=== PATIENT | female | born 1945 | race Two or more races ===

== ENCOUNTER 2017-01-28 06:21 | Day surgery (SDC) | payer MEDICARE, OTHER ==
--- NOTE | 2017-01-24 08:57 | Pre-Procedure Note/Attestation ---
Pre-Procedure Note/Attestation Complete Prior to Procedure Planned Procedure: right Procedure Narrative: 1- Cataract extraction with phaco and PC IOL implantation, right eye. 2- insertion of Malyugin ring, right eye. Indications for Procedure Pre-Operative Diagnosis: 1- Cataract right eye. Attestation I attest that I discussed the nature of the procedure; its benefits; risks and complications; and alternatives (and the risks and benefits of such alternatives ), prior to the procedure, with the patient (or the patient's legal accounts payable representative). I attest that, if there was a reasonable possibility of needing a blood transfusion, the patient (or the patient's legal accounts payable representative) was given the [place] Department [employer] Services standardized written summary, pursuant to the Rainer Negrita Blood Safety Act ([place] Health and Safety Code # 1645, as amended). I attest that I re-evaluated the patient just prior to the surgery and that there has been no change in the patient's H&P, except as documented below: RENETTA PRESSLEY Jan 24, 2017 08:57
[~2017-01-28] VITALS: Ht 167.6 cm; Wt 49.9 kg
[2017-01-28] VITALS (7 sets, daily range): BP systolic 110–143; BP diastolic 54–78
[~2017-01-28 06:21] MED LIST: Diclofenac Sod 0.1% Op Soln ONE; Gatifloxacin Opth Solution 0.5% RIGHT EYE SCH; Phenylephrine 10% Opth Soln 5ml ONE; Tetracaine 0.5% Opth Soln ONE; Tropicamide 1% Opth Soln ONE; Vigamox Opth Soln ONE
[2017-01-28] MEDS: Phenylephrine 10% Opth Soln 5ml RIGHT EYE SCH ×3 (06:51→07:15)
[2017-01-28] MEDS: Tropicamide 1% Opth Soln RIGHT EYE SCH ×3 (06:55→07:14)
[2017-01-28] MEDS: Tetracaine 0.5% Opth Soln RIGHT EYE SCH ×3 (06:55→07:13)
[2017-01-28] MEDS: Vigamox Opth Soln RIGHT EYE SCH ×3 (06:56→07:13)
[2017-01-28] MEDS: Diclofenac Sod 0.1% Op Soln RIGHT EYE SCH ×3 (06:56→07:14)
[2017-01-28] MEDS ORDERED: BSS 500ml btl ONE (07:02)
[2017-01-28] MEDS ORDERED: Dexamethasone 4mg/ml vial ONE (07:02)
[2017-01-28] MEDS ORDERED: Lidocaine 1% MPF 10mg/ml 5ml ONE (07:02)
[2017-01-28] MEDS ORDERED: EPINEPHrine 1mg/1ml Amp ONE (07:03)
[2017-01-28] MEDS ORDERED: Povidone-Iodine 5% opth solution ONE (07:03)
[2017-01-28] MEDS ORDERED: BSS 15ml BTL ONE (07:03)
[2017-01-28] MEDS ORDERED: Sodium Hyaluronate 10 mg/ml 0.85ml ONE (07:03)
[2017-01-28] MEDS ORDERED: Carbachol 0.01% Op Soln 1.5ml vial ONE (07:03)
[2017-01-28] MEDS ORDERED: LR 1000ml ONE (07:20)
[2017-01-28] MEDS ORDERED: Propofol 10mg/ml 20ml IV ONE (07:20)
[2017-01-28 07:40] LABS: ANION GAP 6 (5-15); CALCIUM 9.5 mg/dL (8.6-10.2); CARBON DIOXIDE 32 mEQ/L (20-30); CHLORIDE 105 mEQ/L (98-107); HEMOLYSIS 11; POTASSIUM 5.8 mEQ/L (3.4-4.9); SODIUM 143 mEQ/L (135-145)
[2017-01-28 07:41] LABS: MEAN CORPUSCULAR HEMOGLOBIN 35.1 PG (27.0-31.0); MEAN CORPUSCULAR VOLUME 106 FL (80-99); MEAN PLATELET VOLUME 11.9 FL (6.5-10.1); PLATELET COUNT 83 K/UL (150-450); RED BLOOD COUNT 4.04 M/UL (4.20-5.40); WHITE BLOOD COUNT 4.7 K/UL (4.8-10.8)
[2017-01-28] MEDS ORDERED: LR 1000ml 1,000 ML IVLG SCH (07:47)
--- NOTE | 2017-01-28 07:53 | Anethesia Preoperative Eval ---
Anesthesia Pre-op PMH/ROS General Date of Evaluation: Jan 28, 2017 Time of Evaluation: 07:20 Anesthesiologist: Anita ASA Score: ASA 2 Mallampati Score Class I : Soft palate, uvula, fauces, pillars visible Class II: Soft palate, uvula, fauces visible Class III: Soft palate, base of uvula visible Class IV: Only hard plate visible Mallampati Classification: Class II Surgeon: Jules Diagnosis: Cataract right eye Surgical Procedure: Extraction of cataract with IOL right eye Family History: no anesthesia problems Allergies: Uncoded Allergies: pain killers (Allergy, Severe, 01/28/17) Medications: see eMAR Past Medical History Cardiovascular: Denies: CAD, HTN, MS, arrhythmia, other, valve dz Pulmonary: Reports: asthma, Denies: COPD, WILLIAM, other Gastrointestinal/Genitourinary: Reports: other - Patient is unclear re: supposed liver disease. No evidence found to support the claim of liver disease., Denies: CRI, ESRD, GERD Neurologic/Psychiatric: Denies: CVA, TIA, dementia, depression/anxiety, other Endocrine: Denies: DM, hypothyroidism, other, steroids HEENT: Reports: cataract (R), Denies: FOND DU LAC (L), FOND DU LAC (R), cataract (L), glaucoma, other Hematology/Immune: Denies: DVT, anemia, bleeding disorder, other Musculoskeletal/Integumentary: Denies: DDD, DJD, OA, RA, edema, other PMH Narrative: Asthma PSxH Narrative: Cataract Anesthesia Pre-op Phys. Exam Physician Exam Last Vital Signs Date Time Temp Pulse Resp B/P Pulse Ox O2 Delivery O2 Flow Rate FiO2 01/28/17 07:04 97.5 60 18 113/66 100 Room Air Constitutional: NAD Neurologic: CN 2-12 intact Cardiovascular: RRR, no M/R/G Respiratory: CTA Gastrointestinal: S/NT/ND Airway Exam Mallampati Score: Class II MO: full ROM: full Teeth: intact Anesthesia Pre-op A/P Labs Hematology Test 01/28/17 06:55 White Blood Count 4.7 K/UL (4.8-10.8) L Red Blood Count 4.04 M/UL (4.20-5.40) L Hemoglobin 14.2 G/DL (12.0-16.0) Hematocrit 43.0 % (37.0-47.0) Mean Corpuscular Volume 106 FL (80-99) H Mean Corpuscular Hemoglobin 35.1 PG (27.0-31.0) H Mean Corpuscular Hemoglobin Concent 33.0 G/DL (32.0-36.0) Red Cell Distribution Width 12.0 % (11.6-14.8) Platelet Count 83 K/UL (150-450) L Mean Platelet Volume 11.9 FL (6.5-10.1) H Neutrophils (%) (Auto) % (45.0-75.0) Lymphocytes (%) (Auto) % (20.0-45.0) Monocytes (%) (Auto) % (1.0-10.0) Eosinophils (%) (Auto) % (0.0-3.0) Basophils (%) (Auto) % (0.0-2.0) Neutrophils % (Manual) Pending Lymphocytes % (Manual) Pending Platelet Estimate Pending Platelet Morphology Pending Chemistry Test 01/28/17 06:55 Sodium Level 143 mEQ/L (135-145) Potassium Level 5.8 mEQ/L (3.4-4.9) H Chloride Level 105 mEQ/L (98-107) Carbon Dioxide Level 32 mEQ/L (20-30) H Anion Gap 6 (5-15) Blood Urea Nitrogen 18 mg/dL (7-23) Creatinine 1.0 mg/dL (0.5-0.9) H Estimat Glomerular Filtration Rate mL/min (>60) Glucose Level 88 mg/dL (74-106) Calcium Level 9.5 mg/dL (8.6-10.2) Studies Pre-op Studies: EKG - Sinus taran with STTW abnormality in lateral leads...possible ischemia Risk Assessment & Plan Assessment: Cataract right eye Plan: TIVA Status Change Before Surgery: No Pre-Antibiotics Drug: None JASBIR SOMMER M.D. Jan 28, 2017 07:53
--- NOTE | 2017-01-28 07:54 | Immediate Post-Op Evaluation ---
Immediate Post-Op Evalulation Immediate Post-Op Evalulation Procedure: Extraction of cataract with IOL right eye Date of Evaluation: Jan 28, 2017 Time of Evaluation: 08:15 IV Fluids: 300 Blood Pressure Systolic: 133 Blood Pressure Diastolic: 60 Pulse Rate: 63 Respiratory Rate: 16 O2 Sat by Pulse Oximetry: 99 Temperature (Fahrenheit): 98.0 Pain Score (1-10): 0 Nausea: No Vomiting: No Complications No complication Patient Status: awake, patent, none Hydration Status: adequate Drug: None JASBIR SOMMER M.D. Jan 28, 2017 07:54
--- NOTE | 2017-01-28 08:13 | 48 Hour Post Anesthesia Eval ---
Post Anesthesia Evaluation Procedure: Extraction of cataract with IOL right eye Date of Evaluation: Jan 28, 2017 Time of Evaluation: 08:40 Pulse Rate: 60 Respiratory Rate: 17 O2 Sat by Pulse Oximetry: 99 Airway: patent Nausea: No Vomiting: No Pain Intensity: 0 Hydration Status: adequate Cardiopulmonary Status: Stable Mental Status/LOC: patient returned to baseline Follow-up Care/Observations: As per surgery Post-Anesthesia Complications: No anesthetic complication Follow-up care needed: N/A JASBIR SOMMER M.D. Jan 28, 2017 08:13
--- NOTE | 2017-01-28 08:13 | Discharge Summary ---
Discharge Summary Discharge Summary Discharge Summary DATE OF ADMISSION: 01/28/2017 DATE OF DISCHARGE: 01/28/2017 REASON FOR HOSPITALIZATION: Cataract, right eye SURGERY PERFORMED: Cataract extraction with phaco and PC IOL implantation, right eye CONDITION IN THE HOSPITAL:The patient tolerated the surgery without complications. DISCHARGE CONDITION: The patient was stable at discharge. DISCHARGE MEDICATIONS: 1. Vigamox eye drops one drop q.i.d, right eye 2. Prednisolone one drop q.i.d, right eye 3. Acular one drop, q4h, right eye POSTOPERATIVE ORDERS: The patient has to rest at home. No bending, No lifting, No watching Television tonight. POSTOPERATIVE FOLLOW UP: The patient will be followed in my office tomorrow morning at 7 o'clock. RENETTA PRESSLEY Jan 28, 2017 08:13
--- NOTE | 2017-01-28 08:16 | Brief Operative Note ---
Immediate Post Operative Note Operative Note Chief Complaint: Blurry vision, difficulty driving and reading, right eye Pre-op Diagnosis: 1- Cataract right eye. Procedure: cataract extraction with phaco and PC IOL implantation, right eye Post-op Diagnosis: same as pre-op Surgeon: Renetta Vicente MD. Special Education Classroom Aide: None Additional Surgeons: None Anesthesiologist: Dr. Bass Anesthesia: MAC Specimen: none Complications: none Condition: stable Estimated Blood Loss: none Drains: none Implant(s) used?: Yes - Monofocal PC iol implanted right eye without complication RENETTA VICENTE Jan 28, 2017 08:16
[2017-01-28 08:45] LABS: BASOPHILS % (MANUAL) 1 % (0-2); LYMPHOCYTES % (MANUAL) 14 % (20-45); NEUTROPHILS % (MANUAL) 81 % (45-75); TOTAL CELLS COUNTED 100
[2017-01-28 08:47] LABS: BAND NEUTROPHILS % (MANUAL) 0 % (0-8); EOSINOPHILS % (MANUAL) 0 % (0-3); PLATELET ESTIMATE DECREASED; PLATELET MORPHOLOGY NORMAL
[2017-01-28 08:49] LABS: MACROCYTES 1+
[2017-01-28] MEDS ORDERED: acetaZOLAMIDE 125mg tab ORAL ONE (09:30)
[2017-01-28] MEDS ORDERED: LR 1000ml 1,000 ML IV SCH (09:47)
--- NOTE | 2017-01-28 12:00 | Pre-op HX & Phy Repo 2 SIG ---
DATE OF ADMISSION: 01/28/2017 PRESURGICAL INTERNAL MEDICINE HISTORY AND PHYSICAL REASON FOR EVALUATION AND HISTORY OF PRESENT ILLNESS: I was asked by Dr. Isidoro Vicente, to see this 71-year-old female, who is going for elective surgery on the right eye. The patient has a cataract right eye. The patient was evaluated. Chart was reviewed. PAST MEDICAL HISTORY AND REVIEW OF SYSTEMS: Remarkable for bronchial asthma, COPD, history of heart problem and liver problem, cancer. The patient denies history of renal failure. No history of stomach problem or thyroid problem. No anemia. Denies history of diabetes or hypertension. No stroke. PAST SURGICAL HISTORY: Eye surgery and dilatation and curettage. FAMILY HISTORY: Mother from complication of pneumonia at age 96 and father from heart attack. ALLERGIES: To Advil and pain killer medication. MEDICATIONS: Current medications include prednisone, multiple inhalers, and oxygen at home. HABITS: The patient smoked for 60 years approximately a pack a day. Denies alcohol or street drug use. PHYSICAL EXAMINATION: GENERAL: Alert female. VITAL SIGNS: Blood pressure 113/66, pulse 87 regular, and O2 saturation 100% on room air. SKIN: Dry and warm. No rashes. No open ulcers. LYMPHATICS: Lymph nodes are not enlarged. HEENT: Head, normocephalic and atraumatic. Ears, clear. Eyes, full description per Dr. Isidoro Vicente. Mouth, clear and moist. No dentures. NECK: No jugular vein distention. Carotids artery +2. Trachea midline. CHEST: Mild kyphosis. Respiratory rate 18. Few rhonchi bilaterally. No wheezing. HEART: Regular rate, 2/6 systolic murmur on apex. ABDOMEN: Soft. No rebound. No mass. EXTREMITIES: No edema. No calf tenderness. Ecchymosis of the left meza. GENITOURINARY: No dysuria. No CVA tenderness. LABORATORY AND DIAGNOSTIC DATA: ECG, sinus bradycardia 56 per minute, left ventricular hypertrophy, possible left atrial enlargement, ST-T wave abnormality, consider lateral ischemia. Prolonged QT interval. Laboratory work pending. The patient did not eat or drink from 6 p.m. yesterday. IMPRESSION: 1. Cataract, right eye. 2. Chronic obstructive pulmonary disease. 3. Mitral valve insufficiency. 4. History of liver cancer, doubt. PLAN: Cataract extraction, right eye with intraocular lens implant per Dr. Isidoro Vicente. CONCLUSIONS: The patient is a smoker. She has COPD, on multiple inhalers. The patient has mitral valve insufficiency murmur and ischemia on ECG lateral. The patient did not eat or drink from last night. The patient's condition optimized for surgery. Thank you very much, Dr. Vicente, for privilege to participate in presurgical care of this interesting patient. Ileana Herman M.D. DR: ZAYDA JOB#: [id number] CC:
--- NOTE | 2017-01-28 17:15 | Operative Note - Dictated ---
DATE OF OPERATION: 01/28/2017 FACILITY: [facility]. SURGEON: Isidoro Vicente M.D. BRAND ACTIVATION MANAGER: None. ANESTHESIOLOGIST: Rainer Howard M.D. ANESTHESIA: Monitored anesthesia care (MAC). PREOPERATIVE DIAGNOSIS: Cataract, right eye. POSTOPERATIVE DIAGNOSIS: Cataract, right eye. SURGERY PERFORMED: Cataract extraction with phacoemulsification and posterior chamber intraocular lens implantation, right eye. INDICATIONS FOR SURGERY: The patient is a 71-year-old lady with history of high blood pressure, hypercholesterolemia, back strain, coronary artery disease, and . She is complaining of blurry vision. She said she is taking some medications including Diovan, temazepam , and Nexium. She is complaining of in the right eye. She is taking some other medications including prednisone tablets 5 mg a day, Montelukast, disopyramide, and mycophenolate mofetil. She is complaining of blurry vision in the right eye. On the examination of the right eye, the cornea is clear. Anterior chamber is clean and quiet. Pupillary reflexes normal. There is no RAPD. There is 3+ nuclear sclerosis and 2+ cortical cataract. The funduscopy shows normal optic disc, normal macula and periphery retina is flat. To improve her vision in the right eye, the cataract has to be removed and posterior chamber intraocular lens has to be implanted. INFORMED CONSENT: The nature of the surgery, risks, benefits, alternatives, and potential complications were explained all in detail to the patient. The potential complications including, but not limited to bleeding, infection, posterior capsular rupture, lens subluxation, flat anterior chamber, iris prolapse, uveitis, corneal edema, macular edema, endophthalmitis, retinal detachment, loss of vision, and even loss of the eye were all explained in detail to the patient in their language Farsi. The patient voiced understanding and accepted all the complications. The alternatives including accommodating lenses, multifocal lenses, toric lens, and conventional cataract surgery with limbal relaxing incision (LRI) for treatment of astigmatism were all explained in detail to the patient, who voiced understanding. The patient elected to have only conventional cataract surgery in the right eye. She she signed the consent form, which is in the chart. DESCRIPTION OF SURGERY AND FINDINGS: Following that, the patient was taken to the operative room in a stable condition. Lidocaine gel Akten 3.5% were applied to the conjunctivae of the right eye. IV sedation was given by the anesthesiologist, Dr. Howard. After adequate anesthesia and sedation had been achieved, then the right eye was prepped and draped in a sterile fashion for intraocular surgery. Following that, a speculum was placed in the right eye. Following that, with a SuperSharp knife, a clear corneal side port was created. A 1% lidocaine without preservative (MPF) was injected into the anterior chamber. Viscoelastic was injected into the anterior chamber. Following that, , corneal temporal site keratotomy was performed. Following that, Vision Blue was injected under the viscoelastic agent to stain the anterior capsule of . Following that, clear fresh viscoelastic agent Healon was injected into the anterior chamber again. Following that, under the viscoelastic agent, an anterior capsulotomy was performed in the fashion of capsulorrhexis beautifully. Following that, all viscoelastic agent was removed from the anterior chamber. Following that, hydrodissection and hydrodelineation was performed with balanced salt solution and the nucleus was freed in toto today. Following that, before the lens was removed, the lens with the . Balanced salt solution, hydrodissection and hydrodelineation was performed was performed and the nucleus was freed. . Cortical material was removed from the capsular bag. The capsular bag was polished. Following that, the capsular bag was filled with viscoelastic agent Healon. Following that, a +23 diopter ZCB00 foldable PCIOL with serial #[id number] was injected into the capsular bag. Using a Sinskey hook, the lens was manipulated within the proper position. Following that, all viscoelastic agent was removed from the anterior and posterior part of the lens. Anterior chamber was filled with balanced salt solution and the wound was hydrated with balanced salt solution. The wound was checked for leakage. There was no leakage. Vigamox eye drops were applied to the conjunctiva of the right eye. The patient tolerated the surgery without complications. At the end of the surgery, the eye was patched with a clear sterile fenestrated shield. Following that, the patient was transferred to the recovery room. In the recovery room, 125 mg Diamox was given by mouth stat. Postoperative orders and directions were given to the patient. The patient will be discharged home upon stabilization. The patient will be followed in my office tomorrow morning at 9 o' clock. Isidoro Vicente M.D. DR: MARCELLUS JOB#: [id number] CC:
== END 2017-01-28 09:05 | disposition home or self-care (01) ==
LOC: SUR 06:21
DX: H25.11 Age-related nuclear cataract, right eye (principal); H25.011 Cortical age-related cataract, right eye; J45.909 Unspecified asthma, uncomplicated; J44.9 Chronic obstructive pulmonary disease, unspecified; R00.1 Bradycardia, unspecified; I25.10 Atherosclerotic heart disease of native coronary artery without angina pectoris; E78.00 Pure hypercholesterolemia, unspecified; I34.0 Nonrheumatic mitral (valve) insufficiency; F17.210 Nicotine dependence, cigarettes, uncomplicated; Z85.05 Personal history of malignant neoplasm of liver; Z99.81 Dependence on supplemental oxygen; Z88.6 Allergy status to analgesic agent
CPT/HCPCS: 36415; 66984; 80048; 85007; 85025; J0171; J1100; J2704; J7120; V2632; 94003; 94150

== ENCOUNTER 2017-08-14 18:34 | Inpatient (IN) | payer OTHER, MEDICARE ==
[~2017-08-14] VITALS: Ht 165.1 cm; Wt 52.2 kg
[2017-08-14 18:55] VITALS: BP 107/47
[2017-08-14 18:57] LABS: BASOPHILS % (AUTO) 0.9 % (0.0-2.0); EOSINOPHILS % (AUTO) 0.3 % (0.0-3.0); HEMATOCRIT 40.2 % (37.0-47.0); HEMOGLOBIN 12.9 G/DL (12.0-16.0); MEAN CORPUSCULAR VOLUME 103 FL (80-99); MONOCYTES % (AUTO) 11.5 % (1.0-10.0); NEUTROPHILS % (AUTO) 79.3 % (45.0-75.0); PLATELET COUNT 130 K/UL (150-450); RED BLOOD COUNT 3.89 M/UL (4.20-5.40); WHITE BLOOD COUNT 7.3 K/UL (4.8-10.8)
[2017-08-14] MEDS: Ipratropium 0.02% Inh Soln 2.5ml UD HHN SCH ×3 (19:00→19:30)
[2017-08-14] MEDS ORDERED: ceFAZolin 1gm/50ml Premix 50 ML IV ONE (19:00)
[2017-08-14] MEDS: Albuterol ud Inhalation HHN SCH ×3 (19:00→19:30)
[2017-08-14 19:08] LABS: ANION GAP 0 mmol/L (5-15); BLOOD UREA NITROGEN 20 mg/dL (7-18); CARBON DIOXIDE 34 MMOL/L (21-32); CHLORIDE 101 MMOL/L (98-107); POTASSIUM 4.1 MMOL/L (3.5-5.1); SODIUM 135 MMOL/L (136-145)
[2017-08-14] MEDS ORDERED: ceFAZolin sod 1 GM in NS 55 ML IVP ONE (19:15)
--- NOTE | 2017-08-14 19:17 | Emergency Room Report ---
History of Present Illness General Chief Complaint: Dyspnea/Respdistress Source: Patient Present Illness HPI 72-year-old female, history of asthma, hypertension, presenting with bilateral feet swelling and pain, states that it has been that way for 3 days. Complaining of subjective fever and chills. States that she has never had swollen feet before. Also stated that had redness to feet. States that she has asthma, feeling slightly short of breath, not necessarily worse than her normal period since with one pillow. Has not taken any recent antibiotics. No history of DVT or PE pt also stating barely earing or drinking at home. lost a lot of weight Allergies: Coded Allergies: ASPIRIN (Verified Allergy, Unknown, 08/14/17) Uncoded Allergies: pain killers (Allergy, Severe, 01/28/17) Patient History Past Medical History: see triage record Past Surgical History: none Pertinent Family History: none Reviewed Nursing Documentation: PMH: Agreed, PSxH: Agreed Nursing Documentation-PMH Hx Cardiac Problems: No Hx Asthma: Yes Hx Cancer: No Hx Gastrointestinal Problems: No Hx Neurological Problems: No Review of Systems All Other Systems: negative except mentioned in HPI Physical Exam Vital Signs Date Time Temp Pulse Resp B/P (MAP) Pulse Ox O2 Delivery O2 Flow Rate FiO2 08/14/17 18:39 98.7 110 20 99/66 96 Room Air 98.8 Sp02 EP Interpretation: reviewed, normal General Appearance: alert, GCS 15, non-toxic, mild distress Head: normocephalic, atraumatic Eyes: bilateral eye normal inspection, bilateral eye PERRL, bilateral eye EOMI ENT: normal ENT inspection, normal pharynx, normal voice, moist mucus membranes Neck: normal inspection, full range of motion, supple Respiratory: no accessory muscle use, speaking full sentences, wheezing Cardiovascular #1: normal inspection, regular rate, rhythm, no edema, normal capillary refill Cardiovascular #2: 2+ radial (R), 2+ radial (L) Gastrointestinal: normal inspection, non tender, soft, non-distended, no guarding Musculoskeletal: other - Bilateral pedal edema, erythema, tender palpation, feels warm, distal pulses are intact Neurologic: normal inspection, alert, oriented x3, responsive, motor strength/ tone normal, sensory intact, normal gait, speech normal Psychiatric: normal inspection, judgement/insight normal, memory normal Skin: normal inspection, normal color, no rash, warm/dry, well hydrated, normal turgor Medical Decision Making Diagnostic Impression: Primary Impression: Bilateral lower leg cellulitis Additional Impressions: Asthma exacerbation Decrease in appetite CHF (congestive heart failure) ER Course 72-year-old female presenting with bilateral feet pain and swelling DDX: Appears to be bilateral lower extremity cellulitis No crepitus / pain out of proportion / rapid spreading for concern for nec fasc May also be be CHF, less likely to be DVT, bilateral lower extremity are equally swollen Also noted to be wheezing: Asthma exacerbation, viral URI, pneumonia Plan: Obtain labs, ua, EKG, CXR, nebs, steroids Antibiotics ER course: Patient initially wheezing, nebulizer offered but refused by patient states she does not need it right now she is speaking in complete sentences abx given also with CHF on XR, pt vitals normal Disposition: Patient is to be admitted to tele D/W hospitalist Dr Munoz Please note that this Emergency Department Report was dictated using [employer] ob[employer] technology software, occasionally this can lead to erroneous entry secondary to interpretation by the dictation equipment. EKG Diagnostic Results EP Interpretation: Yes Rate: normal Rhythm: NSR ST Segments: twi aVL only ASA given to patient: No Rhythm Strip EP Interpretation: Yes Rate: 96 Rhythm: NSR, no PVCs, no ectopy Chest X-ray CXR: Ordered: Yes 1 view Indication: Shortness of breath EP interpretation: Yes Interpretation: chf Impression: mild chf Electronically signed by Raina Hernandez MD Laboratory Tests Test 08/14/17 18:40 White Blood Count 7.3 K/UL (4.8-10.8) Red Blood Count 3.89 M/UL (4.20-5.40) L Hemoglobin 12.9 G/DL (12.0-16.0) Hematocrit 40.2 % (37.0-47.0) Mean Corpuscular Volume 103 FL (80-99) H Mean Corpuscular Hemoglobin 33.3 PG (27.0-31.0) H Mean Corpuscular Hemoglobin Concent 32.2 G/DL (32.0-36.0) Red Cell Distribution Width 12.0 % (11.6-14.8) Platelet Count 130 K/UL (150-450) L Mean Platelet Volume 10.1 FL (6.5-10.1) Neutrophils (%) (Auto) 79.3 % (45.0-75.0) H Lymphocytes (%) (Auto) 8.0 % (20.0-45.0) L Monocytes (%) (Auto) 11.5 % (1.0-10.0) H Eosinophils (%) (Auto) 0.3 % (0.0-3.0) Basophils (%) (Auto) 0.9 % (0.0-2.0) Sodium Level 135 MMOL/L (136-145) L Potassium Level 4.1 MMOL/L (3.5-5.1) Chloride Level 101 MMOL/L (98-107) Carbon Dioxide Level 34 MMOL/L (21-32) H Anion Gap 0 mmol/L (5-15) L Blood Urea Nitrogen 20 mg/dL (7-18) H Creatinine 1.0 MG/DL (0.55-1.30) Estimate Glomerular Filtration Rate mL/min (>60) Glucose Level 120 MG/DL (74-106) H Lactic Acid Level 1.20 mmol/L (0.66-2.22) Calcium Level 9.0 MG/DL (8.5-10.1) Total Bilirubin 0.7 MG/DL (0.2-1.0) Aspartate Amino Transferase (AST) 67 U/L (15-37) H Alanine Aminotransferase (ALT) 66 U/L (12-78) Alkaline Phosphatase 204 U/L (46-116) H Troponin I 0.025 ng/mL (0.000-0.056) Pro-B-Type Natriuretic Peptide 3309 pg/mL (0-125) H Total Protein 8.4 G/DL (6.4-8.2) H Albumin 2.7 G/DL (3.4-5.0) L Globulin 5.7 g/dL Albumin/Globulin Ratio 0.5 (1.0-2.7) L Last Vital Signs Date Time Temp Pulse Resp B/P (MAP) Pulse Ox O2 Delivery O2 Flow Rate FiO2 08/14/17 18:55 99 26 Room Air 08/14/17 18:55 98.7 107/47 100 98.7 Disposition: ADMITTED INPATIENT Condition: Serious Raina Hernandez M.D. Aug 14, 2017 19:17
[2017-08-14 19:20] LABS: ALANINE AMINOTRANSFERASE 66 U/L (12-78); ALBUMIN 2.7 G/DL (3.4-5.0); ALBUMIN/GLOBULIN RATIO 0.5 (1.0-2.7); ALKALINE PHOSPHATASE 204 U/L (46-116); ASPARTATE AMINO TRANSFERASE 67 U/L (15-37); BILIRUBIN,TOTAL 0.7 MG/DL (0.2-1.0)
[2017-08-14] MEDS ORDERED: Doxycycline 100mg Inj IV ONE (19:45)
[2017-08-14] MEDS ORDERED: Doxycycline Hyclate 100 MG in D5W 110 ML IVPB ONE (21:00)
[2017-08-14 22:41] LABS: APPEARANCE,URINE SLIGHTLY CLOUDY; BILIRUBIN, URINE 1+ (NEGATIVE); GLUCOSE, URINE (UA) NEGATIVE (NEGATIVE); KETONES,URINE 1+ (NEGATIVE); LEUKOCYTE ESTERASE ,URINE 1+ (NEGATIVE); NITRITE,URINE NEGATIVE (NEGATIVE); PH,URINE 5 (4.5-8.0); PROTEIN,URINE 1+ (NEGATIVE); UROBILINOGEN,URINE 8 MG/DL (0.0-1.0)
[2017-08-14 22:42] LABS: COLOR,URINE AMBER
[2017-08-14] MEDS ORDERED: Albuterol ud Inhalation HHN ONE (22:45)
[2017-08-14] MEDS ORDERED: Ipratropium 0.02% Inh Soln 2.5ml UD HHN ONE (22:45)
[2017-08-14 22:54] VITALS: BP 110/63
[2017-08-15] VITALS: BP 95/56
[2017-08-15] MEDS: Vancomycin 750mg/NS 250ml IVPB SCH (01:32)
[2017-08-15 04:00] VITALS: BP 130/91
[2017-08-15] MEDS ORDERED: guaiFENesin 100mg/5ml Liq ud ORAL PRN (06:45)
[2017-08-15 07:12] LABS: BASOPHILS % (AUTO) 1.1 % (0.0-2.0); EOSINOPHILS % (AUTO) 0.2 % (0.0-3.0); HEMATOCRIT 40.6 % (37.0-47.0); LYMPHOCYTES % (AUTO) 6.8 % (20.0-45.0); MEAN CORPUSCULAR VOLUME 105 FL (80-99); MONOCYTES % (AUTO) 8.4 % (1.0-10.0); NEUTROPHILS % (AUTO) 83.5 % (45.0-75.0); PLATELET COUNT 124 K/UL (150-450); RED BLOOD COUNT 3.85 M/UL (4.20-5.40); RED CELL DISTRIBUTION WIDTH 12.6 % (11.6-14.8); WHITE BLOOD COUNT 7.5 K/UL (4.8-10.8)
[2017-08-15 07:34] LABS: ANION GAP 1 mmol/L (5-15); BLOOD UREA NITROGEN 13 mg/dL (7-18); CALCIUM 8.4 MG/DL (8.5-10.1); CARBON DIOXIDE 32 MMOL/L (21-32); CHLORIDE 106 MMOL/L (98-107); CREATININE 0.9 MG/DL (0.55-1.30); PHOSPHORUS 3.6 MG/DL (2.5-4.9); POTASSIUM 4.3 MMOL/L (3.5-5.1); SODIUM 139 MMOL/L (136-145)
[2017-08-15 08:00] VITALS: BP 95/51
[2017-08-15] MEDS ORDERED: Heparin 5000 units/ml inj SUBQ SCH (09:00)
[2017-08-15] MEDS: Heparin 5000 units/ml inj SUBQ SCH ×2 (11:11→20:35)
[2017-08-15 12:00] VITALS: BP 109/55
--- NOTE | 2017-08-15 12:22 | Diagnostic Imaging Report ---
Indication: Shortness of breath Technique: One view of the chest Comparison: none Findings: The heart is enlarged. There is bilateral hilar fullness. There is bilateral bronchial wall thickening centrally. Lungs and pleural spaces are otherwise clear. There are mitral annular calcifications. Impression: Cardiomegaly Bilateral central bronchial wall thickening, suspect on the basis of chronic bronchitis/COPD changes No definite acute process otherwise Bilateral hilar fullness, suspected on the basis of prominent pulmonary arteries. Mass/adenopathy not excludable. Dr. Munoz notified of this at the time of interpretation
[2017-08-15] MEDS ORDERED: Albuterol/Ipratropium 3ml neb HHN PRN (13:00)
[2017-08-15] MEDS ORDERED: Promethazine/Codeine 5ml UD ORAL PRN (13:00)
--- NOTE | 2017-08-15 13:08 | Consultation ---
History of Present Illness General Date patient seen: Aug 08, 2017 Time patient seen: 13:00 Chief Complaint: Dyspnea/Respdistress Referring physician: dr Munoz Reason for Consultation: pulm consult for SOB, cough Present Illness HPI 72-year-old female, with PMH of COPD/asthma, CHF, smoker, presented with bilateral feet swelling , redness and pain for 3 days. she complained of subjective fever and chills. Never had swollen feet before Reported slight shortness of breath, recent loss of appetite and some weight loss Occasional cough, no hemoptysis, no chest pain, no palpitations admits to current smoking, for years, up to 1 pack a day No recent antibiotics. No history of DVT or PE In ED afebrile, VSS no leukocytosis, stable HH first troponin negative, second elevated-0.073 ECG with SR no acute ischemic changes pro BNP -3309 UA no UTI CXR with Bilateral hilar fullness, suspected on the basis of prominent pulmonary arteries. Mass/adenopathy not excludable. Patient was admitted for further management Allergies: Coded Allergies: ASPIRIN (Verified Allergy, Unknown, 08/14/17) Uncoded Allergies: pain killers (Allergy, Severe, 01/28/17) Patient History History Provided By: Patient Healthcare decision maker N Resuscitation status Advanced Directive on File No Past Medical/Surgical History Past Medical/Surgical History: (1) CHF (congestive heart failure) (2) COPD (chronic obstructive pulmonary disease) Review of Systems Constitutional: Reports: fever, weakness Eye: Reports: no symptoms ENT: Reports: no symptoms Respiratory: Reports: see HPI Cardiovascular: Reports: see HPI Gastrointestinal: Reports: no symptoms Genitourinary: Reports: no symptoms Musculoskeletal: Reports: no symptoms Skin: Reports: no symptoms Psychiatric: Reports: depressed feelings Neurological: Reports: no symptoms Endocrine: Reports: no symptoms Hematologic/Lymphatic: Reports: no symptoms Physical Exam General Appearance: no apparent distress, alert, other - thin elderly A/A/O x 3 female in NAD Lines, tubes and drains: peripheral HEENT: anicteric, mucous membranes moist Respiratory/Chest: lungs clear - with moderate air exchange , no respiratory distress, no accessory muscle use Cardiovascular/Chest: normal peripheral pulses, normal rate, regular rhythm - SR on tele Abdomen: normal bowel sounds, non tender, soft Extremities: other - + 1 edema BLE, no TTP, mild erythema Skin Exam: warm/dry Neurologic: no motor/sensory deficits, alert Last 24 Hour Vital Signs Date Time Temp Pulse Resp B/P (MAP) Pulse Ox O2 Delivery O2 Flow Rate FiO2 08/15/17 12:00 96.8 88 19 109/55 95 Nasal Cannula 2.0 08/15/17 08:00 98 08/15/17 08:00 96.8 94 19 95/51 96 Room Air 08/15/17 04:00 107 08/15/17 04:00 96.8 99 20 130/91 97 Nasal Cannula 2.0 08/15/17 00:00 104 08/15/17 00:00 97.7 104 20 95/56 93 Room Air 08/14/17 23:22 98 18 110/63 94 Room Air 08/14/17 22:58 96 18 98 Room Air 08/14/17 22:54 97.4 98 20 110/63 96 Room Air 97.4 08/14/17 22:46 95 24 Room Air 08/14/17 22:45 95 24 96 Room Air 08/14/17 18:55 99 26 Room Air 08/14/17 18:55 98.7 99 26 107/47 100 Room Air 98.7 08/14/17 18:39 98.7 110 20 99/66 96 Room Air 98.8 Intake and Output 08/14/17 08/15/17 19:00 07:00 Intake Total 350 ml Balance 350 ml Intake Oral 100 ml IV Total 250 ml # Voids 1 Laboratory Tests Test 08/14/17 18:40 08/14/17 20:00 08/15/17 06:10 White Blood Count 7.3 K/UL (4.8-10.8) 7.5 K/UL (4.8-10.8) Red Blood Count 3.89 M/UL (4.20-5.40) L 3.85 M/UL (4.20-5.40) L Hemoglobin 12.9 G/DL (12.0-16.0) 13.0 G/DL (12.0-16.0) Hematocrit 40.2 % (37.0-47.0) 40.6 % (37.0-47.0) Mean Corpuscular Volume 103 FL (80-99) H 105 FL (80-99) H Mean Corpuscular Hemoglobin 33.3 PG (27.0-31.0) H 33.8 PG (27.0-31.0) H Mean Corpuscular Hemoglobin Concent 32.2 G/DL (32.0-36.0) 32.1 G/DL (32.0-36.0) Red Cell Distribution Width 12.0 % (11.6-14.8) 12.6 % (11.6-14.8) Platelet Count 130 K/UL (150-450) L 124 K/UL (150-450) L Mean Platelet Volume 10.1 FL (6.5-10.1) 8.7 FL (6.5-10.1) Neutrophils (%) (Auto) 79.3 % (45.0-75.0) H 83.5 % (45.0-75.0) H Lymphocytes (%) (Auto) 8.0 % (20.0-45.0) L 6.8 % (20.0-45.0) L Monocytes (%) (Auto) 11.5 % (1.0-10.0) H 8.4 % (1.0-10.0) Eosinophils (%) (Auto) 0.3 % (0.0-3.0) 0.2 % (0.0-3.0) Basophils (%) (Auto) 0.9 % (0.0-2.0) 1.1 % (0.0-2.0) Sodium Level 135 MMOL/L (136-145) L 139 MMOL/L (136-145) Potassium Level 4.1 MMOL/L (3.5-5.1) 4.3 MMOL/L (3.5-5.1) Chloride Level 101 MMOL/L (98-107) 106 MMOL/L (98-107) Carbon Dioxide Level 34 MMOL/L (21-32) H 32 MMOL/L (21-32) Anion Gap 0 mmol/L (5-15) L 1 mmol/L (5-15) L Blood Urea Nitrogen 20 mg/dL (7-18) H 13 mg/dL (7-18) Creatinine 1.0 MG/DL (0.55-1.30) 0.9 MG/DL (0.55-1.30) Estimat Glomerular Filtration Rate mL/min (>60) mL/min (>60) Glucose Level 120 MG/DL (74-106) H 107 MG/DL (74-106) H Lactic Acid Level 1.20 mmol/L (0.66-2.22) Calcium Level 9.0 MG/DL (8.5-10.1) 8.4 MG/DL (8.5-10.1) L Total Bilirubin 0.7 MG/DL (0.2-1.0) Aspartate Amino Transf (AST/SGOT) 67 U/L (15-37) H Alanine Aminotransferase (ALT/SGPT) 66 U/L (12-78) Alkaline Phosphatase 204 U/L (46-116) H Troponin I 0.025 ng/mL (0.000-0.056) 0.073 ng/mL (0.000-0.056) Pro-B-Type Natriuretic Peptide 3309 pg/mL (0-125) H Total Protein 8.4 G/DL (6.4-8.2) H Albumin 2.7 G/DL (3.4-5.0) L Globulin 5.7 g/dL Albumin/Globulin Ratio 0.5 (1.0-2.7) L Urine Color Dyan Urine Appearance Slightly cloudy Urine pH 5 (4.5-8.0) Urine Specific [place] 1.025 (1.005-1.035) Urine Protein 1+ (NEGATIVE) H Urine Glucose (UA) Negative (NEGATIVE) Urine Ketones 1+ (NEGATIVE) H Urine Occult Blood 4+ (NEGATIVE) H Urine Nitrite Negative (NEGATIVE) Urine Bilirubin 1+ (NEGATIVE) H Urine Ictotest Positive Urine Urobilinogen 8 MG/DL (0.0-1.0) H Urine Leukocyte Esterase 1+ (NEGATIVE) H Urine RBC 5-10 /HPF (0 - 2) H Urine WBC 0-2 /HPF (0 - 2) Urine Squamous Epithelial Cells Many /LPF (NONE/OCC) H Urine Calcium Oxalate Crystals Moderate /LPF (NONE) Urine Bacteria Few /HPF (NONE) Phosphorus Level 3.6 MG/DL (2.5-4.9) Magnesium Level 1.7 MG/DL (1.8-2.4) L Height (Feet): 5 Height (Inches): 5.00 Weight (Pounds): 115 Medications Current Medications Medications (Trade) Dose Ordered Sig/Gautam Route PRN Reason Start Time Stop Time Status Last Admin Dose Admin Guaifenesin (Robitussin) 100 mg Q4H PRN ORAL For Cough 08/15/17 06:45 09/14/17 06:44 08/15/17 07:02 Heparin Sodium (Porcine) (Heparin 5000 units/ml) 5,000 units EVERY 12 HOURS SUBQ 08/15/17 09:00 09/14/17 08:59 08/15/17 11:11 Vancomycin HCl (Vanco rx to dose) 1 ea DAILY PRN MISC Per rx protocol 08/15/17 00:30 09/14/17 00:29 Vancomycin/Sodium Chloride 250 ml @ 166.667 mls/hr Q24H IVPB 08/15/17 02:00 08/20/17 01:59 08/15/17 01:32 Assessment/Plan Assessment/Plan ASSESSMENT acute asthma/ COPD exacerbation elevated troponin probable CHF SOB BLE edema possible cellulitis BLE nicotine dependency with withdrawal weight loss severe protein calorie malnutrition r/o lung mass ASSESSMENT tele supplemental O2, pulmonary toilet empiric antibiotics sputum cx IV steroids and taper trial of theophylline a/tussive prn Nicotine patch venous Duplex BLE CT chest will start empiric abx until seen by ID ID consult troponin in am ECHO cardio eval ECG no acute ischemic changes , pain management bowel regimen nutritional consult TSH no chest compression case discussed and evaluated by supervising physician Elmer Carrasco)Landy NP Aug 15, 2017 13:08
--- NOTE | 2017-08-15 14:22 | Cardiology Report ---
APPROVED REPORT EKG Measurement Heart [id number] NH [id number] Normal sinus rhythm with sinus arrhythmia Possible Left atrial enlargement Left ventricular hypertrophy with repolarization abnormality Abnormal ECG
--- NOTE | 2017-08-15 14:44 | Diagnostic Imaging Report ---
Clinical Indication: Shortness breath, cough, history of asthma, abnormal pulmonary katey on recent chest radiograph Technique: IV administration nonionic contrast. Spiral acquisition obtained through the chest. Multiplanar reconstructions generated. Total dose length product 564.31 mGycm. CTDIvol(s) 12.15 mGy. Dose reduction achieved using automated exposure control Comparison: 08/14/2017 chest radiograph Findings: Prominent tissue without carl adenopathy is seen in the right pulmonary hilum. There is mild prominence to the right main pulmonary artery. There is mild prominence to the right pulmonary veins and generalized enlargement of the left atrium. The combination of these findings account for the apparent hilar fullness demonstrated on recent chest radiograph. Similar but less striking findings are seen on the left. There is generalized cardiomegaly. There are mitral annular calcifications. There is evidence of mild anasarca, with diffuse mild edema of the subcutaneous fat, more striking edema of the mediastinal fat, and bilateral small pleural effusions. Evaluation of the lungs is somewhat limited due to respiratory motion artifact. There is generalized smoothness interstitial septal thickening. A few tiny bullae are seen in the right upper lobe. There is mild diffuse groundglass opacification of both lungs. Areas of atelectasis and/or scarring are seen at the lung bases. No definite consolidation. No masses or nodules are demonstrated. The esophagus is unremarkable. There is a 2 x 1 cm nodule in the right thyroid lobe. No axillary or chest wall mass or adenopathy. The bones demonstrate degenerative spondylosis and an L2 vertebral body hemangioma. The included abdominal anatomy is remarkable for hourglass shaped ectasia of the infrarenal abdominal aorta, not quite aneurysmal. The top of an endovenous stent is seen within the infrarenal inferior vena cava. There are small gallstones. Impression: No hilar mass or adenopathy demonstrated. Abnormal appearance to the pulmonary katey on recent chest radiograph mainly due to prominent pulmonary arteries, veins, and left atrium Anasarca, with diffuse mild edema subcutaneous fat, mediastinal fat, bilateral small pleural effusions Generalized interstitial septal thickening and parenchymal groundglass opacity, likely mild pulmonary edema related to the above Cardiomegaly Minimal bullous change in the right upper lobe Bilateral basilar parenchymal atelectatic changes 2 x 1 cm right thyroid lobe nodule. Consider further evaluation with thyroid sonography is indicated Cholelithiasis Ectatic but not quite aneurysmal infrarenal abdominal aorta Evidence of prior inferior vena cava stent placement Incidental findings of degenerative spondylosis, L2 vertebral body hemangioma The CT scanner at [facility] is accredited by the [employer] and the scans are performed using protocols designed to limit radiation exposure to as low as reasonably achievable to attain images of sufficient resolution adequate for diagnostic evaluation.
[2017-08-15] MEDS: Piperacillin/Tazobactam 3.375 GM in NS 110 ML IVPB SCH (15:32)
[2017-08-15 16:00] VITALS: BP 120/63
[2017-08-15] MEDS: Albuterol/Ipratropium 3ml neb INH SCH ×2 (16:32→19:29)
[2017-08-15] MEDS: Solu-MEDROL 125mg Inj IV SCH ×2 (18:47→23:30)
[2017-08-15 20:00] VITALS: BP 100/61
--- NOTE | 2017-08-15 22:45 | History and Physical Report ---
DATE OF ADMISSION: 08/14/2017 CHIEF COMPLAINT: The patient is a 72-year-old white female, presents with chief complaint of shortness of breath, fever, and bilateral feet swelling. HISTORY OF PRESENT ILLNESS: The patient has a history of chronic obstructive pulmonary disease. The patient presented to [place] emergency room complaining of a two-day history of fever and chills. The patient also had some shortness of breath. The patient also noted her feet have been more swollen than normal. The patient presented to [place] emergency room. The patient was admitted for shortness of breath and edema to rule out congestive heart failure. REVIEW OF SYSTEMS: CONSTITUTIONAL: The patient denies weight loss or weight gain. The patient denies fevers or chills. HEENT: The patient denies ear or throat pain. The patient denies headache. CARDIOVASCULAR: The patient denies palpitations or chest pain. CHEST: The patient complains of shortness of breath as above. The patient denies wheezes. ABDOMEN: The patient denies nausea, vomiting, diarrhea, or constipation. GENITOURINARY: The patient denies dysuria or increased frequency of urination. NEUROMUSCULAR: The patient denies seizures or generalized weakness. PAST MEDICAL HISTORY: Significant for: 1. Chronic obstructive pulmonary disease. 2. Hypertension. PAST SURGICAL HISTORY: Significant for: 1. Eye surgery in 01/2017. 2. D and C. CURRENT MEDICATIONS: 1. Prednisone of an unknown dose daily. 2. Albuterol metered-dose inhaler. ALLERGIES: To aspirin and pain killers. SOCIAL HISTORY: The patient is single. The patient previously smoked. The patient used to smoke one pack per day. The patient denies alcohol use. PHYSICAL EXAMINATION: VITAL SIGNS: Temperature 96.8, respirations 20, pulse 107, and blood pressure 130/91. GENERAL: The patient is a thin-appearing white female, in no apparent distress. HEENT: Eyes, pupils equal and responsive to light and accommodation. Extraocular movements are intact. NECK: Supple without lymphadenopathy. CHEST: Crackles in bilateral bases. Otherwise, clear to auscultation bilaterally without wheezes or rales. CARDIOVASCULAR: Regular rate. S1 and S2 normal without murmurs, rubs, or gallops. ABDOMEN: Soft, nontender, and nondistended. Positive bowel sounds. No evidence of hepatosplenomegaly. Currently, no rebound or guarding noted. EXTREMITIES: Negative for cyanosis. There is 1+ pitting edema bilaterally. LABORATORY STUDIES: WBC 7.3, hemoglobin 12.9, hematocrit 40.2, and platelets 130,000. Sodium 135, potassium 4.1, chloride 101, CO2 34, BUN 20, creatinine 1.0, and glucose 120. Troponin 0.025. BNP elevated at 3309. Chest x-ray revealed bilateral bronchial wall thickening consistent with chronic bronchitis or chronic obstructive pulmonary disease. ASSESSMENT: This is a 72-year-old white female: 1. Shortness of breath. 2. Fever. 3. Edema of the bilateral feet. 4. Chronic obstructive pulmonary disease. 5. Hypertension. TREATMENT: 1. Shortness of breath/chronic obstructive pulmonary disease. A Pulmonary consultation has been obtained with Dr. Jamal Medina. We will follow recommendations of Pulmonary. The patient is currently receiving albuterol nebulized q.4 h. p.r.n. 2. Edema of bilateral feet. The patient does have a history of congestive heart failure. A Cardiology consultation is pending with Dr. Philipp Ahmadi. 3. Hypertension. Romeo Tavares M.D. DR: ROSEANN JOB#: [id number] CC:
[2017-08-16] VITALS: BP 96/55
[2017-08-16] MEDS: Vancomycin 750mg/NS 250ml IVPB SCH (01:37)
[2017-08-16 04:00] VITALS: BP 93/60
[2017-08-16] MEDS: Piperacillin/Tazobactam 3.375 GM in NS 110 ML IVPB SCH (05:35)
[2017-08-16] MEDS: Solu-MEDROL 125mg Inj IV SCH ×3 (05:35→21:13)
[2017-08-16] MEDS: Albuterol/Ipratropium 3ml neb INH SCH ×4 (07:00→19:20)
[2017-08-16 08:00] VITALS: BP 89/57
[2017-08-16] MEDS: Heparin 5000 units/ml inj SUBQ SCH ×2 (08:25→21:00)
[2017-08-16 08:40] LABS: HEMATOCRIT 38.2 % (37.0-47.0); HEMOGLOBIN 12.2 G/DL (12.0-16.0); MEAN CORPUSCULAR VOLUME 107 FL (80-99); PLATELET COUNT 99 K/UL (150-450); RED BLOOD COUNT 3.58 M/UL (4.20-5.40); RED CELL DISTRIBUTION WIDTH 12.3 % (11.6-14.8); WHITE BLOOD COUNT 3.4 K/UL (4.8-10.8)
[2017-08-16] MEDS ORDERED: Theophylline ER 100mg ORAL SCH (09:00)
[2017-08-16 09:07] LABS: ANION GAP 4 mmol/L (5-15); BLOOD UREA NITROGEN 14 mg/dL (7-18); CALCIUM 9.1 MG/DL (8.5-10.1); CARBON DIOXIDE 31 MMOL/L (21-32); CHLORIDE 106 MMOL/L (98-107); CHOLESTEROL 120 MG/DL (< 200); HDL CHOLESTEROL 32 MG/DL (40-60); POTASSIUM 5.3 MMOL/L (3.5-5.1); SODIUM 141 MMOL/L (136-145); TRIGLYCERIDES 87 MG/DL (30-150)
[2017-08-16] MEDS ORDERED: Sodium Polystyrene Sulfonate 15gm Powder ORAL ONE ×2 (10:00→10:15)
--- NOTE | 2017-08-16 10:03 | Pulmonology Progress Note ---
Assessment/Plan Assessment/Plan ASSESSMENT acute asthma/ COPD exacerbation elevated troponin probable CHF with diastolic disfunction and mitral stenosis PVD BLE edema possible cellulitis BLE nicotine dependency with withdrawal moderate pulmonary HTN mild to moderate mitral regurgitation anorexia with weight loss ? autoimmune hepatitis HTN thrombocytopenia severe protein calorie malnutrition r/o lung mass-negative ASSESSMENT tele supplemental O2, pulmonary toilet empiric antibiotics sputum cx IV steroids and taper trial of theophylline a/tussive prn Nicotine patch venous Duplex BLE CT chest negative for malignancy poor appetite, which she attributed as a cause of weight loss add Marinol stool OB, stable HH dietary eval started on empiric abx for presumed cellulitis until seen by ID ID consult troponin negative, single episdoe of elevated troponin, insignificant , no cardiac complaints ECHO with pEF 70-75% and RVSP fo 60 c/w moderate pulm HTN , mild to moderate MR cardio follows ECG no acute ischemic changes , pain management bowel regimen nutritional consult TSH WNL Kayexalate for hyperkalemia can be transferred to [place] after cardio eval no chest compression case discussed and evaluated by supervising physician Subjective Allergies: Coded Allergies: ASPIRIN (Verified Allergy, Unknown, 08/14/17) Uncoded Allergies: pain killers (Allergy, Severe, 01/28/17) Subjective still SOB, wheezing, no leukocytosis, afebrile K-5.3 Objective Last 24 Hour Vital Signs Date Time Temp Pulse Resp B/P (MAP) Pulse Ox O2 Delivery O2 Flow Rate FiO2 08/16/17 08:00 96.6 68 20 89/57 99 Nasal Cannula 2.0 08/16/17 07:16 Nasal Cannula 1.0 24 08/16/17 07:15 Nasal Cannula 1.0 24 08/16/17 07:14 61 20 Nasal Cannula 1.0 24 08/16/17 04:00 72 08/16/17 04:00 97.7 67 23 93/60 98 Nasal Cannula 2.0 08/16/17 00:00 87 08/16/17 00:00 96.6 83 22 96/55 97 Nasal Cannula 2.0 08/15/17 20:00 99 08/15/17 20:00 97.7 99 22 100/61 94 Nasal Cannula 2.0 08/15/17 19:57 99 22 98 Nasal Cannula 3.0 32 08/15/17 19:50 97 20 96 Nasal Cannula 3.0 32 08/15/17 16:41 105 22 97 Nasal Cannula 3.0 32 08/15/17 16:32 108 22 96 Nasal Cannula 3.0 32 08/15/17 16:00 102 08/15/17 16:00 96.8 106 19 120/63 97 Nasal Cannula 2.0 08/15/17 12:00 89 08/15/17 12:00 96.8 88 19 109/55 95 Nasal Cannula 2.0 Intake and Output 08/15/17 08/16/17 19:00 07:00 Intake Total 352 ml 725 ml Balance 352 ml 725 ml Intake Oral 352 ml 436 ml IV Total 289 ml # Voids 1 1 Objective General Appearance: no apparent distress, alert, other - thin elderly A/A/O x 3 female in NAD Lines, tubes and drains: peripheral HEENT: anicteric, mucous membranes moist Respiratory/Chest: lungs clear - with moderate air exchange , no respiratory distress, no accessory muscle use Cardiovascular/Chest: normal peripheral pulses, normal rate, regular rhythm - SR on tele Abdomen: normal bowel sounds, non tender, soft Extremities: other - + 1 edema BLE, no TTP, mild erythema Skin Exam: warm/dry Neurologic: no motor/sensory deficits, alert Microbiology Date/Time Source Procedure Growth Status 08/15/17 14:14 Nasal Nares Influenza Types A,B Antigen (JOY) - Final Complete Laboratory Tests 08/16/17 06:50: White Blood Count 3.4#L, Red Blood Count 3.58L, Hemoglobin 12.2, Hematocrit 38.2 , Mean Corpuscular Volume 107H, Mean Corpuscular Hemoglobin 34.1H, Mean Corpuscular Hemoglobin Concent 32.0, Red Cell Distribution Width 12.3, Platelet Count 99L, Mean Platelet Volume 8.8, Neutrophils (%) (Auto) , Lymphocytes (%) ( Auto) , Monocytes (%) (Auto) , Eosinophils (%) (Auto) , Basophils (%) (Auto) , Differential Total Cells Counted 100, Neutrophils % (Manual) 91H, Lymphocytes % (Manual) 7L, Monocytes % (Manual) 2, Eosinophils % (Manual) 0, Basophils % ( Manual) 0, Band Neutrophils 0, Platelet Estimate DecreasedL, Platelet Morphology Normal, Macrocytosis 1+, Sodium Level 141, Potassium Level 5.3H, Chloride Level 106, Carbon Dioxide Level 31, Anion Gap 4L, Blood Urea Nitrogen 14, Creatinine 1.0, Estimat Glomerular Filtration Rate , Glucose Level 167H, Calcium Level 9.1, Troponin I 0.019, Pro-B-Type Natriuretic Peptide 4160H, Triglycerides Level 87, Cholesterol Level 120, LDL Cholesterol 84, HDL Cholesterol 32L, Cholesterol/HDL Ratio 3.8, Thyroid Stimulating Hormone (TSH) 0.751 Current Medications Medications (Trade) Dose Ordered Sig/Gautam Route PRN Reason Start Time Stop Time Status Last Admin Dose Admin Albuterol/ Ipratropium (Albuterol/ Ipratropium) 3 ml Q4H PRN HHN Shortness of Breath 08/15/17 13:00 08/20/17 12:59 Albuterol/ Ipratropium (Albuterol/ Ipratropium) 3 ml QIDRT INH 08/15/17 15:00 08/20/17 14:59 08/15/17 19:29 Guaifenesin (Robitussin) 100 mg Q4H PRN ORAL For Cough 08/15/17 06:45 09/14/17 06:44 08/15/17 07:02 Heparin Sodium (Porcine) (Heparin 5000 units/ml) 5,000 units EVERY 12 HOURS SUBQ 08/15/17 09:00 09/14/17 08:59 08/16/17 08:25 Methylprednisolone Sodium Succinate (Solu-MEDROL) 60 mg EVERY 6 HOURS IV 08/15/17 18:00 09/14/17 17:59 08/16/17 05:35 Nicotine (Nicoderm) 1 patch Q24H TDERMAL 08/15/17 14:00 09/14/17 13:59 08/15/17 15:31 Piperacillin Sod/ Tazobactam Sod 3.375 gm/Sodium Chloride 110 ml @ 27.5 mls/hr EVERY 8 HOURS IVPB 08/15/17 14:30 08/20/17 14:29 08/16/17 05:35 Promethazine HCl/ Codeine (Phenergan with Codeine) 5 ml Q4H PRN ORAL For Cough 08/15/17 13:00 09/14/17 12:59 Theophylline (Pritesh-Dur) 100 mg DAILY ORAL 08/16/17 09:00 09/15/17 08:59 08/16/17 08:20 Vancomycin HCl (Vanco rx to dose) 1 ea DAILY PRN MISC Per rx protocol 08/15/17 00:30 09/14/17 00:29 Vancomycin/Sodium Chloride 250 ml @ 166.667 mls/hr Q24H IVPB 08/15/17 02:00 08/20/17 01:59 08/16/17 01:37 Elmer (Praneeth)Landy NP Aug 16, 2017 10:03
[2017-08-16] MEDS ORDERED: Dronabinol 2.5mg Cap ORAL SCH (11:00)
--- NOTE | 2017-08-16 11:32 | Diagnostic Imaging Report ---
Indication: Dyspnea Comparison: 08/14/2017 A single view chest radiograph was obtained. Findings: Interstitial edema demonstrated, slightly worse. The heart is enlarged. Small left pleural effusion may be present. Bones are osteopenic. IMPRESSION: Left pleural effusion Mild interstitial edema slightly worsening.
[2017-08-16 12:00] VITALS: BP 96/54
--- NOTE | 2017-08-16 12:49 | Consultation ---
Consult Note Consult Note ID DIC # [id number] AILYN SHANNON M.D. Aug 16, 2017 12:49
--- NOTE | 2017-08-16 13:10 | Internal Med Progress Note ---
Subjective Date of Service: Aug 16, 2017 Physician Name Isaac Ortega Attending Physician Zeke Munoz MD Current Medications Medications (Trade) Dose Ordered Sig/Gautam Route PRN Reason Start Time Stop Time Status Last Admin Dose Admin Albuterol/ Ipratropium (Albuterol/ Ipratropium) 3 ml Q4H PRN HHN Shortness of Breath 08/15/17 13:00 08/20/17 12:59 Albuterol/ Ipratropium (Albuterol/ Ipratropium) 3 ml QIDRT INH 08/15/17 15:00 08/20/17 14:59 08/15/17 19:29 Dronabinol (Marinol) 2.5 mg DAILY ORAL 08/16/17 11:00 09/15/17 10:59 08/16/17 11:11 Guaifenesin (Robitussin) 100 mg Q4H PRN ORAL For Cough 08/15/17 06:45 09/14/17 06:44 08/15/17 07:02 Heparin Sodium (Porcine) (Heparin 5000 units/ml) 5,000 units EVERY 12 HOURS SUBQ 08/15/17 09:00 09/14/17 08:59 08/16/17 08:25 Levofloxacin 100 ml @ 100 mls/hr Q24H IVPB 08/16/17 13:00 08/23/17 12:59 UNV Methylprednisolone Sodium Succinate (Solu-MEDROL) 60 mg Q8HR IV 08/16/17 14:00 09/14/17 17:59 Nicotine (Nicoderm) 1 patch Q24H TDERMAL 08/15/17 14:00 09/14/17 13:59 08/15/17 15:31 Promethazine HCl/ Codeine (Phenergan with Codeine) 5 ml Q4H PRN ORAL For Cough 08/15/17 13:00 09/14/17 12:59 Theophylline (Pritesh-Dur) 100 mg DAILY ORAL 08/16/17 09:00 09/15/17 08:59 08/16/17 08:20 Allergies: Coded Allergies: ASPIRIN (Verified Allergy, Unknown, 08/14/17) Uncoded Allergies: pain killers (Allergy, Severe, 01/28/17) ROS Limited/Unobtainable: No Constitutional: Reports: no symptoms HEENT: Reports: no symptoms Cardiovascular: Reports: no symptoms Respiratory: Reports: no symptoms Gastrointestinal/Abdominal: Reports: no symptoms Genitourinary: Reports: no symptoms Neurologic/Psychiatric: Reports: no symptoms Subjective 72 YO F admitted with shortness of breath. C/O bilat feet swelling. Cover for Int Janice Munoz Objective Last Vital Signs Date Time Temp Pulse Resp B/P (MAP) Pulse Ox O2 Delivery O2 Flow Rate FiO2 08/16/17 11:34 Room Air 08/16/17 11:33 78 20 24 08/16/17 08:00 96.6 89/57 99 2.0 General Appearance: WD/WN, no apparent distress, alert EENT: PERRL/EOMI, normal ENT inspection, TMs normal Neck: non-tender, normal alignment, supple, normal inspection Cardiovascular: normal peripheral pulses, normal rate, regular rhythm, no gallop/murmur, no JVD Respiratory/Chest: chest wall non-tender, lungs clear, normal breath sounds, no respiratory distress, no accessory muscle use Abdomen: normal bowel sounds, non tender, soft, no organomegaly, no mass Extremities: normal range of motion, non-tender Edema: trace edema Neurologic: clinical program manager II-XII grossly normal, no motor/sensory deficits Skin: normal pigmentation, warm/dry Laboratory Tests Test 08/16/17 06:50 White Blood Count 3.4 K/UL (4.8-10.8) #L Red Blood Count 3.58 M/UL (4.20-5.40) L Hemoglobin 12.2 G/DL (12.0-16.0) Hematocrit 38.2 % (37.0-47.0) Mean Corpuscular Volume 107 FL (80-99) H Mean Corpuscular Hemoglobin 34.1 PG (27.0-31.0) H Mean Corpuscular Hemoglobin Concent 32.0 G/DL (32.0-36.0) Red Cell Distribution Width 12.3 % (11.6-14.8) Platelet Count 99 K/UL (150-450) L Mean Platelet Volume 8.8 FL (6.5-10.1) Neutrophils (%) (Auto) % (45.0-75.0) Lymphocytes (%) (Auto) % (20.0-45.0) Monocytes (%) (Auto) % (1.0-10.0) Eosinophils (%) (Auto) % (0.0-3.0) Basophils (%) (Auto) % (0.0-2.0) Differential Total Cells Counted 100 Neutrophils % (Manual) 91 % (45-75) H Lymphocytes % (Manual) 7 % (20-45) L Monocytes % (Manual) 2 % (1-10) Eosinophils % (Manual) 0 % (0-3) Basophils % (Manual) 0 % (0-2) Band Neutrophils 0 % (0-8) Platelet Estimate Decreased L Platelet Morphology Normal Macrocytosis 1+ Sodium Level 141 MMOL/L (136-145) Potassium Level 5.3 MMOL/L (3.5-5.1) H Chloride Level 106 MMOL/L (98-107) Carbon Dioxide Level 31 MMOL/L (21-32) Anion Gap 4 mmol/L (5-15) L Blood Urea Nitrogen 14 mg/dL (7-18) Creatinine 1.0 MG/DL (0.55-1.30) Estimat Glomerular Filtration Rate mL/min (>60) Glucose Level 167 MG/DL (74-106) H Calcium Level 9.1 MG/DL (8.5-10.1) Troponin I 0.019 ng/mL (0.000-0.056) Pro-B-Type Natriuretic Peptide 4160 pg/mL (0-125) H Triglycerides Level 87 MG/DL (30-150) Cholesterol Level 120 MG/DL (< 200) LDL Cholesterol 84 mg/dL (<100) HDL Cholesterol 32 MG/DL (40-60) L Cholesterol/HDL Ratio 3.8 (3.3-4.4) Thyroid Stimulating Hormone (TSH) 0.751 uiU/mL (0.358-3.740) Hepatitis A IgM Antibody Pending Hepatitis B Surface Antigen Pending Hepatitis B Core IgM Antibody Pending Hepatitis C Antibody Pending HIV (1&2) Antibody Rapid Pending Microbiology Date/Time Source Procedure Growth Status 08/14/17 18:40 Blood Blood Culture - Preliminary NO GROWTH AFTER 24 HOURS Resulted 08/14/17 18:30 Blood Blood Culture - Preliminary NO GROWTH AFTER 24 HOURS Resulted 08/15/17 14:14 Nasal Nares Influenza Types A,B Antigen (JOY) - Final Complete Intake and Output 08/15/17 08/16/17 19:00 07:00 Intake Total 352 ml 725 ml Balance 352 ml 725 ml Intake Oral 352 ml 436 ml IV Total 289 ml # Voids 1 1 Assessment/Plan Problem List: (1) Dyspnea (2) HTN (hypertension) (3) COPD (chronic obstructive pulmonary disease) Assessment & Plan: Cont prn nebs and IV solumedrol (4) CHF (congestive heart failure) Assessment & Plan: See cardiology note. (5) Bilateral lower leg cellulitis (6) Edema of both feet Assessment & Plan: Await venous duplex doppler Status: not improved ISAAC ORTEGA Aug 16, 2017 13:10
--- NOTE | 2017-08-16 15:39 | Cardiology Progress Note ---
Assessment/Plan Assessment/Plan chf ms pvd tobacco use do hep c auto immune hepttitis ? cirrhosis thrombocytopenia will review echo diuretic [id number] Objective Last 24 Hour Vital Signs Date Time Temp Pulse Resp B/P (MAP) Pulse Ox O2 Delivery O2 Flow Rate FiO2 08/16/17 12:00 96.3 71 22 96/54 96 Nasal Cannula 2.0 08/16/17 12:00 73 08/16/17 11:34 Room Air 08/16/17 11:34 Room Air 08/16/17 11:33 78 20 Room Air 24 08/16/17 08:00 96.6 68 20 89/57 99 Nasal Cannula 2.0 08/16/17 08:00 76 08/16/17 07:16 Nasal Cannula 1.0 24 08/16/17 07:15 Nasal Cannula 1.0 24 08/16/17 07:14 61 20 Nasal Cannula 1.0 24 08/16/17 06:30 Nasal Cannula 1.0 24 08/16/17 04:00 72 08/16/17 04:00 97.7 67 23 93/60 98 Nasal Cannula 2.0 08/16/17 00:00 87 08/16/17 00:00 96.6 83 22 96/55 97 Nasal Cannula 2.0 08/15/17 20:00 99 08/15/17 20:00 97.7 99 22 100/61 94 Nasal Cannula 2.0 08/15/17 19:57 99 22 98 Nasal Cannula 3.0 32 08/15/17 19:50 97 20 96 Nasal Cannula 3.0 32 08/15/17 16:41 105 22 97 Nasal Cannula 3.0 32 08/15/17 16:32 108 22 96 Nasal Cannula 3.0 32 08/15/17 16:00 102 08/15/17 16:00 96.8 106 19 120/63 97 Nasal Cannula 2.0 Intake and Output 08/15/17 08/16/17 19:00 07:00 Intake Total 352 ml 725 ml Balance 352 ml 725 ml Intake Oral 352 ml 436 ml IV Total 289 ml # Voids 1 2 # Bowel Movements 1 Laboratory Tests Test 08/16/17 06:50 White Blood Count 3.4 K/UL (4.8-10.8) #L Red Blood Count 3.58 M/UL (4.20-5.40) L Hemoglobin 12.2 G/DL (12.0-16.0) Hematocrit 38.2 % (37.0-47.0) Mean Corpuscular Volume 107 FL (80-99) H Mean Corpuscular Hemoglobin 34.1 PG (27.0-31.0) H Mean Corpuscular Hemoglobin Concent 32.0 G/DL (32.0-36.0) Red Cell Distribution Width 12.3 % (11.6-14.8) Platelet Count 99 K/UL (150-450) L Mean Platelet Volume 8.8 FL (6.5-10.1) Neutrophils (%) (Auto) % (45.0-75.0) Lymphocytes (%) (Auto) % (20.0-45.0) Monocytes (%) (Auto) % (1.0-10.0) Eosinophils (%) (Auto) % (0.0-3.0) Basophils (%) (Auto) % (0.0-2.0) Differential Total Cells Counted 100 Neutrophils % (Manual) 91 % (45-75) H Lymphocytes % (Manual) 7 % (20-45) L Monocytes % (Manual) 2 % (1-10) Eosinophils % (Manual) 0 % (0-3) Basophils % (Manual) 0 % (0-2) Band Neutrophils 0 % (0-8) Platelet Estimate Decreased L Platelet Morphology Normal Macrocytosis 1+ Sodium Level 141 MMOL/L (136-145) Potassium Level 5.3 MMOL/L (3.5-5.1) H Chloride Level 106 MMOL/L (98-107) Carbon Dioxide Level 31 MMOL/L (21-32) Anion Gap 4 mmol/L (5-15) L Blood Urea Nitrogen 14 mg/dL (7-18) Creatinine 1.0 MG/DL (0.55-1.30) Estimat Glomerular Filtration Rate mL/min (>60) Glucose Level 167 MG/DL (74-106) H Calcium Level 9.1 MG/DL (8.5-10.1) Troponin I 0.019 ng/mL (0.000-0.056) Pro-B-Type Natriuretic Peptide 4160 pg/mL (0-125) H Triglycerides Level 87 MG/DL (30-150) Cholesterol Level 120 MG/DL (< 200) LDL Cholesterol 84 mg/dL (<100) HDL Cholesterol 32 MG/DL (40-60) L Cholesterol/HDL Ratio 3.8 (3.3-4.4) Thyroid Stimulating Hormone (TSH) 0.751 uiU/mL (0.358-3.740) Hepatitis A IgM Antibody Pending Hepatitis B Surface Antigen Pending Hepatitis B Core IgM Antibody Pending Hepatitis C Antibody Pending HIV (1&2) Antibody Rapid Negative (NEGATIVE) Microbiology Date/Time Source Procedure Growth Status 08/14/17 18:40 Blood Blood Culture - Preliminary NO GROWTH AFTER 24 HOURS Resulted 08/14/17 18:30 Blood Blood Culture - Preliminary NO GROWTH AFTER 24 HOURS Resulted 08/15/17 14:14 Nasal Nares Influenza Types A,B Antigen (JOY) - Final Complete ALICE DICKSON Aug 16, 2017 15:39
[2017-08-16 16:00] VITALS: BP 101/60
--- NOTE | 2017-08-16 16:30 | Consultation ---
DATE OF CONSULTATION: 08/16/2017 INFECTIOUS DISEASES CONSULTATION CONSULTING PHYSICIAN: Cezar Hayes M.D REFERRING PHYSICIANS: 1. Salma Boucher M.D. 2. Romeo Tavares M.D. REASON FOR CONSULTATION: Evaluation of the patient for COPD exacerbation, fever, and possible cellulitis to lower extremities. HISTORY OF PRESENT ILLNESS: This is a 72-year-old female with multiple medical problems, who was admitted to this medical center with chief complaint of fever, chills, and weakness. The patient was found to have lower extremity edema that has apparently improved since admission. The patient has some cough. Infectious Diseases consultation has been requested for further evaluation of the patient and antibiotic management. PAST MEDICAL HISTORY: 1. COPD. 2. Hypertension. MEDICATIONS: Solu-Medrol, Zosyn, and vancomycin. ALLERGIES: Aspirin. FAMILY HISTORY: Noncontributory. REVIEW OF SYSTEMS: A 10-point review was done and except what is mentioned above has been negative. PHYSICAL EXAMINATION: VITAL SIGNS: Temperature 96 degrees, pulse 86, respiratory rate 18, and blood pressure 89/57. HEENT: No pale conjunctivae. No icterus. NECK: No lymphadenopathy. CHEST: Coarse breathing sounds. HEART: S1 and S2. ABDOMEN: Soft. EXTREMITIES: No cyanosis at this time. NEUROLOGIC: Awake. LABORATORY AND DIAGNOSTIC DATA: White blood cells 3.4, hemoglobin 12, and platelets 99,000. UA unremarkable. Influenza A/B negative. Blood culture, no growth. Chest x-ray, small left pleural effusion, mild interstitial edema. CT of the chest: 1. No hilar adenopathy. 2. Anasarca. 3. Thyroid nodule. 4. Cholelithiasis. ASSESSMENT: 1. Pancytopenia. 2. Rule out cirrhosis. 3. Rule out human immunodeficiency virus. 4. Rule out hepatitis B and C. 5. Chronic obstructive pulmonary disease exacerbation. PLAN: 1. We will change antibiotics to Levaquin day #07/04. 2. Flu screening. 3. HIV screen. 4. Hepatitis B/C screen. 5. Monitor chest x-ray. 6. Monitor BMP. 7. Monitor cultures (blood, sputum). 8. Based on the patient's clinical course and labs, we will do further recommendation. Thank you, for allowing me to participate in the care of this patient. I will follow the patient with you during this hospitalization. Cezar Hayes M.D. DR: Parker JOB#: [id number] CC:
[2017-08-16] MEDS ORDERED: Tubing IV Secondary IV ONE (17:17)
[2017-08-16 20:00] VITALS: BP 96/53
--- NOTE | 2017-08-16 22:15 | Consultation ---
DATE OF CONSULTATION: 08/16/2017 CARDIOLOGY CONSULTATION REFERRING PHYSICIAN: Zeke Munoz M.D. REASON FOR REFERRAL: Shortness of breath. HISTORY OF PRESENT ILLNESS: This is an elderly female who is also known by Bryan. She has previously been evaluated and treated by another deputy sheriff k9 handler, , who she had seen in sometime now. The patient presents with increasing shortness of breath over the past five to seven days with increasing leg edema for that duration. Does not have any PND, uses two pillows to sleep with, mainly sleeps on the couch because of watching TV at home. Nevertheless, she presented to the hospital because of the shortness of breath and significant amount of swelling that was involving her foot. No pain, pressure, tightness, or heaviness. She has occasional dizziness or lightheadedness on standing. PAST MEDICAL HISTORY: Positive according to the patient for history of hepatitis C, which she contracted from her and vascular disease that was treated apparently by . Her past medical history according to [facility] records is positive for history of mitral stenosis with a peak gradient of 28 and mean gradient of 14 as of January 2017 with hyperdynamic systolic function. She has history of COPD, on home O2 occasionally, paroxysmal episode of history of atrial fibrillation, autoimmune hepatitis, hepatitis C apparently resolved, and possibility [facility] 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 ALLERGIES: She is allergic to the [facility] indicate that Tylenol, aspirin, Motrin, penicillins, although she has her armband indicating she is allergic to "all pain medications." SOCIAL HISTORY: The patient has extensive history of smoking that she has cut down approximately two weeks ago, sometime two to three packs per day for multiple number of years and never drank alcoholic beverages. Does not use any drugs. She lives with her son and no drug use. REVIEW OF SYSTEMS: GASTROINTESTINAL: She denies. GENITOURINARY: She denies. PULMONARY: She only coughs occasionally in the middle of the night. CONSTITUTIONAL: Negative. NEUROLOGICAL: Negative. PHYSICAL EXAMINATION: GENERAL: Shows to be thin, elderly female, in no respiratory distress. HEENT: Unremarkable. NECK: Supple. No jugular venous distention noted. LUNGS: Clear to auscultation and percussion. CARDIAC: Holosystolic regurgitant murmur is noted with diastolic rumble. ABDOMEN: Soft and nontender. Positive bowel sounds. EXTREMITIES: There is really no significant clubbing, cyanosis, nor is there any edema. NEUROLOGICAL: She is awake, alert, responsive, and in no respiratory distress. LABORATORY AND DIAGNOSTIC DATA: White count of 3.4, hemoglobin 12.2, and platelet count of 99,000. She has had platelet counts as low as 83,000 and as high as 134,000. Sodium is 141, potassium 5.3, chloride 106, bicarbonate 31, BUN 14, creatinine 1.0, and glucose of 167. Troponin of 0.073, subsequent 0.19. ProBNP of 4100. Total cholesterol 120. TSH of 0.75. Urinalysis is 5 to 10 rbc's and 0 to 2 wbc's. Chest x-ray performed shows left pleural effusion, interstitial edema, and enlarged heart. CT scan of her chest was performed and basically showed no hilar masses or adenopathy. Prominent pulmonary arteries and veins in left atrium, anasarca, cardiomegaly, bullous changes, atelectasis, thyroid nodule, cholelithiasis, ectatic infrarenal abdominal aorta, "prior IVC stent" placement, ectopic sinus rhythm. Venous duplex study of the lower extremities negative. The EKG shows sinus with incomplete right bundle-branch conduction defect. ASSESSMENT AND PLAN: 1. Likely congestive heart failure. 2. History of mitral stenosis. 3. Peripheral vascular disease. 4. Tobacco use disorder. 5. Hepatitis C history. 6. Autoimmune hepatitis history. 7. Questionable cirrhosis per history. 8. Thrombocytopenia. This patient was seen in cardiac consultation. The patient's data from [facility] reviewed. It looks like she has a fair amount of mitral stenosis that may need to be addressed as a cause of her present symptoms of congestive heart failure. She is already improved with diuretics that she has already received. Her echocardiogram that was performed last in 2014 showed systolic anterior motion of the mitral valve with left ventricular gradient of 62 with a peak gradient of 28 and mean gradient of 14 at that time across the mitral valve with ejection fraction of 60% to 80%. She does sound murmur that she has hyperdynamic LV function, which is likely a cause of her systolic murmur. I will review the echocardiogram that she had here yesterday to confirm that the mitral stenosis has indeed worsened since the levels from 2015 in which case she will at some point require treatment of the mitral valve. Further recommendations will be provided once I have had a chance to review the echo. Philipp Ahmadi M.D. DR: Mariano JOB#: [id number] CC:
--- NOTE | 2017-08-20 08:17 | Discharge Summary ---
Discharge Summary Hospital Course Date of Admission Aug 14, 2017 at 19:47 Date of Discharge Aug 16, 2017 at 23:22 Admitting Diagnosis CELLULITIS HPI Mayra Ott is a 72 year old female who was admitted on Aug 14, 2017 at 19:47 for Cellulitis Hospital Course dc summary #[id number] Discharge Discharge Disposition Patient signed AMA Discharge Diagnoses: Elmer ([facility]),Landy KNIGHT Aug 20, 2017 08:17
--- NOTE | 2017-08-20 13:55 | Cardiology Report ---
APPROVED REPORT EXAM: Two-dimensional and M-mode echocardiogram with Doppler and color Doppler. INDICATION SOB M-Mode DIMENSIONS IVSd2.1 (0.7-1.1cm)Left Atrium (MM)4.2 (1.6-4.0cm) LVDd4.0 (3.5-5.6cm)Aortic Root3.0 (2.0-3.7cm) PWd1.5 (0.7-1.1cm)Aortic Cusp Exc.1.7 (1.5-2.0cm) IVSs3.2 cm LVDs2.4 (2.5-4.0cm) PWs1.2 cm Normal left ventricular chamber size, systolic function and wall motion. Left ventricular ejection fraction estimated to be 70-75 %. Moderate to severe left ventricular hypertrophy by 2-D. Trivial posterior pericardial effusion. Echogenic material noted on posterior mitral valve leaflet. Moderate Left atrial enlargement. Right cardiac chamber sizes are within normal limits. Focal aortic valve sclerosis with adequate cusp excursion. Heavy Thickened mitral valve leaflets with normal excursion. Heavy Mitral annulus and aortic root calcification. Normal pulmonic valve structure . Normal tricuspid valve structure. IVC at size 1.7 cm with physiologic collapse . A color flow and spectral Doppler study was performed and revealed: No aortic regurgitation. Mild to moderate mitral regurgitation. Mild tricuspid regurgitation. Tricuspid systolic velocities suggests peak right ventricular systolic pressure of 60mmHg, consistent with moderate pulmonary hypertension. Trace Pulmonic regurgitation present.
--- NOTE | 2017-08-20 16:30 | Discharge Summary 2 SIG ---
DATE OF ADMISSION: 08/14/2017 DATE OF DISCHARGE: 08/16/2017 REASON FOR ADMISSION: 72-year-old female with past medical history of chronic obstructive pulmonary disease, congestive heart failure, mitral stenosis, tobacco user, peripheral vascular disease, and hypertension, presented to the emergency department with bilateral feet swelling and pain for three days. She also reported subjective fever and chills along with shortness of breath. No chest pain. No history of DVT or PE. No recent antibiotic use. The patient also reported decrease in appetite and some weight loss recently due to poor oral intake. Vital signs in the emergency department revealed tachycardia -110, afebrile. EKG revealed normal sinus rhythm with T-wave inversion at aVL only. Chest x-ray revealed mild congestive heart failure. No leukocytosis. Stable hemoglobin and hematocrit. Platelets slightly down to 130,000. Stable electrolytes. Lactic acid within normal limits. Troponin negative. Pro BN [id number]. The patient was admitted with diagnoses of bilateral lower extremities cellulitis, asthma exacerbation, and congestive heart failure. HOSPITAL COURSE: The patient was admitted to telemetry floor. Cardiology, Pulmonology, and ID consults were requested. Supplemental oxygen provided as needed to keep pulse oximetry above 92%. The patient was started on the IV steroids and trial of theophylline. The patient was started on empiric antibiotics. Sputum culture was negative. Blood culture were negative. Influenza screen test was negative. ID seen and evaluated the patient and optimized antibiotic regimen. Hepatitis B and C screen were ordered along with HIV screen. The patient was pancytopenic. Hepatitis panel came back negative for hepatitis B and C infection , negative HIV test. Venous duplex of bilateral lower extremities was negative. The patient was started on nicotine patch and career technical counselor on smoking cessation. Initial chest x-ray showed bilateral hilar fullness suspected on the basis of prominent pulmonary artery. Mass or adenopathy was not excludable. The patient subsequently undergone CT of the chest to rule out mass. It revealed no hilar mass or adenopathy. Abnormal appearance of the pulmonary katey was mainly due to prominent pulmonary arteries, veins, and left atrium. Anasarca with diffuse mild edema subcutaneous noted along with cardiomegaly. Minimal bullous changes in the right upper lobe demonstrated. Cardiology consult was requested. The patient had a single episode of elevated troponin. After initial negative troponin, troponin was minimally elevated - 0.073 and back to normal again -0.019. Single episode of elevated troponin was insignificant. The patient had no cardiac complaints. [employer] seen and evaluated the patient and was awaiting for ECHO to compare with previous, done at [facility] for further recommendations, Echocardiogram revealed preserved ejection fraction of 70% to 75%, evidence of moderate pulmonary hypertension with right ventricular systolic pressure of 60, and [id number] mitral regurgitation. The patient also had evidence of mitral stenosis. EKG revealed no acute ischemic changes. Pain management provided. Bowel regimen instituted. Nutritional consult was requested. Hyperkalemia was treated with Kayexalate. The patient with no chest compression code status. Marinol was added to medication regimen. The patient decided to sign against medical advice. She stated that all previous care and hospitalization were done at [facility], and she preferred to go there for further management. The risks and consequences of signing against medical advice were discussed with the patient. The patient verbalized understanding, signed the consent and left. FINAL DIAGNOSES: 1. Acute asthma/chronic obstructive pulmonary disease exacerbation. 2. Single episode of elevated troponin. 3. Probable congestive heart failure with diastolic dysfunction and mitral stenosis. 4. Moderate pulmonary hypertension. 5. Nicotine dependency with withdrawal. 6. [id number] mitral regurgitation. 7. Peripheral vascular disease. 8. Bilateral lower extremities edema. 9. Possible cellulitis of bilateral lower extremities. 10. Anorexia with weight loss. 11. Thrombocytopenia. 12. Hypertension. 13. Severe protein-calorie malnutrition. Zeke Munoz M.D. Landy Carbajalgunnar N.PHunter DR: KVNG JOB#: [id number] CC: CHIKI
--- NOTE | 2017-08-20 21:54 | Diagnostic Imaging Report ---
APPROVED REPORT CPT Code: 53827 Present Symptoms Comments: R/O DVT BILATERAL: Imaging reveals a patent deep venous system bilaterally. There is no evidence of thrombus within the femoral, popliteal or tibial segments. The greater saphenous veins are also within normal limits. Doppler indicates normal spontaneous flow within these segments.
== END 2017-08-16 23:22 | disposition left against medical advice (07) | DRG 140 ==
LOC: EDBD 18:34 → EMR 19:00 → 2E 19:47 → EDBEDREQ 21:51
DX: J44.1 Chronic obstructive pulmonary disease with (acute) exacerbation (principal); E43 Unspecified severe protein-calorie malnutrition; D61.818 Other pancytopenia; I27.20 Pulmonary hypertension, unspecified; D69.6 Thrombocytopenia, unspecified; L03.115 Cellulitis of right lower limb; I11.0 Hypertensive heart disease with heart failure; I50.32 Chronic diastolic (congestive) heart failure; J45.901 Unspecified asthma with (acute) exacerbation; I45.10 Unspecified right bundle-branch block; L03.116 Cellulitis of left lower limb; Z68.1 Body mass index [BMI] 19.9 or less, adult; Z88.6 Allergy status to analgesic agent; R60.9 Edema, unspecified; Z86.19 Personal history of other infectious and parasitic diseases; I73.9 Peripheral vascular disease, unspecified; I34.0 Nonrheumatic mitral (valve) insufficiency; F17.200 Nicotine dependence, unspecified, uncomplicated
CPT/HCPCS: 36415; 71045; 71260; 80048; 80053; 80061; 81003; 83605; 83735; 83880; 84100; 84443; 84484; 85007; 85025; 86703; 86705; 86709; 86710; 86803; 87040; 87070; 87205; 87340; 93005; 93306; 93970; 94640; 94664; 94760; 99285; J3490; J7620

== ENCOUNTER 2019-05-03 08:11 | Inpatient (IN) | payer MEDICARE, OTHER ==
[~2019-05-03] VITALS: Ht 160 cm; Wt 54.0 kg
[2019-05-03] VITALS (43 sets, daily range): BP systolic 68–138; BP diastolic 29–103
[2019-05-03] MEDS ORDERED: Solu-MEDROL 125mg Inj IVP ONE (08:15)
--- NOTE | 2019-05-03 08:15 | NUR ---
ED Nurse Note: Patient brought in to ER from [facility] due to AMS and SOB since this morning. per EMS, SNF staff said pt's baseline for mental status is aao x4 but this morning pt appeared altered and having difficulty to breath. upon arrival, pt had 15L non breather mask and was saturating at 90% with labored breathing. RT and ERMD present at bedside and Bipap has been ordered. pt saturating at 58% in room air. pt is in gown and on shelter monitor. pt appeared aao x0-1, responds to shaking and having hard time to verbalize her name. pt lethargic but open eyes spontaneously with shaking.
--- NOTE | 2019-05-03 08:22 | NUR ---
ED Nurse Note: O2 sat Room air declined to 58%. ERMD made aware. RT put pt on Bipap at setting 12/5, FiO2 40%.
[2019-05-03] MEDS ORDERED: GABAPENTIN300 MG ORAL (08:26)
[2019-05-03] MEDS ORDERED: MONTELUKAST SOD10 MG ORAL (08:26)
[2019-05-03] MEDS ORDERED: PROAIR HFA8.5 GM INH (08:26)
[2019-05-03] MEDS ORDERED: MIDODRINE HCL2.5 MG ORAL (08:26)
[2019-05-03] MEDS ORDERED: CELLCEPT200 MG/1 M PO (08:26)
[2019-05-03] MEDS ORDERED: PROTONIX40 MG ORAL (08:26)
[2019-05-03] MEDS ORDERED: ATORVASTATIN CA40 MG ORAL (08:26)
[2019-05-03] MEDS ORDERED: CALCITONIN-SAL3.7 ML NS (08:26)
[2019-05-03] MEDS ORDERED: ADVAIR 250-501 EACH INH (08:26)
[2019-05-03] MEDS ORDERED: ATROVENT HFA12.9 GM IH (08:26)
[2019-05-03] MEDS ORDERED: DOCUSATE SODIU100 MG ORAL (08:26)
--- NOTE | 2019-05-03 08:35 | NUR ---
ED Nurse Note: x-ray done at bedside.
[2019-05-03 08:37] LABS: HEMATOCRIT 24.7 % (37.0-47.0); HEMOGLOBIN 7.3 G/DL (12.0-16.0); MEAN CORPUSCULAR VOLUME 105 FL (80-99); PLATELET COUNT 92 K/UL (150-450); RED BLOOD COUNT 2.36 M/UL (4.20-5.40); RED CELL DISTRIBUTION WIDTH 21.4 % (11.6-14.8)
[2019-05-03] MEDS ORDERED: Piperacillin/Tazobactam 3.375 GM in NS 110 ML IVPB ONE (08:45)
[2019-05-03] MEDS ORDERED: Vancomycin 1 GM in NS 275 ML IVPB ONE (08:45)
--- NOTE | 2019-05-03 08:51 | Emergency Room Report ---
History of Present Illness General Chief Complaint: Dyspnea/Respdistress Source: Patient, EMS Present Illness HPI Patient has a history of COPD and congestive heart failure. Patient currently resides at a alf. Patient's primary care physician is Dr. Zeke Munoz. Patient presents emergency department today with severe respiratory distress and altered mental status. Patient was unable to provide much history. History obtained from paperwork as well as from discussion with EMS. Apparently patient was found weak this morning. No further history is available at this time. Patient appears to be in respiratory distress. Review of patient's medical records show that patient wants selective intervention. She would be okay with intubation. But does not want any defibrillation or chest compressions. Symptoms were noted to be severe to critical. No other modifying factors. No other associated signs and symptoms. No other complaints were noted. Allergies: Coded Allergies: ACETAMINOPHEN (Verified Allergy, Unknown, 05/03/19) ASPIRIN (Verified Allergy, Unknown, 08/14/17) IBUPROFEN (Verified Allergy, Unknown, 05/03/19) Uncoded Allergies: pain killers (Allergy, Severe, 01/28/17) PENICILLIN (Allergy, Unknown, 05/03/19) Patient History Past Medical History: CHF, COPD Past Surgical History: unable to obtain Pertinent Family History: unable to obtain Social History Narrative Stays at alf Now: No Reviewed Nursing Documentation: PMH: Agreed; PSxH: Agreed Nursing Documentation-PMH Past Medical History: No History, Except For Hx Asthma: Yes Hx COPD: Yes - PNA, Hx Cancer: No Hx Gastrointestinal Problems: No Hx Neurological Problems: No Review of Systems All Other Systems: limited - Poor mental status Physical Exam Vital Signs Date Time Temp Pulse Resp B/P (MAP) Pulse Ox O2 Delivery O2 Flow Rate FiO2 05/03/19 08:01 98 30 101/35 (57) 94 Non-Rebreather 15.0 05/03/19 08:15 40 Sp02 EP Interpretation: reviewed, abnormal - Interpreted to be low General Appearance: severe distress, lethargic, thin, Chronically Ill Head: normocephalic, atraumatic Eyes: bilateral eye normal inspection ENT: dry mucus membranes Neck: normal inspection, full range of motion, supple, no bony tend Respiratory: respiratory distress, decreased breath sounds, accessory muscle use, rales Cardiovascular #1: no edema, tachycardia Gastrointestinal: normal inspection, non tender, soft, no hernia Genitourinary: no CVA tenderness Musculoskeletal: normal inspection Neurologic: responsive, other - Arousable. Limited exam due to poor mental status. Psychiatric: depressed affect Skin: no rash Procedures Critical Care Time Critical Care Time Patient had a critical medical condition which untreated could potentially result in life or limb threatening injury. Total critical care time excluding procedures was approximately 65 minutes. Central Line Central Line : Consent: Emergent Central Line Lumen: triple Maximal Sterile Barrier Tech: yes cap, yes mask, yes sterile gown, yes sterile gloves, yes large sterile sheet, yes hand hygiene, yes chlorhexidine prep Central Line Postion: subclavian (R) Complications: none Attempts: One Patient Tolerated: Well Complications: None Progress Patient required central line placement. Because patient was hypotensive this was an emergent procedure. Initial line was attempted and patient's right femoral area. However this was unsuccessful. Therefore the line was attempted in patient's right subclavian. There was no comp occasions associated with this one attempt and x-ray confirms that the ET-tube as well as the central line to be in good position. Patient tolerated procedure without difficulty. Intubation Intubation : Consent: Verbal Intubation Method: orotracheal Tube Size (cm): 7.5 Medications: Etomidate, Rocuronium Breath Sounds after Intubation: equal Intubation Complications: no complications Post Intubation Xray: Yes Attempts: One Patient Tolerated: Well Complications: None Medical Decision Making Diagnostic Impression: Primary Impression: COPD (chronic obstructive pulmonary disease) Additional Impressions: Respiratory distress Hypotension Acute kidney injury Anemia NSTEMI (non-ST elevated myocardial infarction) ER Course Patient presents emergency department today with acute respiratory distress. Initially patient was placed on BiPAP. Differential considerations include CHF , COPD, pneumonia, sepsis, septic shock just name a few. Given the severity of the patient's presentation I felt this is a highly complex patient. This patient required extensive workup. Patient failed BiPAP appear to be progressively become worse. RTO blood gas showed patient to be fairly hypoxic and hypercarbic with acidosis. Because of this patient required emergent intubation. Patient was intubated and central line was placed. Patient was hypotensive and patient was given dopamine drip to improve blood pressure. Chest x-ray after the intubation showed significant improvement. Patient was started on broad-spectrum IV antibiotics after blood cultures were obtained. Lactic acid level is less than 2 therefore patient did not require fluid bolus. Furthermore patient did appear to be fluid overloaded. Therefore patient was given Lasix. Because patient's blood pressure did decrease patient was started on dopamine as previously stated through a central line which improved patient's blood pressure. Case was discussed in detail with Dr. Zeke Munoz and Dr. Medina. Patient will be admitted to the intensive care unit for further management. Patient was also anemic. Patient was typed and crossed for blood. Labs Test 05/03/19 08:12 05/03/19 09:08 05/03/19 09:21 White Blood Count 10.0 K/UL (4.8-10.8) Red Blood Count 2.36 M/UL (4.20-5.40) Hemoglobin 7.3 G/DL (12.0-16.0) Hematocrit 24.7 % (37.0-47.0) Mean Corpuscular Volume 105 FL (80-99) Mean Corpuscular Hemoglobin 31.0 PG (27.0-31.0) Mean Corpuscular Hemoglobin Concent 29.6 G/DL (32.0-36.0) Red Cell Distribution Width 21.4 % (11.6-14.8) Platelet Count 92 K/UL (150-450) Mean Platelet Volume 6.2 FL (6.5-10.1) Neutrophils (%) (Auto) % (45.0-75.0) Lymphocytes (%) (Auto) % (20.0-45.0) Monocytes (%) (Auto) % (1.0-10.0) Eosinophils (%) (Auto) % (0.0-3.0) Basophils (%) (Auto) % (0.0-2.0) Differential Total Cells Counted 100 Neutrophils % (Manual) 86 % (45-75) Lymphocytes % (Manual) 9 % (20-45) Monocytes % (Manual) 5 % (1-10) Eosinophils % (Manual) 0 % (0-3) Basophils % (Manual) 0 % (0-2) Band Neutrophils 0 % (0-8) Platelet Estimate Decreased Platelet Morphology Normal Basophilic Stippling 1+ Anisocytosis 2+ Sodium Level 131 MMOL/L (136-145) Potassium Level 5.7 MMOL/L (3.5-5.1) Chloride Level 98 MMOL/L (98-107) Carbon Dioxide Level 34 MMOL/L (21-32) Anion Gap 1 mmol/L (5-15) Blood Urea Nitrogen 24 mg/dL (7-18) Creatinine 0.8 MG/DL (0.55-1.30) Estimat Glomerular Filtration Rate mL/min (>60) Glucose Level 106 MG/DL (74-106) Lactic Acid Level 1.20 mmol/L (0.4-2.0) Calcium Level 9.1 MG/DL (8.5-10.1) Total Bilirubin 1.1 MG/DL (0.2-1.0) Direct Bilirubin 0.3 MG/DL (0.0-0.3) Aspartate Amino Transf (AST/SGOT) 45 U/L (15-37) Alanine Aminotransferase (ALT/SGPT) 39 U/L (12-78) Alkaline Phosphatase 128 U/L (46-116) Troponin I 0.016 ng/mL (0.000-0.056) Pro-B-Type Natriuretic Peptide 6906 pg/mL (0-125) Total Protein 7.9 G/DL (6.4-8.2) Albumin 2.6 G/DL (3.4-5.0) Globulin 5.3 g/dL Albumin/Globulin Ratio 0.5 (1.0-2.7) Lipase 91 U/L (73-393) Urine Color Brown Urine Appearance Slightly cloudy Urine pH 5 (4.5-8.0) Urine Specific [place] 1.025 (1.005-1.035) Urine Protein 2+ (NEGATIVE) Urine Glucose (UA) Negative (NEGATIVE) Urine Ketones Negative (NEGATIVE) Urine Blood 5+ (NEGATIVE) Urine Nitrite Negative (NEGATIVE) Urine Bilirubin Negative (NEGATIVE) Urine Urobilinogen 4 MG/DL (0.0-1.0) Urine Leukocyte Esterase 1+ (NEGATIVE) Urine RBC 30-40 /HPF (0 - 2) Urine WBC 2-4 /HPF (0 - 2) Urine Squamous Epithelial Cells Moderate /LPF (NONE/OCC) Urine Amorphous Sediment Few /LPF (NONE) Urine Bacteria Few /HPF (NONE) Urine Coarse Granular Casts 2-4 /LPF (NONE) Arterial Blood pH 7.252 (7.350-7.450) Arterial Blood Partial Pressure CO2 98.7 mmHg (35.0-45.0) Arterial Blood Partial Pressure O2 168.2 mmHg (75.0-100.0) Arterial Blood HCO3 42.5 mmol/L (22.0-26.0) Arterial Blood Oxygen Saturation 99.1 % (95-100) Arterial Blood Base Excess 13.2 (-2-2) Raghavendra Test Positive EKG Diagnostic Results Rate: tachycardiac Rhythm: NSR ST Segments: no acute changes Rhythm Strip Diag. Results EP Interpretation: yes Rate: 104 Rhythm: NSR, no PVC's, no ectopy Chest X-Ray Diagnostic Results Chest X-Ray Diagnostic Results : Chest X-Ray Ordered: Yes # of Views/Limited/Complete: 1 View Indication: Shortness of Breath EP Interpretation: Yes Interpretation: other - Severe pulmonary congestion, cardiomegaly, bilateral pleural effusion, bilateral lower lobe pulmonary consolidation. Impression: Other - Pneumonia, CHF, pleural effusion Electronically Signed by: Electronically signed by Nelson Aleman MD Last Vital Signs Date Time Temp Pulse Resp B/P (MAP) Pulse Ox O2 Delivery O2 Flow Rate FiO2 05/03/19 08:35 45 05/03/19 08:15 134 30 Bi-pap 05/03/19 08:15 112/54 89 05/03/19 08:01 15.0 Status: improved Disposition: ADMITTED INPATIENT Condition: Critical Referrals: Zeke Munoz MD (PCP) Nelson Aleman MD May 03, 2019 08:51
[2019-05-03 08:52] LABS: ALANINE AMINOTRANSFERASE 39 U/L (12-78); ALBUMIN 2.6 G/DL (3.4-5.0); ALBUMIN/GLOBULIN RATIO 0.5 (1.0-2.7); ALKALINE PHOSPHATASE 128 U/L (46-116); ASPARTATE AMINO TRANSFERASE 45 U/L (15-37); BILIRUBIN,TOTAL 1.1 MG/DL (0.2-1.0); CARBON DIOXIDE 34 MMOL/L (21-32); CHLORIDE 98 MMOL/L (98-107); POTASSIUM 5.7 MMOL/L (3.5-5.1); SODIUM 131 MMOL/L (136-145)
[2019-05-03 09:00] LABS: BILIRUBIN,DIRECT 0.3 MG/DL (0.0-0.3); BLOOD UREA NITROGEN 24 mg/dL (7-18); CALCIUM 9.1 MG/DL (8.5-10.1); CREATININE 0.8 MG/DL (0.55-1.30)
[2019-05-03 09:01] LABS: ANION GAP 1 mmol/L (5-15)
--- NOTE | 2019-05-03 09:25 | NUR ---
ED Nurse Note: both feet rash noted without bleeding or blister present. resolved stage 2 pressure sore on coccyx noted.
[2019-05-03 09:32] LABS: APPEARANCE,URINE SLIGHTLY CLOUDY; BILIRUBIN, URINE NEGATIVE (NEGATIVE); COLOR,URINE BROWN; GLUCOSE, URINE (UA) NEGATIVE (NEGATIVE); KETONES,URINE NEGATIVE (NEGATIVE); LEUKOCYTE ESTERASE ,URINE 1+ (NEGATIVE); NITRITE,URINE NEGATIVE (NEGATIVE); PH,URINE 5 (4.5-8.0); PROTEIN,URINE 2+ (NEGATIVE); UROBILINOGEN,URINE 4 MG/DL (0.0-1.0)
[2019-05-03] MEDS: Ipratropium 0.02% Inh Soln 2.5ml UD HHN SCH ×3 (09:34→09:51)
[2019-05-03] MEDS: Albuterol ud Inhalation HHN SCH ×3 (09:34→09:51)
[2019-05-03] MEDS ORDERED: DOPAMINE 800mg/250ml 250 ML IV SCH (09:45)
[2019-05-03] MEDS ORDERED: Rocuronium Bromide 50mg/5ml Inj IV ONE (09:45)
[2019-05-03] MEDS ORDERED: Etomidate 40mg/20ml Inj IV ONE (09:45)
--- NOTE | 2019-05-03 09:59 | NUR ---
ED Nurse Note: intubation initiated by CHASE. ERMD, 2 RN, 1 CN, 2 RT present at bedside. 0954 20mg of Etomidate given by RN 0955 Rocuronium 40mg given by RN 0956 ETT 22cm, size 7 inserted on Rt side.
--- NOTE | 2019-05-03 09:59 | NUR ---
ED Nurse Note: spoke to son on the phone about pt's condition and plan for admitting. the son agreed with it.
[2019-05-03] MEDS: Versed 50mg/D5W 100ml 100 ML IV SCH ×2 (10:00→11:51)
--- NOTE | 2019-05-03 10:00 | NUR ---
ED Nurse Note: per ERMD DR Aleman, do not administer verdsed drip ordered at this time, as patient has negative RASS -2.
--- NOTE | 2019-05-03 10:13 | NUR ---
ED Nurse Note: device repair technician contacted for central line placement.
--- NOTE | 2019-05-03 10:15 | NUR ---
HAND-OFF: Report given to PRANEETH Neves.
--- NOTE | 2019-05-03 10:20 | NUR ---
ED Nurse Note: received patient in bed, patient on a quality control systems manager, vitals monitored, patient is rass -2 at this time.
[2019-05-03] MEDS ORDERED: Albuterol/Ipratropium 3ml neb HHN PRN (10:30)
[2019-05-03] MEDS ORDERED: Morphine Sulfate 4mg/ml Inj (IV USE ONLY) IVP PRN (10:30)
[2019-05-03] MEDS ORDERED: Miralax 17gm pkt ORAL PRN (10:30)
[2019-05-03] MEDS ORDERED: LORazepam Inj 2mg/ml 1ml IV PRN (10:30)
--- NOTE | 2019-05-03 12:00 | NUR ---
RESPIRATORY NOTE: AUTOMATION CONTROLS SPECIALIST, Carina aware of inability to obtain ABG. Will reattempt.
--- NOTE | 2019-05-03 12:04 | NUR ---
ED Nurse Note: report given to Radha DACOSTA. endorsed all plan of care to Radha dacosta.
[2019-05-03] MEDS ORDERED: Amikacin Rx to dose MISC PRN (12:15)
--- NOTE | 2019-05-03 12:45 | NUR ---
ED Nurse Note: patient transferred up to ICU on ACLS protocol with all of her belongings, endorsed all plan of care to Radha DACOSTA.
--- NOTE | 2019-05-03 12:47 | Diagnostic Imaging Report ---
Indication: Cough Comparison: 05/03/2019 A single view chest radiograph was obtained. Findings: Extensive airspace disease demonstrated once again bilaterally. Patient been intubated with endotracheal tube 3 cm above the loni. There is a right subclavian line present which appears to be in good position with tip projected over the SVC. Small bilateral pleural effusions suspected. Heart size is stable. IMPRESSION: Diffuse airspace disease may be due to pulmonary edema. Small bilateral pleural effusions. Tubes and lines satisfactory
--- NOTE | 2019-05-03 12:48 | Diagnostic Imaging Report ---
Indication: Dyspnea Comparison: 08/16/2017 A single view chest radiograph was obtained. Findings: Severe airspace disease demonstrated bilaterally probably on the basis of pulmonary edema. Correlate clinically. The heart is enlarged. There is evidence of small bilateral pleural effusions. Bones are osteopenic. IMPRESSION: Moderate to severe pulmonary edema. Bilateral pleural effusions
--- NOTE | 2019-05-03 13:00 | NUR ---
NURSE NOTES: PT and report received from PRANEETH Lim; transferred on a hospital bed from ER. PT received RASS -2, arousable to verbal and physical stimuli. PT received on Dopamine drip running @ 2mcg/kg/min and Versed 1mg/hr, with a goal of RASS -2, both infusing through Right subclavian TLC; noted to be patent, asymptomatic, however no biopatch noted; Dressing change will be done. ETT 7.0, AC 16, TV 500, FiO2 100%, peep of 5. PT is incontinent, purewick put in place. PT also received with Rt forearm #22g and Lt AC #22g. PT has BL LE pitting edema 2+. Inspiratory and expiratory breath sounds are diminished; rhonchi can be heard. Skin is intact. Rash/red mottled like skin noted on BL soles of feet. PT was also hooked up to school lunch monitor, pulse ox- VS stable, no S/S of respiratory distress. Will resume plan of care.
--- NOTE | 2019-05-03 13:13 | Consultation ---
Consult Note Consult Note HPI: 74yo woman with PMH COPD, CHF, Hep C cirrhosis, GERD presents from [facility] with resp distress and AMS for one day. Pt was intubated in the ED. HPI obtained from chart review and halfway staff. Pt reported not feeling well yesterday saying she was tired but did not have a fever. No diarrhea. then this morning pt desatted and despite nasal canula, oxygen saturation did not improve and pt was very lethargic so they sent her to the ED. Currently vent 100%/5. ROS: unable to obtain PMH: per HPI Meds: reviewed. on cellcept(per CT staff, for Hep C cirrhosis?) All: PCN, aspirin, acetaminophen, ibuprofen SHx: halfway resident FHx: noncontributory VS: Afebrile Gen: NAD. intubated. CV: II/ systolic murmur. regular rate Resp: coarse breath sounds Abd: soft. normoactive BS+. Ext: 1+ pitting edema Neuro: sedated Labs: WBC 10 Cr 0.8 Assessment/Recommendation: Afebrile WBC 10 Lactate 1.2 on dopamine PNA? Flu swab negative CXR: P UA negative r/o bacteremia Bcx: P Endocarditis? 05/03 TTE: heavy mitral annulus and aortic root calcification. PV not well visualized. Normal TV. echogenic material noted on posterior mitral valve leaflet. cannot rule out vegetation. consider CARLITOS. new subclavian central line placed in ED no sorensen COPD CHF Hep C cirrhosis GERD Plan: continue Meropenem, Amikacin, Vancomycin #1 SP Zosyn and Vanc f/u bcx f/u sputum cx monitor CXR monitor temp monitor CBC steroids per pulm pending cardiology consult given TTE findings Thank you for this consult. [facility] will continue to follow the patient with you. Yazan Minaya MD May 03, 2019 13:13
--- NOTE | 2019-05-03 13:31 | Consultation ---
History of Present Illness General Date patient seen: May 03, 2019 Chief Complaint: Dyspnea/Respdistress Present Illness HPI 74 year old female with a a history of COPD and congestive heart failure, detention resident presented to emergency department with severe respiratory distress and altered mental status. Patient was n respiratory distress in ER . She was intubated in ER and connected to a ventilator. She has a POLST form stating that she does not want any defibrillation or chest compressions. She is transferred to ICU for further management. Allergies: Coded Allergies: ACETAMINOPHEN (Verified Allergy, Unknown, 05/03/19) ASPIRIN (Verified Allergy, Unknown, 08/14/17) IBUPROFEN (Verified Allergy, Unknown, 05/03/19) Uncoded Allergies: pain killers (Allergy, Severe, 01/28/17) PENICILLIN (Allergy, Unknown, 05/03/19) Medication History Scheduled Albuterol Sulfate* (Proair Hfa*), 1 PUFF INH Q6H, (Reported) Atorvastatin Calcium* (Atorvastatin Calcium*), 40 MG ORAL BEDTIME, (Reported) Docusate Sodium* (Docusate Sodium*), 100 MG ORAL THREE TIMES A DAY, (Reported) Fluticasone/Salmeterol (Advair 250-50 Diskus), 1 PUFF INH EVERY 12 HOURS, ( Reported) Gabapentin* (Gabapentin*), 300 MG ORAL BEDTIME, (Reported) Midodrine* (Proamatine*), 2.5 MG ORAL BID, (Reported) Montelukast Sodium* (Montelukast Sodium*), 10 MG ORAL DAILY, (Reported) Mycophenolate Mofetil (Cellcept), 250 MG PO BID, (Reported) Pantoprazole* (Protonix*), 40 MG ORAL DAILY, (Reported) Miscellaneous Medications Calcitonin,[place],Synthetic (Calcitonin-[place]), 3.7 ML NS, (Reported) Ipratropium [place] (Atrovent Hfa), 12.9 GM IH, (Reported) Patient History Healthcare decision maker Resuscitation status Advanced Directive on File Past Medical/Surgical History Past Medical/Surgical History: (1) HTN (hypertension) (2) COPD (chronic obstructive pulmonary disease) (3) Severe protein-calorie malnutrition (4) Anemia Review of Systems All Other Systems: negative except mentioned in HPI Physical Exam General Appearance: cachetic, thin Lines, tubes and drains: peripheral, endotracheal tube HEENT: normocephalic, atraumatic Neck: non-tender, normal alignment Respiratory/Chest: chest wall non-tender, lungs clear, rhonchi - left, rhonchi - right Cardiovascular/Chest: normal peripheral pulses, normal rate Abdomen: normal bowel sounds Genitourinary/Rectal: normal genital exam Extremities: normal range of motion, moderate edema Skin Exam: normal pigmentation Last 24 Hour Vital Signs Date Time Temp Pulse Resp B/P (MAP) Pulse Ox O2 Delivery O2 Flow Rate FiO2 05/03/19 12:54 84 18 100 05/03/19 12:45 97.7 74 16 116/40 100 Mechanical Ventilator 15.0 100 05/03/19 12:45 97.7 74 16 116/40 100 Mechanical Ventilator 15.0 100 05/03/19 12:30 126/51 05/03/19 12:30 97.7 76 16 126/51 100 Mechanical Ventilator 15.0 100 05/03/19 12:21 Mechanical Ventilator 05/03/19 12:15 97.7 72 12 133/91 100 Mechanical Ventilator 15.0 100 05/03/19 12:15 133/91 05/03/19 12:06 Mechanical Ventilator 05/03/19 12:00 100/72 05/03/19 12:00 97.7 70 14 100/72 100 Mechanical Ventilator 15.0 100 05/03/19 11:51 12 Mechanical Ventilator 05/03/19 11:45 97.7 71 16 96/57 100 Mechanical Ventilator 15.0 100 05/03/19 11:45 96/57 05/03/19 11:30 97.7 73 11 96/71 100 Mechanical Ventilator 15.0 100 05/03/19 11:30 96/71 05/03/19 11:15 97.7 73 17 117/103 100 Mechanical Ventilator 05/03/19 11:15 117/103 05/03/19 11:00 97.7 77 18 123/45 100 Mechanical Ventilator 05/03/19 11:00 123/45 05/03/19 10:57 88 20 100 05/03/19 10:45 97.7 76 16 107/43 100 Mechanical Ventilator 05/03/19 10:45 107/43 05/03/19 10:30 97.7 74 16 82/29 100 Mechanical Ventilator 05/03/19 10:30 82/29 05/03/19 10:30 82/29 05/03/19 10:19 60 16 100 05/03/19 09:51 155 22 97 Bi-Pap 30 163 22 97 05/03/19 09:30 95 25 100 Facial 40 05/03/19 08:35 45 05/03/19 08:22 40 05/03/19 08:20 103 27 90 Bi-Pap 45 05/03/19 08:20 103 27 90 Facial 45 05/03/19 08:20 103 27 90 Facial 45 05/03/19 08:15 134 30 Bi-pap 40 05/03/19 08:15 134 30 112/54 89 Bi-pap 40 05/03/19 08:01 98 30 101/35 (57) 94 Non-Rebreather 15.0 Laboratory Tests Test 05/03/19 08:12 05/03/19 09:08 05/03/19 09:21 White Blood Count 10.0 K/UL (4.8-10.8) Red Blood Count 2.36 M/UL (4.20-5.40) L Hemoglobin 7.3 G/DL (12.0-16.0) L Hematocrit 24.7 % (37.0-47.0) L Mean Corpuscular Volume 105 FL (80-99) H Mean Corpuscular Hemoglobin 31.0 PG (27.0-31.0) Mean Corpuscular Hemoglobin Concent 29.6 G/DL (32.0-36.0) L Red Cell Distribution Width 21.4 % (11.6-14.8) H Platelet Count 92 K/UL (150-450) L Mean Platelet Volume 6.2 FL (6.5-10.1) L Neutrophils (%) (Auto) % (45.0-75.0) Lymphocytes (%) (Auto) % (20.0-45.0) Monocytes (%) (Auto) % (1.0-10.0) Eosinophils (%) (Auto) % (0.0-3.0) Basophils (%) (Auto) % (0.0-2.0) Differential Total Cells Counted 100 Neutrophils % (Manual) 86 % (45-75) H Lymphocytes % (Manual) 9 % (20-45) L Monocytes % (Manual) 5 % (1-10) Eosinophils % (Manual) 0 % (0-3) Basophils % (Manual) 0 % (0-2) Band Neutrophils 0 % (0-8) Platelet Estimate Decreased L Platelet Morphology Normal Basophilic Stippling 1+ Anisocytosis 2+ Sodium Level 131 MMOL/L (136-145) L Potassium Level 5.7 MMOL/L (3.5-5.1) H Chloride Level 98 MMOL/L (98-107) Carbon Dioxide Level 34 MMOL/L (21-32) H Anion Gap 1 mmol/L (5-15) L Blood Urea Nitrogen 24 mg/dL (7-18) H Creatinine 0.8 MG/DL (0.55-1.30) Estimat Glomerular Filtration Rate mL/min (>60) Glucose Level 106 MG/DL (74-106) Lactic Acid Level 1.20 mmol/L (0.4-2.0) Calcium Level 9.1 MG/DL (8.5-10.1) Total Bilirubin 1.1 MG/DL (0.2-1.0) H Direct Bilirubin 0.3 MG/DL (0.0-0.3) Aspartate Amino Transf (AST/SGOT) 45 U/L (15-37) H Alanine Aminotransferase (ALT/SGPT) 39 U/L (12-78) Alkaline Phosphatase 128 U/L (46-116) H Troponin I 0.016 ng/mL (0.000-0.056) Pro-B-Type Natriuretic Peptide 6906 pg/mL (0-125) H Total Protein 7.9 G/DL (6.4-8.2) Albumin 2.6 G/DL (3.4-5.0) L Globulin 5.3 g/dL Albumin/Globulin Ratio 0.5 (1.0-2.7) L Lipase 91 U/L (73-393) Urine Color Brown Urine Appearance Slightly cloudy Urine pH 5 (4.5-8.0) Urine Specific [place] 1.025 (1.005-1.035) Urine Protein 2+ (NEGATIVE) H Urine Glucose (UA) Negative (NEGATIVE) Urine Ketones Negative (NEGATIVE) Urine Blood 5+ (NEGATIVE) H Urine Nitrite Negative (NEGATIVE) Urine Bilirubin Negative (NEGATIVE) Urine Urobilinogen 4 MG/DL (0.0-1.0) H Urine Leukocyte Esterase 1+ (NEGATIVE) H Urine RBC 30-40 /HPF (0 - 2) H Urine WBC 2-4 /HPF (0 - 2) Urine Squamous Epithelial Cells Moderate /LPF (NONE/OCC) H Urine Amorphous Sediment Few /LPF (NONE) H Urine Bacteria Few /HPF (NONE) Urine Coarse Granular Casts 2-4 /LPF (NONE) H Arterial Blood pH 7.252 (7.350-7.450) Arterial Blood Partial Pressure CO2 98.7 mmHg (35.0-45.0) *H Arterial Blood Partial Pressure O2 168.2 mmHg (75.0-100.0) H Arterial Blood HCO3 42.5 mmol/L (22.0-26.0) *H Arterial Blood Oxygen Saturation 99.1 % (95-100) Arterial Blood Base Excess 13.2 (-2-2) *H Raghavendra Test Positive Microbiology Date/Time Source Procedure Growth Status 05/03/19 08:26 Nasal Not Otherwise Specified - Final Complete 05/03/19 08:26 Nasal Not Otherwise Specified - Final Complete 05/03/19 10:20 Rectum Received Height (Feet): 5 Height (Inches): 3.00 Weight (Pounds): 110 Medications Current Medications Medications (Trade) Dose Ordered Sig/Gautam Route PRN Reason Start Time Stop Time Status Last Admin Dose Admin Albuterol/ Ipratropium (Albuterol/ Ipratropium) 3 ml Q4H PRN HHN Shortness of Breath 05/03/19 10:30 05/08/19 10:29 Amikacin Protocol (Amikacin pharmacy to dose) 1 ea DAILY PRN MISC . 05/03/19 12:15 06/02/19 12:14 Amikacin Sulfate 750 mg/Sodium Chloride 113 ml @ 113 mls/hr Q48H IV 05/03/19 15:00 05/10/19 14:59 Chlorhexidine Gluconate (Cherry-Hex 2%) 1 applic DAILY@2000 TOPIC 05/03/19 20:00 06/02/19 19:59 UNV Dopamine HCl/ Dextrose 250 ml @ 0 mls/hr Q24H IV 05/03/19 09:45 05/08/19 09:44 05/03/19 10:30 Ertapenem 1 gm/ Sodium Chloride 55 ml @ 110 mls/hr Q24H IV 05/03/19 21:00 05/08/19 20:59 Heparin Sodium (Porcine) (Heparin 5000 units/ml) 5,000 units EVERY 12 HOURS SUBQ 05/03/19 21:00 06/02/19 20:59 Lorazepam (Ativan 2mg/ml 1ml) 2 mg Q2H PRN IV For Anxiety 05/03/19 10:30 05/10/19 10:29 Midazolam HCl 100 ml @ 0 mls/hr Q24H IV 05/03/19 09:45 05/10/19 09:44 05/03/19 11:51 Morphine Sulfate (Morphine Sulfate) 4 mg Q4H PRN IVP Severe Pain (Pain Scale 7-10) 05/03/19 10:30 05/10/19 10:29 Norepinephrine Bitartrate 4 mg/ Dextrose 254 ml @ 0 mls/hr Q24H IV 05/03/19 12:17 06/02/19 12:16 Ondansetron HCl (Zofran) 4 mg Q6H PRN IVP Nausea & Vomiting 05/03/19 10:30 06/02/19 10:29 Pantoprazole (Protonix) 40 mg DAILY IV 05/04/19 09:00 06/03/19 08:59 Polyethylene Glycol (Miralax) 17 gm DAILYPRN PRN ORAL Constipation 05/03/19 10:30 06/02/19 10:29 Sodium Chloride 1,000 ml @ 100 mls/hr Q10H IVLG 05/03/19 13:00 06/02/19 12:59 Vancomycin HCl (Vanco rx to dose) 1 ea DAILY PRN MISC . 05/03/19 12:15 06/02/19 12:14 Vancomycin HCl 500 mg/Dextrose 110 ml @ 110 mls/hr Q12HR IVPB 05/03/19 21:00 05/08/19 20:59 Assessment/Plan Problem List: (1) Acute respiratory failure ICD Codes: J96.00 - Acute respiratory failure, unspecified whether with hypoxia or hypercapnia SNOMED: 83707607 (2) Nosocomial pneumonia ICD Codes: J18.9 - Pneumonia, unspecified organism; Y95 - Nosocomial condition SNOMED: 485753933 (3) COPD (chronic obstructive pulmonary disease) ICD Codes: J44.9 - Chronic obstructive pulmonary disease, unspecified SNOMED: 43880951 (4) Edema of both feet ICD Codes: R60.0 - Localized edema SNOMED: 968830356 (5) Severe protein-calorie malnutrition ICD Codes: E43 - Unspecified severe protein-calorie malnutrition SNOMED: 913193497, 759915217, 527571782 (6) HTN (hypertension) ICD Codes: I10 - Essential (primary) hypertension SNOMED: 72017652 Respiratory: monitor respiratory rate, adjust FIO2, CXR Cardiac: stop pressors, continue to monitor HR/BP Renal: check electrolytes Infectious Disease: check cultures, add antibiotics Endocrine: monitor blood sugar Hematologic: monitor H/H, transfuse if hgb<8.5 Neurologic: PRN Ativan, PRN Morphine, keep patient comfortable Affect: PRN ativan Prophylaxis: Heparin Disposition: keep in ICU Discussed with: nurses Jamal Medina MD May 03, 2019 13:31
--- NOTE | 2019-05-03 14:00 | NUR ---
NURSE NOTES: Unable to give blood as there is no consent in the chart and no Next of Kin listed. Dr. Medina called and left message.
--- NOTE | 2019-05-03 14:31 | NUR ---
Endorsed to BACK UP SCAN COORDINATORRadha that ABG is unavailable. Will reattempt
--- NOTE | 2019-05-03 14:56 | Consultation ---
Consult Note Consult Note asked to evaluate at the request of Dr Munoz for electrolyte abnormalities and fluid management Patient has a history of COPD and congestive heart failure. [facility]. Patient's primary care physician is Dr. Zeke Munoz. Patient presents emergency department today with severe respiratory distress and altered mental status. Patient was unable to provide much history. History obtained from paperwork as well as from discussion with EMS. Apparently patient was found weak this morning. No further history is available at this time. Patient appears to be in respiratory distress. Review of patient's medical records show that patient wants selective intervention. She would be okay with intubation. But does not want any defibrillation or chest compressions. Symptoms were noted to be severe to critical. No other modifying factors. No other associated signs and symptoms. No other complaints were noted. Allergies: ACETAMINOPHEN (Verified Allergy, Unknown, 05/03/19) ASPIRIN (Verified Allergy, Unknown, 08/14/17) IBUPROFEN (Verified Allergy, Unknown, 05/03/19) Uncoded Allergies: pain killers (Allergy, Severe, 01/28/17) PENICILLIN (Allergy, Unknown, 05/03/19) Past Medical History: CHF, COPD Past Surgical History: unable to obtain Past Medical History: No History, Except For Hx Asthma: Yes Hx COPD: Yes - PNA, seen in ICu Intubated Assessment/Plan Acute respiratory failure, on Vent- Underlying COPD HypoNatremia , Etiology TBI , ? CHF HyperKalemia Sever Anemia NSTEMI Pressors as needed Pulm support Monitor renal parameters Urine studies Anemia pettit 2D echo per orders Efra Das MD May 03, 2019 14:56
[2019-05-03] MEDS ORDERED: Amikacin 750 MG in NS 110 ML IV SCH (15:00)
--- NOTE | 2019-05-03 16:00 | NUR ---
NURSE NOTES: Hemodynamically unstable, B/P: 88/45. Increased dose of Dopamine to 4mcg/kg/min.
--- NOTE | 2019-05-03 17:45 | NUR ---
RESPIRATORY NOTE:Consulted with margarine churn operator, and all other MANUFACTURING ENGINEER SUPERVISOR's on staff. No one able to successfully draw ABG from either site (brachial/radial). margarine churn operator paged ER to preform. ICU charge nurse; Maria Esther aware of all attempts and communication.
--- NOTE | 2019-05-03 17:50 | NUR ---
NURSE NOTES: Called and spoke to Dr Munoz, who was unable to clarify necessity for ordered blood transfusions, as he hasn't seen the patient yet. Told report writer to call Dr. Medina again.
--- NOTE | 2019-05-03 18:00 | NUR ---
NURSE NOTES: Dr. Medina made aware that there's 2 units of PRBC to be transfused as ordered by ER MD but no consent , no family to obtain consent with- stated he will put his documentation regarding necessity of blood transfusion in 30 min.
--- NOTE | 2019-05-03 18:00 | NUR ---
NURSE NOTES: Hemodynamically unstable, B/P: 84/43. Increased dose of Dopamine to 6mcg/kg/min. Central line dressing changed, using aseptic technique, as per protocol. Pt cleaned and repositioned
--- NOTE | 2019-05-03 18:30 | General Progress Note ---
Progress Note Progress Note pt needs blood transfusion. She is NOT capable of signing any consents. The nurses couldn't get hold of any family members. Jamal Medina MD May 03, 2019 18:30
--- NOTE | 2019-05-03 18:42 | NUR ---
NURSE NOTES: Due to pt's tachycardia, 111 on groundwater monitoring technician, Changed Dopamine to Levophed, currently @ 4mcg/kg/min. B/P: Addendum: 05/03/19 at 1911 by Radha Albrecht RN NURSE NOTES: Incorrect dose entered. Due to pt's tachycardia, 111 on groundwater monitoring technician, Changed Dopamine to Levophed, currently @ 2mcg/kg/min. B/P:
--- NOTE | 2019-05-03 18:46 | History & Physical ---
History and Physical History & Physicial Dictated for Int Med-Dr Munoz no. [id number]. Romeo Tavares MD May 03, 2019 18:46
--- NOTE | 2019-05-03 19:27 | NUR ---
NURSE NOTES: Endorsed to next shift to transfuse 2 units of PRBC, as ordered. See Dr. Medina's note for necessity to transfuse, d/t inability to obtain consent.
--- NOTE | 2019-05-03 19:28 | NUR ---
HAND-OFF: Report given to PRANEETH Elliott.
--- NOTE | 2019-05-03 19:30 | NUR ---
NURSE NOTES: Received pt and report from PRANEETH Garcia. Pt's currently sedated with Versed running at 1mg/hr via Right subclavian TLC. , with RASS -2, in no acute distress. SR on cardiac rehabilitation program director. VS stable. BP 94/51, Pt's on Levophed at 2mcg/min and NS at 100ml/hr. Pt's also intubated with ETT 7.0, AC 16, TV 500, FiO2 100%, peep of 5. O2 sat at 100%. Pt is incontinent, purewick put in place. Also noted Rt forearm #22g and Lt AC #22g. Call light within reach. Bed in low and locked position. Will continue to monitor.
--- NOTE | 2019-05-03 20:15 | NUR ---
NURSE NOTES: Started the 1st unit of PRBC, cross checked with charge nurse. Pt's resting in bed, in no acute distress. RASS -2. Afebrile T 99.0F, P 108, BP 93/57. Will continue to monitor.
--- NOTE | 2019-05-03 20:30 | NUR ---
NURSE NOTES: Pt's resting in bed, in no acute distress. Afebrile. VS stable. No adverse transfusion reaction observed. Will continue to monitor.
[2019-05-03] MEDS: Heparin 5000 units/ml inj SUBQ SCH (21:00)
[2019-05-03] MEDS: Ertapenem 1 GM in NS 55 ML IV SCH (21:23)
[2019-05-03] MEDS: Vancomycin 500mg/D5W 110ml IVPB SCH ×2 (21:23)
[2019-05-03] MEDS: Dyna-Hex 2% Top Sol 2oz TOPIC SCH (21:23)
[2019-05-03] MEDS: Pantoprazole Inj IV SCH (21:24)
--- NOTE | 2019-05-03 23:00 | NUR ---
NURSE NOTES: Blood bank called and informed that the 2nd unit of blood has been processing by [facility], pending arrival time. Will continue to f/up with blood bank. Pt's resting in bed, in no acute distress. VS stable. No adverse transfusion noted at this time.
--- NOTE | 2019-05-03 23:00 | History and Physical Report ---
DATE OF ADMISSION: 05/03/2019 CHIEF COMPLAINT: The patient is a 74-year-old, female who presents with a chief complaint of altered mental status and respiratory distress. HISTORY OF PRESENT ILLNESS: The patient is a resident of [facility]. Much of the history and physical is obtained from the patient's chart as the patient is currently intubated in the intensive care unit. According to staff at [facility], the patient has altered mental status over the past 24 hours. The patient became extremely short of breath. The patient was transferred to [facility]. The patient was emergently intubated in the emergency room secondary to respiratory distress. The patient was admitted with respiratory failure. REVIEW OF SYSTEMS: Unable to assess secondary to the patient's intubation and mental status. PAST MEDICAL HISTORY: 1. History of congestive heart failure. 2. Chronic obstructive pulmonary disease. 3. Hypertension. PAST SURGICAL HISTORY: Significant for, 1. Eye surgery in 2017. 2. Dilatation and curettage-. CURRENT MEDICATIONS: 1. Albuterol metered-dose inhaler two puffs p.o. q.i.d. p.r.n. 2. Atorvastatin 40 mg p.o. at bedtime. 3. Calcitonin spray. 4. Advair 250/50 one puff p.o. twice daily. 5. Gabapentin 300 mg p.o. at bedtime. 6. Atrovent metered-dose inhaler two puffs p.o. q.i.d. p.r.n. 7. Midodrin 2.5 mg p.o. twice daily. 8. Singulair 10 mg p.o. daily. 9. Mycophenolate 250 mg p.o. twice daily. 10. Protonix 40 mg p.o. daily. ALLERGIES: 1. Acetaminophen. 2. Aspirin. 3. Ibuprofen. 4. Penicillin. 5. "Pain killers." SOCIAL HISTORY: The patient is a . The patient denies tobacco or alcohol use. PHYSICAL EXAMINATION: VITAL SIGNS: Temperature 97.7, respirations 30, pulse 98, blood pressure 101/35, and pulse ox 94 percent on a non-rebreather. GENERAL: The patient is a thin-appearing female, who is currently intubated and sedated in the intensive care unit. HEENT: Eyes, pupils are equal and responsive to light and accommodation. Extraocular movements are intact. NECK: Supple without lymphadenopathy. CHEST: Coarse breath sounds bilaterally without wheezes or rales. CARDIOVASCULAR: Regular rhythm and rate. S1 and S2 are normal without murmurs, rubs, or gallops. ABDOMEN: Soft, nontender, and nondistended with positive bowel sounds. No evidence of hepatosplenomegaly, rebound, or guarding noted. EXTREMITIES: Negative for clubbing, cyanosis, or edema. RECTAL/GENITAL: Refused. NEUROLOGIC: Unable to assess secondary to intubation. LABORATORY STUDIES: WBC 10.0, hemoglobin 7.3, hematocrit 24.7, and platelets 92,000. Sodium 131, potassium 5.7, chloride 98, CO2 34, BUN 24, and creatinine 0.8. Lactic acid 1.2. AST elevated at 45 and alkaline phosphatase elevated at 128. BNP elevated 6906. Troponin level 0.016. A chest x-ray was reported as [id number] pulmonary edema with bilateral pleural effusions consistent with congestive heart failure. ASSESSMENT: This is a 74-year-old female. 1. Respiratory failure. 2. Acute exacerbation of congestive heart failure. 3. Chronic obstructive pulmonary disease. 4. Hypertension. 5. Hypercholesterolemia. TREATMENT: 1. Respiratory failure. Pulmonary consultation has been obtained with Dr. Jamal Medina. The patient is currently intubated in the intensive care unit. Respiratory failure may be secondary to congestive heart failure. The patient has been started empirically on ertapenem and vancomycin for hospital-acquired pneumonia. We will follow recommendations of Pulmonary. 2. Congestive heart failure. Cardiology consultation has been obtained with Dr. Philipp Ahmadi. The patient is currently receiving Lasix intravenously. We will follow recommendations of Cardiology. 3. Hypercholesterolemia. Continue atorvastatin as above. 4. Hypertension. The patient is currently hypotensive. Hold antihypertensive medication at this time. Romeo Tavares M.D. DR: LETICIA JOB#: [id number] CC:
--- NOTE | 2019-05-03 23:36 | NUR ---
NURSE NOTES: Pt's son Mr Roman Ott called the hospital, phone number [phone]. Updated on face sheet.
[2019-05-03] MEDS ORDERED: Vancomycin 1 GM in D5W 275 ML IV SCH (23:45)
[2019-05-04] VITALS (45 sets, daily range): BP systolic 86–144; BP diastolic 38–97
--- NOTE | 2019-05-04 | NUR ---
NURSE NOTES: The 1st Unit of PRBC finished, no adverse transfusion reaction observed. VS stable. Afebrile. Still waiting for [place] deliver the 2nd Unit of PRBC.
--- NOTE | 2019-05-04 02:00 | NUR ---
NURSE NOTES: Pt's resting in bed with eyes closed. VS stable. Will continue to monitor.
[2019-05-04 03:34] LABS: HEMATOCRIT 22.7 % (37.0-47.0); HEMOGLOBIN 7.3 G/DL (12.0-16.0); MEAN CORPUSCULAR VOLUME 95 FL (80-99); PLATELET COUNT 67 K/UL (150-450); RED BLOOD COUNT 2.39 M/UL (4.20-5.40); RED CELL DISTRIBUTION WIDTH 20.3 % (11.6-14.8); WHITE BLOOD COUNT 5.4 K/UL (4.8-10.8)
[2019-05-04 03:56] LABS: LACTATE DEHYDROGENASE 178 U/L (81-234)
[2019-05-04 04:02] LABS: CREATINE KINASE 10 U/L (26-308); GAMMA GLUTAMYL TRANSPEPTIDASE 55 U/L (5-85)
[2019-05-04 04:03] LABS: ALANINE AMINOTRANSFERASE 25 U/L (12-78); ALBUMIN 1.9 G/DL (3.4-5.0); ALBUMIN/GLOBULIN RATIO 0.5 (1.0-2.7); ALKALINE PHOSPHATASE 86 U/L (46-116); ANION GAP 6 mmol/L (5-15); ASPARTATE AMINO TRANSFERASE 22 U/L (15-37); BILIRUBIN,TOTAL 1.5 MG/DL (0.2-1.0); BLOOD UREA NITROGEN 23 mg/dL (7-18); CALCIUM 8.2 MG/DL (8.5-10.1); CARBON DIOXIDE 32 MMOL/L (21-32); CHLORIDE 103 MMOL/L (98-107); CREATININE 0.8 MG/DL (0.55-1.30); POTASSIUM 3.3 MMOL/L (3.5-5.1); SODIUM 141 MMOL/L (136-145)
[2019-05-04 04:04] LABS: % IRON SATURATION 15 % (15-50); IRON 28 ug/dL (50-175); TOTAL IRON BINDING CAPACITY 190 ug/dL (250-450)
[2019-05-04 04:09] LABS: INR 1.3 (0.9-1.1)
[2019-05-04 04:11] LABS: CHOLESTEROL 87 MG/DL (< 200); FERRITIN 308 NG/ML (8-388); HDL CHOLESTEROL 33 MG/DL (40-60); PHOSPHORUS 3.2 MG/DL (2.5-4.9); TRIGLYCERIDES 69 MG/DL (30-150)
[2019-05-04 04:37] LABS: BILIRUBIN,DIRECT 0.5 MG/DL (0.0-0.3)
--- NOTE | 2019-05-04 04:40 | NUR ---
NURSE NOTES: Starting the 2nd unit of PRBC, Pt's afebrile. VS stable. Will continue to monitor.
--- NOTE | 2019-05-04 06:00 | NUR ---
NURSE NOTES: The 2nd unit of PRBC is in progress. Pt's in no acute distress. Afebrile. VS stable. Will continue to monitor.
--- NOTE | 2019-05-04 07:00 | NUR ---
RESPIRATORY NOTES: Received Patient on Vent settings ACVC RR 16, VT 500, Fio2 100% PEEP +5. Patient is intubated with a 7.0 ETT at 22cm at the lip, secured with anchorfast. Suctioned minimal clear secretions through ETT. Patient awake and alert. Vent plugged into red outlet. Bilateral rales heard throughout both lung johnson. Alarms are on and audible. Will continue to monitor patient throughout the day.
--- NOTE | 2019-05-04 07:10 | NUR ---
HAND-OFF: Report given to PRANEETH Garcia.
--- NOTE | 2019-05-04 07:13 | NUR ---
NURSE NOTES: Report received from PRANEETH Elliott. PT is RASS -2, arousable to verbal and physical stimuli, following commands. PT received on Versed 1mg/hr, with a goal of RASS -2, infusing through Right subclavian TLC; noted to be patent and asymptomatic; dressing dry, clean, and intact. Pt is intubated- ETT 7.0, AC 16, TV 500, FiO2 100%, peep of 5. PT is incontinent, purewick in place, draining celsa colored urine. PT has a Rt forearm #22g and Lt AC #22g. Pulses palpable. HR 74 on radiation monitor, B/P: 141/50. PT has BL LE pitting edema 2+. Bed locked and in lowest position, call light within reach. Will resume plan of care.
--- NOTE | 2019-05-04 07:14 | NUR ---
NURSE NOTES: Received with 2nd unit of blood still transfusing.
--- NOTE | 2019-05-04 07:30 | NUR ---
NURSE NOTES: Pt starting to become more awake, restless, and agitated. Versed increased to 2mg/hr, to reach RASS -2.
--- NOTE | 2019-05-04 07:42 | Cardiology Report ---
APPROVED REPORT EXAM: Two-dimensional and M-mode echocardiogram with Doppler and color Doppler. INDICATION Left ventricular function M-Mode DIMENSIONS IVSd1.3 (0.7-1.1cm)Left Atrium (MM)5.0 (1.6-4.0cm) LVDd3.1 (3.5-5.6cm)Aortic Root2.7 (2.0-3.7cm) PWd1.8 (0.7-1.1cm)Aortic Cusp Exc.1.0 (1.5-2.0cm) LVDs1.5 (2.5-4.0cm) PWs2.3 cm Technically difficult study due to combative patient. Study quality precludes accurate assessment of regional wall motion. Normal left ventricular chamber size, systolic function and wall motion. Left ventricular ejection fraction estimated to be 60 %. Servere left ventricular hypertrophy with mid ventricular dynamic obstruction with LVOT mean pressure gradient calculated at 10.24 which is underestimated based on my visual assessment. No valsalva manuever done due to the patient lack of cooperation. No evidence of pericardial effusion. Severe left atrial enlargement. Right cardiac chamber sizes are within normal limits. Aortic valve calcification with decreased cusp excursion c/w aortic stenosis. Heavily thickened mitral valve leaflets with reduced excursion. Echogenic material noted on posterior mitral valve leaflet is likely calcified mitral annular structure. Heavy mitral annulus and aortic root calcification. Pulmonic valve not well visualized. Normal tricuspid valve structure. IVC dilated at 2.1 cm without physiological collapse, suggestive of increased RA pressure. A color flow and spectral Doppler study was performed and revealed: Severe aortic regurgitation. Peak aortic valve gradient of 52 mmHg and a mean of 27 mmHg. Aortic valve area 1.8 cm2 calculated by continuity equation. Severe mitral regurgitation. Mitral P1/2 time of 158 m/s . Peak mitral valve diastolic gradient of 30 mmHg and a mean gradient of 15 mmHg. Mitral diastolic velocities suggest mild left ventricular diastolic dysfunction (Grade I). Mild tricuspid regurgitation. Tricuspid systolic velocities suggests peak right ventricular systolic pressure of 53 mmHg, consistent with moderate pulmonary hypertension. Mild pulmonic regurgitation present.
--- NOTE | 2019-05-04 07:58 | NUR ---
RESPIRATORY NOTES: Patient alert and awake asking to come off of ventilator. Attempted to wean Patient. Placed on PS +8 PEEP +5 FIO2 45%. Patients effort was good however NIF was only -5. Placed back onto ACVC. PRANEETH hines.
--- NOTE | 2019-05-04 08:00 | NUR ---
NURSE NOTES: Pt continues to be restless, and agitated. Versed increased to 3mg/hr, to reach RASS -2.
--- NOTE | 2019-05-04 08:10 | NUR ---
NURSE NOTES: Blood transfusion complete. No adverse reaction noted. T:97.6, B/P:102/54, HR:60
[2019-05-04] MEDS: Pantoprazole Inj IV SCH ×2 (08:28→20:53)
[2019-05-04] MEDS: Heparin 5000 units/ml inj SUBQ SCH ×2 (08:28→20:55)
[2019-05-04] MEDS: Vancomycin 500mg/D5W 110ml IVPB SCH ×2 (08:28)
--- NOTE | 2019-05-04 08:45 | NUR ---
RADIOLOGY DEPT., CHEST X-RAY DONE.-P.DYE
--- NOTE | 2019-05-04 08:54 | Diagnostic Imaging Report ---
Indication: Dyspnea Technique: One view of the chest Comparison: On 10/17/2018 Findings: Right subclavian venous catheter, endotracheal tube remain in stable satisfactory positions. Bilateral interstitial and airspace edema persists, unchanged. There is interim improvement of previously demonstrated bilateral pleural effusions. The heart size is normal. Mitral annular calcifications are again demonstrated Impression: Improved bilateral pleural effusions, over one day Otherwise stable findings as described
[2019-05-04] MEDS ORDERED: Pantoprazole Inj IV SCH (09:00)
--- NOTE | 2019-05-04 10:14 | NUR ---
NURSE NOTES: Dr. Medina at bedside assessing pt. Updated him on pt's current condition. Let him know pt has brief periods of Sinus Bradycardia (lowest 48). No new orders at this time.
--- NOTE | 2019-05-04 10:20 | Pulmonolgy Critical Care Note ---
Critical Care - Asmt/Plan Problems: (1) Acute respiratory failure (2) Acute pulmonary edema (3) COPD (chronic obstructive pulmonary disease) (4) Severe protein-calorie malnutrition (5) Nosocomial pneumonia (6) Edema of both feet Respiratory: monitor respiratory rate, adjust FIO2, CXR Cardiac: continue to monitor HR/BP Renal: F/U I&O, keep IV fluid, check electrolytes Infectious Disease: check cultures Gastrointestinal: continue feedings/current rate Endocrine: monitor blood sugar Hematologic: monitor H/H, transfuse if hgb<8.5 Neurologic: PRN Ativan, PRN Morphine, keep patient comfortable Affect: PRN ativan Prophylaxis: Heparin Time Spent (Minutes): 40 Notes Reviewed: cardio Discussed with: nurses, consultants, case specialistchiropractic practice manager - Objective Last 24 Hour Vital Signs Date Time Temp Pulse Resp B/P (MAP) Pulse Ox O2 Delivery O2 Flow Rate FiO2 05/04/19 09:30 66 22 124/46 (72) 100 05/04/19 09:20 70 16 40 05/04/19 09:00 61 36 127/45 (72) 100 05/04/19 09:00 16 Mechanical Ventilator 45 05/04/19 08:30 51 16 123/43 (69) 100 05/04/19 08:00 Mechanical Ventilator 05/04/19 08:00 45 05/04/19 08:00 16 Mechanical Ventilator 45 05/04/19 08:00 97.6 68 18 102/54 (70) 100 05/04/19 08:00 69 05/04/19 07:54 57 16 100 05/04/19 07:30 15 Mechanical Ventilator 45 05/04/19 07:00 67 17 141/50 (80) 100 05/04/19 07:00 18 Mechanical Ventilator 05/04/19 06:30 61 16 123/46 (71) 100 05/04/19 06:00 97.8 62 17 123/43 (69) 100 05/04/19 06:00 16 Mechanical Ventilator 05/04/19 05:37 72 16 100 05/04/19 05:30 75 25 121/45 (70) 100 05/04/19 05:00 20 Mechanical Ventilator 05/04/19 05:00 71 15 93/47 (62) 100 05/04/19 04:30 78 26 95/43 (60) 100 05/04/19 04:00 82 05/04/19 04:00 100 05/04/19 04:00 Mechanical Ventilator 05/04/19 04:00 18 Mechanical Ventilator 05/04/19 04:00 76 17 92/41 (58) 100 05/04/19 03:30 85 21 86/42 (57) 100 05/04/19 03:05 81 16 100 05/04/19 03:00 76 18 115/42 (66) 100 05/04/19 03:00 18 Mechanical Ventilator 05/04/19 02:30 89 19 93/42 (59) 100 05/04/19 02:00 18 Mechanical Ventilator 05/04/19 02:00 95 24 93/38 (56) 100 05/04/19 01:30 93 19 89/40 (56) 100 05/04/19 01:21 85 16 100 05/04/19 01:00 102 17 99/47 (64) 100 05/04/19 01:00 18 Mechanical Ventilator 05/04/19 00:30 91 21 113/44 (67) 100 05/04/19 00:00 98.0 77 18 144/97 (113) 100 05/04/19 00:00 16 Mechanical Ventilator 05/04/19 00:00 53 05/04/19 00:00 Mechanical Ventilator 05/03/19 23:45 84 17 124/59 (80) 100 05/03/19 23:32 95 25 113/76 (88) 100 05/03/19 23:30 83 28 68/36 (47) 100 05/03/19 23:15 105 21 112/44 (66) 100 05/03/19 23:15 71 16 100 05/03/19 23:00 27 Mechanical Ventilator 05/03/19 23:00 108 27 102/44 (63) 100 05/03/19 22:45 109 30 94/43 (60) 100 05/03/19 22:30 110 31 99/42 (61) 100 05/03/19 22:15 102 25 101/43 (62) 100 05/03/19 22:00 73 17 90/38 (55) 100 05/03/19 22:00 26 Mechanical Ventilator 05/03/19 21:45 95 24 131/54 (79) 100 05/03/19 21:45 131/54 05/03/19 21:30 64 18 129/43 (71) 100 05/03/19 21:15 66 16 96/47 (63) 100 05/03/19 21:00 90/43 05/03/19 21:00 16 Mechanical Ventilator 05/03/19 21:00 67 16 90/43 (59) 100 05/03/19 20:56 75 16 100 05/03/19 20:45 81 17 94/51 (65) 100 05/03/19 20:30 98.8 96 16 87/47 (60) 100 05/03/19 20:15 99.0 108 16 93/57 (69) 100 05/03/19 20:00 111 16 104/58 (73) 100 05/03/19 20:00 Mechanical Ventilator 05/03/19 20:00 100 05/03/19 20:00 94/51 05/03/19 20:00 16 Mechanical Ventilator 100 05/03/19 19:45 114 16 109/56 (73) 100 05/03/19 19:37 115 16 100 05/03/19 19:00 138/67 05/03/19 19:00 16 Mechanical Ventilator 100 05/03/19 19:00 126 16 138/67 (90) 100 05/03/19 18:45 114 16 104/51 (68) 100 05/03/19 18:43 109/53 05/03/19 18:42 109/53 05/03/19 18:42 109/53 05/03/19 18:30 106 109/53 (71) 100 05/03/19 18:15 106 85/46 (59) 100 05/03/19 18:00 84/43 05/03/19 18:00 16 Mechanical Ventilator 100 05/03/19 18:00 101 84/43 (57) 100 05/03/19 17:30 84 106/55 (72) 100 05/03/19 17:28 101 16 100 05/03/19 17:00 113/55 05/03/19 17:00 16 Mechanical Ventilator 100 05/03/19 17:00 84 113/55 (74) 100 05/03/19 16:45 103 114/54 (74) 100 05/03/19 16:30 89 83/46 (58) 100 05/03/19 16:25 82 05/03/19 16:15 84 94/50 (65) 100 05/03/19 16:00 Mechanical Ventilator 05/03/19 16:00 88/45 05/03/19 16:00 16 Mechanical Ventilator 100 05/03/19 16:00 100 05/03/19 16:00 99.0 85 92/48 (63) 100 05/03/19 15:30 82 94/45 (61) 100 05/03/19 15:21 88 16 100 05/03/19 15:00 95/56 05/03/19 15:00 16 Mechanical Ventilator 100 05/03/19 15:00 82 95/56 (69) 100 05/03/19 14:00 98.4 82 120/44 (69) 100 05/03/19 14:00 120/44 05/03/19 14:00 16 Mechanical Ventilator 100 05/03/19 13:00 71 05/03/19 13:00 120/44 05/03/19 13:00 16 Mechanical Ventilator 100 05/03/19 12:54 84 18 100 05/03/19 12:45 97.7 74 16 116/40 100 Mechanical Ventilator 15.0 100 05/03/19 12:45 97.7 74 16 116/40 100 Mechanical Ventilator 15.0 100 05/03/19 12:30 126/51 05/03/19 12:30 97.7 76 16 126/51 100 Mechanical Ventilator 15.0 100 05/03/19 12:21 Mechanical Ventilator 05/03/19 12:15 97.7 72 12 133/91 100 Mechanical Ventilator 15.0 100 05/03/19 12:15 133/91 05/03/19 12:14 Mechanical Ventilator 05/03/19 12:06 Mechanical Ventilator 05/03/19 12:00 100/72 05/03/19 12:00 97.7 70 14 100/72 100 Mechanical Ventilator 15.0 100 05/03/19 11:51 12 Mechanical Ventilator 05/03/19 11:45 97.7 71 16 96/57 100 Mechanical Ventilator 15.0 100 05/03/19 11:45 96/57 05/03/19 11:30 97.7 73 11 96/71 100 Mechanical Ventilator 15.0 100 05/03/19 11:30 96/71 05/03/19 11:15 97.7 73 17 117/103 100 Mechanical Ventilator 05/03/19 11:15 117/103 05/03/19 11:00 97.7 77 18 123/45 100 Mechanical Ventilator 05/03/19 11:00 123/45 05/03/19 10:57 88 20 100 05/03/19 10:45 97.7 76 16 107/43 100 Mechanical Ventilator 05/03/19 10:45 107/43 05/03/19 10:30 97.7 74 16 82/29 100 Mechanical Ventilator 05/03/19 10:30 82/29 05/03/19 10:30 82/29 05/03/19 10:19 60 16 100 Status: sedated Condition: critical HEENT: atraumatic Neck: full ROM Lungs: chest wall tender Heart: HR/BP stable, HR/BP unstable Abdomen: soft, non-tender, active bowel sounds Extremities: no C/C/E, edema Micro: Microbiology Date/Time Source Procedure Growth Status 05/03/19 08:26 Nasal Not Otherwise Specified - Final Complete 05/03/19 08:26 Nasal Not Otherwise Specified - Final Complete 05/03/19 10:20 Rectum Received Critical Care - Subjective ROS Limited/Unobtainable: Yes Condition: critical EKG Rhythm: Sinus Rhythm FI02: 40 Vent Support Breath Rate: 16 Vent Support Mode: AC Vent Tidal Volume: 500 Sputum Amount: Scant PEEP: 5.0 PIP: 28 Fluids: NS 100 cc/hour Drips: off pressors, versed drip I&O: Intake and Output 05/03/19 05/04/19 19:00 07:00 Intake Total 392.869 ml 1659.955 ml Output Total 500 ml 700 ml Balance -107.131 ml 959.955 ml Intake Oral 0 ml 0 ml IV Total 392.869 ml 1409.955 ml Blood Product 250 ml Output Urine Total 500 ml 700 ml # Voids 4 2 ET-Tube: 7.0 ET Position: 22 Labs: Laboratory Tests Test 05/04/19 02:50 05/04/19 04:20 05/04/19 08:10 White Blood Count 5.4 K/UL (4.8-10.8) Red Blood Count 2.39 M/UL (4.20-5.40) L Hemoglobin 7.3 G/DL (12.0-16.0) L Hematocrit 22.7 % (37.0-47.0) L Mean Corpuscular Volume 95 FL (80-99) # Mean Corpuscular Hemoglobin 30.5 PG (27.0-31.0) Mean Corpuscular Hemoglobin Concent 32.1 G/DL (32.0-36.0) Red Cell Distribution Width 20.3 % (11.6-14.8) H Platelet Count 67 K/UL (150-450) L Mean Platelet Volume 7.6 FL (6.5-10.1) Neutrophils (%) (Auto) % (45.0-75.0) Lymphocytes (%) (Auto) % (20.0-45.0) Monocytes (%) (Auto) % (1.0-10.0) Eosinophils (%) (Auto) % (0.0-3.0) Basophils (%) (Auto) % (0.0-2.0) Differential Total Cells Counted 100 Neutrophils % (Manual) 89 % (45-75) H Lymphocytes % (Manual) 7 % (20-45) L Monocytes % (Manual) 4 % (1-10) Eosinophils % (Manual) 0 % (0-3) Basophils % (Manual) 0 % (0-2) Band Neutrophils 0 % (0-8) Platelet Estimate Decreased L Platelet Morphology Normal Anisocytosis 1+ Erythrocyte Sedimentation Rate 100 MM/HR (0-30) H Reticulocyte Count 2.6 % (0.5-2.0) H Prothrombin Time 13.4 SEC (9.30-11.50) H Prothromb Time International Ratio 1.3 (0.9-1.1) H Activated Partial Thromboplast Time 33 SEC (23-33) Sodium Level 141 MMOL/L (136-145) # Potassium Level 3.3 MMOL/L (3.5-5.1) L Chloride Level 103 MMOL/L (98-107) Carbon Dioxide Level 32 MMOL/L (21-32) Anion Gap 6 mmol/L (5-15) Blood Urea Nitrogen 23 mg/dL (7-18) H Creatinine 0.8 MG/DL (0.55-1.30) Estimat Glomerular Filtration Rate mL/min (>60) Glucose Level 75 MG/DL (74-106) Hemoglobin A1c 4.6 % (4.3-6.0) Osmolality 295 mOsm/kg (297-317) L Calcium Level 8.2 MG/DL (8.5-10.1) L Phosphorus Level 3.2 MG/DL (2.5-4.9) Magnesium Level 1.4 MG/DL (1.8-2.4) L Iron Level 28 ug/dL (50-175) L Total Iron Binding Capacity 190 ug/dL (250-450) L Percent Iron Saturation 15 % (15-50) Unsaturated Iron Binding 162 ug/dL (112-346) Ferritin 308 NG/ML (8-388) Total Bilirubin 1.5 MG/DL (0.2-1.0) H Direct Bilirubin 0.5 MG/DL (0.0-0.3) H Gamma Glutamyl Transpeptidase 55 U/L (5-85) Aspartate Amino Transf (AST/SGOT) 22 U/L (15-37) Alanine Aminotransferase (ALT/SGPT) 25 U/L (12-78) Alkaline Phosphatase 86 U/L (46-116) Lactate Dehydrogenase 178 U/L (81-234) Total Creatine Kinase 10 U/L (26-308) L Troponin I 0.069 ng/mL (0.000-0.056) C-Reactive Protein, Quantitative 3.0 mg/dL (0.00-0.90) H Pro-B-Type Natriuretic Peptide 6049 pg/mL (0-125) H Total Protein 6.0 G/DL (6.4-8.2) L Albumin 1.9 G/DL (3.4-5.0) L Globulin 4.1 g/dL Albumin/Globulin Ratio 0.5 (1.0-2.7) L Triglycerides Level 69 MG/DL (30-150) Cholesterol Level 87 MG/DL (< 200) LDL Cholesterol 46 mg/dL (<100) HDL Cholesterol 33 MG/DL (40-60) L Cholesterol/HDL Ratio 2.6 (3.3-4.4) L Carcinoembryonic Antigen Pending Vitamin B12 Level 488 PG/ML (193-986) Folate 3.9 NG/ML (8.6-58.9) L Thyroid Stimulating Hormone (TSH) 1.265 uiU/mL (0.358-3.740) Random Amikacin Level 13.8 ug/mL Urine Osmolality 468 mOsm/kg (429-449) H Urine Random Sodium 151 mmol/L (20-110) H Arterial Blood pH 7.642 (7.350-7.450) Arterial Blood Partial Pressure CO2 27.5 mmHg (35.0-45.0) L Arterial Blood Partial Pressure O2 169.7 mmHg (75.0-100.0) H Arterial Blood HCO3 29.1 mmol/L (22.0-26.0) H Arterial Blood Oxygen Saturation 98.9 % (95-100) Arterial Blood Base Excess 8.1 (-2-2) H Raghavendra Test Positive Jamal Medina MD May 04, 2019 10:20
[2019-05-04] MEDS ORDERED: Morphine Sulfate 4mg/ml Inj (IV USE ONLY) IVP PRN (10:21)
[2019-05-04] MEDS: Versed 50mg/D5W 100ml 100 ML IV SCH (10:45)
--- NOTE | 2019-05-04 10:45 | NUR ---
*-* NO INSURANCE INFORMATION IN THE BAR UNABLE TO SEND CLINICALS OR REVIEWS *-*
--- NOTE | 2019-05-04 10:48 | Nephrology Progress Note ---
Assessment/Plan Problem List: (1) Acute respiratory failure (2) Electrolyte imbalance (3) Anemia (4) NSTEMI (non-ST elevated myocardial infarction) (5) COPD (chronic obstructive pulmonary disease) Assessment Acute respiratory failure, on Vent- Underlying COPD HypoNatremia , Etiology TBI , ? CHF HyperKalemia Sever Anemia NSTEMI Plan Folate . Iron . B12 Mag and K and Phos supplement as needed Pressors as needed Pulm support Monitor renal parameters Urine studies 2D echo Left ventricular ejection fraction estimated to be 60 %. per orders Subjective ROS Limited/Unobtainable: Yes Objective Objective Last 24 Hour Vital Signs Date Time Temp Pulse Resp B/P (MAP) Pulse Ox O2 Delivery O2 Flow Rate FiO2 05/04/19 10:00 61 22 124/46 (72) 100 05/04/19 09:30 66 22 124/46 (72) 100 05/04/19 09:20 70 16 40 05/04/19 09:00 61 36 127/45 (72) 100 05/04/19 09:00 16 Mechanical Ventilator 45 05/04/19 08:30 51 16 123/43 (69) 100 05/04/19 08:00 Mechanical Ventilator 05/04/19 08:00 45 05/04/19 08:00 16 Mechanical Ventilator 45 05/04/19 08:00 97.6 68 18 102/54 (70) 100 05/04/19 08:00 69 05/04/19 07:54 57 16 100 05/04/19 07:30 15 Mechanical Ventilator 45 05/04/19 07:00 67 17 141/50 (80) 100 05/04/19 07:00 18 Mechanical Ventilator 05/04/19 06:30 61 16 123/46 (71) 100 05/04/19 06:00 97.8 62 17 123/43 (69) 100 05/04/19 06:00 16 Mechanical Ventilator 05/04/19 05:37 72 16 100 05/04/19 05:30 75 25 121/45 (70) 100 05/04/19 05:00 20 Mechanical Ventilator 05/04/19 05:00 71 15 93/47 (62) 100 05/04/19 04:30 78 26 95/43 (60) 100 05/04/19 04:00 82 05/04/19 04:00 100 05/04/19 04:00 Mechanical Ventilator 05/04/19 04:00 18 Mechanical Ventilator 05/04/19 04:00 76 17 92/41 (58) 100 05/04/19 03:30 85 21 86/42 (57) 100 05/04/19 03:05 81 16 100 05/04/19 03:00 76 18 115/42 (66) 100 05/04/19 03:00 18 Mechanical Ventilator 05/04/19 02:30 89 19 93/42 (59) 100 05/04/19 02:00 18 Mechanical Ventilator 05/04/19 02:00 95 24 93/38 (56) 100 05/04/19 01:30 93 19 89/40 (56) 100 05/04/19 01:21 85 16 100 05/04/19 01:00 102 17 99/47 (64) 100 05/04/19 01:00 18 Mechanical Ventilator 05/04/19 00:30 91 21 113/44 (67) 100 05/04/19 00:00 98.0 77 18 144/97 (113) 100 05/04/19 00:00 16 Mechanical Ventilator 05/04/19 00:00 53 05/04/19 00:00 Mechanical Ventilator 05/03/19 23:45 84 17 124/59 (80) 100 05/03/19 23:32 95 25 113/76 (88) 100 05/03/19 23:30 83 28 68/36 (47) 100 05/03/19 23:15 105 21 112/44 (66) 100 05/03/19 23:15 71 16 100 05/03/19 23:00 27 Mechanical Ventilator 05/03/19 23:00 108 27 102/44 (63) 100 05/03/19 22:45 109 30 94/43 (60) 100 05/03/19 22:30 110 31 99/42 (61) 100 05/03/19 22:15 102 25 101/43 (62) 100 05/03/19 22:00 73 17 90/38 (55) 100 05/03/19 22:00 26 Mechanical Ventilator 05/03/19 21:45 95 24 131/54 (79) 100 05/03/19 21:45 131/54 05/03/19 21:30 64 18 129/43 (71) 100 05/03/19 21:15 66 16 96/47 (63) 100 05/03/19 21:00 90/43 05/03/19 21:00 16 Mechanical Ventilator 05/03/19 21:00 67 16 90/43 (59) 100 05/03/19 20:56 75 16 100 05/03/19 20:45 81 17 94/51 (65) 100 05/03/19 20:30 98.8 96 16 87/47 (60) 100 05/03/19 20:15 99.0 108 16 93/57 (69) 100 05/03/19 20:00 111 16 104/58 (73) 100 05/03/19 20:00 Mechanical Ventilator 05/03/19 20:00 100 05/03/19 20:00 94/51 05/03/19 20:00 16 Mechanical Ventilator 100 05/03/19 19:45 114 16 109/56 (73) 100 05/03/19 19:37 115 16 100 05/03/19 19:00 138/67 05/03/19 19:00 16 Mechanical Ventilator 100 05/03/19 19:00 126 16 138/67 (90) 100 05/03/19 18:45 114 16 104/51 (68) 100 05/03/19 18:43 109/53 05/03/19 18:42 109/53 05/03/19 18:42 109/53 05/03/19 18:30 106 109/53 (71) 100 05/03/19 18:15 106 85/46 (59) 100 05/03/19 18:00 84/43 05/03/19 18:00 16 Mechanical Ventilator 100 05/03/19 18:00 101 84/43 (57) 100 05/03/19 17:30 84 106/55 (72) 100 05/03/19 17:28 101 16 100 05/03/19 17:00 113/55 05/03/19 17:00 16 Mechanical Ventilator 100 05/03/19 17:00 84 113/55 (74) 100 05/03/19 16:45 103 114/54 (74) 100 05/03/19 16:30 89 83/46 (58) 100 05/03/19 16:25 82 05/03/19 16:15 84 94/50 (65) 100 05/03/19 16:00 Mechanical Ventilator 05/03/19 16:00 88/45 05/03/19 16:00 16 Mechanical Ventilator 100 05/03/19 16:00 100 05/03/19 16:00 99.0 85 92/48 (63) 100 05/03/19 15:30 82 94/45 (61) 100 05/03/19 15:21 88 16 100 05/03/19 15:00 95/56 05/03/19 15:00 16 Mechanical Ventilator 100 05/03/19 15:00 82 95/56 (69) 100 05/03/19 14:00 98.4 82 120/44 (69) 100 05/03/19 14:00 120/44 05/03/19 14:00 16 Mechanical Ventilator 100 05/03/19 13:00 71 05/03/19 13:00 120/44 05/03/19 13:00 16 Mechanical Ventilator 100 05/03/19 12:54 84 18 100 05/03/19 12:45 97.7 74 16 116/40 100 Mechanical Ventilator 15.0 100 05/03/19 12:45 97.7 74 16 116/40 100 Mechanical Ventilator 15.0 100 05/03/19 12:30 126/51 05/03/19 12:30 97.7 76 16 126/51 100 Mechanical Ventilator 15.0 100 05/03/19 12:21 Mechanical Ventilator 05/03/19 12:15 97.7 72 12 133/91 100 Mechanical Ventilator 15.0 100 05/03/19 12:15 133/91 05/03/19 12:14 Mechanical Ventilator 05/03/19 12:06 Mechanical Ventilator 05/03/19 12:00 100/72 05/03/19 12:00 97.7 70 14 100/72 100 Mechanical Ventilator 15.0 100 05/03/19 11:51 12 Mechanical Ventilator 05/03/19 11:45 97.7 71 16 96/57 100 Mechanical Ventilator 15.0 100 05/03/19 11:45 96/57 05/03/19 11:30 97.7 73 11 96/71 100 Mechanical Ventilator 15.0 100 05/03/19 11:30 96/71 05/03/19 11:15 97.7 73 17 117/103 100 Mechanical Ventilator 05/03/19 11:15 117/103 05/03/19 11:00 97.7 77 18 123/45 100 Mechanical Ventilator 05/03/19 11:00 123/45 11/4/19 10:57 88 20 100 05/03/19 10:45 97.7 76 16 107/43 100 Mechanical Ventilator 05/03/19 10:45 107/43 Intake and Output 05/03/19 05/04/19 19:00 07:00 Intake Total 392.869 ml 1659.955 ml Output Total 500 ml 700 ml Balance -107.131 ml 959.955 ml Intake Oral 0 ml 0 ml IV Total 392.869 ml 1409.955 ml Blood Product 250 ml Output Urine Total 500 ml 700 ml # Voids 4 2 Laboratory Tests 05/04/19 02:50: White Blood Count 5.4, Red Blood Count 2.39L, Hemoglobin 7.3L, Hematocrit 22.7L , Mean Corpuscular Volume 95#, Mean Corpuscular Hemoglobin 30.5, Mean Corpuscular Hemoglobin Concent 32.1, Red Cell Distribution Width 20.3H, Platelet Count 67L, Mean Platelet Volume 7.6, Neutrophils (%) (Auto) , Lymphocytes (%) (Auto) , Monocytes (%) (Auto) , Eosinophils (%) (Auto) , Basophils (%) (Auto) , Differential Total Cells Counted 100, Neutrophils % ( Manual) 89H, Lymphocytes % (Manual) 7L, Monocytes % (Manual) 4, Eosinophils % ( Manual) 0, Basophils % (Manual) 0, Band Neutrophils 0, Platelet Estimate DecreasedL, Platelet Morphology Normal, Anisocytosis 1+, Erythrocyte Sedimentation Rate 100H, Reticulocyte Count 2.6H, Prothrombin Time 13.4H, Prothromb Time International Ratio 1.3H, Activated Partial Thromboplast Time 33 , Sodium Level 141#, Potassium Level 3.3L, Chloride Level 103, Carbon Dioxide Level 32, Anion Gap 6, Blood Urea Nitrogen 23H, Creatinine 0.8, Estimat Glomerular Filtration Rate , Glucose Level 75, Hemoglobin A1c 4.6, Osmolality 295L, Calcium Level 8.2L, Phosphorus Level 3.2, Magnesium Level 1.4L, Iron Level 28L, Total Iron Binding Capacity 190L, Percent Iron Saturation 15, Unsaturated Iron Binding 162, Ferritin 308, Total Bilirubin 1.5H, Direct Bilirubin 0.5H, Gamma Glutamyl Transpeptidase 55, Aspartate Amino Transf (AST/ SGOT) 22, Alanine Aminotransferase (ALT/SGPT) 25, Alkaline Phosphatase 86, Lactate Dehydrogenase 178, Total Creatine Kinase 10L, Troponin I 0.069H, C- Reactive Protein, Quantitative 3.0H, Pro-B-Type Natriuretic Peptide 6049H, Total Protein 6.0L, Albumin 1.9L, Globulin 4.1, Albumin/Globulin Ratio 0.5L, Triglycerides Level 69, Cholesterol Level 87, LDL Cholesterol 46, HDL Cholesterol 33L, Cholesterol/HDL Ratio 2.6L, Carcinoembryonic Antigen [Pending] , Vitamin B12 Level 488, Folate 3.9L, Thyroid Stimulating Hormone (TSH) 1.265, Random Amikacin Level 13.8 05/04/19 04:20: Urine Osmolality 468H, Urine Random Sodium 151H 05/04/19 08:10: Arterial Blood pH 7.642*H, Arterial Blood Partial Pressure CO2 27.5L, Arterial Blood Partial Pressure O2 169.7H, Arterial Blood HCO3 29.1H, Arterial Blood Oxygen Saturation 98.9, Arterial Blood Base Excess 8.1H, Raghavendra Test Positive Height (Feet): 5 Height (Inches): 3.00 Weight (Pounds): 107 General Appearance: no apparent distress EENT: other - vented Respiratory/Chest: decreased breath sounds Abdomen: distended Efra Das MD May 04, 2019 10:48
[2019-05-04] MEDS: D5NS 1,000 ML IV SCH (10:50)
[2019-05-04 11:59] LABS: HEMOGLOBIN 8.3 G/DL (12.0-16.0); MEAN CORPUSCULAR VOLUME 94 FL (80-99); PLATELET COUNT 64 K/UL (150-450); RED BLOOD COUNT 2.76 M/UL (4.20-5.40); RED CELL DISTRIBUTION WIDTH 21.2 % (11.6-14.8); WHITE BLOOD COUNT 6.2 K/UL (4.8-10.8)
[2019-05-04] MEDS ORDERED: Vitamin B12 1000mcg/ml Inj SUBQ ONE (12:00)
[2019-05-04] MEDS ORDERED: Iron Sucrose 200 MG in NS 110 ML IV ONE (12:00)
--- NOTE | 2019-05-04 12:21 | NUR ---
RD ASSESSMENT & RECOMMENDATIONS SEE CARE ACTIVITY FOR COMPLETE ASSESSMENT DAILY ESTIMATED NEEDS: Needs based on critical care, 48.6kg 22-28 kcals/kg 0359-9716 total kcals 1.2-2 g protein/kg 58-97 g total protein 22-28ml/kcal mL/kg 1021-7836 total fluid mLs NUTRITION DIAGNOSIS: Swallowing difficulty r/t respiratory failure as evidenced by pt is orally intubated, NPO. ENTERAL NUTRITION RECOMMENDATIONS: Vital 1.2 @45ml/hr x24 hrs to provide 1080ml, 1296 kcal, 81g pro, 876ml free H2O - If unable to wean, rec non oral feeds, obtain GI access. - Initiate Vital 1.2 @15ml/hr, advance as tolerated 10ml/hr q4-6 hrs to goal. - Flush per MD. HOB over 30 degrees ADDITIONAL RECOMMENDATIONS: 1) monitor for weaning, need for non oral feeds 2) Check lytes daily, replete as needed 3) Maintain calibrated bed scale wts 4) MEDIA REPORTER eval upon extubation.
--- NOTE | 2019-05-04 12:30 | NUR ---
NURSE NOTES: Dr. Ahmadi at bedside assessing pt. Made him aware of periodic bradycardic episodes. EKG ordered and done and results given to Dr Ahmadi. No new orders at this time. Will continue to monitor.
--- NOTE | 2019-05-04 12:40 | Cardiology Progress Note ---
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 vagal induced abn ekg pulm htn hs of recent gi bleed refused egd / colooscopy seem chf has improved try weanin bpt ot allow further diurtics empric abx watch plt and hgb Objective Last 24 Hour Vital Signs Date Time Temp Pulse Resp B/P (MAP) Pulse Ox O2 Delivery O2 Flow Rate FiO2 05/04/19 12:00 40 05/04/19 12:00 97.8 86 26 86/45 (59) 100 05/04/19 12:00 18 Mechanical Ventilator 40 05/04/19 12:00 Mechanical Ventilator 05/04/19 11:30 64 19 102/46 (64) 100 05/04/19 11:17 75 16 40 05/04/19 11:00 57 17 101/38 (59) 100 05/04/19 11:00 16 Mechanical Ventilator 40 05/04/19 10:45 16 Mechanical Ventilator 40 05/04/19 10:45 16 Mechanical Ventilator 40 05/04/19 10:30 62 27 93/40 (57) 100 05/04/19 10:00 61 22 124/46 (72) 100 05/04/19 10:00 16 Mechanical Ventilator 40 05/04/19 09:30 66 22 124/46 (72) 100 05/04/19 09:20 70 16 40 05/04/19 09:00 61 36 127/45 (72) 100 05/04/19 09:00 16 Mechanical Ventilator 45 05/04/19 08:30 51 16 123/43 (69) 100 05/04/19 08:00 Mechanical Ventilator 05/04/19 08:00 45 05/04/19 08:00 16 Mechanical Ventilator 45 05/04/19 08:00 97.6 68 18 102/54 (70) 100 05/04/19 08:00 69 05/04/19 07:54 57 16 100 05/04/19 07:30 15 Mechanical Ventilator 45 05/04/19 07:00 67 17 141/50 (80) 100 05/04/19 07:00 18 Mechanical Ventilator 05/04/19 06:30 61 16 123/46 (71) 100 05/04/19 06:00 97.8 62 17 123/43 (69) 100 05/04/19 06:00 16 Mechanical Ventilator 05/04/19 05:37 72 16 100 05/04/19 05:30 75 25 121/45 (70) 100 05/04/19 05:00 20 Mechanical Ventilator 05/04/19 05:00 71 15 93/47 (62) 100 05/04/19 04:30 78 26 95/43 (60) 100 05/04/19 04:00 82 05/04/19 04:00 100 05/04/19 04:00 Mechanical Ventilator 05/04/19 04:00 18 Mechanical Ventilator 05/04/19 04:00 76 17 92/41 (58) 100 05/04/19 03:30 85 21 86/42 (57) 100 05/04/19 03:05 81 16 100 05/04/19 03:00 76 18 115/42 (66) 100 05/04/19 03:00 18 Mechanical Ventilator 05/04/19 02:30 89 19 93/42 (59) 100 05/04/19 02:00 18 Mechanical Ventilator 05/04/19 02:00 95 24 93/38 (56) 100 05/04/19 01:30 93 19 89/40 (56) 100 05/04/19 01:21 85 16 100 05/04/19 01:00 102 17 99/47 (64) 100 05/04/19 01:00 18 Mechanical Ventilator 05/04/19 00:30 91 21 113/44 (67) 100 05/04/19 00:00 98.0 77 18 144/97 (113) 100 05/04/19 00:00 16 Mechanical Ventilator 05/04/19 00:00 53 05/04/19 00:00 Mechanical Ventilator 05/03/19 23:45 84 17 124/59 (80) 100 05/03/19 23:32 95 25 113/76 (88) 100 05/03/19 23:30 83 28 68/36 (47) 100 05/03/19 23:15 105 21 112/44 (66) 100 05/03/19 23:15 71 16 100 05/03/19 23:00 27 Mechanical Ventilator 05/03/19 23:00 108 27 102/44 (63) 100 05/03/19 22:45 109 30 94/43 (60) 100 05/03/19 22:30 110 31 99/42 (61) 100 05/03/19 22:15 102 25 101/43 (62) 100 05/03/19 22:00 73 17 90/38 (55) 100 05/03/19 22:00 26 Mechanical Ventilator 05/03/19 21:45 95 24 131/54 (79) 100 05/03/19 21:45 131/54 05/03/19 21:30 64 18 129/43 (71) 100 05/03/19 21:15 66 16 96/47 (63) 100 05/03/19 21:00 90/43 05/03/19 21:00 16 Mechanical Ventilator 05/03/19 21:00 67 16 90/43 (59) 100 05/03/19 20:56 75 16 100 05/03/19 20:45 81 17 94/51 (65) 100 05/03/19 20:30 98.8 96 16 87/47 (60) 100 05/03/19 20:15 99.0 108 16 93/57 (69) 100 05/03/19 20:00 111 16 104/58 (73) 100 05/03/19 20:00 Mechanical Ventilator 05/03/19 20:00 100 05/03/19 20:00 94/51 05/03/19 20:00 16 Mechanical Ventilator 100 05/03/19 19:45 114 16 109/56 (73) 100 05/03/19 19:37 115 16 100 05/03/19 19:00 138/67 05/03/19 19:00 16 Mechanical Ventilator 100 05/03/19 19:00 126 16 138/67 (90) 100 05/03/19 18:45 114 16 104/51 (68) 100 05/03/19 18:43 109/53 05/03/19 18:42 109/53 05/03/19 18:42 109/53 05/03/19 18:30 106 109/53 (71) 100 05/03/19 18:15 106 85/46 (59) 100 05/03/19 18:00 84/43 05/03/19 18:00 16 Mechanical Ventilator 100 05/03/19 18:00 101 84/43 (57) 100 05/03/19 17:30 84 106/55 (72) 100 05/03/19 17:28 101 16 100 05/03/19 17:00 113/55 05/03/19 17:00 16 Mechanical Ventilator 100 05/03/19 17:00 84 113/55 (74) 100 05/03/19 16:45 103 114/54 (74) 100 05/03/19 16:30 89 83/46 (58) 100 05/03/19 16:25 82 05/03/19 16:15 84 94/50 (65) 100 05/03/19 16:00 Mechanical Ventilator 05/03/19 16:00 88/45 05/03/19 16:00 16 Mechanical Ventilator 100 05/03/19 16:00 100 05/03/19 16:00 99.0 85 92/48 (63) 100 05/03/19 15:30 82 94/45 (61) 100 05/03/19 15:21 88 16 100 05/03/19 15:00 95/56 05/03/19 15:00 16 Mechanical Ventilator 100 05/03/19 15:00 82 95/56 (69) 100 05/03/19 14:00 98.4 82 120/44 (69) 100 05/03/19 14:00 120/44 05/03/19 14:00 16 Mechanical Ventilator 100 05/03/19 13:00 71 05/03/19 13:00 120/44 05/03/19 13:00 16 Mechanical Ventilator 100 05/03/19 12:54 84 18 100 05/03/19 12:45 97.7 74 16 116/40 100 Mechanical Ventilator 15.0 100 05/03/19 12:45 97.7 74 16 116/40 100 Mechanical Ventilator 15.0 100 Intake and Output 05/03/19 05/04/19 19:00 07:00 Intake Total 392.869 ml 1659.955 ml Output Total 500 ml 700 ml Balance -107.131 ml 959.955 ml Intake Oral 0 ml 0 ml IV Total 392.869 ml 1409.955 ml Blood Product 250 ml Output Urine Total 500 ml 700 ml # Voids 4 2 Laboratory Tests Test 05/04/19 02:50 05/04/19 04:20 05/04/19 08:10 05/04/19 10:30 White Blood Count 5.4 K/UL (4.8-10.8) 6.2 K/UL (4.8-10.8) Red Blood Count 2.39 M/UL (4.20-5.40) L 2.76 M/UL (4.20-5.40) L Hemoglobin 7.3 G/DL (12.0-16.0) L 8.3 G/DL (12.0-16.0) L Hematocrit 22.7 % (37.0-47.0) L 26.0 % (37.0-47.0) L Mean Corpuscular Volume 95 FL (80-99) # 94 FL (80-99) Mean Corpuscular Hemoglobin 30.5 PG (27.0-31.0) 30.0 PG (27.0-31.0) Mean Corpuscular Hemoglobin Concent 32.1 G/DL (32.0-36.0) 31.9 G/DL (32.0-36.0) L Red Cell Distribution Width 20.3 % (11.6-14.8) H 21.2 % (11.6-14.8) H Platelet Count 67 K/UL (150-450) L 64 K/UL (150-450) L Mean Platelet Volume 7.6 FL (6.5-10.1) 6.8 FL (6.5-10.1) Neutrophils (%) (Auto) % (45.0-75.0) % (45.0-75.0) Lymphocytes (%) (Auto) % (20.0-45.0) % (20.0-45.0) Monocytes (%) (Auto) % (1.0-10.0) % (1.0-10.0) Eosinophils (%) (Auto) % (0.0-3.0) % (0.0-3.0) Basophils (%) (Auto) % (0.0-2.0) % (0.0-2.0) Differential Total Cells Counted 100 Neutrophils % (Manual) 89 % (45-75) H Pending Lymphocytes % (Manual) 7 % (20-45) L Pending Monocytes % (Manual) 4 % (1-10) Eosinophils % (Manual) 0 % (0-3) Basophils % (Manual) 0 % (0-2) Band Neutrophils 0 % (0-8) Platelet Estimate Decreased L Pending Platelet Morphology Normal Pending Anisocytosis 1+ Erythrocyte Sedimentation Rate 100 MM/HR (0-30) H Reticulocyte Count 2.6 % (0.5-2.0) H Prothrombin Time 13.4 SEC (9.30-11.50) H Prothromb Time International Ratio 1.3 (0.9-1.1) H Activated Partial Thromboplast Time 33 SEC (23-33) Sodium Level 141 MMOL/L (136-145) # Potassium Level 3.3 MMOL/L (3.5-5.1) L Chloride Level 103 MMOL/L (98-107) Carbon Dioxide Level 32 MMOL/L (21-32) Anion Gap 6 mmol/L (5-15) Blood Urea Nitrogen 23 mg/dL (7-18) H Creatinine 0.8 MG/DL (0.55-1.30) Estimat Glomerular Filtration Rate mL/min (>60) Glucose Level 75 MG/DL (74-106) Hemoglobin A1c 4.6 % (4.3-6.0) Osmolality 295 mOsm/kg (297-317) L Calcium Level 8.2 MG/DL (8.5-10.1) L Phosphorus Level 3.2 MG/DL (2.5-4.9) Magnesium Level 1.4 MG/DL (1.8-2.4) L Iron Level 28 ug/dL (50-175) L Total Iron Binding Capacity 190 ug/dL (250-450) L Percent Iron Saturation 15 % (15-50) Unsaturated Iron Binding 162 ug/dL (112-346) Ferritin 308 NG/ML (8-388) Total Bilirubin 1.5 MG/DL (0.2-1.0) H Direct Bilirubin 0.5 MG/DL (0.0-0.3) H Gamma Glutamyl Transpeptidase 55 U/L (5-85) Aspartate Amino Transf (AST/SGOT) 22 U/L (15-37) Alanine Aminotransferase (ALT/SGPT) 25 U/L (12-78) Alkaline Phosphatase 86 U/L (46-116) Lactate Dehydrogenase 178 U/L (81-234) Total Creatine Kinase 10 U/L (26-308) L Troponin I 0.069 ng/mL (0.000-0.056) C-Reactive Protein, Quantitative 3.0 mg/dL (0.00-0.90) H Pro-B-Type Natriuretic Peptide 6049 pg/mL (0-125) H Total Protein 6.0 G/DL (6.4-8.2) L Albumin 1.9 G/DL (3.4-5.0) L Globulin 4.1 g/dL Albumin/Globulin Ratio 0.5 (1.0-2.7) L Triglycerides Level 69 MG/DL (30-150) Cholesterol Level 87 MG/DL (< 200) LDL Cholesterol 46 mg/dL (<100) HDL Cholesterol 33 MG/DL (40-60) L Cholesterol/HDL Ratio 2.6 (3.3-4.4) L Carcinoembryonic Antigen Pending Vitamin B12 Level 488 PG/ML (193-986) Folate 3.9 NG/ML (8.6-58.9) L Thyroid Stimulating Hormone (TSH) 1.265 uiU/mL (0.358-3.740) Random Amikacin Level 13.8 ug/mL Urine Osmolality 468 mOsm/kg (429-449) H Urine Random Sodium 151 mmol/L (20-110) H Arterial Blood pH 7.642 (7.350-7.450) Arterial Blood Partial Pressure CO2 27.5 mmHg (35.0-45.0) L Arterial Blood Partial Pressure O2 169.7 mmHg (75.0-100.0) H Arterial Blood HCO3 29.1 mmol/L (22.0-26.0) H Arterial Blood Oxygen Saturation 98.9 % (95-100) Arterial Blood Base Excess 8.1 (-2-2) H Raghavendra Test Positive Microbiology Date/Time Source Procedure Growth Status 05/03/19 08:26 Nasal Not Otherwise Specified - Final Complete 05/03/19 08:26 Nasal Not Otherwise Specified - Final Complete 05/03/19 10:20 Rectum Received Philipp Ahmadi MD May 04, 2019 12:40
--- NOTE | 2019-05-04 13:47 | NUR ---
CASE MANAGEMENT:REVIEW 74 YR OLD FEMALE BIBA FROM [facility] CC: SOB AND AMS SI: RESPIRATORY FAILURE. NSTEMI 134 30 82/29 94% ON 15L NON REBREATHER H/H-7.3/24.7 PLT-92 PH-7.25 PCO2+98.7 IS: PLACED ON BIPAP--> INTUBATED DUONEB HHN IV SOLUMEDROL IV ZOSYN IV VANCOMYCIN IV LASIX CXR BLOOD CX : TO ICU INTERQUAL CRITERIA MET
--- NOTE | 2019-05-04 14:20 | NUR ---
NURSE NOTES: Magnesium and potassium replacement completed. Pt remains comfortable on Versed 3mg/hr, RASS -2. Pt repositioned.
--- NOTE | 2019-05-04 15:39 | Infectious Diseases Prog Note ---
Assessment/Plan Assessment/Plan Afebrile No leukocytosis Lactate 1.2 dopamine, SP Hypoxic Respiratory failure PNA? Pulm edema Flu swab negative 05/03 sputum cx: P 05/03 CXR: Moderate to severe pulmonary edema. Bilateral pleural effusions 05/03 CXR: Diffuse airspace disease may be due to pulmonary edema. Small bilateral pleural effusions. Tubes and lines satisfactory 05/04 CXR: Improved bilateral pleural effusions, over one day UA negative r/o bacteremia 05/03 Bcx: P 05/03 TTE: EF 60%.No pericardial effusion. AV calcification with decreased cusp excursion c/w aortic stenosis. Heavily thickened mitral valve leaflets with reduced excursion. Echogenic material noted on posterior mitral valve leaflet is likely calcified mitral annular structure. Heavy mitral annulus and aortic root calcification. Pulmonic valve not well visualized. Normal tricuspid valve structure. new subclavian central line placed in ED no sorensen COPD CHF Hep C cirrhosis GERD Plan: continue Meropenem, Amikacin, Vancomycin #1 SP Zosyn and Vanc f/u bcx f/u sputum cx monitor CXR monitor temp monitor CBC steroids per pulm Thank you for this consult. [facility] will continue to follow the patient with you. Subjective Allergies: Coded Allergies: ACETAMINOPHEN (Verified Allergy, Unknown, 05/03/19) ASPIRIN (Verified Allergy, Unknown, 08/14/17) IBUPROFEN (Verified Allergy, Unknown, 05/03/19) Uncoded Allergies: pain killers (Allergy, Severe, 01/28/17) PENICILLIN (Allergy, Unknown, 05/03/19) Subjective Afebrile. off pressors. oral secretions. FiO2 40% No leukocytosis Objective Vital Signs Last 24 Hour Vital Signs Date Time Temp Pulse Resp B/P (MAP) Pulse Ox O2 Delivery O2 Flow Rate FiO2 05/04/19 14:00 16 Mechanical Ventilator 40 05/04/19 14:00 91 19 119/40 (66) 100 05/04/19 13:28 108 16 40 05/04/19 13:00 16 Mechanical Ventilator 40 05/04/19 13:00 54 18 92/42 (59) 100 05/04/19 12:30 60 16 120/39 (66) 100 05/04/19 12:17 119/40 05/04/19 12:00 64 05/04/19 12:00 40 05/04/19 12:00 97.8 86 26 86/45 (59) 100 05/04/19 12:00 18 Mechanical Ventilator 40 05/04/19 12:00 Mechanical Ventilator 05/04/19 11:30 64 19 102/46 (64) 100 05/04/19 11:17 75 16 40 05/04/19 11:00 57 17 101/38 (59) 100 05/04/19 11:00 16 Mechanical Ventilator 40 05/04/19 10:45 16 Mechanical Ventilator 40 05/04/19 10:45 16 Mechanical Ventilator 40 05/04/19 10:30 62 27 93/40 (57) 100 05/04/19 10:00 61 22 124/46 (72) 100 05/04/19 10:00 16 Mechanical Ventilator 40 05/04/19 09:30 66 22 124/46 (72) 100 05/04/19 09:20 70 16 40 05/04/19 09:00 61 36 127/45 (72) 100 05/04/19 09:00 16 Mechanical Ventilator 45 05/04/19 08:30 51 16 123/43 (69) 100 05/04/19 08:00 Mechanical Ventilator 05/04/19 08:00 45 05/04/19 08:00 16 Mechanical Ventilator 45 05/04/19 08:00 97.6 68 18 102/54 (70) 100 05/04/19 08:00 69 05/04/19 07:54 57 16 100 05/04/19 07:30 15 Mechanical Ventilator 45 05/04/19 07:00 67 17 141/50 (80) 100 05/04/19 07:00 18 Mechanical Ventilator 05/04/19 06:30 61 16 123/46 (71) 100 05/04/19 06:00 97.8 62 17 123/43 (69) 100 05/04/19 06:00 16 Mechanical Ventilator 05/04/19 05:37 72 16 100 05/04/19 05:30 75 25 121/45 (70) 100 05/04/19 05:00 20 Mechanical Ventilator 05/04/19 05:00 71 15 93/47 (62) 100 05/04/19 04:30 78 26 95/43 (60) 100 05/04/19 04:00 82 05/04/19 04:00 100 05/04/19 04:00 Mechanical Ventilator 05/04/19 04:00 18 Mechanical Ventilator 05/04/19 04:00 76 17 92/41 (58) 100 05/04/19 03:30 85 21 86/42 (57) 100 05/04/19 03:05 81 16 100 05/04/19 03:00 76 18 115/42 (66) 100 05/04/19 03:00 18 Mechanical Ventilator 05/04/19 02:30 89 19 93/42 (59) 100 05/04/19 02:00 18 Mechanical Ventilator 05/04/19 02:00 95 24 93/38 (56) 100 05/04/19 01:30 93 19 89/40 (56) 100 05/04/19 01:21 85 16 100 05/04/19 01:00 102 17 99/47 (64) 100 05/04/19 01:00 18 Mechanical Ventilator 05/04/19 00:30 91 21 113/44 (67) 100 05/04/19 00:00 98.0 77 18 144/97 (113) 100 05/04/19 00:00 16 Mechanical Ventilator 05/04/19 00:00 53 05/04/19 00:00 Mechanical Ventilator 05/03/19 23:45 84 17 124/59 (80) 100 05/03/19 23:32 95 25 113/76 (88) 100 05/03/19 23:30 83 28 68/36 (47) 100 05/03/19 23:15 105 21 112/44 (66) 100 05/03/19 23:15 71 16 100 05/03/19 23:00 27 Mechanical Ventilator 05/03/19 23:00 108 27 102/44 (63) 100 05/03/19 22:45 109 30 94/43 (60) 100 05/03/19 22:30 110 31 99/42 (61) 100 05/03/19 22:15 102 25 101/43 (62) 100 05/03/19 22:00 73 17 90/38 (55) 100 05/03/19 22:00 26 Mechanical Ventilator 05/03/19 21:45 95 24 131/54 (79) 100 05/03/19 21:45 131/54 05/03/19 21:30 64 18 129/43 (71) 100 05/03/19 21:15 66 16 96/47 (63) 100 05/03/19 21:00 90/43 05/03/19 21:00 16 Mechanical Ventilator 05/03/19 21:00 67 16 90/43 (59) 100 05/03/19 20:56 75 16 100 05/03/19 20:45 81 17 94/51 (65) 100 05/03/19 20:30 98.8 96 16 87/47 (60) 100 05/03/19 20:15 99.0 108 16 93/57 (69) 100 05/03/19 20:00 111 16 104/58 (73) 100 05/03/19 20:00 Mechanical Ventilator 05/03/19 20:00 100 05/03/19 20:00 94/51 05/03/19 20:00 16 Mechanical Ventilator 100 05/03/19 19:45 114 16 109/56 (73) 100 05/03/19 19:37 115 16 100 05/03/19 19:00 138/67 05/03/19 19:00 16 Mechanical Ventilator 100 05/03/19 19:00 126 16 138/67 (90) 100 05/03/19 18:45 114 16 104/51 (68) 100 05/03/19 18:43 109/53 05/03/19 18:42 109/53 05/03/19 18:42 109/53 05/03/19 18:30 106 109/53 (71) 100 05/03/19 18:15 106 85/46 (59) 100 05/03/19 18:00 84/43 05/03/19 18:00 16 Mechanical Ventilator 100 05/03/19 18:00 101 84/43 (57) 100 05/03/19 17:30 84 106/55 (72) 100 05/03/19 17:28 101 16 100 05/03/19 17:00 113/55 05/03/19 17:00 16 Mechanical Ventilator 100 05/03/19 17:00 84 113/55 (74) 100 05/03/19 16:45 103 114/54 (74) 100 05/03/19 16:30 89 83/46 (58) 100 05/03/19 16:25 82 05/03/19 16:15 84 94/50 (65) 100 05/03/19 16:00 Mechanical Ventilator 05/03/19 16:00 88/45 05/03/19 16:00 16 Mechanical Ventilator 100 05/03/19 16:00 100 05/03/19 16:00 99.0 85 92/48 (63) 100 Height (Feet): 5 Height (Inches): 3.00 Weight (Pounds): 107 Objective Gen: NAD HEENT: ETT CV: RRR Resp: coarse Abd: soft. normoactive Bs+ Neuro: sedated Microbiology Date/Time Source Procedure Growth Status 05/03/19 08:26 Nasal Not Otherwise Specified - Final Complete 05/03/19 08:26 Nasal Not Otherwise Specified - Final Complete 05/03/19 10:20 Rectum Received Laboratory Tests Test 05/04/19 02:50 05/04/19 04:20 05/04/19 08:10 05/04/19 10:30 White Blood Count 5.4 K/UL (4.8-10.8) 6.2 K/UL (4.8-10.8) Red Blood Count 2.39 M/UL (4.20-5.40) L 2.76 M/UL (4.20-5.40) L Hemoglobin 7.3 G/DL (12.0-16.0) L 8.3 G/DL (12.0-16.0) L Hematocrit 22.7 % (37.0-47.0) L 26.0 % (37.0-47.0) L Mean Corpuscular Volume 95 FL (80-99) # 94 FL (80-99) Mean Corpuscular Hemoglobin 30.5 PG (27.0-31.0) 30.0 PG (27.0-31.0) Mean Corpuscular Hemoglobin Concent 32.1 G/DL (32.0-36.0) 31.9 G/DL (32.0-36.0) L Red Cell Distribution Width 20.3 % (11.6-14.8) H 21.2 % (11.6-14.8) H Platelet Count 67 K/UL (150-450) L 64 K/UL (150-450) L Mean Platelet Volume 7.6 FL (6.5-10.1) 6.8 FL (6.5-10.1) Neutrophils (%) (Auto) % (45.0-75.0) % (45.0-75.0) Lymphocytes (%) (Auto) % (20.0-45.0) % (20.0-45.0) Monocytes (%) (Auto) % (1.0-10.0) % (1.0-10.0) Eosinophils (%) (Auto) % (0.0-3.0) % (0.0-3.0) Basophils (%) (Auto) % (0.0-2.0) % (0.0-2.0) Differential Total Cells Counted 100 100 Neutrophils % (Manual) 89 % (45-75) H 85 % (45-75) H Lymphocytes % (Manual) 7 % (20-45) L 8 % (20-45) L Monocytes % (Manual) 4 % (1-10) 7 % (1-10) Eosinophils % (Manual) 0 % (0-3) 0 % (0-3) Basophils % (Manual) 0 % (0-2) 0 % (0-2) Band Neutrophils 0 % (0-8) 0 % (0-8) Other Cell Type Pathologist comment Platelet Estimate Decreased L Decreased L Platelet Morphology Normal Normal Anisocytosis 1+ 1+ Erythrocyte Sedimentation Rate 100 MM/HR (0-30) H Reticulocyte Count 2.6 % (0.5-2.0) H Prothrombin Time 13.4 SEC (9.30-11.50) H Prothromb Time International Ratio 1.3 (0.9-1.1) H Activated Partial Thromboplast Time 33 SEC (23-33) Sodium Level 141 MMOL/L (136-145) # Potassium Level 3.3 MMOL/L (3.5-5.1) L Chloride Level 103 MMOL/L (98-107) Carbon Dioxide Level 32 MMOL/L (21-32) Anion Gap 6 mmol/L (5-15) Blood Urea Nitrogen 23 mg/dL (7-18) H Creatinine 0.8 MG/DL (0.55-1.30) Estimat Glomerular Filtration Rate mL/min (>60) Glucose Level 75 MG/DL (74-106) Hemoglobin A1c 4.6 % (4.3-6.0) Osmolality 295 mOsm/kg (297-317) L Calcium Level 8.2 MG/DL (8.5-10.1) L Phosphorus Level 3.2 MG/DL (2.5-4.9) Magnesium Level 1.4 MG/DL (1.8-2.4) L Iron Level 28 ug/dL (50-175) L Total Iron Binding Capacity 190 ug/dL (250-450) L Percent Iron Saturation 15 % (15-50) Unsaturated Iron Binding 162 ug/dL (112-346) Ferritin 308 NG/ML (8-388) Total Bilirubin 1.5 MG/DL (0.2-1.0) H Direct Bilirubin 0.5 MG/DL (0.0-0.3) H Gamma Glutamyl Transpeptidase 55 U/L (5-85) Aspartate Amino Transf (AST/SGOT) 22 U/L (15-37) Alanine Aminotransferase (ALT/SGPT) 25 U/L (12-78) Alkaline Phosphatase 86 U/L (46-116) Lactate Dehydrogenase 178 U/L (81-234) Total Creatine Kinase 10 U/L (26-308) L Troponin I 0.069 ng/mL (0.000-0.056) C-Reactive Protein, Quantitative 3.0 mg/dL (0.00-0.90) H Pro-B-Type Natriuretic Peptide 6049 pg/mL (0-125) H Total Protein 6.0 G/DL (6.4-8.2) L Albumin 1.9 G/DL (3.4-5.0) L Globulin 4.1 g/dL Albumin/Globulin Ratio 0.5 (1.0-2.7) L Triglycerides Level 69 MG/DL (30-150) Cholesterol Level 87 MG/DL (< 200) LDL Cholesterol 46 mg/dL (<100) HDL Cholesterol 33 MG/DL (40-60) L Cholesterol/HDL Ratio 2.6 (3.3-4.4) L Carcinoembryonic Antigen Pending Vitamin B12 Level 488 PG/ML (193-986) Folate 3.9 NG/ML (8.6-58.9) L Thyroid Stimulating Hormone (TSH) 1.265 uiU/mL (0.358-3.740) Random Amikacin Level 13.8 ug/mL Urine Osmolality 468 mOsm/kg (429-449) H Urine Random Sodium 151 mmol/L (20-110) H Arterial Blood pH 7.642 (7.350-7.450) Arterial Blood Partial Pressure CO2 27.5 mmHg (35.0-45.0) L Arterial Blood Partial Pressure O2 169.7 mmHg (75.0-100.0) H Arterial Blood HCO3 29.1 mmol/L (22.0-26.0) H Arterial Blood Oxygen Saturation 98.9 % (95-100) Arterial Blood Base Excess 8.1 (-2-2) H Raghavendra Test Positive Current Medications Medications (Trade) Dose Ordered Sig/Gautam Route PRN Reason Start Time Stop Time Status Last Admin Dose Admin Albuterol/ Ipratropium (Albuterol/ Ipratropium) 3 ml Q4H PRN HHN Shortness of Breath 05/03/19 10:30 05/08/19 10:29 Amikacin Protocol (Amikacin pharmacy to dose) 1 ea DAILY PRN MISC . 05/03/19 12:15 06/02/19 12:14 Amikacin Sulfate 750 mg/Sodium Chloride 113 ml @ 113 mls/hr Q36H IV 05/05/19 05:00 05/12/19 04:59 Chlorhexidine Gluconate (Cherry-Hex 2%) 1 applic DAILY@2000 TOPIC 05/03/19 20:00 06/02/19 19:59 05/03/19 21:23 Dextrose/Sodium Chloride 1,000 ml @ 75 mls/hr [id number] IV 05/04/19 10:45 06/03/19 10:44 05/04/19 10:50 Ertapenem 1 gm/ Sodium Chloride 55 ml @ 110 mls/hr Q24H IV 05/03/19 21:00 05/08/19 20:59 05/03/19 21:23 Folic Acid (Folate) 5 mg DAILY NG 05/04/19 11:00 06/03/19 10:59 Heparin Sodium (Porcine) (Heparin 5000 units/ml) 5,000 units EVERY 12 HOURS SUBQ 05/03/19 21:00 06/02/19 20:59 Iron Sucrose 100 mg/Sodium Chloride 55 ml @ 200 mls/hr BEDTIME IVPB 05/05/19 21:00 05/08/19 21:17 Lorazepam (Ativan 2mg/ml 1ml) 2 mg Q4H PRN IV For Anxiety 05/04/19 10:22 05/11/19 10:21 Midazolam HCl 100 ml @ 0 mls/hr Q24H IV 05/04/19 11:00 05/11/19 10:59 05/04/19 10:45 Morphine Sulfate (Morphine Sulfate) 4 mg Q4H PRN IVP For Pain 05/04/19 10:21 05/11/19 10:20 Norepinephrine Bitartrate 4 mg/ Dextrose 254 ml @ 0 mls/hr Q24H IV 05/03/19 12:17 06/02/19 12:16 05/03/19 18:42 Ondansetron HCl (Zofran) 4 mg Q6H PRN IVP Nausea & Vomiting 05/03/19 10:30 06/02/19 10:29 Pantoprazole (Protonix) 40 mg Q12HR IV 05/03/19 21:00 06/03/19 08:59 05/04/19 08:28 Polyethylene Glycol (Miralax) 17 gm DAILYPRN PRN ORAL Constipation 05/03/19 10:30 06/02/19 10:29 Vancomycin HCl (Vanco rx to dose) 1 ea DAILY PRN MISC . 05/03/19 12:15 06/02/19 12:14 Vancomycin HCl 500 mg/Dextrose 110 ml @ 110 mls/hr Q12HR IVPB 05/03/19 21:00 05/08/19 20:59 05/04/19 08:28 Yazan Minaya MD May 04, 2019 15:39
--- NOTE | 2019-05-04 16:00 | NUR ---
NURSE NOTES: Versed decreased to 2mg/hr to maintain RASS -2.
--- NOTE | 2019-05-04 17:15 | Internal Med Progress Note ---
Subjective Date of Service: May 04, 2019 Physician Name Tavares,Romeo Attending Physician Zeke Munoz MD Current Medications Medications (Trade) Dose Ordered Sig/Gautam Route PRN Reason Start Time Stop Time Status Last Admin Dose Admin Albuterol/ Ipratropium (Albuterol/ Ipratropium) 3 ml Q4H PRN HHN Shortness of Breath 05/03/19 10:30 05/08/19 10:29 Amikacin Protocol (Amikacin pharmacy to dose) 1 ea DAILY PRN MISC . 05/03/19 12:15 06/02/19 12:14 Amikacin Sulfate 750 mg/Sodium Chloride 113 ml @ 113 mls/hr Q36H IV 05/05/19 05:00 05/12/19 04:59 Chlorhexidine Gluconate (Cherry-Hex 2%) 1 applic DAILY@2000 TOPIC 05/03/19 20:00 06/02/19 19:59 05/03/19 21:23 Dextrose/Sodium Chloride 1,000 ml @ 75 mls/hr [id number] IV 05/04/19 10:45 06/03/19 10:44 05/04/19 10:50 Ertapenem 1 gm/ Sodium Chloride 55 ml @ 110 mls/hr Q24H IV 05/03/19 21:00 05/08/19 20:59 05/03/19 21:23 Folic Acid (Folate) 5 mg DAILY NG 05/04/19 11:00 06/03/19 10:59 Heparin Sodium (Porcine) (Heparin 5000 units/ml) 5,000 units EVERY 12 HOURS SUBQ 05/03/19 21:00 06/02/19 20:59 Iron Sucrose 100 mg/Sodium Chloride 55 ml @ 200 mls/hr BEDTIME IVPB 05/05/19 21:00 05/08/19 21:17 Lorazepam (Ativan 2mg/ml 1ml) 2 mg Q4H PRN IV For Anxiety 05/04/19 10:22 05/11/19 10:21 Midazolam HCl 100 ml @ 0 mls/hr Q24H IV 05/04/19 11:00 05/11/19 10:59 05/04/19 10:45 Morphine Sulfate (Morphine Sulfate) 4 mg Q4H PRN IVP For Pain 05/04/19 10:21 05/11/19 10:20 Norepinephrine Bitartrate 4 mg/ Dextrose 254 ml @ 0 mls/hr Q24H IV 05/03/19 12:17 06/02/19 12:16 05/03/19 18:42 Ondansetron HCl (Zofran) 4 mg Q6H PRN IVP Nausea & Vomiting 05/03/19 10:30 06/02/19 10:29 Pantoprazole (Protonix) 40 mg Q12HR IV 05/03/19 21:00 06/03/19 08:59 05/04/19 08:28 Polyethylene Glycol (Miralax) 17 gm DAILYPRN PRN ORAL Constipation 05/03/19 10:30 06/02/19 10:29 Vancomycin HCl (Vanco rx to dose) 1 ea DAILY PRN MISC . 05/03/19 12:15 06/02/19 12:14 Vancomycin HCl 500 mg/Dextrose 110 ml @ 110 mls/hr Q12HR IVPB 05/03/19 21:00 05/08/19 20:59 05/04/19 08:28 Allergies: Coded Allergies: ACETAMINOPHEN (Verified Allergy, Unknown, 05/03/19) ASPIRIN (Verified Allergy, Unknown, 08/14/17) IBUPROFEN (Verified Allergy, Unknown, 05/03/19) Uncoded Allergies: pain killers (Allergy, Severe, 01/28/17) PENICILLIN (Allergy, Unknown, 05/03/19) ROS Limited/Unobtainable: Yes Subjective 74 YO F admitted with respiratory failure. Now Link Heart Failure. Intubated and sedated. Cover for Int Se[facility]-Dr Munoz. ICU Objective Last Vital Signs Date Time Temp Pulse Resp B/P (MAP) Pulse Ox O2 Delivery O2 Flow Rate FiO2 05/04/19 16:30 68 22 111/51 (71) 100 05/04/19 16:00 40 05/04/19 16:00 97.1 05/04/19 16:00 Mechanical Ventilator 05/03/19 12:45 15.0 Laboratory Tests Test 05/04/19 02:50 05/04/19 04:20 05/04/19 08:10 05/04/19 10:30 White Blood Count 5.4 K/UL (4.8-10.8) 6.2 K/UL (4.8-10.8) Red Blood Count 2.39 M/UL (4.20-5.40) L 2.76 M/UL (4.20-5.40) L Hemoglobin 7.3 G/DL (12.0-16.0) L 8.3 G/DL (12.0-16.0) L Hematocrit 22.7 % (37.0-47.0) L 26.0 % (37.0-47.0) L Mean Corpuscular Volume 95 FL (80-99) # 94 FL (80-99) Mean Corpuscular Hemoglobin 30.5 PG (27.0-31.0) 30.0 PG (27.0-31.0) Mean Corpuscular Hemoglobin Concent 32.1 G/DL (32.0-36.0) 31.9 G/DL (32.0-36.0) L Red Cell Distribution Width 20.3 % (11.6-14.8) H 21.2 % (11.6-14.8) H Platelet Count 67 K/UL (150-450) L 64 K/UL (150-450) L Mean Platelet Volume 7.6 FL (6.5-10.1) 6.8 FL (6.5-10.1) Neutrophils (%) (Auto) % (45.0-75.0) % (45.0-75.0) Lymphocytes (%) (Auto) % (20.0-45.0) % (20.0-45.0) Monocytes (%) (Auto) % (1.0-10.0) % (1.0-10.0) Eosinophils (%) (Auto) % (0.0-3.0) % (0.0-3.0) Basophils (%) (Auto) % (0.0-2.0) % (0.0-2.0) Differential Total Cells Counted 100 100 Neutrophils % (Manual) 89 % (45-75) H 85 % (45-75) H Lymphocytes % (Manual) 7 % (20-45) L 8 % (20-45) L Monocytes % (Manual) 4 % (1-10) 7 % (1-10) Eosinophils % (Manual) 0 % (0-3) 0 % (0-3) Basophils % (Manual) 0 % (0-2) 0 % (0-2) Band Neutrophils 0 % (0-8) 0 % (0-8) Other Cell Type Pathologist comment Platelet Estimate Decreased L Decreased L Platelet Morphology Normal Normal Anisocytosis 1+ 1+ Erythrocyte Sedimentation Rate 100 MM/HR (0-30) H Reticulocyte Count 2.6 % (0.5-2.0) H Prothrombin Time 13.4 SEC (9.30-11.50) H Prothromb Time International Ratio 1.3 (0.9-1.1) H Activated Partial Thromboplast Time 33 SEC (23-33) Sodium Level 141 MMOL/L (136-145) # Potassium Level 3.3 MMOL/L (3.5-5.1) L Chloride Level 103 MMOL/L (98-107) Carbon Dioxide Level 32 MMOL/L (21-32) Anion Gap 6 mmol/L (5-15) Blood Urea Nitrogen 23 mg/dL (7-18) H Creatinine 0.8 MG/DL (0.55-1.30) Estimat Glomerular Filtration Rate mL/min (>60) Glucose Level 75 MG/DL (74-106) Hemoglobin A1c 4.6 % (4.3-6.0) Osmolality 295 mOsm/kg (297-317) L Calcium Level 8.2 MG/DL (8.5-10.1) L Phosphorus Level 3.2 MG/DL (2.5-4.9) Magnesium Level 1.4 MG/DL (1.8-2.4) L Iron Level 28 ug/dL (50-175) L Total Iron Binding Capacity 190 ug/dL (250-450) L Percent Iron Saturation 15 % (15-50) Unsaturated Iron Binding 162 ug/dL (112-346) Ferritin 308 NG/ML (8-388) Total Bilirubin 1.5 MG/DL (0.2-1.0) H Direct Bilirubin 0.5 MG/DL (0.0-0.3) H Gamma Glutamyl Transpeptidase 55 U/L (5-85) Aspartate Amino Transf (AST/SGOT) 22 U/L (15-37) Alanine Aminotransferase (ALT/SGPT) 25 U/L (12-78) Alkaline Phosphatase 86 U/L (46-116) Lactate Dehydrogenase 178 U/L (81-234) Total Creatine Kinase 10 U/L (26-308) L Troponin I 0.069 ng/mL (0.000-0.056) C-Reactive Protein, Quantitative 3.0 mg/dL (0.00-0.90) H Pro-B-Type Natriuretic Peptide 6049 pg/mL (0-125) H Total Protein 6.0 G/DL (6.4-8.2) L Albumin 1.9 G/DL (3.4-5.0) L Globulin 4.1 g/dL Albumin/Globulin Ratio 0.5 (1.0-2.7) L Triglycerides Level 69 MG/DL (30-150) Cholesterol Level 87 MG/DL (< 200) LDL Cholesterol 46 mg/dL (<100) HDL Cholesterol 33 MG/DL (40-60) L Cholesterol/HDL Ratio 2.6 (3.3-4.4) L Carcinoembryonic Antigen Pending Vitamin B12 Level 488 PG/ML (193-986) Folate 3.9 NG/ML (8.6-58.9) L Thyroid Stimulating Hormone (TSH) 1.265 uiU/mL (0.358-3.740) Random Amikacin Level 13.8 ug/mL Urine Osmolality 468 mOsm/kg (429-449) H Urine Random Sodium 151 mmol/L (20-110) H Arterial Blood pH 7.642 (7.350-7.450) Arterial Blood Partial Pressure CO2 27.5 mmHg (35.0-45.0) L Arterial Blood Partial Pressure O2 169.7 mmHg (75.0-100.0) H Arterial Blood HCO3 29.1 mmol/L (22.0-26.0) H Arterial Blood Oxygen Saturation 98.9 % (95-100) Arterial Blood Base Excess 8.1 (-2-2) H Raghavendra Test Positive Microbiology Date/Time Source Procedure Growth Status 05/03/19 08:26 Nasal Not Otherwise Specified - Final Complete 05/03/19 08:26 Nasal Not Otherwise Specified - Final Complete 05/03/19 10:20 Rectum Received Intake and Output 05/03/19 05/04/19 19:00 07:00 Intake Total 392.869 ml 1659.955 ml Output Total 500 ml 700 ml Balance -107.131 ml 959.955 ml Intake Oral 0 ml 0 ml IV Total 392.869 ml 1409.955 ml Blood Product 250 ml Output Urine Total 500 ml 700 ml # Voids 4 2 Objective PHYSICAL EXAMINATION: GENERAL: The patient is a thin-appearing female, who is currently intubated and sedated in the intensive care unit. HEENT: Eyes, pupils are equal and responsive to light and accommodation. Extraocular movements are intact. NECK: Supple without lymphadenopathy. CHEST: Coarse breath sounds bilaterally without wheezes or rales. CARDIOVASCULAR: Regular rhythm and rate. S1 and S2 are normal without murmurs, rubs, or gallops. ABDOMEN: Soft, nontender, and nondistended with positive bowel sounds. No evidence of hepatosplenomegaly, rebound, or guarding noted. EXTREMITIES: Negative for clubbing, cyanosis, or edema. RECTAL/GENITAL: Refused. NEUROLOGIC: Unable to assess secondary to intubation. Assessment/Plan Assessment/Plan ASSESSMENT: This is a 74-year-old female. 1. Respiratory failure. 2. Acute exacerbation of congestive heart failure. 3. Chronic obstructive pulmonary disease. 4. Hypertension. 5. Hypercholesterolemia. TREATMENT: 1. Respiratory failure. A Pulmonary consultation has been obtained with Dr. Jamal Medina. The patient is currently intubated in the intensive care unit. Respiratory failure may be secondary to congestive heart failure. The patient has been started empirically on ertapenem, amikacin and vancomycin for hospital-acquired pneumonia per Inf Dis=Dr. Minaya 2. Congestive heart failure. A Cardiology consultation has been obtained with Dr. Philipp Ahmadi. The patient is currently receiving Lasix intravenously. We will follow recommendations of Cardiology. 3. Hypercholesterolemia. Continue atorvastatin as above. 4. Hypertension. The patient is currently hypotensive. Hold antihypertensive medication at this time. Romeo Tavares MD May 04, 2019 17:15
--- NOTE | 2019-05-04 18:30 | Consultation ---
DATE OF CONSULTATION: 05/04/2019 CARDIOLOGY CONSULTATION CONSULTING PHYSICIAN: Philipp Ahmadi M.D. REFERRING PHYSICIANS: 1. Zeke Munoz M.D. 2. Jamal Medina M.D. 3. Romeo Tavares M.D. REASON FOR REFERRAL: Respiratory failure. HISTORY OF PRESENT ILLNESS: This is an elderly female, who is really not able to provide any meaningful history whatsoever that I have been able to find. There are some records here at the hospital indicated that the patient was recently hospitalized and discharged from [facility]. Her [facility] records are listed under the same last name, but first name, Shakira. The medical record number is [id number] and that is the medical record that is printed on the patient's POLST form from [facility]. Nevertheless, the patient apparently was transferred because of altered mentation and respiratory distress and was brought to the emergency room here at [facility] and was intubated and is on at the present time and is really not able to provide any further information whatsoever. The emergency room data physician sheet indicates the patient was noted to be in severe respiratory distress, found to be weak in the morning, and was noted that the patient from her POLST form would like to have intubation, but would not likely have any defibrillation or chest compressions. In the emergency room, the patient was found to be hypotensive. A central line was placed. The patient was intubated and is now on pressors. PAST MEDICAL HISTORY: Positive for recent hospitalization and discharge recently because of her gastrointestinal bleeding with significant anemia with hemoglobin down to 4.4, recurrent GI bleeding was noted. Fourth episode in 2 months. Family presumed recurrent diverticular bleeding and the site of bleeding felt to be in the colon, but no radiographic evidence of exact site of bleeding based on angiogram that was attempted, but failed to identify one of the mesenteric arteries for further evaluation. She was also noted to have pulmonary edema, COPD, oxygen dependent, autoimmune hepatitis, hypertension due to GI loss, severe mitral regurgitation, severe non-rheumatic mitral stenosis, chronic diastolic heart failure, preserved left ventricular systolic function, hypertrophic cardiomyopathy, paroxysmal episodes of atrial fibrillation, off anticoagulation secondary to frequent GI bleeds, cirrhosis, thrombocytopenia, status post iliac vein stent placement. The patient also has a history of pneumothorax postprocedure and shock. MEDICATIONS AT DISCHARGE: Artificial Tears and midodrine. She was on Colace, Dulcolax, CellCept, Protonix, Atrovent, Lipitor 40 mg, Neurontin at night, Fortical, albuterol, Singulair, Advair Diskus, and Norpace 100 mg daily. ALLERGIES: She has allergy to acetaminophen, aspirin, Motrin, and penicillin. SOCIAL HISTORY: She is a former smoker, but quit in 2008. No alcohol or drugs. She is a resident of a convalescent facility. REVIEW OF SYSTEMS: Unable to obtain. PHYSICAL EXAMINATION: GENERAL: Shows to be elderly female, on a mechanical ventilator. Minimally responsive. NECK: Supple. Jugular venous distention. LUNGS: Crackles noted at the bases. CARDIAC: Regular rate and rhythm. A holosystolic regurgitant murmur noted. ABDOMEN: Soft and nontender. Positive bowel sounds. EXTREMITIES: There is no clubbing, cyanosis, or edema. NEUROLOGIC: She is not communicative at all. LABORATORY VALUES: Preliminary echocardiogram shows ejection fraction of 60%, technically difficult study, severe left ventricular hypertrophy, severe left atrial enlargement, mitral annular calcification, and dilated IVC, severe aortic regurgitation with peak aortic valve of 5227, severe mitral regurgitation, peak mitral valve systolic gradient of 30 and mean gradient of 15, and mild diastolic relaxation abnormality, PA pressure of 53. Her electrocardiogram shows sinus bradycardia at the rate of 54 with T-wave inversions in V1 and V2 as well as V3 and in direct comparison with the prior EKGs from July of 2017, the T-wave inversions in V1 through V3 appeared to be new and her sinus bradycardia is new as well. Other laboratories, white count of 6.3, hemoglobin 8.3 was down to 7.3 yesterday with a platelet count of 64,000 down from 92,000. Sedimentation rate of 100 and reticulocyte count of 2.6. PH is 7.642, pCO2 is 27, pO2 of 100, and bicarbonate of 29. Troponin is 0.016 yesterday and 0.069 today and her proBNP is 6000. Total cholesterol of 87 and LDL of 46. Sodium 141, potassium 3.3, chloride 103, bicarb 32, BUN of 22, creatinine 0.8, and a glucose of 75. Albumin is 1.9. B12 of 488. Urinalysis shows 30 to 40 rbc's and 2 to 4 wbc's. A chest x-ray performed today is reported as showing improved bilateral effusions and on my personal review, does not appear to show any significant cardiomegaly although pleural effusions that were noted from the x-ray previously is seemed to have decreased as indicated. ASSESSMENT: 1. Paroxysmal episodes of atrial fibrillation. 2. Severe left ventricular hypertrophy with left ventricular outflow tract, mild obstruction. 3. Severe aortic regurgitation. 4. Severe mitral stenosis/regurgitation. 5. Pulmonary hypertension. 6. Anemia. 7. Respiratory failure secondary to congestive heart failure. 8. History of recent GI bleeding, site undetermined. 9. Sinus bradycardia with abnormal T-waves. 10. Autoimmune hepatitis history. 11. History of severe COPD, on home O2. 12. Cirrhosis and portal hypertension. 13. History of hepatitis C. 14. Thrombocytopenia. PLAN: This patient was seen in cardiac consultation. The patient's sinus bradycardia possibly vagally mediated because of the ET tube. It is now profound that the patient appears to be tolerating well. The heart rate does improve at times. We would avoid negative inotropic agents. The echocardiogram as mentioned above. Cardiac enzymes will be repeated. EKG will be repeated as well. Diuretics to help keep negative fluid balance as long as the patient's blood pressure does allow although most recent blood pressure in the 80s are prohibitive for any diuretics especially in light of her hypertrophic cardiomyopathy. Although her chest x-ray looks well, she has had a temp possibly weaning off at this time as the majority of her congestive heart failure symptoms may have resolved. I will follow the patient along with you. Philipp Ahmadi M.D. DR: KEATON JOB#: [id number] CC:
--- NOTE | 2019-05-04 19:20 | NUR ---
HAND-OFF: Report given to PRANEETH Copeland.
--- NOTE | 2019-05-04 19:30 | NUR ---
NURSE NOTES: Received pt with eyes close but easily arousable to tactile stimulation. Orally intubated on ac mode , sedated with Versed drip at 2 mg/hr (RASS SCORE 2). Also pt has maintainance IVF D5NS at 75ml/hr . All IVF been infusing to RT SVC central line. Site with drsg dry and intact.. SR on the monitor, Bp stable, Afebrile . Diuresing well via purewick celsa yellow urine.moderate in amt.. NPO at this time, Oral care done. sole of pts feet with bilateral blancheable redness and lower extremities with 2+ edema. . Lower extremities elevated with pillows. Will continue to monitor.
[2019-05-04] MEDS: Dyna-Hex 2% Top Sol 2oz TOPIC SCH (20:01)
[2019-05-04] MEDS: Ertapenem 1 GM in NS 55 ML IV SCH (20:53)
--- NOTE | 2019-05-04 20:55 | NUR ---
NURSE NOTES: Heparin subcut not given due to trending down platelert ct.
[2019-05-04] MEDS: Vancomycin 750mg/NS 275ml IVPB SCH ×2 (21:55)
[2019-05-04] MEDS ORDERED: NS 275ml ONE (22:28)
[2019-05-04] MEDS ORDERED: D5NS 1000ml IV ONE (22:28)
[2019-05-04] MEDS ORDERED: Tubing IV Blood Pump IV ONE (22:28)
[2019-05-04] MEDS ORDERED: Tubing IV Secondary IV ONE (22:28)
[2019-05-05] VITALS (40 sets, daily range): BP systolic 81–153; BP diastolic 42–77
[2019-05-05] MEDS: D5NS 1,000 ML IV SCH ×2 (01:17→11:00)
[2019-05-05] MEDS ORDERED: Amikacin 750 MG in NS 110 ML IV SCH (05:00)
[2019-05-05 05:36] LABS: PHOSPHORUS 2.5 MG/DL (2.5-4.9)
[2019-05-05 05:37] LABS: HEMATOCRIT 27.3 % (37.0-47.0); HEMOGLOBIN 8.7 G/DL (12.0-16.0); MEAN CORPUSCULAR VOLUME 94 FL (80-99); PLATELET COUNT 67 K/UL (150-450); RED CELL DISTRIBUTION WIDTH 20.6 % (11.6-14.8); WHITE BLOOD COUNT 5.4 K/UL (4.8-10.8)
[2019-05-05 05:51] LABS: ALANINE AMINOTRANSFERASE 26 U/L (12-78); ALBUMIN 1.8 G/DL (3.4-5.0); ALBUMIN/GLOBULIN RATIO 0.4 (1.0-2.7); ALKALINE PHOSPHATASE 78 U/L (46-116); ANION GAP 2 mmol/L (5-15); ASPARTATE AMINO TRANSFERASE 24 U/L (15-37); BILIRUBIN,TOTAL 1.3 MG/DL (0.2-1.0); BLOOD UREA NITROGEN 17 mg/dL (7-18); CALCIUM 7.8 MG/DL (8.5-10.1); CARBON DIOXIDE 30 MMOL/L (21-32); CHLORIDE 107 MMOL/L (98-107); CREATININE 0.6 MG/DL (0.55-1.30); POTASSIUM 3.2 MMOL/L (3.5-5.1); SODIUM 139 MMOL/L (136-145)
--- NOTE | 2019-05-05 06:36 | NUR ---
NURSE NOTES: Pt become increasingly agitated and attempted to pull out ETT. Increase Versed drip to 3mg/hr- Soft wrist restrained applied for safety.
[2019-05-05 06:40] LABS: BILIRUBIN,DIRECT 0.4 MG/DL (0.0-0.3)
--- NOTE | 2019-05-05 07:10 | NUR ---
HAND-OFF: Report given to Marta DACOSTA.
--- NOTE | 2019-05-05 07:30 | NUR ---
NURSE NOTES: Received the patient from PRANEETH Copeland. Patient is sedated with Versed gtt, at RASS -1. Patient is orally intubated, ETT 7.0, 22cm at lip line, AC 16, TV 500, FIO2 40%, PEEP 5. SR in 60s noted on take out waiter. No distress noted at this time. Patient kept NPO. Right forearm 22G intact, saline locked. Right subclavian TLC intact, running D5NS at 75ml/hr and versed at 3mg/hr. Turned off versed for weaning trial this morning, RT informed. Patient on bilateral soft wrist restraints. No skin breakdown noted, pulses present. Patient noted with bilateral lower extremities edema noted. wound dressings for skin protection intact, clean and dry. Bed in lowest position, locked, side rails upx3. Bed alarm on. Call light within reach. Will continue to monitor.
--- NOTE | 2019-05-05 07:35 | NUR ---
RESPIRATORY NOTE: Received pt on ordered vent settings. Pt airway is patent and secured. Suctioned pt prn. No resp distress noted. Vent alarms are on and audible. Vent is plugged into red outlet. Will monitor pt progress.
--- NOTE | 2019-05-05 08:00 | NUR ---
NURSE NOTES: Patient fully awake with eyes open, unable to tolerated weaning per RT. Resumed Versed at 2mg/hr. VSS.
[2019-05-05] MEDS: Heparin 5000 units/ml inj SUBQ SCH ×2 (08:06→21:00)
[2019-05-05] MEDS: Pantoprazole Inj IV SCH ×2 (08:26→21:15)
[2019-05-05] MEDS: Versed 50mg/D5W 100ml 100 ML IV SCH ×3 (08:31→16:45)
--- NOTE | 2019-05-05 08:42 | NUR ---
NURSE NOTES: Left a message to Dr. Medina that patient has meds via NGT but no order for NGT insertion.
--- NOTE | 2019-05-05 09:06 | NUR ---
RADIOLOGY: PCXR COMPLETED 0745 HRS. NF
--- NOTE | 2019-05-05 09:33 | NUR ---
NURSE NOTES: Dr. Medina at bedside to assess the patient. Per aguilar MARROQUIN to insert NGT and start tube feeding per RD recommendation.
--- NOTE | 2019-05-05 09:40 | NUR ---
NURSE NOTES: Sputum collected by RT Rainer, and sent down to lab.
--- NOTE | 2019-05-05 09:42 | NUR ---
NURSE NOTES: Inserted NGT in right nare, at 56cm. Patient tolerated well. Stat KUB ordered to confirm placement.
[2019-05-05] MEDS: Vancomycin 750mg/NS 275ml IVPB SCH ×4 (09:48→21:54)
--- NOTE | 2019-05-05 10:00 | NUR ---
NURSE NOTES: Patient is awake, agitated, trying to pull out NGT and ETT. Patient on bilateral soft wrist restraints. no skin breakdown. increased versed to 4mg/hr.
--- NOTE | 2019-05-05 10:17 | Nephrology Progress Note ---
Assessment/Plan Problem List: (1) Acute respiratory failure (2) Electrolyte imbalance (3) Anemia (4) NSTEMI (non-ST elevated myocardial infarction) (5) COPD (chronic obstructive pulmonary disease) Assessment Acute respiratory failure, on Vent- Underlying COPD HypoNatremia , Etiology TBI , ? CHF HyperKalemia Sever Anemia NSTEMI Plan remain intubated- failed weaning Folate . Iron . B12 Mag and K and Phos supplement as needed Pressors as needed Pulm support Monitor renal parameters Urine studies 2D echo Left ventricular ejection fraction estimated to be 60 %. per orders Subjective ROS Limited/Unobtainable: Yes Objective Objective Last 24 Hour Vital Signs Date Time Temp Pulse Resp B/P (MAP) Pulse Ox O2 Delivery O2 Flow Rate FiO2 05/05/19 10:00 19 Mechanical Ventilator 40 05/05/19 10:00 65 18 127/52 (77) 100 05/05/19 09:30 64 23 139/50 (79) 100 05/05/19 09:20 99 05/05/19 09:20 75 18 40 05/05/19 09:00 16 Mechanical Ventilator 40 05/05/19 09:00 60 17 148/61 (90) 100 05/05/19 08:33 16 Mechanical Ventilator 40 05/05/19 08:30 61 20 125/52 (76) 100 05/05/19 08:30 16 Mechanical Ventilator 40 05/05/19 08:15 22 Mechanical Ventilator 40 05/05/19 08:00 97.6 67 18 131/46 (74) 100 05/05/19 08:00 20 Mechanical Ventilator 40 05/05/19 08:00 Mechanical Ventilator 05/05/19 08:00 66 05/05/19 08:00 40 05/05/19 07:35 76 24 40 05/05/19 07:30 18 Mechanical Ventilator 40 05/05/19 07:30 70 23 121/55 (77) 100 05/05/19 07:00 20 Mechanical Ventilator 40 05/05/19 07:00 65 19 119/45 (69) 100 05/05/19 06:00 20 Mechanical Ventilator 40 05/05/19 06:00 60 19 97/77 (84) 100 05/05/19 05:00 74 18 40 05/05/19 05:00 72 19 120/43 (68) 100 05/05/19 05:00 20 Mechanical Ventilator 40 05/05/19 04:30 74 22 113/54 (73) 100 05/05/19 04:00 73 05/05/19 04:00 20 Mechanical Ventilator 40 05/05/19 04:00 40 05/05/19 04:00 98.0 66 16 108/51 (70) 100 05/05/19 04:00 Mechanical Ventilator 05/05/19 03:30 63 16 135/48 (77) 100 05/05/19 03:25 69 16 40 05/05/19 03:00 66 16 120/47 (71) 100 05/05/19 03:00 20 Mechanical Ventilator 40 05/05/19 02:30 62 17 104/57 (73) 100 05/05/19 02:02 72 16 104/49 (67) 100 05/05/19 02:00 60 17 81/42 (55) 100 05/05/19 02:00 19 Mechanical Ventilator 40 05/05/19 01:30 63 18 117/48 (71) 100 05/05/19 01:28 74 18 40 05/05/19 01:00 64 18 123/46 (71) 100 05/05/19 01:00 18 Mechanical Ventilator 40 05/05/19 00:30 60 16 119/50 (73) 100 05/05/19 00:00 Mechanical Ventilator 05/05/19 00:00 17 Mechanical Ventilator 40 05/05/19 00:00 40 05/05/19 00:00 98.2 62 16 124/52 (76) 100 05/05/19 00:00 76 05/04/19 23:30 70 18 116/55 (75) 100 05/04/19 23:00 21 Mechanical Ventilator 40 05/04/19 23:00 68 17 134/50 (78) 100 05/04/19 23:00 71 19 120/49 (72) 100 05/04/19 22:49 71 20 40 05/04/19 22:30 66 20 137/52 (80) 100 05/04/19 22:00 17 Mechanical Ventilator 40 05/04/19 22:00 68 17 134/50 (78) 100 05/04/19 21:30 64 18 113/53 (73) 100 05/04/19 21:28 69 17 40 05/04/19 21:00 61 16 124/45 (71) 100 05/04/19 21:00 17 Mechanical Ventilator 40 05/04/19 20:30 60 17 115/47 (69) 100 05/04/19 20:00 98.4 59 24 117/52 (73) 100 05/04/19 20:00 59 05/04/19 20:00 40 05/04/19 20:00 24 Mechanical Ventilator 40 05/04/19 20:00 Mechanical Ventilator 05/04/19 19:00 55 16 123/43 (69) 100 05/04/19 19:00 16 Mechanical Ventilator 40 05/04/19 19:00 55 16 40 05/04/19 18:30 54 28 130/49 (76) 100 05/04/19 18:00 16 Mechanical Ventilator 40 05/04/19 18:00 64 17 115/50 (71) 100 05/04/19 17:30 63 21 105/73 (84) 100 05/04/19 17:29 63 18 40 05/04/19 17:00 62 20 109/51 (70) 100 05/04/19 17:00 16 Mechanical Ventilator 40 05/04/19 16:30 68 22 111/51 (71) 100 05/04/19 16:00 40 05/04/19 16:00 97.1 64 19 111/46 (67) 100 05/04/19 16:00 Mechanical Ventilator 05/04/19 16:00 16 Mechanical Ventilator 40 05/04/19 15:32 62 05/04/19 15:30 61 18 142/57 (85) 100 05/04/19 15:24 57 16 40 05/04/19 15:00 49 17 128/42 (70) 100 05/04/19 15:00 16 Mechanical Ventilator 40 05/04/19 14:30 50 17 119/43 (68) 100 05/04/19 14:00 16 Mechanical Ventilator 40 05/04/19 14:00 91 19 119/40 (66) 100 05/04/19 13:28 108 16 40 05/04/19 13:00 16 Mechanical Ventilator 40 05/04/19 13:00 54 18 92/42 (59) 100 05/04/19 12:30 60 16 120/39 (66) 100 05/04/19 12:17 119/40 05/04/19 12:00 64 05/04/19 12:00 40 05/04/19 12:00 97.8 86 26 86/45 (59) 100 05/04/19 12:00 18 Mechanical Ventilator 40 05/04/19 12:00 Mechanical Ventilator 05/04/19 11:30 64 19 102/46 (64) 100 05/04/19 11:17 75 16 40 05/04/19 11:00 57 17 101/38 (59) 100 05/04/19 11:00 16 Mechanical Ventilator 40 05/04/19 10:45 16 Mechanical Ventilator 40 05/04/19 10:45 16 Mechanical Ventilator 40 05/04/19 10:30 62 27 93/40 (57) 100 Intake and Output 05/04/19 05/05/19 19:00 07:00 Intake Total 1934 ml 1120 ml Output Total 350 ml 450 ml Balance 1584 ml 670 ml Intake Oral 0 ml 0 ml IV Total 1684 ml 1120 ml Blood Product 250 ml Output Urine Total 350 ml 450 ml # Voids 1 Laboratory Tests 05/04/19 10:30: White Blood Count 6.2, Red Blood Count 2.76L, Hemoglobin 8.3L, Hematocrit 26.0L , Mean Corpuscular Volume 94, Mean Corpuscular Hemoglobin 30.0, Mean Corpuscular Hemoglobin Concent 31.9L, Red Cell Distribution Width 21.2H, Platelet Count 64L, Mean Platelet Volume 6.8, Neutrophils (%) (Auto) , Lymphocytes (%) (Auto) , Monocytes (%) (Auto) , Eosinophils (%) (Auto) , Basophils (%) (Auto) , Differential Total Cells Counted 100, Neutrophils % ( Manual) 85H, Lymphocytes % (Manual) 8L, Monocytes % (Manual) 7, Eosinophils % ( Manual) 0, Basophils % (Manual) 0, Band Neutrophils 0, Platelet Estimate DecreasedL, Platelet Morphology Normal, Anisocytosis 1+ 05/04/19 19:45: Vancomycin Level Trough 12.1H 05/05/19 04:15: White Blood Count 5.4, Red Blood Count 2.90L, Hemoglobin 8.7L, Hematocrit 27.3L , Mean Corpuscular Volume 94, Mean Corpuscular Hemoglobin 30.0, Mean Corpuscular Hemoglobin Concent 32.0, Red Cell Distribution Width 20.6H, Platelet Count 67L, Mean Platelet Volume 7.3, Neutrophils (%) (Auto) , Lymphocytes (%) (Auto) , Monocytes (%) (Auto) , Eosinophils (%) (Auto) , Basophils (%) (Auto) , Differential Total Cells Counted 100, Neutrophils % ( Manual) 89H, Lymphocytes % (Manual) 5L, Monocytes % (Manual) 6, Eosinophils % ( Manual) 0, Basophils % (Manual) 0, Band Neutrophils 0, Platelet Estimate DecreasedL, Platelet Morphology Normal, Anisocytosis 2+, Sodium Level 139, Potassium Level 3.2L, Chloride Level 107, Carbon Dioxide Level 30, Anion Gap 2L , Blood Urea Nitrogen 17, Creatinine 0.6, Estimat Glomerular Filtration Rate , Glucose Level 83, Uric Acid 2.5L, Calcium Level 7.8L, Phosphorus Level 2.5, Magnesium Level 1.8, Total Bilirubin 1.3H, Direct Bilirubin 0.4H, Aspartate Amino Transf (AST/SGOT) 24, Alanine Aminotransferase (ALT/SGPT) 26, Alkaline Phosphatase 78, C-Reactive Protein, Quantitative 3.5H, Pro-B-Type Natriuretic Peptide 2091H, Total Protein 5.8L, Albumin 1.8L, Globulin 4.0, Albumin/Globulin Ratio 0.4L Height (Feet): 5 Height (Inches): 3.00 Weight (Pounds): 111 General Appearance: no apparent distress EENT: other - vented Cardiovascular: normal rate Respiratory/Chest: decreased breath sounds Abdomen: distended Efra Das MD May 05, 2019 10:17
--- NOTE | 2019-05-05 10:45 | NUR ---
*-* INSURANCE *-* ALL AVAILABLE CLINICALS AND REVIEWS HAVE BEEN FAXED TO: [facility] [phone] JIAN Toscano/NATACHA TRACKING#[id number] CM: BRETT #[phone] FAX#[phone] REVIEWS/CLINICALS
--- NOTE | 2019-05-05 10:54 | NUR ---
RADIOLOGY DEPT., ABDOMEN X-RAY DONE FOR NGT PLMT.-P.DYE
--- NOTE | 2019-05-05 10:56 | Internal Med Progress Note ---
Subjective Date of Service: May 05, 2019 Physician Name Romeo Tavares Attending Physician Zeke Munoz MD Current Medications Medications (Trade) Dose Ordered Sig/Gautam Route PRN Reason Start Time Stop Time Status Last Admin Dose Admin Albuterol/ Ipratropium (Albuterol/ Ipratropium) 3 ml Q4H PRN HHN Shortness of Breath 05/03/19 10:30 05/08/19 10:29 Amikacin Protocol (Amikacin pharmacy to dose) 1 ea DAILY PRN MISC . 05/03/19 12:15 06/02/19 12:14 Amikacin Sulfate 750 mg/Sodium Chloride 113 ml @ 113 mls/hr Q36H IV 05/05/19 05:00 05/12/19 04:59 05/05/19 05:10 Chlorhexidine Gluconate (Cherry-Hex 2%) 1 applic DAILY@2000 TOPIC 05/03/19 20:00 06/02/19 19:59 05/04/19 20:01 Dextrose/Sodium Chloride 1,000 ml @ 50 mls/hr Q20H IV 05/05/19 10:45 06/03/19 10:44 Ertapenem 1 gm/ Sodium Chloride 55 ml @ 110 mls/hr Q24H IV 05/03/19 21:00 05/08/19 20:59 05/04/19 20:53 Folic Acid (Folate) 5 mg DAILY NG 05/04/19 11:00 06/03/19 10:59 Heparin Sodium (Porcine) (Heparin 5000 units/ml) 5,000 units EVERY 12 HOURS SUBQ 05/03/19 21:00 06/02/19 20:59 Iron Sucrose 100 mg/Sodium Chloride 55 ml @ 200 mls/hr BEDTIME IVPB 05/05/19 21:00 05/08/19 21:17 Lorazepam (Ativan 2mg/ml 1ml) 2 mg Q4H PRN IV For Anxiety 05/04/19 10:22 05/11/19 10:21 Midazolam HCl 100 ml @ 0 mls/hr Q24H IV 05/04/19 11:00 05/11/19 10:59 05/05/19 08:33 Morphine Sulfate (Morphine Sulfate) 4 mg Q4H PRN IVP For Pain 05/04/19 10:21 05/11/19 10:20 Norepinephrine Bitartrate 4 mg/ Dextrose 254 ml @ 0 mls/hr Q24H IV 05/03/19 12:17 06/02/19 12:16 05/03/19 18:42 Ondansetron HCl (Zofran) 4 mg Q6H PRN IVP Nausea & Vomiting 05/03/19 10:30 06/02/19 10:29 Pantoprazole (Protonix) 40 mg Q12HR IV 05/03/19 21:00 06/03/19 08:59 05/05/19 08:26 Polyethylene Glycol (Miralax) 17 gm DAILYPRN PRN ORAL Constipation 05/03/19 10:30 06/02/19 10:29 Potassium Chloride 100 ml @ 50 mls/hr Q2H IVPB 05/05/19 08:30 05/05/19 12:29 05/05/19 08:27 Vancomycin HCl (Vanco rx to dose) 1 ea DAILY PRN MISC . 05/03/19 12:15 06/02/19 12:14 Vancomycin HCl 750 mg/Sodium Chloride 275 ml @ 183.333 mls/hr Q12HR@1000,2200 IVPB 05/04/19 22:00 05/09/19 21:59 05/05/19 09:48 Allergies: Coded Allergies: ACETAMINOPHEN (Verified Allergy, Unknown, 05/03/19) ASPIRIN (Verified Allergy, Unknown, 08/14/17) IBUPROFEN (Verified Allergy, Unknown, 05/03/19) PENICILLINS (Unverified Allergy, Unknown, 05/05/19) Uncoded Allergies: pain killers (Allergy, Severe, 01/28/17) ROS Limited/Unobtainable: Yes Subjective 74 YO F admitted with respiratory failure. Now Link Heart Failure. Intubated and sedated. Cover for Int [facility]-Dr Munoz. ICU Objective Last Vital Signs Date Time Temp Pulse Resp B/P (MAP) Pulse Ox O2 Delivery O2 Flow Rate FiO2 05/05/19 10:00 19 Mechanical Ventilator 40 05/05/19 10:00 65 127/52 (77) 100 05/05/19 08:00 97.6 05/03/19 12:45 15.0 Laboratory Tests Test 05/04/19 19:45 05/05/19 04:15 Vancomycin Level Trough 12.1 ug/mL (5.0-12.0) H White Blood Count 5.4 K/UL (4.8-10.8) Red Blood Count 2.90 M/UL (4.20-5.40) L Hemoglobin 8.7 G/DL (12.0-16.0) L Hematocrit 27.3 % (37.0-47.0) L Mean Corpuscular Volume 94 FL (80-99) Mean Corpuscular Hemoglobin 30.0 PG (27.0-31.0) Mean Corpuscular Hemoglobin Concent 32.0 G/DL (32.0-36.0) Red Cell Distribution Width 20.6 % (11.6-14.8) H Platelet Count 67 K/UL (150-450) L Mean Platelet Volume 7.3 FL (6.5-10.1) Neutrophils (%) (Auto) % (45.0-75.0) Lymphocytes (%) (Auto) % (20.0-45.0) Monocytes (%) (Auto) % (1.0-10.0) Eosinophils (%) (Auto) % (0.0-3.0) Basophils (%) (Auto) % (0.0-2.0) Differential Total Cells Counted 100 Neutrophils % (Manual) 89 % (45-75) H Lymphocytes % (Manual) 5 % (20-45) L Monocytes % (Manual) 6 % (1-10) Eosinophils % (Manual) 0 % (0-3) Basophils % (Manual) 0 % (0-2) Band Neutrophils 0 % (0-8) Platelet Estimate Decreased L Platelet Morphology Normal Anisocytosis 2+ Sodium Level 139 MMOL/L (136-145) Potassium Level 3.2 MMOL/L (3.5-5.1) L Chloride Level 107 MMOL/L (98-107) Carbon Dioxide Level 30 MMOL/L (21-32) Anion Gap 2 mmol/L (5-15) L Blood Urea Nitrogen 17 mg/dL (7-18) Creatinine 0.6 MG/DL (0.55-1.30) Estimat Glomerular Filtration Rate mL/min (>60) Glucose Level 83 MG/DL (74-106) Uric Acid 2.5 MG/DL (2.6-7.2) L Calcium Level 7.8 MG/DL (8.5-10.1) L Phosphorus Level 2.5 MG/DL (2.5-4.9) Magnesium Level 1.8 MG/DL (1.8-2.4) Total Bilirubin 1.3 MG/DL (0.2-1.0) H Direct Bilirubin 0.4 MG/DL (0.0-0.3) H Aspartate Amino Transf (AST/SGOT) 24 U/L (15-37) Alanine Aminotransferase (ALT/SGPT) 26 U/L (12-78) Alkaline Phosphatase 78 U/L (46-116) C-Reactive Protein, Quantitative 3.5 mg/dL (0.00-0.90) H Pro-B-Type Natriuretic Peptide 2091 pg/mL (0-125) H Total Protein 5.8 G/DL (6.4-8.2) L Albumin 1.8 G/DL (3.4-5.0) L Globulin 4.0 g/dL Albumin/Globulin Ratio 0.4 (1.0-2.7) L Microbiology Date/Time Source Procedure Growth Status 05/03/19 09:15 Blood Blood Culture - Preliminary NO GROWTH AFTER 24 HOURS Resulted 05/03/19 08:12 Blood Blood Culture - Preliminary NO GROWTH AFTER 24 HOURS Resulted 05/03/19 08:26 Nasal Not Otherwise Specified - Final Complete 05/03/19 08:26 Nasal Not Otherwise Specified - Final Complete 05/03/19 10:20 Rectum VRE Culture - Final Enterococcus Faecalis - Vre Complete 05/03/19 10:20 Rectum - Final NO CARBAPENEM-RESISTANT ENTEROBACTERI... Complete Intake and Output 05/04/19 05/05/19 19:00 07:00 Intake Total 1934 ml 1120 ml Output Total 350 ml 450 ml Balance 1584 ml 670 ml Intake Oral 0 ml 0 ml IV Total 1684 ml 1120 ml Blood Product 250 ml Output Urine Total 350 ml 450 ml # Voids 1 Objective PHYSICAL EXAMINATION: GENERAL: The patient is a thin-appearing female, who is currently intubated and sedated in the intensive care unit. HEENT: Eyes, pupils are equal and responsive to light and accommodation. Extraocular movements are intact. NECK: Supple without lymphadenopathy. CHEST: Coarse breath sounds bilaterally without wheezes or rales. CARDIOVASCULAR: Regular rhythm and rate. S1 and S2 are normal without murmurs, rubs, or gallops. ABDOMEN: Soft, nontender, and nondistended with positive bowel sounds. No evidence of hepatosplenomegaly, rebound, or guarding noted. EXTREMITIES: Negative for clubbing, cyanosis, or edema. RECTAL/GENITAL: Refused. NEUROLOGIC: Unable to assess secondary to intubation. Assessment/Plan Assessment/Plan ASSESSMENT: This is a 74-year-old female. 1. Respiratory failure. 2. Acute exacerbation of congestive heart failure. 3. Chronic obstructive pulmonary disease. 4. Hypertension. 5. Hypercholesterolemia. TREATMENT: 1. Respiratory failure. A Pulmonary consultation has been obtained with Dr. Jamal Medina. The patient is currently intubated in the intensive care unit. Respiratory failure may be secondary to congestive heart failure. The patient has been started empirically on ertapenem, amikacin and vancomycin for hospital-acquired pneumonia per Inf Dis=Dr. Minaya 2. Congestive heart failure. A Cardiology consultation has been obtained with Dr. Philipp Ahmadi. The patient is currently receiving Lasix intravenously. We will follow recommendations of Cardiology. 3. Hypercholesterolemia. Continue atorvastatin as above. 4. Hypertension. The patient is currently hypotensive. Hold antihypertensive medication at this time. Romeo Tavares MD May 05, 2019 10:56
--- NOTE | 2019-05-05 11:00 | NUR ---
NURSE NOTES: Patient seen by Dr. Tavares. Patient is awake, slightly restless, trying to pull out ETT and NGT, titrating up with Versed, increased to 5mg/hr. Patient on bilateral soft wrist restraints. No skin breakdown noted. Notified Dr. Tavares, at bedside. 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 Per MD, okay to titrate up Versed to achieve RASS -2, notify Dr. Calix if HR drops lower.
--- NOTE | 2019-05-05 11:25 | NUR ---
NURSE NOTES: Patient noted with HR 53 briefly and went up to 57-low 60s. Called Dr. Ahmadi and informed MD that patient's HR is in 50s. Per MD, to give IV lasix x1 and okay to increase versed and give prn Ativan.
--- NOTE | 2019-05-05 12:00 | NUR ---
NURSE NOTES: Patient resting in bed comfortably with eyes closed. Bilateral soft wrist restraints removed. No skin breakdown noted. pulses present.
--- NOTE | 2019-05-05 12:00 | NUR ---
NURSE NOTES: Dr. Minaya made aware of + VRE rectum, no new orders.
--- NOTE | 2019-05-05 12:06 | Diagnostic Imaging Report ---
Indication: Dyspnea Technique: One view of the chest Comparison: 05/04/2019 Findings: Endotracheal tube projects approximately 1 cm above the loni. Right jugular central venous catheter is again demonstrated. Bilateral interstitial and hazy airspace disease persists, unchanged. Probable small left pleural effusion is again demonstrated. The heart size is upper limits normal. No significant interim change Impression: Unchanged, over one day, findings as above.
--- NOTE | 2019-05-05 13:00 | NUR ---
NURSE NOTES: Patient at RASS -2, versed running at 8mg/hr. Patient was turned and repositioned. Patient kept clean and dry. BP 153/53, HR 53-63.
--- NOTE | 2019-05-05 13:27 | Diagnostic Imaging Report ---
Indication: Post nasogastric tube placement Technique: Supine view of the upper abdomen Comparison: none Findings: There is a nasogastric tube in place, tip of which projects at the level gastric fundus, proximal port just beyond the expected level gastric esophageal junction. The bowel gas pattern is unremarkable. There is a left iliac venous stent noted Impression: Satisfactory nasogastric intubation
--- NOTE | 2019-05-05 14:00 | NUR ---
NURSE NOTES: Patient seen by Dr. Minaya. made aware of +VRE. MD updated on pt's condition. Patient on versed gtt, running at 8mg/hr to maintain RASS -2. Patient at RASS -2. BP stable, HR 57.
--- NOTE | 2019-05-05 14:53 | Pulmonolgy Critical Care Note ---
Critical Care - Asmt/Plan Problems: (1) Acute respiratory failure (2) Acute pulmonary edema (3) COPD (chronic obstructive pulmonary disease) (4) Severe protein-calorie malnutrition (5) Nosocomial pneumonia (6) Edema of both feet Respiratory: monitor respiratory rate, adjust FIO2, CXR Cardiac: continue pressors, continue to monitor HR/BP Renal: F/U I&O Infectious Disease: continue antibiotics Gastrointestinal: continue feedings/current rate Hematologic: transfuse if hgb<8.5 Neurologic: PRN Ativan, PRN Morphine, keep patient comfortable Notes Reviewed: cardio, renal Discussed with: nurses, consultants Critical Care - Objective Last 24 Hour Vital Signs Date Time Temp Pulse Resp B/P (MAP) Pulse Ox O2 Delivery O2 Flow Rate FiO2 05/05/19 14:00 63 20 148/66 (93) 100 05/05/19 14:00 20 Mechanical Ventilator 40 05/05/19 13:30 51 16 152/52 (85) 100 05/05/19 13:00 56 20 153/53 (86) 99 05/05/19 13:00 18 Mechanical Ventilator 40 05/05/19 12:45 76 18 40 05/05/19 12:30 56 21 152/62 (92) 100 05/05/19 12:30 16 Mechanical Ventilator 40 05/05/19 12:00 98.0 60 18 127/52 (77) 100 05/05/19 12:00 40 05/05/19 12:00 22 Mechanical Ventilator 40 05/05/19 12:00 60 20 143/56 (85) 100 05/05/19 12:00 Mechanical Ventilator 05/05/19 12:00 61 05/05/19 11:45 18 Mechanical Ventilator 40 05/05/19 11:30 57 24 151/63 (92) 100 05/05/19 11:30 18 Mechanical Ventilator 40 05/05/19 11:15 16 Mechanical Ventilator 40 05/05/19 11:10 151/49 05/05/19 11:00 22 Mechanical Ventilator 40 05/05/19 11:00 61 21 151/49 (83) 98 05/05/19 10:42 74 18 40 05/05/19 10:30 16 Mechanical Ventilator 40 05/05/19 10:30 57 18 144/71 (95) 100 05/05/19 10:00 19 Mechanical Ventilator 40 05/05/19 10:00 65 18 127/52 (77) 100 05/05/19 09:30 64 23 139/50 (79) 100 05/05/19 09:20 99 05/05/19 09:20 75 18 40 05/05/19 09:00 16 Mechanical Ventilator 40 05/05/19 09:00 60 17 148/61 (90) 100 05/05/19 08:33 16 Mechanical Ventilator 40 05/05/19 08:30 61 20 125/52 (76) 100 05/05/19 08:30 16 Mechanical Ventilator 40 05/05/19 08:15 22 Mechanical Ventilator 40 05/05/19 08:00 97.6 67 18 131/46 (74) 100 05/05/19 08:00 20 Mechanical Ventilator 40 05/05/19 08:00 Mechanical Ventilator 05/05/19 08:00 66 05/05/19 08:00 40 05/05/19 07:35 76 24 40 05/05/19 07:30 18 Mechanical Ventilator 40 05/05/19 07:30 70 23 121/55 (77) 100 05/05/19 07:00 20 Mechanical Ventilator 40 05/05/19 07:00 65 19 119/45 (69) 100 05/05/19 06:00 20 Mechanical Ventilator 40 05/05/19 06:00 60 19 97/77 (84) 100 05/05/19 05:00 74 18 40 05/05/19 05:00 72 19 120/43 (68) 100 05/05/19 05:00 20 Mechanical Ventilator 40 05/05/19 04:30 74 22 113/54 (73) 100 05/05/19 04:00 73 05/05/19 04:00 20 Mechanical Ventilator 40 05/05/19 04:00 40 05/05/19 04:00 98.0 66 16 108/51 (70) 100 05/05/19 04:00 Mechanical Ventilator 05/05/19 03:30 63 16 135/48 (77) 100 05/05/19 03:25 69 16 40 05/05/19 03:00 66 16 120/47 (71) 100 05/05/19 03:00 20 Mechanical Ventilator 40 05/05/19 02:30 62 17 104/57 (73) 100 05/05/19 02:02 72 16 104/49 (67) 100 05/05/19 02:00 60 17 81/42 (55) 100 05/05/19 02:00 19 Mechanical Ventilator 40 05/05/19 01:30 63 18 117/48 (71) 100 05/05/19 01:28 74 18 40 05/05/19 01:00 64 18 123/46 (71) 100 05/05/19 01:00 18 Mechanical Ventilator 40 05/05/19 00:30 60 16 119/50 (73) 100 05/05/19 00:00 Mechanical Ventilator 05/05/19 00:00 17 Mechanical Ventilator 40 05/05/19 00:00 40 05/05/19 00:00 98.2 62 16 124/52 (76) 100 05/05/19 00:00 76 05/04/19 23:30 70 18 116/55 (75) 100 05/04/19 23:00 21 Mechanical Ventilator 40 05/04/19 23:00 68 17 134/50 (78) 100 05/04/19 23:00 71 19 120/49 (72) 100 05/04/19 22:49 71 20 40 05/04/19 22:30 66 20 137/52 (80) 100 05/04/19 22:00 17 Mechanical Ventilator 40 05/04/19 22:00 68 17 134/50 (78) 100 05/04/19 21:30 64 18 113/53 (73) 100 05/04/19 21:28 69 17 40 05/04/19 21:00 61 16 124/45 (71) 100 05/04/19 21:00 17 Mechanical Ventilator 40 05/04/19 20:30 60 17 115/47 (69) 100 05/04/19 20:00 98.4 59 24 117/52 (73) 100 05/04/19 20:00 59 05/04/19 20:00 40 05/04/19 20:00 24 Mechanical Ventilator 40 05/04/19 20:00 Mechanical Ventilator 05/04/19 19:00 55 16 123/43 (69) 100 05/04/19 19:00 16 Mechanical Ventilator 40 05/04/19 19:00 55 16 40 05/04/19 18:30 54 28 130/49 (76) 100 05/04/19 18:00 16 Mechanical Ventilator 40 05/04/19 18:00 64 17 115/50 (71) 100 05/04/19 17:30 63 21 105/73 (84) 100 05/04/19 17:29 63 18 40 05/04/19 17:00 62 20 109/51 (70) 100 05/04/19 17:00 16 Mechanical Ventilator 40 05/04/19 16:30 68 22 111/51 (71) 100 05/04/19 16:00 40 05/04/19 16:00 97.1 64 19 111/46 (67) 100 05/04/19 16:00 Mechanical Ventilator 05/04/19 16:00 16 Mechanical Ventilator 40 05/04/19 15:32 62 05/04/19 15:30 61 18 142/57 (85) 100 05/04/19 15:24 57 16 40 05/04/19 15:00 49 17 128/42 (70) 100 05/04/19 15:00 16 Mechanical Ventilator 40 Status: awake Condition: critical HEENT: atraumatic Lungs: clear Heart: HR/BP stable, regular Abdomen: non-tender, active bowel sounds Extremities: no C/C/E Micro: Microbiology Date/Time Source Procedure Growth Status 05/03/19 09:15 Blood Blood Culture - Preliminary NO GROWTH AFTER 24 HOURS Resulted 05/03/19 08:12 Blood Blood Culture - Preliminary NO GROWTH AFTER 24 HOURS Resulted 05/03/19 08:26 Nasal Not Otherwise Specified - Final Complete 05/03/19 08:26 Nasal Not Otherwise Specified - Final Complete 05/03/19 10:20 Rectum VRE Culture - Final Enterococcus Faecalis - Vre Complete 05/03/19 10:20 Rectum - Final NO CARBAPENEM-RESISTANT ENTEROBACTERI... Complete Critical Care - Subjective ROS Limited/Unobtainable: Yes Condition: critical EKG Rhythm: Sinus Rhythm FI02: 40 Vent Support Breath Rate: 16 Vent Support Mode: AC Vent Tidal Volume: 500 Sputum Amount: Scant PEEP: 5.0 PIP: 29 Tube Feeding Amount: 15 I&O: Intake and Output 05/04/19 05/05/19 19:00 07:00 Intake Total 1934 ml 1120 ml Output Total 350 ml 450 ml Balance 1584 ml 670 ml Intake Oral 0 ml 0 ml IV Total 1684 ml 1120 ml Blood Product 250 ml Output Urine Total 350 ml 450 ml # Voids 1 ET-Tube: 7.0 ET Position: 22 Labs: Laboratory Tests Test 05/04/19 19:45 11/6/19 04:15 Vancomycin Level Trough 12.1 ug/mL (5.0-12.0) H White Blood Count 5.4 K/UL (4.8-10.8) Red Blood Count 2.90 M/UL (4.20-5.40) L Hemoglobin 8.7 G/DL (12.0-16.0) L Hematocrit 27.3 % (37.0-47.0) L Mean Corpuscular Volume 94 FL (80-99) Mean Corpuscular Hemoglobin 30.0 PG (27.0-31.0) Mean Corpuscular Hemoglobin Concent 32.0 G/DL (32.0-36.0) Red Cell Distribution Width 20.6 % (11.6-14.8) H Platelet Count 67 K/UL (150-450) L Mean Platelet Volume 7.3 FL (6.5-10.1) Neutrophils (%) (Auto) % (45.0-75.0) Lymphocytes (%) (Auto) % (20.0-45.0) Monocytes (%) (Auto) % (1.0-10.0) Eosinophils (%) (Auto) % (0.0-3.0) Basophils (%) (Auto) % (0.0-2.0) Differential Total Cells Counted 100 Neutrophils % (Manual) 89 % (45-75) H Lymphocytes % (Manual) 5 % (20-45) L Monocytes % (Manual) 6 % (1-10) Eosinophils % (Manual) 0 % (0-3) Basophils % (Manual) 0 % (0-2) Band Neutrophils 0 % (0-8) Platelet Estimate Decreased L Platelet Morphology Normal Anisocytosis 2+ Sodium Level 139 MMOL/L (136-145) Potassium Level 3.2 MMOL/L (3.5-5.1) L Chloride Level 107 MMOL/L (98-107) Carbon Dioxide Level 30 MMOL/L (21-32) Anion Gap 2 mmol/L (5-15) L Blood Urea Nitrogen 17 mg/dL (7-18) Creatinine 0.6 MG/DL (0.55-1.30) Estimat Glomerular Filtration Rate mL/min (>60) Glucose Level 83 MG/DL (74-106) Uric Acid 2.5 MG/DL (2.6-7.2) L Calcium Level 7.8 MG/DL (8.5-10.1) L Phosphorus Level 2.5 MG/DL (2.5-4.9) Magnesium Level 1.8 MG/DL (1.8-2.4) Total Bilirubin 1.3 MG/DL (0.2-1.0) H Direct Bilirubin 0.4 MG/DL (0.0-0.3) H Aspartate Amino Transf (AST/SGOT) 24 U/L (15-37) Alanine Aminotransferase (ALT/SGPT) 26 U/L (12-78) Alkaline Phosphatase 78 U/L (46-116) C-Reactive Protein, Quantitative 3.5 mg/dL (0.00-0.90) H Pro-B-Type Natriuretic Peptide 2091 pg/mL (0-125) H Total Protein 5.8 G/DL (6.4-8.2) L Albumin 1.8 G/DL (3.4-5.0) L Globulin 4.0 g/dL Albumin/Globulin Ratio 0.4 (1.0-2.7) L Jamal Medina MD May 05, 2019 14:53
--- NOTE | 2019-05-05 15:30 | NUR ---
CASE MANAGEMENT:REVIEW 05/05/19 SI: ACUTE RESPIRATORY FAILURE COPD. PNA 97.6 67 20 131/46 100% ON VENT SUPPORT @ 40% FIO2 H/H-8.7/27.3 PLT-67 K-3.2 IS: IV AMIKACIN Q35HRS IV VANCOMYCIN Q12 IV ERTAPENEM Q24 IV PROTONIX Q12 IVF@75/HR VERSED GTT IV LASIX X1 : ICU STATUS [facility]
--- NOTE | 2019-05-05 15:44 | NUR ---
NURSE NOTES: Patient resting in bed comfortably, at RASS -2, Versed running at 8mg/hr via right subclavian TLC. Thick yellow, bosch secretions noted from ETT suction. SR noted on electrostatic paint operator.
--- NOTE | 2019-05-05 16:07 | Cardiology Report ---
APPROVED REPORT EKG Measurement Heart [id number] Sinus bradycardia with premature atrial complexes Anterior infarct, age undetermined Prolonged QT Abnormal ECG
--- NOTE | 2019-05-05 16:13 | Infectious Diseases Prog Note ---
Assessment/Plan Assessment/Plan Afebrile No leukocytosis Lactate 1.2 dopamine, SP Hypoxic Respiratory failure PNA? Pulm edema Flu swab negative 05/03 sputum cx: P 05/03 CXR: Moderate to severe pulmonary edema. Bilateral pleural effusions 05/03 CXR: Diffuse airspace disease may be due to pulmonary edema. Small bilateral pleural effusions. Tubes and lines satisfactory 05/04 CXR: Improved bilateral pleural effusions, over one day 05/05 CXR: Bilateral interstitial and hazy airspace disease persists, unchanged. Probable small left pleural effusion is again demonstrated. The heart size is upper limits normal. No significant interim change UA negative r/o bacteremia 05/03 Bcx: ngtd 05/03 TTE: EF 60%.No pericardial effusion. AV calcification with decreased cusp excursion c/w aortic stenosis. Heavily thickened mitral valve leaflets with reduced excursion. Echogenic material noted on posterior mitral valve leaflet is likely calcified mitral annular structure. Heavy mitral annulus and aortic root calcification. Pulmonic valve not well visualized. Normal tricuspid valve structure. VRE colonization new subclavian central line placed in ED no sorensen COPD CHF Hep C cirrhosis GERD Plan: continue Meropenem, Amikacin, Vancomycin #3 pending culture SP Zosyn and Vanc f/u bcx f/u sputum cx f/u MRSA screen monitor CXR monitor temp monitor CBC steroids per pulm Thank you for this consult. [facility] will continue to follow the patient with you. Subjective Allergies: Coded Allergies: ACETAMINOPHEN (Verified Allergy, Unknown, 05/03/19) ASPIRIN (Verified Allergy, Unknown, 08/14/17) IBUPROFEN (Verified Allergy, Unknown, 05/03/19) PENICILLINS (Unverified Allergy, Unknown, 05/05/19) Uncoded Allergies: pain killers (Allergy, Severe, 01/28/17) Subjective Afebrile. off pressors. FiO2 40% failed weaning today No leukocytosis Objective Vital Signs Last 24 Hour Vital Signs Date Time Temp Pulse Resp B/P (MAP) Pulse Ox O2 Delivery O2 Flow Rate FiO2 05/05/19 15:00 54 18 152/50 (84) 100 05/05/19 15:00 18 Mechanical Ventilator 40 05/05/19 14:43 75 18 40 05/05/19 14:30 56 21 136/49 (78) 100 11/6/19 14:00 63 20 148/66 (93) 100 05/05/19 14:00 20 Mechanical Ventilator 40 05/05/19 13:30 51 16 152/52 (85) 100 05/05/19 13:00 56 20 153/53 (86) 99 05/05/19 13:00 18 Mechanical Ventilator 40 05/05/19 12:45 76 18 40 05/05/19 12:30 56 21 152/62 (92) 100 05/05/19 12:30 16 Mechanical Ventilator 40 05/05/19 12:00 98.0 60 18 127/52 (77) 100 05/05/19 12:00 40 05/05/19 12:00 22 Mechanical Ventilator 40 05/05/19 12:00 60 20 143/56 (85) 100 05/05/19 12:00 Mechanical Ventilator 05/05/19 12:00 61 05/05/19 11:45 18 Mechanical Ventilator 40 05/05/19 11:30 57 24 151/63 (92) 100 05/05/19 11:30 18 Mechanical Ventilator 40 05/05/19 11:15 16 Mechanical Ventilator 40 05/05/19 11:10 151/49 05/05/19 11:00 22 Mechanical Ventilator 40 05/05/19 11:00 61 21 151/49 (83) 98 05/05/19 10:42 74 18 40 05/05/19 10:30 16 Mechanical Ventilator 40 05/05/19 10:30 57 18 144/71 (95) 100 05/05/19 10:00 19 Mechanical Ventilator 40 05/05/19 10:00 65 18 127/52 (77) 100 05/05/19 09:30 64 23 139/50 (79) 100 05/05/19 09:20 99 05/05/19 09:20 75 18 40 05/05/19 09:00 16 Mechanical Ventilator 40 05/05/19 09:00 60 17 148/61 (90) 100 05/05/19 08:33 16 Mechanical Ventilator 40 05/05/19 08:30 61 20 125/52 (76) 100 05/05/19 08:30 16 Mechanical Ventilator 40 05/05/19 08:15 22 Mechanical Ventilator 40 05/05/19 08:00 97.6 67 18 131/46 (74) 100 05/05/19 08:00 20 Mechanical Ventilator 40 05/05/19 08:00 Mechanical Ventilator 05/05/19 08:00 66 05/05/19 08:00 40 05/05/19 07:35 76 24 40 05/05/19 07:30 18 Mechanical Ventilator 40 05/05/19 07:30 70 23 121/55 (77) 100 05/05/19 07:00 20 Mechanical Ventilator 40 05/05/19 07:00 65 19 119/45 (69) 100 05/05/19 06:00 20 Mechanical Ventilator 40 05/05/19 06:00 60 19 97/77 (84) 100 05/05/19 05:00 74 18 40 05/05/19 05:00 72 19 120/43 (68) 100 05/05/19 05:00 20 Mechanical Ventilator 40 05/05/19 04:30 74 22 113/54 (73) 100 05/05/19 04:00 73 05/05/19 04:00 20 Mechanical Ventilator 40 05/05/19 04:00 40 05/05/19 04:00 98.0 66 16 108/51 (70) 100 05/05/19 04:00 Mechanical Ventilator 05/05/19 03:30 63 16 135/48 (77) 100 05/05/19 03:25 69 16 40 05/05/19 03:00 66 16 120/47 (71) 100 05/05/19 03:00 20 Mechanical Ventilator 40 05/05/19 02:30 62 17 104/57 (73) 100 05/05/19 02:02 72 16 104/49 (67) 100 05/05/19 02:00 60 17 81/42 (55) 100 05/05/19 02:00 19 Mechanical Ventilator 40 05/05/19 01:30 63 18 117/48 (71) 100 05/05/19 01:28 74 18 40 05/05/19 01:00 64 18 123/46 (71) 100 05/05/19 01:00 18 Mechanical Ventilator 40 05/05/19 00:30 60 16 119/50 (73) 100 05/05/19 00:00 Mechanical Ventilator 05/05/19 00:00 17 Mechanical Ventilator 40 05/05/19 00:00 40 05/05/19 00:00 98.2 62 16 124/52 (76) 100 05/05/19 00:00 76 05/04/19 23:30 70 18 116/55 (75) 100 05/04/19 23:00 21 Mechanical Ventilator 40 05/04/19 23:00 68 17 134/50 (78) 100 05/04/19 23:00 71 19 120/49 (72) 100 05/04/19 22:49 71 20 40 05/04/19 22:30 66 20 137/52 (80) 100 05/04/19 22:00 17 Mechanical Ventilator 40 05/04/19 22:00 68 17 134/50 (78) 100 05/04/19 21:30 64 18 113/53 (73) 100 05/04/19 21:28 69 17 40 05/04/19 21:00 61 16 124/45 (71) 100 05/04/19 21:00 17 Mechanical Ventilator 40 05/04/19 20:30 60 17 115/47 (69) 100 05/04/19 20:00 98.4 59 24 117/52 (73) 100 05/04/19 20:00 59 05/04/19 20:00 40 05/04/19 20:00 24 Mechanical Ventilator 40 05/04/19 20:00 Mechanical Ventilator 05/04/19 19:00 55 16 123/43 (69) 100 05/04/19 19:00 16 Mechanical Ventilator 40 05/04/19 19:00 55 16 40 05/04/19 18:30 54 28 130/49 (76) 100 05/04/19 18:00 16 Mechanical Ventilator 40 05/04/19 18:00 64 17 115/50 (71) 100 05/04/19 17:30 63 21 105/73 (84) 100 05/04/19 17:29 63 18 40 05/04/19 17:00 62 20 109/51 (70) 100 05/04/19 17:00 16 Mechanical Ventilator 40 05/04/19 16:30 68 22 111/51 (71) 100 Height (Feet): 5 Height (Inches): 3.00 Weight (Pounds): 111 Objective Gen: NAD HEENT: ETT CV: RRR Resp: coarse Abd: soft. normoactive Bs+ Neuro: sedated Microbiology Date/Time Source Procedure Growth Status 05/03/19 09:15 Blood Blood Culture - Preliminary NO GROWTH AFTER 24 HOURS Resulted 05/03/19 08:12 Blood Blood Culture - Preliminary NO GROWTH AFTER 24 HOURS Resulted 05/03/19 08:26 Nasal Not Otherwise Specified - Final Complete 05/03/19 08:26 Nasal Not Otherwise Specified - Final Complete 05/03/19 10:20 Rectum VRE Culture - Final Enterococcus Faecalis - Vre Complete 05/03/19 10:20 Rectum - Final NO CARBAPENEM-RESISTANT ENTEROBACTERI... Complete Laboratory Tests Test 05/04/19 19:45 05/05/19 04:15 Vancomycin Level Trough 12.1 ug/mL (5.0-12.0) H White Blood Count 5.4 K/UL (4.8-10.8) Red Blood Count 2.90 M/UL (4.20-5.40) L Hemoglobin 8.7 G/DL (12.0-16.0) L Hematocrit 27.3 % (37.0-47.0) L Mean Corpuscular Volume 94 FL (80-99) Mean Corpuscular Hemoglobin 30.0 PG (27.0-31.0) Mean Corpuscular Hemoglobin Concent 32.0 G/DL (32.0-36.0) Red Cell Distribution Width 20.6 % (11.6-14.8) H Platelet Count 67 K/UL (150-450) L Mean Platelet Volume 7.3 FL (6.5-10.1) Neutrophils (%) (Auto) % (45.0-75.0) Lymphocytes (%) (Auto) % (20.0-45.0) Monocytes (%) (Auto) % (1.0-10.0) Eosinophils (%) (Auto) % (0.0-3.0) Basophils (%) (Auto) % (0.0-2.0) Differential Total Cells Counted 100 Neutrophils % (Manual) 89 % (45-75) H Lymphocytes % (Manual) 5 % (20-45) L Monocytes % (Manual) 6 % (1-10) Eosinophils % (Manual) 0 % (0-3) Basophils % (Manual) 0 % (0-2) Band Neutrophils 0 % (0-8) Platelet Estimate Decreased L Platelet Morphology Normal Anisocytosis 2+ Sodium Level 139 MMOL/L (136-145) Potassium Level 3.2 MMOL/L (3.5-5.1) L Chloride Level 107 MMOL/L (98-107) Carbon Dioxide Level 30 MMOL/L (21-32) Anion Gap 2 mmol/L (5-15) L Blood Urea Nitrogen 17 mg/dL (7-18) Creatinine 0.6 MG/DL (0.55-1.30) Estimat Glomerular Filtration Rate mL/min (>60) Glucose Level 83 MG/DL (74-106) Uric Acid 2.5 MG/DL (2.6-7.2) L Calcium Level 7.8 MG/DL (8.5-10.1) L Phosphorus Level 2.5 MG/DL (2.5-4.9) Magnesium Level 1.8 MG/DL (1.8-2.4) Total Bilirubin 1.3 MG/DL (0.2-1.0) H Direct Bilirubin 0.4 MG/DL (0.0-0.3) H Aspartate Amino Transf (AST/SGOT) 24 U/L (15-37) Alanine Aminotransferase (ALT/SGPT) 26 U/L (12-78) Alkaline Phosphatase 78 U/L (46-116) C-Reactive Protein, Quantitative 3.5 mg/dL (0.00-0.90) H Pro-B-Type Natriuretic Peptide 2091 pg/mL (0-125) H Total Protein 5.8 G/DL (6.4-8.2) L Albumin 1.8 G/DL (3.4-5.0) L Globulin 4.0 g/dL Albumin/Globulin Ratio 0.4 (1.0-2.7) L Current Medications Medications (Trade) Dose Ordered Sig/Gautam Route PRN Reason Start Time Stop Time Status Last Admin Dose Admin Albuterol/ Ipratropium (Albuterol/ Ipratropium) 3 ml Q4H PRN HHN Shortness of Breath 05/03/19 10:30 05/08/19 10:29 Amikacin Protocol (Amikacin pharmacy to dose) 1 ea DAILY PRN MISC . 05/03/19 12:15 06/02/19 12:14 Amikacin Sulfate 750 mg/Sodium Chloride 113 ml @ 113 mls/hr Q36H IV 05/05/19 05:00 05/12/19 04:59 05/05/19 05:10 Chlorhexidine Gluconate (Cherry-Hex 2%) 1 applic DAILY@1999 TOPIC 05/03/19 20:00 06/02/19 19:59 05/04/19 20:01 Dextrose/Sodium Chloride 1,000 ml @ 50 mls/hr Q20H IV 05/05/19 10:45 06/03/19 10:44 05/05/19 11:00 Ertapenem 1 gm/ Sodium Chloride 55 ml @ 110 mls/hr Q24H IV 05/03/19 21:00 05/08/19 20:59 05/04/19 20:53 Folic Acid (Folate) 5 mg DAILY NG 05/04/19 11:00 06/03/19 10:59 05/05/19 13:55 Heparin Sodium (Porcine) (Heparin 5000 units/ml) 5,000 units EVERY 12 HOURS SUBQ 05/03/19 21:00 06/02/19 20:59 Iron Sucrose 100 mg/Sodium Chloride 55 ml @ 200 mls/hr BEDTIME IVPB 05/05/19 21:00 05/08/19 21:17 Lorazepam (Ativan 2mg/ml 1ml) 2 mg Q4H PRN IV For Anxiety 05/04/19 10:22 05/11/19 10:21 Midazolam HCl 100 ml @ 0 mls/hr Q24H IV 05/04/19 11:00 05/11/19 10:59 05/05/19 08:33 Morphine Sulfate (Morphine Sulfate) 4 mg Q4H PRN IVP For Pain 05/04/19 10:21 05/11/19 10:20 Norepinephrine Bitartrate 4 mg/ Dextrose 254 ml @ 0 mls/hr Q24H IV 05/03/19 12:17 06/02/19 12:16 05/03/19 18:42 Ondansetron HCl (Zofran) 4 mg Q6H PRN IVP Nausea & Vomiting 05/03/19 10:30 06/02/19 10:29 Pantoprazole (Protonix) 40 mg Q12HR IV 05/03/19 21:00 06/03/19 08:59 05/05/19 08:26 Polyethylene Glycol (Miralax) 17 gm DAILYPRN PRN ORAL Constipation 05/03/19 10:30 06/02/19 10:29 Vancomycin HCl (Vanco rx to dose) 1 ea DAILY PRN MISC . 05/03/19 12:15 06/02/19 12:14 Vancomycin HCl 750 mg/Sodium Chloride 275 ml @ 183.333 mls/hr Q12HR@1000,2200 IVPB 05/04/19 22:00 05/09/19 21:59 05/05/19 09:48 Yazan Minaya MD May 05, 2019 16:13
--- NOTE | 2019-05-05 17:55 | NUR ---
NURSE NOTES: Patient tolerating tube feeding. Increased to 30ml/hr. HOB kept elevated. Patient resting in bed comfortably. Turned and repositioned. Oral care provided.
--- NOTE | 2019-05-05 19:08 | NUR ---
HAND-OFF: Report given to PRANEETH Copeland.
--- NOTE | 2019-05-05 19:27 | NUR ---
RESPIRATORY NOTE: Received pt on AC 16, 500VT, 40%, PEEP +5. Pt intubated w/ ETT 7.0 @ 22cm lipline, secured by anchorfast. Pt currently sedated. B/S binh. clear, nonproductive cough, occasionally sxn minimal amounts of thin, clear/white secretions. No hand restraints as pt on continuous sedation per RN. Vent plugged into red outlet, ambubag at bedside. Pt in no apparent distress at this time. Will continue to monitor pt.
[2019-05-05] MEDS: Dyna-Hex 2% Top Sol 2oz TOPIC SCH (19:57)
--- NOTE | 2019-05-05 20:42 | Cardiology Progress Note ---
Assessment/Plan Assessment/Plan 1. Paroxysmal episodes of atrial fibrillation. 2. Severe left ventricular hypertrophy with left ventricular outflow tract, mild obstruction. 3. Severe aortic regurgitation. 4. Severe mitral stenosis/regurgitation. 5. Pulmonary hypertension. 6. Anemia. 7. Respiratory failure secondary to congestive heart failure. 8. History of recent GI bleeding, site undetermined. 9. Sinus bradycardia with abnormal T-waves. 10. Autoimmune hepatitis history. 11. History of severe COPD, on home O2. 12. Cirrhosis and portal hypertension. 13. History of hepatitis C. 14. Thrombocytopenia. nto weanable eeds sedataiaon duet o agittion more diuretic given this am aw will continue tohelp wean na improved Subjective ROS Limited/Unobtainable: Yes Objective Last 24 Hour Vital Signs Date Time Temp Pulse Resp B/P (MAP) Pulse Ox O2 Delivery O2 Flow Rate FiO2 05/05/19 19:25 63 16 40 05/05/19 19:00 16 Mechanical Ventilator 40 05/05/19 19:00 60 16 118/51 (73) 99 05/05/19 18:45 16 Mechanical Ventilator 40 05/05/19 18:30 16 Mechanical Ventilator 40 05/05/19 18:00 16 Mechanical Ventilator 40 05/05/19 18:00 56 19 137/49 (78) 100 05/05/19 17:00 52 16 141/51 (81) 100 05/05/19 17:00 16 Mechanical Ventilator 40 05/05/19 16:45 16 Mechanical Ventilator 40 05/05/19 16:44 16 Mechanical Ventilator 40 05/05/19 16:42 74 18 40 05/05/19 16:00 98.0 53 17 136/52 (80) 100 05/05/19 16:00 40 05/05/19 16:00 20 Mechanical Ventilator 40 05/05/19 16:00 62 05/05/19 16:00 Mechanical Ventilator 05/05/19 15:00 54 18 152/50 (84) 100 05/05/19 15:00 18 Mechanical Ventilator 40 05/05/19 14:43 75 18 40 05/05/19 14:30 56 21 136/49 (78) 100 05/05/19 14:00 63 20 148/66 (93) 100 05/05/19 14:00 20 Mechanical Ventilator 40 05/05/19 13:30 51 16 152/52 (85) 100 05/05/19 13:00 56 20 153/53 (86) 99 05/05/19 13:00 18 Mechanical Ventilator 40 05/05/19 12:45 76 18 40 05/05/19 12:30 56 21 152/62 (92) 100 05/05/19 12:30 16 Mechanical Ventilator 40 05/05/19 12:00 98.0 60 18 127/52 (77) 100 05/05/19 12:00 40 05/05/19 12:00 22 Mechanical Ventilator 40 05/05/19 12:00 60 20 143/56 (85) 100 05/05/19 12:00 Mechanical Ventilator 05/05/19 12:00 61 05/05/19 11:45 18 Mechanical Ventilator 40 05/05/19 11:30 57 24 151/63 (92) 100 05/05/19 11:30 18 Mechanical Ventilator 40 05/05/19 11:15 16 Mechanical Ventilator 40 05/05/19 11:10 151/49 05/05/19 11:00 22 Mechanical Ventilator 40 05/05/19 11:00 61 21 151/49 (83) 98 05/05/19 10:42 74 18 40 05/05/19 10:30 16 Mechanical Ventilator 40 05/05/19 10:30 57 18 144/71 (95) 100 05/05/19 10:00 19 Mechanical Ventilator 40 05/05/19 10:00 65 18 127/52 (77) 100 05/05/19 09:30 64 23 139/50 (79) 100 05/05/19 09:20 99 05/05/19 09:20 75 18 40 05/05/19 09:00 16 Mechanical Ventilator 40 05/05/19 09:00 60 17 148/61 (90) 100 05/05/19 08:33 16 Mechanical Ventilator 40 05/05/19 08:30 61 20 125/52 (76) 100 05/05/19 08:30 16 Mechanical Ventilator 40 05/05/19 08:15 22 Mechanical Ventilator 40 05/05/19 08:00 97.6 67 18 131/46 (74) 100 05/05/19 08:00 20 Mechanical Ventilator 40 05/05/19 08:00 Mechanical Ventilator 05/05/19 08:00 66 05/05/19 08:00 40 05/05/19 07:35 76 24 40 05/05/19 07:30 18 Mechanical Ventilator 40 05/05/19 07:30 70 23 121/55 (77) 100 05/05/19 07:00 20 Mechanical Ventilator 40 05/05/19 07:00 65 19 119/45 (69) 100 05/05/19 06:00 20 Mechanical Ventilator 40 05/05/19 06:00 60 19 97/77 (84) 100 05/05/19 05:00 74 18 40 05/05/19 05:00 72 19 120/43 (68) 100 05/05/19 05:00 20 Mechanical Ventilator 40 05/05/19 04:30 74 22 113/54 (73) 100 05/05/19 04:00 73 05/05/19 04:00 20 Mechanical Ventilator 40 05/05/19 04:00 40 05/05/19 04:00 98.0 66 16 108/51 (70) 100 05/05/19 04:00 Mechanical Ventilator 05/05/19 03:30 63 16 135/48 (77) 100 05/05/19 03:25 69 16 40 05/05/19 03:00 66 16 120/47 (71) 100 05/05/19 03:00 20 Mechanical Ventilator 40 05/05/19 02:30 62 17 104/57 (73) 100 05/05/19 02:02 72 16 104/49 (67) 100 05/05/19 02:00 60 17 81/42 (55) 100 05/05/19 02:00 19 Mechanical Ventilator 40 05/05/19 01:30 63 18 117/48 (71) 100 05/05/19 01:28 74 18 40 05/05/19 01:00 64 18 123/46 (71) 100 05/05/19 01:00 18 Mechanical Ventilator 40 05/05/19 00:30 60 16 119/50 (73) 100 05/05/19 00:00 Mechanical Ventilator 05/05/19 00:00 17 Mechanical Ventilator 40 05/05/19 00:00 40 05/05/19 00:00 98.2 62 16 124/52 (76) 100 05/05/19 00:00 76 05/04/19 23:30 70 18 116/55 (75) 100 05/04/19 23:00 21 Mechanical Ventilator 40 05/04/19 23:00 68 17 134/50 (78) 100 05/04/19 23:00 71 19 120/49 (72) 100 05/04/19 22:49 71 20 40 05/04/19 22:30 66 20 137/52 (80) 100 05/04/19 22:00 17 Mechanical Ventilator 40 05/04/19 22:00 68 17 134/50 (78) 100 05/04/19 21:30 64 18 113/53 (73) 100 05/04/19 21:28 69 17 40 05/04/19 21:00 61 16 124/45 (71) 100 05/04/19 21:00 17 Mechanical Ventilator 40 General Appearance: no apparent distress, on vent, patient on isolation Neck: supple Cardiovascular: normal rate, diastolic murmur, systolic murmur Respiratory/Chest: crackles/rales Abdomen: normal bowel sounds, non tender, soft Extremities: moderate edema Intake and Output 05/04/19 05/05/19 19:00 07:00 Intake Total 1934 ml 1120 ml Output Total 350 ml 450 ml Balance 1584 ml 670 ml Intake Oral 0 ml 0 ml IV Total 1684 ml 1120 ml Blood Product 250 ml Output Urine Total 350 ml 450 ml # Voids 1 Laboratory Tests Test 05/05/19 04:15 White Blood Count 5.4 K/UL (4.8-10.8) Red Blood Count 2.90 M/UL (4.20-5.40) L Hemoglobin 8.7 G/DL (12.0-16.0) L Hematocrit 27.3 % (37.0-47.0) L Mean Corpuscular Volume 94 FL (80-99) Mean Corpuscular Hemoglobin 30.0 PG (27.0-31.0) Mean Corpuscular Hemoglobin Concent 32.0 G/DL (32.0-36.0) Red Cell Distribution Width 20.6 % (11.6-14.8) H Platelet Count 67 K/UL (150-450) L Mean Platelet Volume 7.3 FL (6.5-10.1) Neutrophils (%) (Auto) % (45.0-75.0) Lymphocytes (%) (Auto) % (20.0-45.0) Monocytes (%) (Auto) % (1.0-10.0) Eosinophils (%) (Auto) % (0.0-3.0) Basophils (%) (Auto) % (0.0-2.0) Differential Total Cells Counted 100 Neutrophils % (Manual) 89 % (45-75) H Lymphocytes % (Manual) 5 % (20-45) L Monocytes % (Manual) 6 % (1-10) Eosinophils % (Manual) 0 % (0-3) Basophils % (Manual) 0 % (0-2) Band Neutrophils 0 % (0-8) Platelet Estimate Decreased L Platelet Morphology Normal Anisocytosis 2+ Sodium Level 139 MMOL/L (136-145) Potassium Level 3.2 MMOL/L (3.5-5.1) L Chloride Level 107 MMOL/L (98-107) Carbon Dioxide Level 30 MMOL/L (21-32) Anion Gap 2 mmol/L (5-15) L Blood Urea Nitrogen 17 mg/dL (7-18) Creatinine 0.6 MG/DL (0.55-1.30) Estimat Glomerular Filtration Rate mL/min (>60) Glucose Level 83 MG/DL (74-106) Uric Acid 2.5 MG/DL (2.6-7.2) L Calcium Level 7.8 MG/DL (8.5-10.1) L Phosphorus Level 2.5 MG/DL (2.5-4.9) Magnesium Level 1.8 MG/DL (1.8-2.4) Total Bilirubin 1.3 MG/DL (0.2-1.0) H Direct Bilirubin 0.4 MG/DL (0.0-0.3) H Aspartate Amino Transf (AST/SGOT) 24 U/L (15-37) Alanine Aminotransferase (ALT/SGPT) 26 U/L (12-78) Alkaline Phosphatase 78 U/L (46-116) C-Reactive Protein, Quantitative 3.5 mg/dL (0.00-0.90) H Pro-B-Type Natriuretic Peptide 2091 pg/mL (0-125) H Total Protein 5.8 G/DL (6.4-8.2) L Albumin 1.8 G/DL (3.4-5.0) L Globulin 4.0 g/dL Albumin/Globulin Ratio 0.4 (1.0-2.7) L Microbiology Date/Time Source Procedure Growth Status 05/03/19 09:15 Blood Blood Culture - Preliminary NO GROWTH AFTER 24 HOURS Resulted 05/03/19 08:12 Blood Blood Culture - Preliminary NO GROWTH AFTER 24 HOURS Resulted 05/03/19 08:26 Nasal Not Otherwise Specified - Final Complete 05/03/19 08:26 Nasal Not Otherwise Specified - Final Complete 05/03/19 10:20 Rectum VRE Culture - Final Enterococcus Faecalis - Vre Complete 05/03/19 10:20 Rectum - Final NO CARBAPENEM-RESISTANT ENTEROBACTERI... Complete Philipp Ahmadi MD May 05, 2019 20:42
[2019-05-05] MEDS: Ertapenem 1 GM in NS 55 ML IV SCH (21:15)
--- NOTE | 2019-05-05 21:16 | NUR ---
NURSE NOTES: Heparin 5000u subcut. not given due to low platelet ct.
[2019-05-06] VITALS (38 sets, daily range): BP systolic 94–146; BP diastolic 41–80
[2019-05-06] MEDS: Versed 50mg/D5W 100ml 100 ML IV SCH ×2 (01:10→11:24)
[2019-05-06 05:28] LABS: HEMATOCRIT 28.5 % (37.0-47.0); HEMOGLOBIN 9.1 G/DL (12.0-16.0); MEAN CORPUSCULAR VOLUME 95 FL (80-99); PLATELET COUNT 66 K/UL (150-450); WHITE BLOOD COUNT 5.4 K/UL (4.8-10.8)
[2019-05-06 06:08] LABS: ALANINE AMINOTRANSFERASE 17 U/L (12-78); ALBUMIN 1.7 G/DL (3.4-5.0); ALBUMIN/GLOBULIN RATIO 0.4 (1.0-2.7); ALKALINE PHOSPHATASE 82 U/L (46-116); ANION GAP 5 mmol/L (5-15); ASPARTATE AMINO TRANSFERASE 25 U/L (15-37); BILIRUBIN,TOTAL 1.1 MG/DL (0.2-1.0); BLOOD UREA NITROGEN 16 mg/dL (7-18); CALCIUM 7.7 MG/DL (8.5-10.1); CARBON DIOXIDE 28 MMOL/L (21-32); CHLORIDE 107 MMOL/L (98-107); CREATININE 0.6 MG/DL (0.55-1.30); PHOSPHORUS 2.7 MG/DL (2.5-4.9); POTASSIUM 3.3 MMOL/L (3.5-5.1); SODIUM 140 MMOL/L (136-145)
[2019-05-06 06:10] LABS: BILIRUBIN,DIRECT 0.4 MG/DL (0.0-0.3)
[2019-05-06] MEDS: D5NS 1,000 ML IV SCH (06:38)
--- NOTE | 2019-05-06 07:10 | NUR ---
NURSE NOTES: Received pt from PRANEETH Copeland. Pt is sedated, RASS -2. Orally intubated ETT 7.0/22cm at lip line, AC 16/TV500/Fio2 40%/+5, Spo2 98%, bilateral breath sounds are diminished. Pt too sedated for weaning this morning. R. nare NGT running Vital AF@45cc/hr, 5ml residual, abdomen non-distended, HOB 35 degrees. Placement verified with KUB yesterday. R. Subclavian TLC running Versed gtt@6mg/min and D5NS@50ml/hr. SB w/PAC's on monitoring tech; HR is 58. Bed locked, alarmed and in lowest position.
--- NOTE | 2019-05-06 07:19 | NUR ---
RESPIRATORY NOTE: Received pt on ETT 7.0@22cm lips line with current vent settings: AC 16-500ml-40%FiO2- peep 5, saturates at 98%. Caught pt trying to grab the tube with her left hand twice. Instructed pt not to grab it and put pt's left hand under the blanket. Pt is sedated, eyes open but unable to follow commands. RN Mirna Tenorio made aware and will watch her. Arnol clear breath sounds heard upon auscultation, suctioned small amounts of thin clear secretions without incidents. ETT moved to the left, vent circuits and suction tubing are secure and out of the way. Vent is plugged into the red outlet, alarms are set and audible, ambu bag is at bedside. No SOB or resp distress noted at this time. Will continue to monitor pt.
--- NOTE | 2019-05-06 07:23 | NUR ---
HAND-OFF: Report given to Mirna Cronin RN.
[2019-05-06] MEDS: Pantoprazole Inj IV SCH ×2 (08:07→21:26)
[2019-05-06] MEDS: Heparin 5000 units/ml inj SUBQ SCH ×2 (08:08→21:00)
--- NOTE | 2019-05-06 09:22 | Nephrology Progress Note ---
Assessment/Plan Problem List: (1) Acute respiratory failure (2) Electrolyte imbalance (3) Anemia (4) NSTEMI (non-ST elevated myocardial infarction) (5) COPD (chronic obstructive pulmonary disease) Assessment Acute respiratory failure, on Vent- Underlying COPD HypoNatremia , Etiology TBI , ? CHF HyperKalemia Sever Anemia NSTEMI Plan start midodrine remain intubated- failed weaning Folate . Iron . B12 supplement Mag and K and Phos supplement as needed Pulm support Monitor renal parameters Urine studies 2D echo Left ventricular ejection fraction estimated to be 60 %. per orders Subjective ROS Limited/Unobtainable: Yes Objective Objective Last 24 Hour Vital Signs Date Time Temp Pulse Resp B/P (MAP) Pulse Ox O2 Delivery O2 Flow Rate FiO2 05/06/19 09:00 56 16 106/44 (64) 99 05/06/19 08:30 58 16 114/45 (68) 98 05/06/19 08:00 30 05/06/19 08:00 57 16 94/46 (62) 98 05/06/19 08:00 53 05/06/19 08:00 Mechanical Ventilator 05/06/19 07:30 58 16 114/45 (68) 98 05/06/19 07:19 53 16 40 05/06/19 07:00 16 Mechanical Ventilator 40 05/06/19 07:00 98.6 53 17 115/43 (67) 97 05/06/19 06:00 59 16 107/41 (63) 100 05/06/19 06:00 17 Non-Rebreather 40 05/06/19 05:35 52 16 115/47 (69) 100 05/06/19 05:15 70 19 40 05/06/19 05:00 58 16 114/47 (69) 100 05/06/19 05:00 18 Mechanical Ventilator 40 05/06/19 04:00 56 05/06/19 04:00 16 Mechanical Ventilator 40 05/06/19 04:00 40 05/06/19 04:00 Mechanical Ventilator 05/06/19 04:00 98.2 62 16 112/44 (66) 100 05/06/19 03:00 19 Mechanical Ventilator 40 05/06/19 03:00 60 16 121/46 (71) 100 05/06/19 02:45 61 16 40 05/06/19 02:30 61 17 133/53 (79) 100 05/06/19 02:00 16 Mechanical Ventilator 40 05/06/19 02:00 56 16 116/46 (69) 100 05/06/19 01:30 53 16 128/49 (75) 100 05/06/19 01:10 16 Mechanical Ventilator 40 05/06/19 01:00 54 16 129/43 (71) 100 05/06/19 00:51 54 16 40 05/06/19 00:30 52 16 129/50 (76) 100 05/06/19 00:00 98.2 58 16 121/46 (71) 100 05/06/19 00:00 40 05/06/19 00:00 53 05/06/19 00:00 16 Mechanical Ventilator 40 05/06/19 00:00 Mechanical Ventilator 05/05/19 23:30 57 16 137/47 (77) 100 05/05/19 23:00 16 Mechanical Ventilator 40 05/05/19 23:00 56 25 145/58 (87) 100 05/05/19 22:54 69 17 40 05/05/19 22:00 56 25 120/67 (84) 100 05/05/19 22:00 19 Mechanical Ventilator 40 05/05/19 21:30 60 25 133/67 (89) 100 05/05/19 21:00 27 Mechanical Ventilator 40 05/05/19 21:00 61 27 132/54 (80) 100 05/05/19 20:52 66 17 40 05/05/19 20:00 98.2 63 18 124/51 (75) 98 05/05/19 20:00 Mechanical Ventilator 05/05/19 20:00 21 Mechanical Ventilator 40 05/05/19 20:00 40 05/05/19 20:00 60 05/05/19 19:25 63 16 40 05/05/19 19:00 16 Mechanical Ventilator 40 05/05/19 19:00 60 16 118/51 (73) 99 05/05/19 18:45 16 Mechanical Ventilator 40 05/05/19 18:30 16 Mechanical Ventilator 40 05/05/19 18:00 16 Mechanical Ventilator 40 05/05/19 18:00 56 19 137/49 (78) 100 05/05/19 17:00 52 16 141/51 (81) 100 05/05/19 17:00 16 Mechanical Ventilator 40 05/05/19 16:45 16 Mechanical Ventilator 40 05/05/19 16:44 16 Mechanical Ventilator 40 05/05/19 16:42 74 18 40 05/05/19 16:00 98.0 53 17 136/52 (80) 100 05/05/19 16:00 40 05/05/19 16:00 20 Mechanical Ventilator 40 05/05/19 16:00 62 05/05/19 16:00 Mechanical Ventilator 05/05/19 15:00 54 18 152/50 (84) 100 05/05/19 15:00 18 Mechanical Ventilator 40 05/05/19 14:43 75 18 40 05/05/19 14:30 56 21 136/49 (78) 100 05/05/19 14:00 63 20 148/66 (93) 100 05/05/19 14:00 20 Mechanical Ventilator 40 05/05/19 13:30 51 16 152/52 (85) 100 05/05/19 13:00 56 20 153/53 (86) 99 05/05/19 13:00 18 Mechanical Ventilator 40 05/05/19 12:45 76 18 40 05/05/19 12:30 56 21 152/62 (92) 100 05/05/19 12:30 16 Mechanical Ventilator 40 05/05/19 12:00 98.0 60 18 127/52 (77) 100 05/05/19 12:00 40 05/05/19 12:00 22 Mechanical Ventilator 40 05/05/19 12:00 60 20 143/56 (85) 100 05/05/19 12:00 Mechanical Ventilator 05/05/19 12:00 61 05/05/19 11:45 18 Mechanical Ventilator 40 05/05/19 11:30 57 24 151/63 (92) 100 05/05/19 11:30 18 Mechanical Ventilator 40 05/05/19 11:15 16 Mechanical Ventilator 40 05/05/19 11:10 151/49 05/05/19 11:00 22 Mechanical Ventilator 40 05/05/19 11:00 61 21 151/49 (83) 98 05/05/19 10:42 74 18 40 05/05/19 10:30 16 Mechanical Ventilator 40 05/05/19 10:30 57 18 144/71 (95) 100 05/05/19 10:00 19 Mechanical Ventilator 40 05/05/19 10:00 65 18 127/52 (77) 100 05/05/19 09:30 64 23 139/50 (79) 100 Intake and Output 05/05/19 05/06/19 18:59 06:59 Intake Total 1452.850 ml 1674 ml Output Total 300 ml Balance 1452.850 ml 1374 ml Intake Oral 0 ml Free Water 30 ml 60 ml IV Total 1332.850 ml 1199 ml Tube Feeding 90 ml 415 ml Output Urine Total 300 ml # Voids 6 7 Laboratory Tests 05/06/19 04:15: White Blood Count 5.4, Red Blood Count 3.00L, Hemoglobin 9.1L, Hematocrit 28.5L , Mean Corpuscular Volume 95, Mean Corpuscular Hemoglobin 30.4, Mean Corpuscular Hemoglobin Concent 32.1, Red Cell Distribution Width 20.0H, Platelet Count 66L, Mean Platelet Volume 7.6, Neutrophils (%) (Auto) , Lymphocytes (%) (Auto) , Monocytes (%) (Auto) , Eosinophils (%) (Auto) , Basophils (%) (Auto) , Neutrophils % (Manual) [Pending], Lymphocytes % (Manual) [Pending], Platelet Estimate [Pending], Platelet Morphology [Pending], Sodium Level 140, Potassium Level 3.3L, Chloride Level 107, Carbon Dioxide Level 28, Anion Gap 5, Blood Urea Nitrogen 16, Creatinine 0.6, Estimat Glomerular Filtration Rate , Glucose Level 100, Calcium Level 7.7L, Phosphorus Level 2.7, Magnesium Level 1.5L, Total Bilirubin 1.1H, Direct Bilirubin 0.4H, Aspartate Amino Transf (AST/SGOT) 25, Alanine Aminotransferase (ALT/SGPT) 17, Alkaline Phosphatase 82, Total Protein 5.9L, Albumin 1.7L, Globulin 4.2, Albumin/ Globulin Ratio 0.4L 05/06/19 08:47: Arterial Blood pH 7.451H, Arterial Blood Partial Pressure CO2 36.2, Arterial Blood Partial Pressure O2 143.7H, Arterial Blood HCO3 24.7, Arterial Blood Oxygen Saturation 98.7, Arterial Blood Base Excess 0.8, Raghavendra Test Positive Height (Feet): 5 Height (Inches): 3.00 Weight (Pounds): 110 General Appearance: no apparent distress EENT: other - vented Cardiovascular: bradycardia Respiratory/Chest: decreased breath sounds Abdomen: distended Efra Das MD May 06, 2019 09:22
--- NOTE | 2019-05-06 09:35 | NUR ---
NURSE NOTES: Turned and repositioned. Increased Ana AF to 45ml/hr, meeting goal. 5ml residual, abdomen is non-distended.
[2019-05-06] MEDS: Vancomycin 750mg/NS 275ml IVPB SCH ×4 (09:54→21:53)
--- NOTE | 2019-05-06 10:20 | Pulmonolgy Critical Care Note ---
Critical Care - Asmt/Plan Problems: (1) Acute respiratory failure (2) Acute pulmonary edema (3) COPD (chronic obstructive pulmonary disease) (4) Severe protein-calorie malnutrition (5) Nosocomial pneumonia (6) Edema of both feet Respiratory: monitor respiratory rate, adjust FIO2, CXR Cardiac: continue pressors, continue to monitor HR/BP Renal: F/U I&O, keep IV fluid Infectious Disease: check cultures, continue antibiotics Gastrointestinal: continue feedings/current rate Endocrine: monitor blood sugar Hematologic: monitor H/H, transfuse if hgb<8.5 Neurologic: PRN Morphine, keep patient comfortable Affect: PRN ativan Disposition: keep in ICU Notes Reviewed: learning support services director, cardio, renal Discussed with: nurses, consultants, case assemblersystems development manager - Objective Last 24 Hour Vital Signs Date Time Temp Pulse Resp B/P (MAP) Pulse Ox O2 Delivery O2 Flow Rate FiO2 05/06/19 09:00 56 16 106/44 (64) 99 05/06/19 08:30 58 16 114/45 (68) 98 05/06/19 08:00 30 05/06/19 08:00 57 16 94/46 (62) 98 05/06/19 08:00 53 05/06/19 08:00 Mechanical Ventilator 05/06/19 07:30 58 16 114/45 (68) 98 05/06/19 07:19 53 16 40 05/06/19 07:00 16 Mechanical Ventilator 40 05/06/19 07:00 98.6 53 17 115/43 (67) 97 05/06/19 06:00 59 16 107/41 (63) 100 05/06/19 06:00 17 Non-Rebreather 40 05/06/19 05:35 52 16 115/47 (69) 100 05/06/19 05:15 70 19 40 05/06/19 05:00 58 16 114/47 (69) 100 05/06/19 05:00 18 Mechanical Ventilator 40 05/06/19 04:00 56 05/06/19 04:00 16 Mechanical Ventilator 40 05/06/19 04:00 40 05/06/19 04:00 Mechanical Ventilator 05/06/19 04:00 98.2 62 16 112/44 (66) 100 05/06/19 03:00 19 Mechanical Ventilator 40 05/06/19 03:00 60 16 121/46 (71) 100 05/06/19 02:45 61 16 40 05/06/19 02:30 61 17 133/53 (79) 100 05/06/19 02:00 16 Mechanical Ventilator 40 05/06/19 02:00 56 16 116/46 (69) 100 05/06/19 01:30 53 16 128/49 (75) 100 05/06/19 01:10 16 Mechanical Ventilator 40 05/06/19 01:00 54 16 129/43 (71) 100 05/06/19 00:51 54 16 40 05/06/19 00:30 52 16 129/50 (76) 100 05/06/19 00:00 98.2 58 16 121/46 (71) 100 05/06/19 00:00 40 05/06/19 00:00 53 05/06/19 00:00 16 Mechanical Ventilator 40 05/06/19 00:00 Mechanical Ventilator 05/05/19 23:30 57 16 137/47 (77) 100 05/05/19 23:00 16 Mechanical Ventilator 40 05/05/19 23:00 56 25 145/58 (87) 100 05/05/19 22:54 69 17 40 05/05/19 22:00 56 25 120/67 (84) 100 05/05/19 22:00 19 Mechanical Ventilator 40 05/05/19 21:30 60 25 133/67 (89) 100 05/05/19 21:00 27 Mechanical Ventilator 40 05/05/19 21:00 61 27 132/54 (80) 100 05/05/19 20:52 66 17 40 05/05/19 20:00 98.2 63 18 124/51 (75) 98 05/05/19 20:00 Mechanical Ventilator 05/05/19 20:00 21 Mechanical Ventilator 40 05/05/19 20:00 40 05/05/19 20:00 60 05/05/19 19:25 63 16 40 05/05/19 19:00 16 Mechanical Ventilator 40 05/05/19 19:00 60 16 118/51 (73) 99 05/05/19 18:45 16 Mechanical Ventilator 40 05/05/19 18:30 16 Mechanical Ventilator 40 05/05/19 18:00 16 Mechanical Ventilator 40 05/05/19 18:00 56 19 137/49 (78) 100 05/05/19 17:00 52 16 141/51 (81) 100 05/05/19 17:00 16 Mechanical Ventilator 40 05/05/19 16:45 16 Mechanical Ventilator 40 05/05/19 16:44 16 Mechanical Ventilator 40 05/05/19 16:42 74 18 40 05/05/19 16:00 98.0 53 17 136/52 (80) 100 05/05/19 16:00 40 05/05/19 16:00 20 Mechanical Ventilator 40 05/05/19 16:00 62 05/05/19 16:00 Mechanical Ventilator 05/05/19 15:00 54 18 152/50 (84) 100 05/05/19 15:00 18 Mechanical Ventilator 40 05/05/19 14:43 75 18 40 05/05/19 14:30 56 21 136/49 (78) 100 05/05/19 14:00 63 20 148/66 (93) 100 05/05/19 14:00 20 Mechanical Ventilator 40 05/05/19 13:30 51 16 152/52 (85) 100 05/05/19 13:00 56 20 153/53 (86) 99 05/05/19 13:00 18 Mechanical Ventilator 40 05/05/19 12:45 76 18 40 05/05/19 12:30 56 21 152/62 (92) 100 05/05/19 12:30 16 Mechanical Ventilator 40 05/05/19 12:00 98.0 60 18 127/52 (77) 100 05/05/19 12:00 40 05/05/19 12:00 22 Mechanical Ventilator 40 05/05/19 12:00 60 20 143/56 (85) 100 05/05/19 12:00 Mechanical Ventilator 05/05/19 12:00 61 05/05/19 11:45 18 Mechanical Ventilator 40 05/05/19 11:30 57 24 151/63 (92) 100 05/05/19 11:30 18 Mechanical Ventilator 40 05/05/19 11:15 16 Mechanical Ventilator 40 05/05/19 11:10 151/49 05/05/19 11:00 22 Mechanical Ventilator 40 05/05/19 11:00 61 21 151/49 (83) 98 05/05/19 10:42 74 18 40 05/05/19 10:30 16 Mechanical Ventilator 40 05/05/19 10:30 57 18 144/71 (95) 100 Status: sedated Condition: critical HEENT: atraumatic, normocephalic Neck: full ROM Lungs: rales, rhonchi Heart: HR/BP stable Abdomen: soft, non-tender Extremities: no C/C/E, edema Decubiti: location Micro: Microbiology Date/Time Source Procedure Growth Status 05/03/19 10:20 Nasal Nares MRSA Culture - Final Staphylococcus Aureus - Mrsa Complete 05/03/19 10:20 Rectum VRE Culture - Final Enterococcus Faecalis - Vre Complete 05/03/19 10:20 Rectum - Final NO CARBAPENEM-RESISTANT ENTEROBACTERI... Complete Critical Care - Subjective ROS Limited/Unobtainable: Yes Condition: critical EKG Rhythm: Sinus Rhythm FI02: 30 Vent Support Breath Rate: 16 Vent Support Mode: AC Vent Tidal Volume: 500 Sputum Amount: Small PEEP: 5.0 PIP: 36 Tube Feeding Amount: 45 I&O: Intake and Output 05/05/19 05/06/19 18:59 06:59 Intake Total 1452.850 ml 1674 ml Output Total 300 ml Balance 1452.850 ml 1374 ml Intake Oral 0 ml Free Water 30 ml 60 ml IV Total 1332.850 ml 1199 ml Tube Feeding 90 ml 415 ml Output Urine Total 300 ml # Voids 6 7 CXR: NO change, ET in good position ET-Tube: 7.0 ET Position: 22 Labs: Laboratory Tests Test 05/06/19 04:15 05/06/19 08:47 05/06/19 09:00 White Blood Count 5.4 K/UL (4.8-10.8) Red Blood Count 3.00 M/UL (4.20-5.40) L Hemoglobin 9.1 G/DL (12.0-16.0) L Hematocrit 28.5 % (37.0-47.0) L Mean Corpuscular Volume 95 FL (80-99) Mean Corpuscular Hemoglobin 30.4 PG (27.0-31.0) Mean Corpuscular Hemoglobin Concent 32.1 G/DL (32.0-36.0) Red Cell Distribution Width 20.0 % (11.6-14.8) H Platelet Count 66 K/UL (150-450) L Mean Platelet Volume 7.6 FL (6.5-10.1) Neutrophils (%) (Auto) % (45.0-75.0) Lymphocytes (%) (Auto) % (20.0-45.0) Monocytes (%) (Auto) % (1.0-10.0) Eosinophils (%) (Auto) % (0.0-3.0) Basophils (%) (Auto) % (0.0-2.0) Neutrophils % (Manual) Pending Lymphocytes % (Manual) Pending Platelet Estimate Pending Platelet Morphology Pending Sodium Level 140 MMOL/L (136-145) Potassium Level 3.3 MMOL/L (3.5-5.1) L Chloride Level 107 MMOL/L (98-107) Carbon Dioxide Level 28 MMOL/L (21-32) Anion Gap 5 mmol/L (5-15) Blood Urea Nitrogen 16 mg/dL (7-18) Creatinine 0.6 MG/DL (0.55-1.30) Estimat Glomerular Filtration Rate mL/min (>60) Glucose Level 100 MG/DL (74-106) Calcium Level 7.7 MG/DL (8.5-10.1) L Phosphorus Level 2.7 MG/DL (2.5-4.9) Magnesium Level 1.5 MG/DL (1.8-2.4) L Total Bilirubin 1.1 MG/DL (0.2-1.0) H Direct Bilirubin 0.4 MG/DL (0.0-0.3) H Aspartate Amino Transf (AST/SGOT) 25 U/L (15-37) Alanine Aminotransferase (ALT/SGPT) 17 U/L (12-78) Alkaline Phosphatase 82 U/L (46-116) Total Protein 5.9 G/DL (6.4-8.2) L Albumin 1.7 G/DL (3.4-5.0) L Globulin 4.2 g/dL Albumin/Globulin Ratio 0.4 (1.0-2.7) L Arterial Blood pH 7.451 (7.350-7.450) Arterial Blood Partial Pressure CO2 36.2 mmHg (35.0-45.0) Arterial Blood Partial Pressure O2 143.7 mmHg (75.0-100.0) H Arterial Blood HCO3 24.7 mmol/L (22.0-26.0) Arterial Blood Oxygen Saturation 98.7 % (95-100) Arterial Blood Base Excess 0.8 (-2-2) Raghavendra Test Positive Vancomycin Level Trough 15.9 ug/mL (5.0-12.0) H Jamal Medina MD May 06, 2019 10:20
--- NOTE | 2019-05-06 11:09 | NUR ---
NURSE NOTES: Oral care done. IVPB KCL and Mg sulfate infusing well. Turned and repositioned. No signs of distress.
[2019-05-06] MEDS ORDERED: D5NS 1000ml IV ONE ×3 (12:06→15:22)
[2019-05-06] MEDS ORDERED: Tubing IV Secondary IV ONE (12:06)
[2019-05-06] MEDS ORDERED: NS 275ml ONE ×3 (12:06→15:22)
--- NOTE | 2019-05-06 12:14 | Diagnostic Imaging Report ---
Indication: Dyspnea Technique: One view of the chest Comparison: 05/05/2019 Findings: Stable satisfactory position of endotracheal tube. Interim placement of a nasogastric tube, tip of which projects in satisfactory position at the level gastric fundus. Right subclavian central venous catheter is again demonstrated. Previously demonstrated interstitial and airspace opacities are again demonstrated, stable to perhaps minimally improved. There is probably small amount of pleural fluid bilaterally, unchanged. The heart remains borderline enlarged. Impression: Stable to minimally improved bilateral interstitial and airspace disease, over one day Otherwise stable findings as described
--- NOTE | 2019-05-06 13:07 | NUR ---
NURSE NOTES: Turned and repositioned, kept dry and clean. Applied lotion to her back. Changed purwick. Tolerating GTF well. RASS -2. No signs of distress.
--- NOTE | 2019-05-06 13:25 | NUR ---
RADIOLOGY DEPT., CHEST X-RAY DONE.-P.DYE
--- NOTE | 2019-05-06 15:10 | Internal Med Progress Note ---
Subjective Date of Service: May 06, 2019 Physician Name Romeo Tavares Attending Physician Zeke Munoz MD Current Medications Medications (Trade) Dose Ordered Sig/Gautam Route PRN Reason Start Time Stop Time Status Last Admin Dose Admin Albuterol/ Ipratropium (Albuterol/ Ipratropium) 3 ml Q4H PRN HHN Shortness of Breath 05/03/19 10:30 05/08/19 10:29 Chlorhexidine Gluconate (Cherry-Hex 2%) 1 applic DAILY@2000 TOPIC 05/03/19 20:00 06/02/19 19:59 05/05/19 19:57 Dextrose/Sodium Chloride 1,000 ml @ 50 mls/hr Q20H IV 05/05/19 10:45 06/03/19 10:44 05/06/19 06:38 Ertapenem 1 gm/ Sodium Chloride 55 ml @ 110 mls/hr Q24H IV 05/03/19 21:00 05/08/19 20:59 05/05/19 21:15 Folic Acid (Folate) 5 mg DAILY NG 05/04/19 11:00 06/03/19 10:59 05/06/19 08:08 Heparin Sodium (Porcine) (Heparin 5000 units/ml) 5,000 units EVERY 12 HOURS SUBQ 05/03/19 21:00 06/02/19 20:59 Iron Sucrose 100 mg/Sodium Chloride 55 ml @ 200 mls/hr BEDTIME IVPB 05/05/19 21:00 05/08/19 21:17 05/05/19 21:16 Lorazepam (Ativan 2mg/ml 1ml) 2 mg Q4H PRN IV For Anxiety 05/04/19 10:22 05/11/19 10:21 Midazolam HCl 100 ml @ 0 mls/hr Q24H IV 05/04/19 11:00 05/11/19 10:59 05/06/19 11:24 Midodrine (Pro-Amatine) 2.5 mg THREE TIMES A DAY NG 05/06/19 09:30 06/05/19 09:29 05/06/19 13:26 Morphine Sulfate (Morphine Sulfate) 4 mg Q4H PRN IVP For Pain 05/04/19 10:21 05/11/19 10:20 Norepinephrine Bitartrate 4 mg/ Dextrose 254 ml @ 0 mls/hr Q24H IV 05/03/19 12:17 06/02/19 12:16 05/03/19 18:42 Ondansetron HCl (Zofran) 4 mg Q6H PRN IVP Nausea & Vomiting 05/03/19 10:30 06/02/19 10:29 Pantoprazole (Protonix) 40 mg Q12HR IV 05/03/19 21:00 06/03/19 08:59 05/06/19 08:07 Polyethylene Glycol (Miralax) 17 gm DAILYPRN PRN ORAL Constipation 05/03/19 10:30 06/02/19 10:29 Vancomycin HCl (Vanco rx to dose) 1 ea DAILY PRN MISC . 05/03/19 12:15 06/02/19 12:14 Vancomycin HCl 750 mg/Sodium Chloride 275 ml @ 183.333 mls/hr Q12HR@1000,2200 IVPB 05/04/19 22:00 05/09/19 21:59 05/06/19 09:54 Allergies: Coded Allergies: ACETAMINOPHEN (Verified Allergy, Unknown, 05/03/19) ASPIRIN (Verified Allergy, Unknown, 08/14/17) IBUPROFEN (Verified Allergy, Unknown, 05/03/19) PENICILLINS (Unverified Allergy, Unknown, 05/05/19) Uncoded Allergies: pain killers (Allergy, Severe, 01/28/17) ROS Limited/Unobtainable: Yes Subjective 74 YO F admitted with respiratory failure. Now Link Heart Failure. Intubated and sedated. Cover for Int [facility]-Dr Munoz. ICU Objective Last Vital Signs Date Time Temp Pulse Resp B/P (MAP) Pulse Ox O2 Delivery O2 Flow Rate FiO2 05/06/19 14:00 98.9 58 23 113/51 (71) 95 05/06/19 13:24 30 05/06/19 12:00 Mechanical Ventilator 05/06/19 11:24 15.0 Laboratory Tests Test 05/06/19 04:15 05/06/19 08:47 05/06/19 09:00 White Blood Count 5.4 K/UL (4.8-10.8) Red Blood Count 3.00 M/UL (4.20-5.40) L Hemoglobin 9.1 G/DL (12.0-16.0) L Hematocrit 28.5 % (37.0-47.0) L Mean Corpuscular Volume 95 FL (80-99) Mean Corpuscular Hemoglobin 30.4 PG (27.0-31.0) Mean Corpuscular Hemoglobin Concent 32.1 G/DL (32.0-36.0) Red Cell Distribution Width 20.0 % (11.6-14.8) H Platelet Count 66 K/UL (150-450) L Mean Platelet Volume 7.6 FL (6.5-10.1) Neutrophils (%) (Auto) % (45.0-75.0) Lymphocytes (%) (Auto) % (20.0-45.0) Monocytes (%) (Auto) % (1.0-10.0) Eosinophils (%) (Auto) % (0.0-3.0) Basophils (%) (Auto) % (0.0-2.0) Differential Total Cells Counted 100 Neutrophils % (Manual) 84 % (45-75) H Lymphocytes % (Manual) 6 % (20-45) L Monocytes % (Manual) 9 % (1-10) Eosinophils % (Manual) 1 % (0-3) Basophils % (Manual) 0 % (0-2) Band Neutrophils 0 % (0-8) Platelet Estimate Decreased L Platelet Morphology Normal Hypochromasia 2+ Anisocytosis 2+ Sodium Level 140 MMOL/L (136-145) Potassium Level 3.3 MMOL/L (3.5-5.1) L Chloride Level 107 MMOL/L (98-107) Carbon Dioxide Level 28 MMOL/L (21-32) Anion Gap 5 mmol/L (5-15) Blood Urea Nitrogen 16 mg/dL (7-18) Creatinine 0.6 MG/DL (0.55-1.30) Estimat Glomerular Filtration Rate mL/min (>60) Glucose Level 100 MG/DL (74-106) Calcium Level 7.7 MG/DL (8.5-10.1) L Phosphorus Level 2.7 MG/DL (2.5-4.9) Magnesium Level 1.5 MG/DL (1.8-2.4) L Total Bilirubin 1.1 MG/DL (0.2-1.0) H Direct Bilirubin 0.4 MG/DL (0.0-0.3) H Aspartate Amino Transf (AST/SGOT) 25 U/L (15-37) Alanine Aminotransferase (ALT/SGPT) 17 U/L (12-78) Alkaline Phosphatase 82 U/L (46-116) Total Protein 5.9 G/DL (6.4-8.2) L Albumin 1.7 G/DL (3.4-5.0) L Globulin 4.2 g/dL Albumin/Globulin Ratio 0.4 (1.0-2.7) L Arterial Blood pH 7.451 (7.350-7.450) Arterial Blood Partial Pressure CO2 36.2 mmHg (35.0-45.0) Arterial Blood Partial Pressure O2 143.7 mmHg (75.0-100.0) H Arterial Blood HCO3 24.7 mmol/L (22.0-26.0) Arterial Blood Oxygen Saturation 98.7 % (95-100) Arterial Blood Base Excess 0.8 (-2-2) Raghavendra Test Positive Vancomycin Level Trough 15.9 ug/mL (5.0-12.0) H Intake and Output 05/05/19 05/06/19 19:00 07:00 Intake Total 1454.850 ml 1693 ml Output Total 300 ml Balance 1454.850 ml 1393 ml Intake Oral 0 ml Free Water 30 ml 60 ml IV Total 1304.850 ml 1208 ml Tube Feeding 120 ml 425 ml Output Urine Total 300 ml # Voids 7 7 Objective PHYSICAL EXAMINATION: GENERAL: The patient is a thin-appearing female, who is currently intubated and sedated in the intensive care unit. HEENT: Eyes, pupils are equal and responsive to light and accommodation. Extraocular movements are intact. NECK: Supple without lymphadenopathy. CHEST: Coarse breath sounds bilaterally without wheezes or rales. CARDIOVASCULAR: Regular rhythm and rate. S1 and S2 are normal without murmurs, rubs, or gallops. ABDOMEN: Soft, nontender, and nondistended with positive bowel sounds. No evidence of hepatosplenomegaly, rebound, or guarding noted. EXTREMITIES: Negative for clubbing, cyanosis, or edema. RECTAL/GENITAL: Refused. NEUROLOGIC: Unable to assess secondary to intubation. Assessment/Plan Assessment/Plan ASSESSMENT: This is a 74-year-old female. 1. Respiratory failure. 2. Acute exacerbation of congestive heart failure. 3. Chronic obstructive pulmonary disease. 4. Hypertension. 5. Hypercholesterolemia. TREATMENT: 1. Respiratory failure. A Pulmonary consultation has been obtained with Dr. Jamal Medina. The patient is currently intubated in the intensive care unit. Respiratory failure may be secondary to congestive heart failure. The patient has been started empirically on ertapenem, amikacin and vancomycin for hospital-acquired pneumonia per Inf Dis=Dr. Minaya 2. Congestive heart failure. A Cardiology consultation has been obtained with Dr. Philipp Ahmadi. The patient is currently receiving Lasix intravenously. We will follow recommendations of Cardiology. 3. Hypercholesterolemia. Continue atorvastatin as above. 4. Hypertension. The patient is currently hypotensive. Hold antihypertensive medication at this time. Romeo Tavares MD May 06, 2019 15:10
--- NOTE | 2019-05-06 15:43 | NUR ---
NURSE NOTES: Titrated Versed to 5mg/min, HR decreased to 47 to meet RASS -2.
--- NOTE | 2019-05-06 15:50 | Infectious Diseases Prog Note ---
Assessment/Plan Assessment/Plan Afebrile No leukocytosis Lactate 1.2 dopamine, SP Hypoxic Respiratory failure PNA? Pulm edema 05/03 Flu swab negative 05/03 sputum cx: ngtd 05/03 CXR: Moderate to severe pulmonary edema. Bilateral pleural effusions 05/03 CXR: Diffuse airspace disease may be due to pulmonary edema. Small bilateral pleural effusions. Tubes and lines satisfactory 05/04 CXR: Improved bilateral pleural effusions, over one day 05/05 CXR: Bilateral interstitial and hazy airspace disease persists, unchanged. Probable small left pleural effusion is again demonstrated. The heart size is upper limits normal. No significant interim change 05/06 CXR: Stable to minimally improved bilateral interstitial and airspace disease, over one day. Otherwise stable findings as described. UA negative r/o bacteremia 05/03 Bcx: ngtd 05/03 TTE: EF 60%.No pericardial effusion. AV calcification with decreased cusp excursion c/w aortic stenosis. Heavily thickened mitral valve leaflets with reduced excursion. Echogenic material noted on posterior mitral valve leaflet is likely calcified mitral annular structure. Heavy mitral annulus and aortic root calcification. Pulmonic valve not well visualized. Normal tricuspid valve structure. VRE colonization MRSA colonization new subclavian central line placed in ED no sorensen COPD CHF Hep C cirrhosis GERD Plan: continue Meropenem, Vancomycin #4 pending culture, will deescalate stepwise 05/05 DC Amikacin #3 SP Zosyn and Vanc f/u bcx f/u sputum cx monitor CXR monitor temp monitor CBC steroids per pulm Thank you for this consult. [facility] will continue to follow the patient with you. Subjective Allergies: Coded Allergies: ACETAMINOPHEN (Verified Allergy, Unknown, 05/03/19) ASPIRIN (Verified Allergy, Unknown, 08/14/17) IBUPROFEN (Verified Allergy, Unknown, 05/03/19) PENICILLINS (Unverified Allergy, Unknown, 05/05/19) Uncoded Allergies: pain killers (Allergy, Severe, 01/28/17) Subjective Afebrile. off pressors. FiO2 30%, better Objective Vital Signs Last 24 Hour Vital Signs Date Time Temp Pulse Resp B/P (MAP) Pulse Ox O2 Delivery O2 Flow Rate FiO2 05/06/19 15:00 50 16 134/50 (78) 97 05/06/19 14:00 98.9 58 23 113/51 (71) 95 05/06/19 13:24 55 16 30 05/06/19 13:04 63 23 104/53 (70) 95 05/06/19 12:30 57 16 114/48 (70) 97 05/06/19 12:00 16 Mechanical Ventilator 30 05/06/19 12:00 55 05/06/19 12:00 Mechanical Ventilator 05/06/19 12:00 98.7 58 18 113/46 (68) 98 05/06/19 12:00 30 05/06/19 11:54 98.6 05/06/19 11:24 20 Mechanical Ventilator 15.0 30 05/06/19 11:00 57 17 102/47 (65) 99 05/06/19 11:00 16 Mechanical Ventilator 30 05/06/19 11:00 56 16 30 05/06/19 10:30 59 20 109/48 (68) 96 05/06/19 10:00 16 Mechanical Ventilator 30 05/06/19 10:00 60 19 103/48 (66) 98 05/06/19 09:00 30 05/06/19 09:00 56 16 106/44 (64) 99 05/06/19 09:00 16 Mechanical Ventilator 30 05/06/19 08:47 58 16 40 05/06/19 08:30 58 16 114/45 (68) 98 05/06/19 08:00 30 05/06/19 08:00 57 16 94/46 (62) 98 05/06/19 08:00 53 05/06/19 08:00 16 Mechanical Ventilator 30 05/06/19 08:00 Mechanical Ventilator 05/06/19 07:30 58 16 114/45 (68) 98 05/06/19 07:19 53 16 40 05/06/19 07:00 16 Mechanical Ventilator 40 05/06/19 07:00 98.6 53 17 115/43 (67) 97 05/06/19 06:00 59 16 107/41 (63) 100 05/06/19 06:00 17 Non-Rebreather 40 05/06/19 05:35 52 16 115/47 (69) 100 05/06/19 05:15 70 19 40 05/06/19 05:00 58 16 114/47 (69) 100 05/06/19 05:00 18 Mechanical Ventilator 40 05/06/19 04:00 56 05/06/19 04:00 16 Mechanical Ventilator 40 05/06/19 04:00 40 05/06/19 04:00 Mechanical Ventilator 05/06/19 04:00 98.2 62 16 112/44 (66) 100 05/06/19 03:00 19 Mechanical Ventilator 40 05/06/19 03:00 60 16 121/46 (71) 100 05/06/19 02:45 61 16 40 05/06/19 02:30 61 17 133/53 (79) 100 05/06/19 02:00 16 Mechanical Ventilator 40 05/06/19 02:00 56 16 116/46 (69) 100 05/06/19 01:30 53 16 128/49 (75) 100 05/06/19 01:10 16 Mechanical Ventilator 40 05/06/19 01:00 54 16 129/43 (71) 100 05/06/19 00:51 54 16 40 05/06/19 00:30 52 16 129/50 (76) 100 05/06/19 00:00 98.2 58 16 121/46 (71) 100 05/06/19 00:00 40 05/06/19 00:00 53 05/06/19 00:00 16 Mechanical Ventilator 40 05/06/19 00:00 Mechanical Ventilator 05/05/19 23:30 57 16 137/47 (77) 100 05/05/19 23:00 16 Mechanical Ventilator 40 05/05/19 23:00 56 25 145/58 (87) 100 05/05/19 22:54 69 17 40 05/05/19 22:00 56 25 120/67 (84) 100 05/05/19 22:00 19 Mechanical Ventilator 40 05/05/19 21:30 60 25 133/67 (89) 100 05/05/19 21:00 27 Mechanical Ventilator 40 05/05/19 21:00 61 27 132/54 (80) 100 05/05/19 20:52 66 17 40 05/05/19 20:00 98.2 63 18 124/51 (75) 98 05/05/19 20:00 Mechanical Ventilator 05/05/19 20:00 21 Mechanical Ventilator 40 05/05/19 20:00 40 05/05/19 20:00 60 05/05/19 19:25 63 16 40 05/05/19 19:00 16 Mechanical Ventilator 40 05/05/19 19:00 60 16 118/51 (73) 99 05/05/19 18:45 16 Mechanical Ventilator 40 05/05/19 18:30 16 Mechanical Ventilator 40 05/05/19 18:00 16 Mechanical Ventilator 40 05/05/19 18:00 56 19 137/49 (78) 100 05/05/19 17:00 52 16 141/51 (81) 100 05/05/19 17:00 16 Mechanical Ventilator 40 05/05/19 16:45 16 Mechanical Ventilator 40 05/05/19 16:44 16 Mechanical Ventilator 40 05/05/19 16:42 74 18 40 05/05/19 16:00 98.0 53 17 136/52 (80) 100 05/05/19 16:00 40 05/05/19 16:00 20 Mechanical Ventilator 40 05/05/19 16:00 62 05/05/19 16:00 Mechanical Ventilator Height (Feet): 5 Height (Inches): 3.00 Weight (Pounds): 110 Objective Gen: NAD HEENT: ETT CV: RRR Resp: coarse Abd: soft. normoactive Bs+ Neuro: sedated Laboratory Tests Test 05/06/19 04:15 05/06/19 08:47 05/06/19 09:00 White Blood Count 5.4 K/UL (4.8-10.8) Red Blood Count 3.00 M/UL (4.20-5.40) L Hemoglobin 9.1 G/DL (12.0-16.0) L Hematocrit 28.5 % (37.0-47.0) L Mean Corpuscular Volume 95 FL (80-99) Mean Corpuscular Hemoglobin 30.4 PG (27.0-31.0) Mean Corpuscular Hemoglobin Concent 32.1 G/DL (32.0-36.0) Red Cell Distribution Width 20.0 % (11.6-14.8) H Platelet Count 66 K/UL (150-450) L Mean Platelet Volume 7.6 FL (6.5-10.1) Neutrophils (%) (Auto) % (45.0-75.0) Lymphocytes (%) (Auto) % (20.0-45.0) Monocytes (%) (Auto) % (1.0-10.0) Eosinophils (%) (Auto) % (0.0-3.0) Basophils (%) (Auto) % (0.0-2.0) Differential Total Cells Counted 100 Neutrophils % (Manual) 84 % (45-75) H Lymphocytes % (Manual) 6 % (20-45) L Monocytes % (Manual) 9 % (1-10) Eosinophils % (Manual) 1 % (0-3) Basophils % (Manual) 0 % (0-2) Band Neutrophils 0 % (0-8) Platelet Estimate Decreased L Platelet Morphology Normal Hypochromasia 2+ Anisocytosis 2+ Sodium Level 140 MMOL/L (136-145) Potassium Level 3.3 MMOL/L (3.5-5.1) L Chloride Level 107 MMOL/L (98-107) Carbon Dioxide Level 28 MMOL/L (21-32) Anion Gap 5 mmol/L (5-15) Blood Urea Nitrogen 16 mg/dL (7-18) Creatinine 0.6 MG/DL (0.55-1.30) Estimat Glomerular Filtration Rate mL/min (>60) Glucose Level 100 MG/DL (74-106) Calcium Level 7.7 MG/DL (8.5-10.1) L Phosphorus Level 2.7 MG/DL (2.5-4.9) Magnesium Level 1.5 MG/DL (1.8-2.4) L Total Bilirubin 1.1 MG/DL (0.2-1.0) H Direct Bilirubin 0.4 MG/DL (0.0-0.3) H Aspartate Amino Transf (AST/SGOT) 25 U/L (15-37) Alanine Aminotransferase (ALT/SGPT) 17 U/L (12-78) Alkaline Phosphatase 82 U/L (46-116) Total Protein 5.9 G/DL (6.4-8.2) L Albumin 1.7 G/DL (3.4-5.0) L Globulin 4.2 g/dL Albumin/Globulin Ratio 0.4 (1.0-2.7) L Arterial Blood pH 7.451 (7.350-7.450) Arterial Blood Partial Pressure CO2 36.2 mmHg (35.0-45.0) Arterial Blood Partial Pressure O2 143.7 mmHg (75.0-100.0) H Arterial Blood HCO3 24.7 mmol/L (22.0-26.0) Arterial Blood Oxygen Saturation 98.7 % (95-100) Arterial Blood Base Excess 0.8 (-2-2) Raghavendra Test Positive Vancomycin Level Trough 15.9 ug/mL (5.0-12.0) H Current Medications Medications (Trade) Dose Ordered Sig/Gautam Route PRN Reason Start Time Stop Time Status Last Admin Dose Admin Albuterol/ Ipratropium (Albuterol/ Ipratropium) 3 ml Q4H PRN HHN Shortness of Breath 05/03/19 10:30 05/08/19 10:29 Chlorhexidine Gluconate (Cherry-Hex 2%) 1 applic DAILY@2000 TOPIC 05/03/19 20:00 06/02/19 19:59 05/05/19 19:57 Dextrose/Sodium Chloride 1,000 ml @ 50 mls/hr Q20H IV 05/05/19 10:45 06/03/19 10:44 05/06/19 06:38 Ertapenem 1 gm/ Sodium Chloride 55 ml @ 110 mls/hr Q24H IV 05/03/19 21:00 05/08/19 20:59 05/05/19 21:15 Folic Acid (Folate) 5 mg DAILY NG 05/04/19 11:00 06/03/19 10:59 05/06/19 08:08 Heparin Sodium (Porcine) (Heparin 5000 units/ml) 5,000 units EVERY 12 HOURS SUBQ 05/03/19 21:00 06/02/19 20:59 Iron Sucrose 100 mg/Sodium Chloride 55 ml @ 200 mls/hr BEDTIME IVPB 05/05/19 21:00 05/08/19 21:17 05/05/19 21:16 Lorazepam (Ativan 2mg/ml 1ml) 2 mg Q4H PRN IV For Anxiety 05/04/19 10:22 05/11/19 10:21 Midazolam HCl 100 ml @ 0 mls/hr Q24H IV 05/04/19 11:00 05/11/19 10:59 05/06/19 11:24 Midodrine (Pro-Amatine) 2.5 mg THREE TIMES A DAY NG 05/06/19 09:30 06/05/19 09:29 05/06/19 13:26 Morphine Sulfate (Morphine Sulfate) 4 mg Q4H PRN IVP For Pain 05/04/19 10:21 05/11/19 10:20 Norepinephrine Bitartrate 4 mg/ Dextrose 254 ml @ 0 mls/hr Q24H IV 05/03/19 12:17 06/02/19 12:16 05/03/19 18:42 Ondansetron HCl (Zofran) 4 mg Q6H PRN IVP Nausea & Vomiting 05/03/19 10:30 06/02/19 10:29 Pantoprazole (Protonix) 40 mg Q12HR IV 05/03/19 21:00 06/03/19 08:59 05/06/19 08:07 Polyethylene Glycol (Miralax) 17 gm DAILYPRN PRN ORAL Constipation 05/03/19 10:30 06/02/19 10:29 Vancomycin HCl (Vanco rx to dose) 1 ea DAILY PRN MISC . 05/03/19 12:15 06/02/19 12:14 Vancomycin HCl 750 mg/Sodium Chloride 275 ml @ 183.333 mls/hr Q12HR@1000,2200 IVPB 05/04/19 22:00 05/09/19 21:59 05/06/19 09:54 Yazan Minaya MD May 06, 2019 15:49
--- NOTE | 2019-05-06 17:44 | NUR ---
NURSE NOTES: Turned and repositioned. Oral care rendered. FLACC 0/10, patient appears comfortable and is lightly sedated.
--- NOTE | 2019-05-06 18:49 | Cardiology Progress Note ---
Assessment/Plan Assessment/Plan 1. Paroxysmal episodes of atrial fibrillation. 2. Severe left ventricular hypertrophy with left ventricular outflow tract, mild obstruction. 3. Severe aortic regurgitation. 4. Severe mitral stenosis/regurgitation. 5. Pulmonary hypertension. 6. Anemia. 7. Respiratory failure secondary to congestive heart failure. 8. History of recent GI bleeding, site undetermined. 9. Sinus bradycardia with abnormal T-waves. 10. Autoimmune hepatitis history. 11. History of severe COPD, on home O2. 12. Cirrhosis and portal hypertension. 13. History of hepatitis C. 14. Thrombocytopenia. attempt to dc sedation for weaning her cxr look much improved diurtic intermittently na improved not getting norpace but she will need resume used to be cellcept for her autoimmune hepatitis Subjective ROS Limited/Unobtainable: Yes Objective Last 24 Hour Vital Signs Date Time Temp Pulse Resp B/P (MAP) Pulse Ox O2 Delivery O2 Flow Rate FiO2 05/06/19 18:00 55 16 101/49 (66) 99 05/06/19 17:30 56 16 100/53 (69) 99 05/06/19 17:00 54 16 118/44 (68) 100 05/06/19 16:52 54 16 30 05/06/19 16:30 60 21 123/59 (80) 99 05/06/19 16:00 58 05/06/19 16:00 30 05/06/19 16:00 16 Mechanical Ventilator 30 05/06/19 16:00 Mechanical Ventilator 05/06/19 16:00 98.6 53 16 118/46 (70) 96 05/06/19 15:09 51 16 30 05/06/19 15:00 16 Mechanical Ventilator 30 05/06/19 15:00 50 16 134/50 (78) 97 05/06/19 14:00 98.9 58 23 113/51 (71) 95 05/06/19 14:00 16 Mechanical Ventilator 30 05/06/19 13:24 55 16 30 05/06/19 13:04 63 23 104/53 (70) 95 05/06/19 13:00 16 Mechanical Ventilator 30 05/06/19 12:30 57 16 114/48 (70) 97 05/06/19 12:00 16 Mechanical Ventilator 30 05/06/19 12:00 55 05/06/19 12:00 Mechanical Ventilator 05/06/19 12:00 98.7 58 18 113/46 (68) 98 05/06/19 12:00 30 05/06/19 11:54 98.6 05/06/19 11:24 20 Mechanical Ventilator 15.0 30 05/06/19 11:00 57 17 102/47 (65) 99 05/06/19 11:00 16 Mechanical Ventilator 30 05/06/19 11:00 56 16 30 05/06/19 10:30 59 20 109/48 (68) 96 05/06/19 10:00 16 Mechanical Ventilator 30 05/06/19 10:00 60 19 103/48 (66) 98 05/06/19 09:00 30 05/06/19 09:00 56 16 106/44 (64) 99 05/06/19 09:00 16 Mechanical Ventilator 30 05/06/19 08:47 58 16 40 05/06/19 08:30 58 16 114/45 (68) 98 05/06/19 08:00 30 05/06/19 08:00 57 16 94/46 (62) 98 05/06/19 08:00 53 05/06/19 08:00 16 Mechanical Ventilator 30 05/06/19 08:00 Mechanical Ventilator 05/06/19 07:30 58 16 114/45 (68) 98 05/06/19 07:19 53 16 40 05/06/19 07:00 16 Mechanical Ventilator 40 05/06/19 07:00 98.6 53 17 115/43 (67) 97 05/06/19 06:00 59 16 107/41 (63) 100 05/06/19 06:00 17 Non-Rebreather 40 05/06/19 05:35 52 16 115/47 (69) 100 05/06/19 05:15 70 19 40 05/06/19 05:00 58 16 114/47 (69) 100 05/06/19 05:00 18 Mechanical Ventilator 40 05/06/19 04:00 56 05/06/19 04:00 16 Mechanical Ventilator 40 05/06/19 04:00 40 05/06/19 04:00 Mechanical Ventilator 05/06/19 04:00 98.2 62 16 112/44 (66) 100 05/06/19 03:00 19 Mechanical Ventilator 40 05/06/19 03:00 60 16 121/46 (71) 100 05/06/19 02:45 61 16 40 05/06/19 02:30 61 17 133/53 (79) 100 05/06/19 02:00 16 Mechanical Ventilator 40 05/06/19 02:00 56 16 116/46 (69) 100 05/06/19 01:30 53 16 128/49 (75) 100 05/06/19 01:10 16 Mechanical Ventilator 40 05/06/19 01:00 54 16 129/43 (71) 100 05/06/19 00:51 54 16 40 05/06/19 00:30 52 16 129/50 (76) 100 05/06/19 00:00 98.2 58 16 121/46 (71) 100 05/06/19 00:00 40 05/06/19 00:00 53 05/06/19 00:00 16 Mechanical Ventilator 40 05/06/19 00:00 Mechanical Ventilator 05/05/19 23:30 57 16 137/47 (77) 100 05/05/19 23:00 16 Mechanical Ventilator 40 05/05/19 23:00 56 25 145/58 (87) 100 05/05/19 22:54 69 17 40 05/05/19 22:00 56 25 120/67 (84) 100 05/05/19 22:00 19 Mechanical Ventilator 40 05/05/19 21:30 60 25 133/67 (89) 100 05/05/19 21:00 27 Mechanical Ventilator 40 05/05/19 21:00 61 27 132/54 (80) 100 05/05/19 20:52 66 17 40 05/05/19 20:00 98.2 63 18 124/51 (75) 98 05/05/19 20:00 Mechanical Ventilator 05/05/19 20:00 21 Mechanical Ventilator 40 05/05/19 20:00 40 05/05/19 20:00 60 05/05/19 19:25 63 16 40 05/05/19 19:00 16 Mechanical Ventilator 40 05/05/19 19:00 60 16 118/51 (73) 99 General Appearance: on vent, patient on isolation Cardiovascular: normal rate, bradycardia, systolic murmur Respiratory/Chest: lungs clear Abdomen: normal bowel sounds, non tender, soft Extremities: no swelling Intake and Output 05/05/19 05/06/19 19:00 07:00 Intake Total 1454.850 ml 1693 ml Output Total 300 ml Balance 1454.850 ml 1393 ml Intake Oral 0 ml Free Water 30 ml 60 ml IV Total 1304.850 ml 1208 ml Tube Feeding 120 ml 425 ml Output Urine Total 300 ml # Voids 7 7 Laboratory Tests Test 05/06/19 04:15 05/06/19 08:47 05/06/19 09:00 White Blood Count 5.4 K/UL (4.8-10.8) Red Blood Count 3.00 M/UL (4.20-5.40) L Hemoglobin 9.1 G/DL (12.0-16.0) L Hematocrit 28.5 % (37.0-47.0) L Mean Corpuscular Volume 95 FL (80-99) Mean Corpuscular Hemoglobin 30.4 PG (27.0-31.0) Mean Corpuscular Hemoglobin Concent 32.1 G/DL (32.0-36.0) Red Cell Distribution Width 20.0 % (11.6-14.8) H Platelet Count 66 K/UL (150-450) L Mean Platelet Volume 7.6 FL (6.5-10.1) Neutrophils (%) (Auto) % (45.0-75.0) Lymphocytes (%) (Auto) % (20.0-45.0) Monocytes (%) (Auto) % (1.0-10.0) Eosinophils (%) (Auto) % (0.0-3.0) Basophils (%) (Auto) % (0.0-2.0) Differential Total Cells Counted 100 Neutrophils % (Manual) 84 % (45-75) H Lymphocytes % (Manual) 6 % (20-45) L Monocytes % (Manual) 9 % (1-10) Eosinophils % (Manual) 1 % (0-3) Basophils % (Manual) 0 % (0-2) Band Neutrophils 0 % (0-8) Platelet Estimate Decreased L Platelet Morphology Normal Hypochromasia 2+ Anisocytosis 2+ Sodium Level 140 MMOL/L (136-145) Potassium Level 3.3 MMOL/L (3.5-5.1) L Chloride Level 107 MMOL/L (98-107) Carbon Dioxide Level 28 MMOL/L (21-32) Anion Gap 5 mmol/L (5-15) Blood Urea Nitrogen 16 mg/dL (7-18) Creatinine 0.6 MG/DL (0.55-1.30) Estimat Glomerular Filtration Rate mL/min (>60) Glucose Level 100 MG/DL (74-106) Calcium Level 7.7 MG/DL (8.5-10.1) L Phosphorus Level 2.7 MG/DL (2.5-4.9) Magnesium Level 1.5 MG/DL (1.8-2.4) L Total Bilirubin 1.1 MG/DL (0.2-1.0) H Direct Bilirubin 0.4 MG/DL (0.0-0.3) H Aspartate Amino Transf (AST/SGOT) 25 U/L (15-37) Alanine Aminotransferase (ALT/SGPT) 17 U/L (12-78) Alkaline Phosphatase 82 U/L (46-116) Total Protein 5.9 G/DL (6.4-8.2) L Albumin 1.7 G/DL (3.4-5.0) L Globulin 4.2 g/dL Albumin/Globulin Ratio 0.4 (1.0-2.7) L Arterial Blood pH 7.451 (7.350-7.450) Arterial Blood Partial Pressure CO2 36.2 mmHg (35.0-45.0) Arterial Blood Partial Pressure O2 143.7 mmHg (75.0-100.0) H Arterial Blood HCO3 24.7 mmol/L (22.0-26.0) Arterial Blood Oxygen Saturation 98.7 % (95-100) Arterial Blood Base Excess 0.8 (-2-2) Raghavendra Test Positive Vancomycin Level Trough 15.9 ug/mL (5.0-12.0) H Philipp Ahmadi MD May 06, 2019 18:49
--- NOTE | 2019-05-06 19:12 | NUR ---
HAND-OFF: Report given to PRANEETH Copeland.
--- NOTE | 2019-05-06 19:30 | NUR ---
NURSE NOTES: Received pt calmed and sedated with Versed drip at 5mg/hr.. Orally intubated on ac mode, SB on the monitor MDs are aware. Bp stable afebrile. Pt also has maintainance IVF D5NS at 50ml/hr. All IVF been infusing to RT SVC central line. Site with drsg dry and intact. Purewick to suction draining moderate amt. of celsa yellow urine. Tolerating NGT fdg at this time. HOB keptb elevated. On aspiration precaution.
--- NOTE | 2019-05-06 20:00 | NUR ---
NURSE NOTES: Suctioned light yellowish TN secretions moderate in amt. Oral care done.
[2019-05-06] MEDS: Dyna-Hex 2% Top Sol 2oz TOPIC SCH (20:28)
[2019-05-06] MEDS: Ertapenem 1 GM in NS 55 ML IV SCH (21:27)
[2019-05-06] MEDS ORDERED: Midazolam 5mg/5ml 50 MG in D5W 50 ML IV SCH ×4 (21:30)
--- NOTE | 2019-05-06 22:00 | NUR ---
NURSE NOTES: Turned q 2hrs prn with good skin care done.
[2019-05-07] VITALS (29 sets, daily range): BP systolic 88–164; BP diastolic 41–123
--- NOTE | 2019-05-07 | NUR ---
NURSE NOTES: Pt appeared calmed at this time. RASS Score of 2.
--- NOTE | 2019-05-07 | NUR ---
NURSE NOTES: Pt become restless and attempted to pull out ETT.- Soft wrist restrained applied for safety.
[2019-05-07] MEDS: D5NS 1,000 ML IV SCH (00:40)
--- NOTE | 2019-05-07 01:36 | NUR ---
NURSE NOTES: Pt had soft Brownish stool, moderate in amt. cleaned up pt.
--- NOTE | 2019-05-07 04:00 | NUR ---
NURSE NOTES: Turned off Versed drip and fdg due to weaning this am per Dr Medina.
[2019-05-07 05:39] LABS: HEMATOCRIT 27.7 % (37.0-47.0); HEMOGLOBIN 8.8 G/DL (12.0-16.0); MEAN CORPUSCULAR VOLUME 96 FL (80-99); PLATELET COUNT 53 K/UL (150-450); RED BLOOD COUNT 2.89 M/UL (4.20-5.40); RED CELL DISTRIBUTION WIDTH 19.2 % (11.6-14.8); WHITE BLOOD COUNT 4.7 K/UL (4.8-10.8)
--- NOTE | 2019-05-07 06:00 | NUR ---
NURSE NOTES: Complete bed bath with bed changed was done. Oral care done.
[2019-05-07 06:13] LABS: ALANINE AMINOTRANSFERASE 19 U/L (12-78); ALBUMIN 1.6 G/DL (3.4-5.0); ALBUMIN/GLOBULIN RATIO 0.4 (1.0-2.7); ALKALINE PHOSPHATASE 74 U/L (46-116); ANION GAP 2 mmol/L (5-15); ASPARTATE AMINO TRANSFERASE 24 U/L (15-37); BILIRUBIN,TOTAL 0.9 MG/DL (0.2-1.0); BLOOD UREA NITROGEN 14 mg/dL (7-18); CALCIUM 7.2 MG/DL (8.5-10.1); CARBON DIOXIDE 28 MMOL/L (21-32); CHLORIDE 108 MMOL/L (98-107); CREATININE 0.6 MG/DL (0.55-1.30); PHOSPHORUS 2.6 MG/DL (2.5-4.9); SODIUM 138 MMOL/L (136-145)
--- NOTE | 2019-05-07 07:25 | NUR ---
HAND-OFF: Report given to Erika DACOSTA.
--- NOTE | 2019-05-07 08:05 | NUR ---
NURSE NOTES: Report received from PRANEETH Copeland.Pt awake and restless when received.Off Versed and GT feeding for weaning.GT placement checked and intact.No residual noted at this time.HOB elevated at 35 degree to prevent aspiration.Orally intubated with current setting: AC 16, VT 500, FiO2 40% , Peep 5.Afebrile at this time and running D5NS at 50ml/hr with no apparent infiltration right subclavian TLC. Abdomen soft and non distended.Lungs sounds diminished. On Puewick external catheter, draining yellow straw urine through suction.Good pericare done, turned and repositioned for skin management. Mouth care done and suctioned as tolerated.Will continue close monitoring
[2019-05-07] MEDS: Pantoprazole Inj IV SCH (08:16)
[2019-05-07] MEDS: Heparin 5000 units/ml inj SUBQ SCH ×2 (08:16→19:58)
--- NOTE | 2019-05-07 09:57 | Nephrology Progress Note ---
Assessment/Plan Problem List: (1) Acute respiratory failure (2) Electrolyte imbalance (3) Anemia (4) NSTEMI (non-ST elevated myocardial infarction) (5) COPD (chronic obstructive pulmonary disease) Assessment Acute respiratory failure, on Vent- Underlying COPD HypoNatremia , Etiology TBI , ? CHF HyperKalemia Sever Anemia NSTEMI Plan failed weaning start midodrine remain intubated- failed weaning Folate . Iron . B12 supplement Mag and K and Phos supplement as needed Pulm support Monitor renal parameters Urine studies 2D echo Left ventricular ejection fraction estimated to be 60 %. per orders Subjective ROS Limited/Unobtainable: Yes Objective Objective Last 24 Hour Vital Signs Date Time Temp Pulse Resp B/P (MAP) Pulse Ox O2 Delivery O2 Flow Rate FiO2 05/07/19 08:45 66 25 30 05/07/19 06:45 55 21 30 05/07/19 06:00 55 20 128/65 (86) 99 05/07/19 05:29 66 22 30 05/07/19 05:00 54 21 95/50 (65) 99 05/07/19 04:00 30 05/07/19 04:00 Mechanical Ventilator 05/07/19 04:00 59 05/07/19 04:00 98.6 49 21 127/41 (69) 99 05/07/19 03:29 54 18 30 05/07/19 03:00 16 Mechanical Ventilator 30 05/07/19 03:00 53 21 117/59 (78) 99 05/07/19 02:30 53 21 118/54 (75) 100 05/07/19 02:00 55 26 121/50 (73) 100 05/07/19 02:00 16 Mechanical Ventilator 30 05/07/19 01:30 57 24 111/52 (71) 100 05/07/19 01:23 55 18 30 05/07/19 01:00 16 Mechanical Ventilator 30 05/07/19 01:00 50 16 111/52 (71) 100 05/07/19 00:30 54 16 108/50 (69) 100 05/07/19 00:00 30 05/07/19 00:00 Mechanical Ventilator 05/07/19 00:00 16 Mechanical Ventilator 30 05/07/19 00:00 50 05/07/19 00:00 98.0 53 16 104/51 (68) 100 05/06/19 23:30 50 16 146/51 (82) 100 05/06/19 23:08 54 16 30 05/06/19 23:00 16 Mechanical Ventilator 30 05/06/19 23:00 56 22 113/80 (91) 98 05/06/19 22:30 48 16 139/57 (84) 100 05/06/19 22:00 49 16 125/54 (77) 100 05/06/19 22:00 16 Mechanical Ventilator 30 05/06/19 21:30 49 16 145/61 (89) 100 05/06/19 21:00 21 Mechanical Ventilator 30 05/06/19 21:00 16 Mechanical Ventilator 30 05/06/19 21:00 53 18 132/57 (82) 100 05/06/19 20:52 58 20 30 05/06/19 20:30 54 20 107/51 (69) 100 05/06/19 20:00 98.4 54 19 122/55 (77) 100 05/06/19 20:00 16 Mechanical Ventilator 30 05/06/19 20:00 Mechanical Ventilator 05/06/19 19:30 55 24 119/72 (88) 100 05/06/19 19:25 56 22 30 05/06/19 18:00 55 16 101/49 (66) 99 05/06/19 18:00 16 Mechanical Ventilator 30 05/06/19 17:30 56 16 100/53 (69) 99 05/06/19 17:00 54 16 118/44 (68) 100 05/06/19 17:00 16 Mechanical Ventilator 30 05/06/19 16:52 54 16 30 05/06/19 16:30 60 21 123/59 (80) 99 05/06/19 16:00 58 05/06/19 16:00 30 05/06/19 16:00 16 Mechanical Ventilator 30 05/06/19 16:00 Mechanical Ventilator 05/06/19 16:00 98.6 53 16 118/46 (70) 96 05/06/19 15:09 51 16 30 05/06/19 15:00 16 Mechanical Ventilator 30 05/06/19 15:00 50 16 134/50 (78) 97 05/06/19 14:00 98.9 58 23 113/51 (71) 95 05/06/19 14:00 16 Mechanical Ventilator 30 05/06/19 13:24 55 16 30 05/06/19 13:04 63 23 104/53 (70) 95 05/06/19 13:00 16 Mechanical Ventilator 30 05/06/19 12:30 57 16 114/48 (70) 97 05/06/19 12:00 16 Mechanical Ventilator 30 05/06/19 12:00 55 05/06/19 12:00 Mechanical Ventilator 05/06/19 12:00 98.7 58 18 113/46 (68) 98 05/06/19 12:00 30 05/06/19 11:54 98.6 05/06/19 11:24 20 Mechanical Ventilator 15.0 30 05/06/19 11:00 57 17 102/47 (65) 99 05/06/19 11:00 16 Mechanical Ventilator 30 05/06/19 11:00 56 16 30 05/06/19 10:30 59 20 109/48 (68) 96 05/06/19 10:00 16 Mechanical Ventilator 30 05/06/19 10:00 60 19 103/48 (66) 98 Intake and Output 05/06/19 05/07/19 18:59 06:59 Intake Total 1387 ml 1431 ml Output Total 500 ml 520 ml Balance 887 ml 911 ml Free Water 120 ml 60 ml IV Total 732 ml 1011 ml Tube Feeding 535 ml 360 ml Output Urine Total 500 ml 520 ml # Voids 3 7 # Bowel Movements 1 Laboratory Tests 05/07/19 04:36: White Blood Count 4.7L, Red Blood Count 2.89L, Hemoglobin 8.8L, Hematocrit 27.7L , Mean Corpuscular Volume 96, Mean Corpuscular Hemoglobin 30.5, Mean Corpuscular Hemoglobin Concent 31.8L, Red Cell Distribution Width 19.2H, Platelet Count 53L, Mean Platelet Volume 8.2, Neutrophils (%) (Auto) , Lymphocytes (%) (Auto) , Monocytes (%) (Auto) , Eosinophils (%) (Auto) , Basophils (%) (Auto) , Differential Total Cells Counted 100, Neutrophils % ( Manual) 79H, Lymphocytes % (Manual) 11L, Monocytes % (Manual) 9, Eosinophils % ( Manual) 1, Basophils % (Manual) 0, Band Neutrophils 0, Platelet Estimate DecreasedL, Platelet Morphology Normal, Hypochromasia 2+, Anisocytosis 2+, Sodium Level 138, Potassium Level 4.0, Chloride Level 108H, Carbon Dioxide Level 28, Anion Gap 2L, Blood Urea Nitrogen 14, Creatinine 0.6, Estimat Glomerular Filtration Rate , Glucose Level 97, Uric Acid 1.0L, Calcium Level 7.2L, Phosphorus Level 2.6, Magnesium Level 1.8, Total Bilirubin 0.9, Aspartate Amino Transf (AST/SGOT) 24, Alanine Aminotransferase (ALT/SGPT) 19, Alkaline Phosphatase 74, C-Reactive Protein, Quantitative 2.9H, Pro-B-Type Natriuretic Peptide 1945H, Total Protein 5.5L, Albumin 1.6L, Globulin 3.9, Albumin/Globulin Ratio 0.4L 05/07/19 08:51: Arterial Blood pH 7.480H, Arterial Blood Partial Pressure CO2 33.6L, Arterial Blood Partial Pressure O2 85.4, Arterial Blood HCO3 24.5, Arterial Blood Oxygen Saturation 96.4, Arterial Blood Base Excess 1.3, Raghavendra Test Positive Height (Feet): 5 Height (Inches): 3.00 Weight (Pounds): 112 General Appearance: no apparent distress Cardiovascular: normal rate Respiratory/Chest: decreased breath sounds Efra Das MD May 07, 2019 09:57
--- NOTE | 2019-05-07 10:10 | Pulmonolgy Critical Care Note ---
Critical Care - Asmt/Plan Problems: (1) Acute respiratory failure (2) Acute pulmonary edema (3) COPD (chronic obstructive pulmonary disease) (4) Severe protein-calorie malnutrition (5) Nosocomial pneumonia (6) Edema of both feet Respiratory: monitor respiratory rate, adjust FIO2, CXR, other - doing well on weaning Cardiac: continue pressors, continue to monitor HR/BP Renal: F/U I&O, keep IV fluid Infectious Disease: check cultures, continue antibiotics Gastrointestinal: continue feedings/current rate Endocrine: monitor blood sugar, continue sliding scale insulin Hematologic: monitor H/H, transfuse if hgb<8.5 Neurologic: PRN Ativan, PRN Morphine, keep patient comfortable Affect: PRN ativan Prophylaxis: Heparin Notes Reviewed: cardio, renal Discussed with: nurses, consultants, case management coordinatorassistant manager/embalmer - Objective Last 24 Hour Vital Signs Date Time Temp Pulse Resp B/P (MAP) Pulse Ox O2 Delivery O2 Flow Rate FiO2 05/07/19 08:45 66 25 30 05/07/19 06:45 55 21 30 05/07/19 06:00 55 20 128/65 (86) 99 05/07/19 05:29 66 22 30 05/07/19 05:00 54 21 95/50 (65) 99 05/07/19 04:00 30 05/07/19 04:00 Mechanical Ventilator 05/07/19 04:00 59 05/07/19 04:00 98.6 49 21 127/41 (69) 99 05/07/19 03:29 54 18 30 05/07/19 03:00 16 Mechanical Ventilator 30 05/07/19 03:00 53 21 117/59 (78) 99 05/07/19 02:30 53 21 118/54 (75) 100 05/07/19 02:00 55 26 121/50 (73) 100 05/07/19 02:00 16 Mechanical Ventilator 30 05/07/19 01:30 57 24 111/52 (71) 100 05/07/19 01:23 55 18 30 05/07/19 01:00 16 Mechanical Ventilator 30 05/07/19 01:00 50 16 111/52 (71) 100 05/07/19 00:30 54 16 108/50 (69) 100 05/07/19 00:00 30 05/07/19 00:00 Mechanical Ventilator 05/07/19 00:00 16 Mechanical Ventilator 30 05/07/19 00:00 50 05/07/19 00:00 98.0 53 16 104/51 (68) 100 05/06/19 23:30 50 16 146/51 (82) 100 05/06/19 23:08 54 16 30 05/06/19 23:00 16 Mechanical Ventilator 30 05/06/19 23:00 56 22 113/80 (91) 98 05/06/19 22:30 48 16 139/57 (84) 100 05/06/19 22:00 49 16 125/54 (77) 100 05/06/19 22:00 16 Mechanical Ventilator 30 05/06/19 21:30 49 16 145/61 (89) 100 05/06/19 21:00 21 Mechanical Ventilator 30 05/06/19 21:00 16 Mechanical Ventilator 30 05/06/19 21:00 53 18 132/57 (82) 100 05/06/19 20:52 58 20 30 05/06/19 20:30 54 20 107/51 (69) 100 05/06/19 20:00 98.4 54 19 122/55 (77) 100 05/06/19 20:00 16 Mechanical Ventilator 30 05/06/19 20:00 Mechanical Ventilator 05/06/19 19:30 55 24 119/72 (88) 100 05/06/19 19:25 56 22 30 05/06/19 18:00 55 16 101/49 (66) 99 05/06/19 18:00 16 Mechanical Ventilator 30 05/06/19 17:30 56 16 100/53 (69) 99 05/06/19 17:00 54 16 118/44 (68) 100 05/06/19 17:00 16 Mechanical Ventilator 30 05/06/19 16:52 54 16 30 05/06/19 16:30 60 21 123/59 (80) 99 05/06/19 16:00 58 05/06/19 16:00 30 05/06/19 16:00 16 Mechanical Ventilator 30 05/06/19 16:00 Mechanical Ventilator 05/06/19 16:00 98.6 53 16 118/46 (70) 96 05/06/19 15:09 51 16 30 05/06/19 15:00 16 Mechanical Ventilator 30 05/06/19 15:00 50 16 134/50 (78) 97 05/06/19 14:00 98.9 58 23 113/51 (71) 95 05/06/19 14:00 16 Mechanical Ventilator 30 05/06/19 13:24 55 16 30 05/06/19 13:04 63 23 104/53 (70) 95 05/06/19 13:00 16 Mechanical Ventilator 30 05/06/19 12:30 57 16 114/48 (70) 97 05/06/19 12:00 16 Mechanical Ventilator 30 05/06/19 12:00 55 05/06/19 12:00 Mechanical Ventilator 05/06/19 12:00 98.7 58 18 113/46 (68) 98 05/06/19 12:00 30 05/06/19 11:54 98.6 05/06/19 11:24 20 Mechanical Ventilator 15.0 30 05/06/19 11:00 57 17 102/47 (65) 99 05/06/19 11:00 16 Mechanical Ventilator 30 05/06/19 11:00 56 16 30 05/06/19 10:30 59 20 109/48 (68) 96 Status: awake Condition: critical HEENT: atraumatic Neck: full ROM Lungs: chest wall tender Heart: HR/BP stable Abdomen: soft Extremities: no C/C/E Critical Care - Subjective ROS Limited/Unobtainable: Yes Condition: critical EKG Rhythm: Sinus Rhythm FI02: 30 Vent Support Breath Rate: 16 Vent Support Mode: AC Vent Tidal Volume: 500 Sputum Amount: Moderate PEEP: 5.0 PIP: 33 Tube Feeding Amount: 0 I&O: Intake and Output 05/06/19 05/07/19 18:59 06:59 Intake Total 1387 ml 1431 ml Output Total 500 ml 520 ml Balance 887 ml 911 ml Free Water 120 ml 60 ml IV Total 732 ml 1011 ml Tube Feeding 535 ml 360 ml Output Urine Total 500 ml 520 ml # Voids 3 7 # Bowel Movements 1 CXR: clear ET-Tube: 7.0 ET Position: 22 Labs: Laboratory Tests Test 05/07/19 04:36 05/07/19 08:51 White Blood Count 4.7 K/UL (4.8-10.8) L Red Blood Count 2.89 M/UL (4.20-5.40) L Hemoglobin 8.8 G/DL (12.0-16.0) L Hematocrit 27.7 % (37.0-47.0) L Mean Corpuscular Volume 96 FL (80-99) Mean Corpuscular Hemoglobin 30.5 PG (27.0-31.0) Mean Corpuscular Hemoglobin Concent 31.8 G/DL (32.0-36.0) L Red Cell Distribution Width 19.2 % (11.6-14.8) H Platelet Count 53 K/UL (150-450) L Mean Platelet Volume 8.2 FL (6.5-10.1) Neutrophils (%) (Auto) % (45.0-75.0) Lymphocytes (%) (Auto) % (20.0-45.0) Monocytes (%) (Auto) % (1.0-10.0) Eosinophils (%) (Auto) % (0.0-3.0) Basophils (%) (Auto) % (0.0-2.0) Differential Total Cells Counted 100 Neutrophils % (Manual) 79 % (45-75) H Lymphocytes % (Manual) 11 % (20-45) L Monocytes % (Manual) 9 % (1-10) Eosinophils % (Manual) 1 % (0-3) Basophils % (Manual) 0 % (0-2) Band Neutrophils 0 % (0-8) Platelet Estimate Decreased L Platelet Morphology Normal Hypochromasia 2+ Anisocytosis 2+ Sodium Level 138 MMOL/L (136-145) Potassium Level 4.0 MMOL/L (3.5-5.1) Chloride Level 108 MMOL/L (98-107) H Carbon Dioxide Level 28 MMOL/L (21-32) Anion Gap 2 mmol/L (5-15) L Blood Urea Nitrogen 14 mg/dL (7-18) Creatinine 0.6 MG/DL (0.55-1.30) Estimat Glomerular Filtration Rate mL/min (>60) Glucose Level 97 MG/DL (74-106) Uric Acid 1.0 MG/DL (2.6-7.2) L Calcium Level 7.2 MG/DL (8.5-10.1) L Phosphorus Level 2.6 MG/DL (2.5-4.9) Magnesium Level 1.8 MG/DL (1.8-2.4) Total Bilirubin 0.9 MG/DL (0.2-1.0) Aspartate Amino Transf (AST/SGOT) 24 U/L (15-37) Alanine Aminotransferase (ALT/SGPT) 19 U/L (12-78) Alkaline Phosphatase 74 U/L (46-116) C-Reactive Protein, Quantitative 2.9 mg/dL (0.00-0.90) H Pro-B-Type Natriuretic Peptide 1945 pg/mL (0-125) H Total Protein 5.5 G/DL (6.4-8.2) L Albumin 1.6 G/DL (3.4-5.0) L Globulin 3.9 g/dL Albumin/Globulin Ratio 0.4 (1.0-2.7) L Arterial Blood pH 7.480 (7.350-7.450) Arterial Blood Partial Pressure CO2 33.6 mmHg (35.0-45.0) L Arterial Blood Partial Pressure O2 85.4 mmHg (75.0-100.0) Arterial Blood HCO3 24.5 mmol/L (22.0-26.0) Arterial Blood Oxygen Saturation 96.4 % (95-100) Arterial Blood Base Excess 1.3 (-2-2) Raghavendra Test Positive Jamal Medina MD May 07, 2019 10:10
--- NOTE | 2019-05-07 10:10 | Diagnostic Imaging Report ---
Indication: Dyspnea Comparison: 05/06/2019 A single view chest radiograph was obtained. Findings: Tubes and lines are satisfactory. Heart is borderline enlarged. Interstitial densities demonstrated bilaterally. IMPRESSION: Interstitial pneumonitis versus CHF. No change
--- NOTE | 2019-05-07 10:30 | NUR ---
NURSE NOTES: Pt turned and repositioned for skin management.Seen by Dr Medina with order to extubated.Deep breathing exercises teaching provided and pt extubated at 1024. Currently on Bipap 12/6 at 40%.Kept on close monitoring
--- NOTE | 2019-05-07 10:40 | NUR ---
RESPIRATORY NOTE: [address] Medina's orders. Placed on BiPAP at 40% RN aware.
--- NOTE | 2019-05-07 11:08 | NUR ---
RD ASSESSMENT & RECOMMENDATIONS SEE CARE ACTIVITY FOR COMPLETE ASSESSMENT DAILY ESTIMATED NEEDS: Needs based on critical care, 48.6kg 22-28 kcals/kg 1450-2734 total kcals 1.2-2 g protein/kg 58-97 g total protein 22-28ml/kcal mL/kg 8013-8873 total fluid mLs NUTRITION DIAGNOSIS: Swallowing difficulty r/t respiratory failure as evidenced by pt is orally intubated, on NGT feeds. CURRENT TF:Vital 1.2 @45 ENTERAL NUTRITION RECOMMENDATIONS: Vital 1.2 @45ml/hr x24 hrs to provide 1080ml, 1296 kcal, 81g pro, 876ml free H2O - Maintain Vital 1.2 @45ml/hr, as tolerated to meet 100% est needs. - Flush per MD. HOB over 30 degrees ADDITIONAL RECOMMENDATIONS: 1) monitor for weaning, need for non oral feeds 2) Check lytes daily, replete as needed- K, phos, mg all wnl (05/07) 3) Maintain calibrated bed scale wts 4) TELECOMM[employer]ICATION EQUIPMENT REPAIRER eval upon extubation.
[2019-05-07] MEDS: Vancomycin 750mg/NS 275ml IVPB SCH ×2 (11:24)
--- NOTE | 2019-05-07 11:32 | NUR ---
NURSE NOTES: Tolerated well post extubation, deep breathing exercises provided.Saturation 96% at this time on Bipap /6 at 40%.
--- NOTE | 2019-05-07 11:42 | Cardiology Report ---
APPROVED REPORT EKG Measurement Heart [id number] Sinus tachycardia Possible Left atrial enlargement Abnormal ECG
--- NOTE | 2019-05-07 14:12 | NUR ---
CASE MANAGEMENT:REVIEW 05/06/19 SI: ACUTE RESPIRATORY FAILURE COPD. PNA 98.4 54 19 122/55 100% ON VENT SUPPORT @ 30% FIO2 H/H-9.1/28.5 PLT-53 IS: IV VANCOMYCIN Q12 IV ERTAPENEM Q24 IV VENOFER QHS IVF@50/HR VERSED GTT : ICU STATUS DCP: FROM [facility] 05/07/19 SI: ACUTE RESPIRATORY FAILURE COPD. PNA 98.2 68 23 122/55 98% ON BIPAP H/H-8.8/27.7 PLT-53 CA-7.2 IS: IV VANCOMYCIN Q12 IV ERTAPENEM Q24 IV VENOFER QHS IVF@50/HR VERSED GTT : ICU STATUS DCP: FROM [facility]
--- NOTE | 2019-05-07 14:20 | NUR ---
NURSE NOTES: No significant change in condition.Remains hemodynamically stable.Will continue to monitor
--- NOTE | 2019-05-07 14:45 | Infectious Diseases Prog Note ---
Assessment/Plan Assessment/Plan Afebrile No leukocytosis Lactate 1.2 dopamine, SP Hypoxic Respiratory failure PNA? Pulm edema 05/03 Flu swab negative 05/03 sputum cx: ngtd 05/03 CXR: Moderate to severe pulmonary edema. Bilateral pleural effusions 05/03 CXR: Diffuse airspace disease may be due to pulmonary edema. Small bilateral pleural effusions. Tubes and lines satisfactory 05/04 CXR: Improved bilateral pleural effusions, over one day 05/05 CXR: Bilateral interstitial and hazy airspace disease persists, unchanged. Probable small left pleural effusion is again demonstrated. The heart size is upper limits normal. No significant interim change 05/06 CXR: Stable to minimally improved bilateral interstitial and airspace disease, over one day. Otherwise stable findings as described. UA negative r/o bacteremia 05/03 Bcx: ngtd 05/03 TTE: EF 60%.No pericardial effusion. AV calcification with decreased cusp excursion c/w aortic stenosis. Heavily thickened mitral valve leaflets with reduced excursion. Echogenic material noted on posterior mitral valve leaflet is likely calcified mitral annular structure. Heavy mitral annulus and aortic root calcification. Pulmonic valve not well visualized. Normal tricuspid valve structure. VRE colonization MRSA colonization new subclavian central line placed in ED no sorensen COPD CHF Hep C cirrhosis GERD Plan: continue Meropenem #5, will deescalate stepwise 05/06 DC Vancomycin #4 05/05 DC Amikacin #3 SP Zosyn and Vanc f/u bcx f/u sputum cx monitor CXR monitor temp monitor CBC steroids per pulm Thank you for this consult. [facility] will continue to follow the patient with you. Subjective Allergies: Coded Allergies: ACETAMINOPHEN (Verified Allergy, Unknown, 05/03/19) ASPIRIN (Verified Allergy, Unknown, 08/14/17) IBUPROFEN (Verified Allergy, Unknown, 05/03/19) PENICILLINS (Unverified Allergy, Unknown, 05/05/19) Uncoded Allergies: pain killers (Allergy, Severe, 01/28/17) Subjective Afebrile. extubated this morning. screaming to have bipap taken off. Objective Vital Signs Last 24 Hour Vital Signs Date Time Temp Pulse Resp B/P (MAP) Pulse Ox O2 Delivery O2 Flow Rate FiO2 05/07/19 13:00 63 29 146/49 (81) 100 05/07/19 12:39 64 31 98 Facial 30 05/07/19 12:17 113/53 05/07/19 12:00 98.2 68 23 88/58 (68) 100 05/07/19 12:00 Bi-pap Bi-pap 05/07/19 12:00 62 05/07/19 11:00 86 25 120/59 (79) 91 05/07/19 10:48 90 27 96 Facial 40 05/07/19 10:35 Bi-pap 40 05/07/19 10:24 40 05/07/19 10:00 60 22 125/83 (97) 100 05/07/19 09:00 58 21 128/94 (105) 100 05/07/19 08:45 66 25 30 05/07/19 08:00 Mechanical Ventilator 05/07/19 08:00 60 05/07/19 08:00 30 05/07/19 08:00 60 30 113/66 (82) 100 05/07/19 07:00 98.4 58 23 117/48 (71) 100 05/07/19 06:45 55 21 30 05/07/19 06:00 55 20 128/65 (86) 99 05/07/19 05:29 66 22 30 05/07/19 05:00 54 21 95/50 (65) 99 05/07/19 04:00 30 05/07/19 04:00 Mechanical Ventilator 05/07/19 04:00 59 05/07/19 04:00 98.6 49 21 127/41 (69) 99 05/07/19 03:29 54 18 30 05/07/19 03:00 16 Mechanical Ventilator 30 05/07/19 03:00 53 21 117/59 (78) 99 05/07/19 02:30 53 21 118/54 (75) 100 05/07/19 02:00 55 26 121/50 (73) 100 05/07/19 02:00 16 Mechanical Ventilator 30 05/07/19 01:30 57 24 111/52 (71) 100 05/07/19 01:23 55 18 30 05/07/19 01:00 16 Mechanical Ventilator 30 05/07/19 01:00 50 16 111/52 (71) 100 05/07/19 00:30 54 16 108/50 (69) 100 05/07/19 00:00 30 05/07/19 00:00 Mechanical Ventilator 05/07/19 00:00 16 Mechanical Ventilator 30 05/07/19 00:00 50 05/07/19 00:00 98.0 53 16 104/51 (68) 100 05/06/19 23:30 50 16 146/51 (82) 100 05/06/19 23:08 54 16 30 05/06/19 23:00 16 Mechanical Ventilator 30 05/06/19 23:00 56 22 113/80 (91) 98 05/06/19 22:30 48 16 139/57 (84) 100 05/06/19 22:00 49 16 125/54 (77) 100 05/06/19 22:00 16 Mechanical Ventilator 30 05/06/19 21:30 49 16 145/61 (89) 100 05/06/19 21:00 21 Mechanical Ventilator 30 05/06/19 21:00 16 Mechanical Ventilator 30 05/06/19 21:00 53 18 132/57 (82) 100 05/06/19 20:52 58 20 30 05/06/19 20:30 54 20 107/51 (69) 100 05/06/19 20:00 98.4 54 19 122/55 (77) 100 05/06/19 20:00 16 Mechanical Ventilator 30 05/06/19 20:00 Mechanical Ventilator 05/06/19 19:30 55 24 119/72 (88) 100 05/06/19 19:25 56 22 30 05/06/19 18:00 55 16 101/49 (66) 99 05/06/19 18:00 16 Mechanical Ventilator 30 05/06/19 17:30 56 16 100/53 (69) 99 05/06/19 17:00 54 16 118/44 (68) 100 05/06/19 17:00 16 Mechanical Ventilator 30 05/06/19 16:52 54 16 30 05/06/19 16:30 60 21 123/59 (80) 99 05/06/19 16:00 58 05/06/19 16:00 30 05/06/19 16:00 16 Mechanical Ventilator 30 05/06/19 16:00 Mechanical Ventilator 05/06/19 16:00 98.6 53 16 118/46 (70) 96 05/06/19 15:09 51 16 30 05/06/19 15:00 16 Mechanical Ventilator 30 05/06/19 15:00 50 16 134/50 (78) 97 Height (Feet): 5 Height (Inches): 3.00 Weight (Pounds): 112 Objective Gen: NAD HEENT: anicteric sclera CV: RRR Resp: RRR. no wheezes. Abd: soft. normoactive Bs+ Neuro: awake Laboratory Tests Test 05/07/19 04:36 05/07/19 08:51 White Blood Count 4.7 K/UL (4.8-10.8) L Red Blood Count 2.89 M/UL (4.20-5.40) L Hemoglobin 8.8 G/DL (12.0-16.0) L Hematocrit 27.7 % (37.0-47.0) L Mean Corpuscular Volume 96 FL (80-99) Mean Corpuscular Hemoglobin 30.5 PG (27.0-31.0) Mean Corpuscular Hemoglobin Concent 31.8 G/DL (32.0-36.0) L Red Cell Distribution Width 19.2 % (11.6-14.8) H Platelet Count 53 K/UL (150-450) L Mean Platelet Volume 8.2 FL (6.5-10.1) Neutrophils (%) (Auto) % (45.0-75.0) Lymphocytes (%) (Auto) % (20.0-45.0) Monocytes (%) (Auto) % (1.0-10.0) Eosinophils (%) (Auto) % (0.0-3.0) Basophils (%) (Auto) % (0.0-2.0) Differential Total Cells Counted 100 Neutrophils % (Manual) 79 % (45-75) H Lymphocytes % (Manual) 11 % (20-45) L Monocytes % (Manual) 9 % (1-10) Eosinophils % (Manual) 1 % (0-3) Basophils % (Manual) 0 % (0-2) Band Neutrophils 0 % (0-8) Platelet Estimate Decreased L Platelet Morphology Normal Hypochromasia 2+ Anisocytosis 2+ Sodium Level 138 MMOL/L (136-145) Potassium Level 4.0 MMOL/L (3.5-5.1) Chloride Level 108 MMOL/L (98-107) H Carbon Dioxide Level 28 MMOL/L (21-32) Anion Gap 2 mmol/L (5-15) L Blood Urea Nitrogen 14 mg/dL (7-18) Creatinine 0.6 MG/DL (0.55-1.30) Estimat Glomerular Filtration Rate mL/min (>60) Glucose Level 97 MG/DL (74-106) Uric Acid 1.0 MG/DL (2.6-7.2) L Calcium Level 7.2 MG/DL (8.5-10.1) L Phosphorus Level 2.6 MG/DL (2.5-4.9) Magnesium Level 1.8 MG/DL (1.8-2.4) Total Bilirubin 0.9 MG/DL (0.2-1.0) Aspartate Amino Transf (AST/SGOT) 24 U/L (15-37) Alanine Aminotransferase (ALT/SGPT) 19 U/L (12-78) Alkaline Phosphatase 74 U/L (46-116) C-Reactive Protein, Quantitative 2.9 mg/dL (0.00-0.90) H Pro-B-Type Natriuretic Peptide 1945 pg/mL (0-125) H Total Protein 5.5 G/DL (6.4-8.2) L Albumin 1.6 G/DL (3.4-5.0) L Globulin 3.9 g/dL Albumin/Globulin Ratio 0.4 (1.0-2.7) L Arterial Blood pH 7.480 (7.350-7.450) Arterial Blood Partial Pressure CO2 33.6 mmHg (35.0-45.0) L Arterial Blood Partial Pressure O2 85.4 mmHg (75.0-100.0) Arterial Blood HCO3 24.5 mmol/L (22.0-26.0) Arterial Blood Oxygen Saturation 96.4 % (95-100) Arterial Blood Base Excess 1.3 (-2-2) Raghavendra Test Positive Current Medications Medications (Trade) Dose Ordered Sig/Gautam Route PRN Reason Start Time Stop Time Status Last Admin Dose Admin Albuterol/ Ipratropium (Albuterol/ Ipratropium) 3 ml Q4H PRN HHN Shortness of Breath 05/03/19 10:30 05/08/19 10:29 Chlorhexidine Gluconate (Cherry-Hex 2%) 1 applic DAILY@1999 TOPIC 05/03/19 20:00 06/02/19 19:59 05/06/19 20:28 Dextrose/Sodium Chloride 1,000 ml @ 50 mls/hr Q20H IV 05/05/19 10:45 06/03/19 10:44 05/07/19 00:40 Ertapenem 1 gm/ Sodium Chloride 55 ml @ 110 mls/hr Q24H IV 05/03/19 21:00 05/09/19 20:59 05/06/19 21:27 Folic Acid (Folate) 5 mg DAILY NG 05/04/19 11:00 06/03/19 10:59 05/07/19 08:15 Heparin Sodium (Porcine) (Heparin 5000 units/ml) 5,000 units EVERY 12 HOURS SUBQ 05/03/19 21:00 06/02/19 20:59 Iron Sucrose 100 mg/Sodium Chloride 55 ml @ 200 mls/hr BEDTIME IVPB 05/05/19 21:00 05/08/19 21:17 05/06/19 21:28 Lorazepam (Ativan 2mg/ml 1ml) 2 mg Q4H PRN IV For Anxiety 05/04/19 10:22 05/11/19 10:21 Midazolam HCl 50 mg/Dextrose 100 ml @ 0 mls/hr Q24H IV 05/06/19 21:30 05/11/19 10:59 05/06/19 21:48 Midodrine (Pro-Amatine) 2.5 mg THREE TIMES A DAY NG 05/06/19 09:30 06/05/19 09:29 05/07/19 13:38 Morphine Sulfate (Morphine Sulfate) 4 mg Q4H PRN IVP For Pain 05/04/19 10:21 05/11/19 10:20 Norepinephrine Bitartrate 4 mg/ Dextrose 254 ml @ 0 mls/hr Q24H IV 05/03/19 12:17 06/02/19 12:16 05/03/19 18:42 Ondansetron HCl (Zofran) 4 mg Q6H PRN IVP Nausea & Vomiting 05/03/19 10:30 06/02/19 10:29 Pantoprazole (Protonix) 40 mg Q12HR IV 05/03/19 21:00 06/03/19 08:59 05/07/19 08:16 Polyethylene Glycol (Miralax) 17 gm DAILYPRN PRN ORAL Constipation 05/03/19 10:30 06/02/19 10:29 Vancomycin HCl (Vanco rx to dose) 1 ea DAILY PRN MISC . 05/03/19 12:15 06/02/19 12:14 Vancomycin HCl 750 mg/Sodium Chloride 275 ml @ 183.333 mls/hr Q12HR@1000,2200 IVPB 05/04/19 22:00 05/09/19 21:59 05/07/19 11:24 Yazan Minaya MD May 07, 2019 14:45
--- NOTE | 2019-05-07 16:10 | NUR ---
NURSE NOTES: Pt turned and repositioned.Large episode of brown soft stool.Good pericare done.HOB elevated to prevent aspiration.Will continue to monitor.No significant change of condition.
--- NOTE | 2019-05-07 16:45 | NUR ---
HAND-OFF: Report given to PRANEETH Ivy.
--- NOTE | 2019-05-07 16:57 | NUR ---
NURSE NOTES: PAtient received from Erika, She is confused and talkative with a Addendum: 05/07/19 at 1703 by CHRISTOPHER CHEW RN no slur noted, denies any pain over the body, has a right subclavian TLC with D5NS running at 50ml/hr. dressing is intact and dry with no oozing noted at the insertions site, NG-tube remains on the right nare, tube feeding placed on hold, patient remains on 45% venturi mask saturating at 100% and RR of 26, upper arms strength is 4/5, with ability to remove venturi mask.
--- NOTE | 2019-05-07 17:26 | NUR ---
NURSE NOTES: Dr. Munoz is at the bedside and pulled out NG-tube and preformed a gag reflex test to assess the nerve reflex, patient has a gag reflex per Dr. Munoz assessment and want patient to be started on a clear liquid diet, will place order for diet. patient remains on venturi mask at 45% tolerating with saturations of 99-100% with RR of 10-14, she is currently engaging in conversations with family member in her bent[place] language, she understands Dr. Munoz directions while removing the GN-tube, lilted head while commanded by the physician,
--- NOTE | 2019-05-07 17:42 | Internal Med Progress Note ---
Subjective Physician Name Zeke Munoz Attending Physician Zeke Munoz MD Current Medications Medications (Trade) Dose Ordered Sig/Gautam Route PRN Reason Start Time Stop Time Status Last Admin Dose Admin Albuterol/ Ipratropium (Albuterol/ Ipratropium) 3 ml Q4H PRN HHN Shortness of Breath 05/03/19 10:30 05/08/19 10:29 Chlorhexidine Gluconate (Cherry-Hex 2%) 1 applic DAILY@2000 TOPIC 05/03/19 20:00 06/02/19 19:59 05/06/19 20:28 Dextrose/Sodium Chloride 1,000 ml @ 50 mls/hr Q20H IV 05/05/19 10:45 06/03/19 10:44 05/07/19 00:40 Ertapenem 1 gm/ Sodium Chloride 55 ml @ 110 mls/hr Q24H IV 05/03/19 21:00 05/09/19 20:59 05/06/19 21:27 Folic Acid (Folate) 5 mg DAILY NG 05/04/19 11:00 06/03/19 10:59 05/07/19 08:15 Heparin Sodium (Porcine) (Heparin 5000 units/ml) 5,000 units EVERY 12 HOURS SUBQ 05/03/19 21:00 06/02/19 20:59 Iron Sucrose 100 mg/Sodium Chloride 55 ml @ 200 mls/hr BEDTIME IVPB 05/05/19 21:00 05/08/19 21:17 05/06/19 21:28 Lorazepam (Ativan 2mg/ml 1ml) 2 mg Q4H PRN IV For Anxiety 05/04/19 10:22 05/11/19 10:21 Midodrine (Pro-Amatine) 2.5 mg THREE TIMES A DAY NG 05/06/19 09:30 06/05/19 09:29 05/07/19 13:38 Morphine Sulfate (Morphine Sulfate) 4 mg Q4H PRN IVP For Pain 05/04/19 10:21 05/11/19 10:20 Norepinephrine Bitartrate 4 mg/ Dextrose 254 ml @ 0 mls/hr Q24H IV 05/03/19 12:17 06/02/19 12:16 05/03/19 18:42 Ondansetron HCl (Zofran) 4 mg Q6H PRN IVP Nausea & Vomiting 05/03/19 10:30 06/02/19 10:29 Pantoprazole (Protonix) 40 mg Q12HR IV 05/03/19 21:00 06/03/19 08:59 05/07/19 08:16 Polyethylene Glycol (Miralax) 17 gm DAILYPRN PRN ORAL Constipation 05/03/19 10:30 06/02/19 10:29 Allergies: Coded Allergies: ACETAMINOPHEN (Verified Allergy, Unknown, 05/03/19) ASPIRIN (Verified Allergy, Unknown, 08/14/17) IBUPROFEN (Verified Allergy, Unknown, 05/03/19) PENICILLINS (Unverified Allergy, Unknown, 05/05/19) Uncoded Allergies: pain killers (Allergy, Severe, 01/28/17) Subjective in ICU, awake, alert, responsive, extubated in morning around 10 AM, talking, on Venti Mask Objective Last Vital Signs Date Time Temp Pulse Resp B/P (MAP) Pulse Ox O2 Delivery O2 Flow Rate FiO2 05/07/19 16:00 10.0 05/07/19 16:00 76 05/07/19 16:00 98.0 28 135/44 (74) 99 05/07/19 16:00 Venturi Mask Venturi Mask 05/07/19 12:39 30 Laboratory Tests Test 05/07/19 04:36 05/07/19 08:51 White Blood Count 4.7 K/UL (4.8-10.8) L Red Blood Count 2.89 M/UL (4.20-5.40) L Hemoglobin 8.8 G/DL (12.0-16.0) L Hematocrit 27.7 % (37.0-47.0) L Mean Corpuscular Volume 96 FL (80-99) Mean Corpuscular Hemoglobin 30.5 PG (27.0-31.0) Mean Corpuscular Hemoglobin Concent 31.8 G/DL (32.0-36.0) L Red Cell Distribution Width 19.2 % (11.6-14.8) H Platelet Count 53 K/UL (150-450) L Mean Platelet Volume 8.2 FL (6.5-10.1) Neutrophils (%) (Auto) % (45.0-75.0) Lymphocytes (%) (Auto) % (20.0-45.0) Monocytes (%) (Auto) % (1.0-10.0) Eosinophils (%) (Auto) % (0.0-3.0) Basophils (%) (Auto) % (0.0-2.0) Differential Total Cells Counted 100 Neutrophils % (Manual) 79 % (45-75) H Lymphocytes % (Manual) 11 % (20-45) L Monocytes % (Manual) 9 % (1-10) Eosinophils % (Manual) 1 % (0-3) Basophils % (Manual) 0 % (0-2) Band Neutrophils 0 % (0-8) Platelet Estimate Decreased L Platelet Morphology Normal Hypochromasia 2+ Anisocytosis 2+ Sodium Level 138 MMOL/L (136-145) Potassium Level 4.0 MMOL/L (3.5-5.1) Chloride Level 108 MMOL/L (98-107) H Carbon Dioxide Level 28 MMOL/L (21-32) Anion Gap 2 mmol/L (5-15) L Blood Urea Nitrogen 14 mg/dL (7-18) Creatinine 0.6 MG/DL (0.55-1.30) Estimat Glomerular Filtration Rate mL/min (>60) Glucose Level 97 MG/DL (74-106) Uric Acid 1.0 MG/DL (2.6-7.2) L Calcium Level 7.2 MG/DL (8.5-10.1) L Phosphorus Level 2.6 MG/DL (2.5-4.9) Magnesium Level 1.8 MG/DL (1.8-2.4) Total Bilirubin 0.9 MG/DL (0.2-1.0) Aspartate Amino Transf (AST/SGOT) 24 U/L (15-37) Alanine Aminotransferase (ALT/SGPT) 19 U/L (12-78) Alkaline Phosphatase 74 U/L (46-116) C-Reactive Protein, Quantitative 2.9 mg/dL (0.00-0.90) H Pro-B-Type Natriuretic Peptide 1945 pg/mL (0-125) H Total Protein 5.5 G/DL (6.4-8.2) L Albumin 1.6 G/DL (3.4-5.0) L Globulin 3.9 g/dL Albumin/Globulin Ratio 0.4 (1.0-2.7) L Arterial Blood pH 7.480 (7.350-7.450) Arterial Blood Partial Pressure CO2 33.6 mmHg (35.0-45.0) L Arterial Blood Partial Pressure O2 85.4 mmHg (75.0-100.0) Arterial Blood HCO3 24.5 mmol/L (22.0-26.0) Arterial Blood Oxygen Saturation 96.4 % (95-100) Arterial Blood Base Excess 1.3 (-2-2) Raghavendra Test Positive Intake and Output 05/06/19 05/07/19 19:00 07:00 Intake Total 1285 ml 1481 ml Output Total 500 ml 520 ml Balance 785 ml 961 ml Free Water 120 ml 60 ml IV Total 670 ml 1061 ml Tube Feeding 495 ml 360 ml Output Urine Total 500 ml 520 ml # Voids 2 8 # Bowel Movements 1 Objective General: No acute distress, awake and alert HEENT: NCAT, sclera anicteric, PERRL, EOMI, NG tube. Neck: Supple, no significant jugular venous distention, Lungs: fair inspiratory effort, decrease bilateral air entry at bases, no Wheeze or Rales. Chest wall: Right side TLC. Heart: Regular rate and rhythm, normal S1/S2, + PABLO. Abdomen: soft, nontender, nondistended. Normoactive bowel sounds. / Rectal: Refused and deferred. Extremities: No Cyanosis , clubbing or edema. Neuro: A&O x 3, Able to move all extremities Skin: warm, no rashes or lesions Psych: Normal mood and affect Assessment/Plan Assessment/Plan 1. Paroxysmal episodes of atrial fibrillation. 2. Severe left ventricular hypertrophy with left ventricular outflow tract, mild obstruction. 3. Severe aortic regurgitation. 4. Severe mitral stenosis/regurgitation. 5. Pulmonary hypertension. 6. Anemia. 7. Acute on chronic Hypoxemic and hypercapnic Respiratory failure. 8. History of recent GI bleeding, site undetermined. 9. Sinus bradycardia with abnormal T-waves. 10. Autoimmune hepatitis history. 11. History of severe COPD, on home O2. 12. Cirrhosis and portal hypertension. 13. History of hepatitis C. 14. Thrombocytopenia. 15. History of HCOM 16. VRE and MRSA colonized Plan: removed NG tube, start clear liquid diet advance as tolerated Abx: Ertapenem DVT prophylaxes: [facility]CD may transfer to [facility] in AM. Discuss with family members at bedside. Zeke Munoz MD May 07, 2019 17:42
--- NOTE | 2019-05-07 19:34 | NUR ---
HAND-OFF: Report given to PRANEETH parker.
--- NOTE | 2019-05-07 19:38 | Cardiology Progress Note ---
Assessment/Plan Assessment/Plan 1. Paroxysmal episodes of atrial fibrillation. 2. Severe left ventricular hypertrophy with left ventricular outflow tract, mild obstruction. 3. Severe aortic regurgitation. 4. Severe mitral stenosis/regurgitation. 5. Pulmonary hypertension. 6. Anemia. 7. Respiratory failure secondary to congestive heart failure. 8. History of recent GI bleeding, site undetermined. 9. Sinus bradycardia with abnormal T-waves. 10. Autoimmune hepatitis history. 11. History of severe COPD, on home O2. 12. Cirrhosis and portal hypertension. 13. History of hepatitis C. 14. Thrombocytopenia. extubated want to go home diurtic intermittently na improved not getting norpace but she will need resume but not available at this hospital used to be [facility] for her autoimmune hepatitis Subjective Cardiovascular: Denies: chest pain Respiratory: Reports: shortness of breath - deu ton anger Gastrointestinal/Abdominal: Denies: abdominal pain Genitourinary: Denies: burning Subjective angry at staff Objective Last 24 Hour Vital Signs Date Time Temp Pulse Resp B/P (MAP) Pulse Ox O2 Delivery O2 Flow Rate FiO2 05/07/19 18:00 68 13 101/85 (90) 100 05/07/19 17:00 66 34 110/58 (75) 100 05/07/19 16:00 10.0 05/07/19 16:00 76 05/07/19 16:00 98.0 72 28 135/44 (74) 99 05/07/19 16:00 Venturi Mask 10.0 Venturi Mask 10.0 05/07/19 15:00 61 30 124/42 (69) 100 05/07/19 14:30 63 32 130/51 (77) 89 05/07/19 14:00 66 28 131/59 (83) 99 05/07/19 13:00 63 29 146/49 (81) 100 05/07/19 12:39 64 31 98 Facial 30 05/07/19 12:17 113/53 05/07/19 12:00 40 05/07/19 12:00 98.2 68 23 88/58 (68) 100 05/07/19 12:00 Bi-pap Bi-pap 05/07/19 12:00 62 05/07/19 11:00 86 25 120/59 (79) 91 05/07/19 10:48 90 27 96 Facial 40 05/07/19 10:35 Bi-pap 40 05/07/19 10:24 40 05/07/19 10:00 60 22 125/83 (97) 100 05/07/19 09:00 58 21 128/94 (105) 100 05/07/19 08:45 66 25 30 05/07/19 08:00 Mechanical Ventilator 05/07/19 08:00 60 05/07/19 08:00 30 05/07/19 08:00 60 30 113/66 (82) 100 05/07/19 07:00 98.4 58 23 117/48 (71) 100 05/07/19 06:45 55 21 30 05/07/19 06:00 55 20 128/65 (86) 99 05/07/19 05:29 66 22 30 05/07/19 05:00 54 21 95/50 (65) 99 05/07/19 04:00 30 05/07/19 04:00 Mechanical Ventilator 05/07/19 04:00 59 05/07/19 04:00 98.6 49 21 127/41 (69) 99 05/07/19 03:29 54 18 30 05/07/19 03:00 16 Mechanical Ventilator 30 05/07/19 03:00 53 21 117/59 (78) 99 05/07/19 02:30 53 21 118/54 (75) 100 05/07/19 02:00 55 26 121/50 (73) 100 05/07/19 02:00 16 Mechanical Ventilator 30 05/07/19 01:30 57 24 111/52 (71) 100 05/07/19 01:23 55 18 30 05/07/19 01:00 16 Mechanical Ventilator 30 05/07/19 01:00 50 16 111/52 (71) 100 05/07/19 00:30 54 16 108/50 (69) 100 05/07/19 00:00 30 05/07/19 00:00 Mechanical Ventilator 05/07/19 00:00 16 Mechanical Ventilator 30 05/07/19 00:00 50 05/07/19 00:00 98.0 53 16 104/51 (68) 100 05/06/19 23:30 50 16 146/51 (82) 100 05/06/19 23:08 54 16 30 05/06/19 23:00 16 Mechanical Ventilator 30 05/06/19 23:00 56 22 113/80 (91) 98 05/06/19 22:30 48 16 139/57 (84) 100 05/06/19 22:00 49 16 125/54 (77) 100 05/06/19 22:00 16 Mechanical Ventilator 30 05/06/19 21:30 49 16 145/61 (89) 100 05/06/19 21:00 21 Mechanical Ventilator 30 05/06/19 21:00 16 Mechanical Ventilator 30 05/06/19 21:00 53 18 132/57 (82) 100 05/06/19 20:52 58 20 30 05/06/19 20:30 54 20 107/51 (69) 100 05/06/19 20:00 98.4 54 19 122/55 (77) 100 05/06/19 20:00 16 Mechanical Ventilator 30 05/06/19 20:00 Mechanical Ventilator General Appearance: no apparent distress, alert, agitated Cardiovascular: normal rate, systolic murmur Respiratory/Chest: rhonchi - bilaterally Abdomen: normal bowel sounds, non tender, soft Extremities: no calf tenderness Intake and Output 05/06/19 05/07/19 19:00 07:00 Intake Total 1285 ml 1481 ml Output Total 500 ml 520 ml Balance 785 ml 961 ml Free Water 120 ml 60 ml IV Total 670 ml 1061 ml Tube Feeding 495 ml 360 ml Output Urine Total 500 ml 520 ml # Voids 2 8 # Bowel Movements 1 Laboratory Tests Test 05/07/19 04:36 05/07/19 08:51 White Blood Count 4.7 K/UL (4.8-10.8) L Red Blood Count 2.89 M/UL (4.20-5.40) L Hemoglobin 8.8 G/DL (12.0-16.0) L Hematocrit 27.7 % (37.0-47.0) L Mean Corpuscular Volume 96 FL (80-99) Mean Corpuscular Hemoglobin 30.5 PG (27.0-31.0) Mean Corpuscular Hemoglobin Concent 31.8 G/DL (32.0-36.0) L Red Cell Distribution Width 19.2 % (11.6-14.8) H Platelet Count 53 K/UL (150-450) L Mean Platelet Volume 8.2 FL (6.5-10.1) Neutrophils (%) (Auto) % (45.0-75.0) Lymphocytes (%) (Auto) % (20.0-45.0) Monocytes (%) (Auto) % (1.0-10.0) Eosinophils (%) (Auto) % (0.0-3.0) Basophils (%) (Auto) % (0.0-2.0) Differential Total Cells Counted 100 Neutrophils % (Manual) 79 % (45-75) H Lymphocytes % (Manual) 11 % (20-45) L Monocytes % (Manual) 9 % (1-10) Eosinophils % (Manual) 1 % (0-3) Basophils % (Manual) 0 % (0-2) Band Neutrophils 0 % (0-8) Platelet Estimate Decreased L Platelet Morphology Normal Hypochromasia 2+ Anisocytosis 2+ Sodium Level 138 MMOL/L (136-145) Potassium Level 4.0 MMOL/L (3.5-5.1) Chloride Level 108 MMOL/L (98-107) H Carbon Dioxide Level 28 MMOL/L (21-32) Anion Gap 2 mmol/L (5-15) L Blood Urea Nitrogen 14 mg/dL (7-18) Creatinine 0.6 MG/DL (0.55-1.30) Estimat Glomerular Filtration Rate mL/min (>60) Glucose Level 97 MG/DL (74-106) Uric Acid 1.0 MG/DL (2.6-7.2) L Calcium Level 7.2 MG/DL (8.5-10.1) L Phosphorus Level 2.6 MG/DL (2.5-4.9) Magnesium Level 1.8 MG/DL (1.8-2.4) Total Bilirubin 0.9 MG/DL (0.2-1.0) Aspartate Amino Transf (AST/SGOT) 24 U/L (15-37) Alanine Aminotransferase (ALT/SGPT) 19 U/L (12-78) Alkaline Phosphatase 74 U/L (46-116) C-Reactive Protein, Quantitative 2.9 mg/dL (0.00-0.90) H Pro-B-Type Natriuretic Peptide 1945 pg/mL (0-125) H Total Protein 5.5 G/DL (6.4-8.2) L Albumin 1.6 G/DL (3.4-5.0) L Globulin 3.9 g/dL Albumin/Globulin Ratio 0.4 (1.0-2.7) L Arterial Blood pH 7.480 (7.350-7.450) Arterial Blood Partial Pressure CO2 33.6 mmHg (35.0-45.0) L Arterial Blood Partial Pressure O2 85.4 mmHg (75.0-100.0) Arterial Blood HCO3 24.5 mmol/L (22.0-26.0) Arterial Blood Oxygen Saturation 96.4 % (95-100) Arterial Blood Base Excess 1.3 (-2-2) Raghavendra Test Positive Philipp Ahmadi MD May 07, 2019 19:38
--- NOTE | 2019-05-07 19:44 | NUR ---
RESPIRATORY NOTE: Pt is to remain off bipap, on Venturi mask during the night, and 2L NC during the day. Per verbal orders given per Dr. Medina via PRANEETH Reilly
[2019-05-07] MEDS: LORazepam Inj 2mg/ml 1ml IV PRN (19:55)
[2019-05-07] MEDS: Ertapenem 1 GM in NS 55 ML IV SCH (19:55)
[2019-05-07] MEDS: Dyna-Hex 2% Top Sol 2oz TOPIC SCH (19:56)
--- NOTE | 2019-05-07 19:56 | NUR ---
NURSE NOTES: Patient is slightly confused and trying to get out off bed. Patient is trying to pull IV outs and stating she wants to go home, reality reorientation was provided. Patient is talkative but is anxious and keeps stating that she wants to go home. Sat next to patient to explain updates and care plan for tonight.
--- NOTE | 2019-05-07 20:00 | NUR ---
NURSE NOTES: Patient had small normal BM. Patient was cleaned and repositioned. Patient is talkative and yelling at staff, Reality reorientation provided. Patient is however making good urine output via external female urinary catheter. Urine is clear yellow in color.
--- NOTE | 2019-05-07 22:00 | NUR ---
NURSE NOTES: Patient continues to be awake and agitated stating that she wants to go home. Patient does seem slightly confused at times. Patient repositioned. Remains on venturi mask at 40% Fio2. Will continue to monitor. No respiratory distress at this time. other vitals also stable.
[2019-05-07] MEDS ORDERED: NS 275ml ONE (22:36)
[2019-05-07] MEDS ORDERED: D5 1/2NS 1000ml IV ONE (22:36)
[2019-05-07] MEDS ORDERED: Tubing IV Secondary IV ONE (22:36)
[2019-05-07] MEDS ORDERED: Sterile Water Irrig 1000ml IRRIG ONE (22:36)
[2019-05-08] VITALS (26 sets, daily range): BP systolic 90–153; BP diastolic 40–61
--- NOTE | 2019-05-08 | NUR ---
NURSE NOTES: Patient remains awake, agitated and restless-no respiratory distress. Patient is awake, confused at times but can follow a conversations. Patient trying to get out of bed and sometimes trying to pull IV lines. Reality reorientation provided to patient. TV provided for distractions. Patient remains in eye view sight. Will cotninue to monitor.
[2019-05-08] MEDS: LORazepam Inj 2mg/ml 1ml IV PRN ×2 (00:33→11:11)
--- NOTE | 2019-05-08 02:00 | NUR ---
NURSE NOTES: Repositioned patient. Vitals are stable. Patient is calm and collected at this time. Venturi mask at 40% Fio2. No respiratory distress. Will continue to monitor.
--- NOTE | 2019-05-08 04:00 | NUR ---
NURSE NOTES: Patient cleaned and repositioned, morning labs drawn. Patients less anxious and agitated. No respiratory distress, vitals are stable.
[2019-05-08 05:08] LABS: HEMATOCRIT 28.3 % (37.0-47.0); HEMOGLOBIN 8.8 G/DL (12.0-16.0); MEAN CORPUSCULAR VOLUME 97 FL (80-99); PLATELET COUNT 60 K/UL (150-450); RED BLOOD COUNT 2.92 M/UL (4.20-5.40); RED CELL DISTRIBUTION WIDTH 19.5 % (11.6-14.8); WHITE BLOOD COUNT 4.2 K/UL (4.8-10.8)
[2019-05-08 05:14] LABS: ANION GAP 3 mmol/L (5-15); BLOOD UREA NITROGEN 10 mg/dL (7-18); CALCIUM 7.5 MG/DL (8.5-10.1); CARBON DIOXIDE 33 MMOL/L (21-32); CHLORIDE 110 MMOL/L (98-107); CREATININE 0.6 MG/DL (0.55-1.30); POTASSIUM 3.6 MMOL/L (3.5-5.1); SODIUM 145 MMOL/L (136-145)
--- NOTE | 2019-05-08 06:00 | NUR ---
NURSE NOTES: Patient sleeping at this time. NAD from patient. Patient now on 2L NC. Patient repositioned.
--- NOTE | 2019-05-08 07:35 | NUR ---
NURSE NOTES: LATE ENTRY: RECEIVED REPORT FROM Quintin ESTES PT IN BED,RESTING WITH EYES CLOSED. RESPONSIVE TO NAME. A/OX3.PUPILS 2MM, SLUGGISH, GAG PRESENT. VS:97 AX TEMP. HR 67, RR30, BP 110/47, 02SAT 100%. NO JVD, COOL TO TOUCH. BILATERAL RADIAL AND PEDAL PULSES WEAK. 2LNC WITH CO2 MONITORING. NSR. S1,S2 AND MURMUR PRESENT. LUNG SOUNDS DIMINISHED BILATERAL. SECRETIONS THICK. ABDOMEN ROUND, SOFT. BOWEL SOUNDS HYPOACTIVE. NO BM AT THIS TIME. APPETITE POOR. CLEAR LIQUID DIET. SKIN- SEE ASSESSMENT, SKIN IS DRY. CONTACT PRECAUTIONS IN PLACE. BED ALARM ON, LOCKED AND IN LOWEST POSITION. ZONE 2, SIDE RAILS UP X2. EDUCATION PROVIDED IN MEDICATION SIDE EFFECTS. WILL CONTINUE TO IMPLEMENT PLAN OF CARE.
[2019-05-08 07:59] LABS: PHOSPHORUS 3.3 MG/DL (2.5-4.9)
[2019-05-08] MEDS: Heparin 5000 units/ml inj SUBQ SCH ×2 (09:00→20:41)
--- NOTE | 2019-05-08 09:05 | Nephrology Progress Note ---
Assessment/Plan Problem List: (1) Acute respiratory failure Assessment: now extubated (2) Electrolyte imbalance (3) Anemia (4) NSTEMI (non-ST elevated myocardial infarction) (5) COPD (chronic obstructive pulmonary disease) Assessment Acute respiratory failure, on Vent- Underlying COPD HypoNatremia , Etiology TBI , ? CHF HyperKalemia Sever Anemia NSTEMI Plan extubated on midodrine Folate . Iron . B12 supplement Mag and K and Phos supplement as needed Pulm support Monitor renal parameters Urine studies 2D echo Left ventricular ejection fraction estimated to be 60 %. per orders Subjective ROS Limited/Unobtainable: No Interval Events/Complaints extubated now Constitutional: Reports: malaise Objective Objective Last 24 Hour Vital Signs Date Time Temp Pulse Resp B/P (MAP) Pulse Ox O2 Delivery O2 Flow Rate FiO2 05/08/19 07:00 67 30 110/47 (68) 100 05/08/19 06:00 71 29 113/49 (70) 100 05/08/19 05:30 70 31 103/46 (65) 100 05/08/19 05:00 72 32 112/47 (68) 100 05/08/19 04:00 2.0 05/08/19 04:00 73 05/08/19 04:00 Nasal Cannula 2.0 Venturi Mask 8.0 05/08/19 04:00 98.4 64 34 104/50 (68) 100 05/08/19 03:30 58 34 116/46 (69) 100 05/08/19 03:00 61 39 107/47 (67) 100 05/08/19 02:00 63 34 124/42 (69) 100 05/08/19 01:00 65 33 153/61 (91) 97 05/08/19 00:00 Venturi Mask 8.0 Venturi Mask 8.0 05/08/19 00:00 63 05/08/19 00:00 98.1 71 30 150/58 (88) 92 05/08/19 00:00 8.0 40 05/07/19 23:00 63 30 129/55 (79) 100 05/07/19 22:00 73 34 164/123 (137) 94 05/07/19 21:00 60 36 110/50 (70) 99 05/07/19 20:00 Venturi Mask 8.0 Venturi Mask 8.0 05/07/19 20:00 68 11/8/19 20:00 98.6 64 31 129/51 (77) 81 05/07/19 20:00 8.0 40 05/07/19 19:30 78 31 103/45 (64) 99 05/07/19 19:00 69 31 116/50 (72) 99 05/07/19 18:00 68 13 101/85 (90) 100 05/07/19 17:00 66 34 110/58 (75) 100 05/07/19 16:00 10.0 05/07/19 16:00 76 05/07/19 16:00 98.0 72 28 135/44 (74) 99 05/07/19 16:00 Venturi Mask 10.0 Venturi Mask 10.0 05/07/19 15:00 61 30 124/42 (69) 100 05/07/19 14:30 63 32 130/51 (77) 89 05/07/19 14:00 66 28 131/59 (83) 99 05/07/19 13:00 63 29 146/49 (81) 100 05/07/19 12:39 64 31 98 Facial 30 05/07/19 12:17 113/53 05/07/19 12:00 40 05/07/19 12:00 98.2 68 23 88/58 (68) 100 05/07/19 12:00 Bi-pap Bi-pap 05/07/19 12:00 62 05/07/19 11:00 86 25 120/59 (79) 91 05/07/19 10:48 90 27 96 Facial 40 05/07/19 10:35 Bi-pap 40 05/07/19 10:24 40 05/07/19 10:00 60 22 125/83 (97) 100 Intake and Output 05/07/19 05/08/19 19:00 07:00 Intake Total 796.333 ml 130 ml Output Total 1650 ml 1400 ml Balance -853.667 ml -1270 ml IV Total 776.333 ml 110 ml Other 20 ml 20 ml Output Urine Total 1650 ml 1400 ml # Bowel Movements 1 2 Laboratory Tests 05/08/19 04:00: White Blood Count 4.2L, Red Blood Count 2.92L, Hemoglobin 8.8L, Hematocrit 28.3L , Mean Corpuscular Volume 97, Mean Corpuscular Hemoglobin 30.0, Mean Corpuscular Hemoglobin Concent 30.9L, Red Cell Distribution Width 19.5H, Platelet Count 60L, Mean Platelet Volume 8.3, Neutrophils (%) (Auto) , Lymphocytes (%) (Auto) , Monocytes (%) (Auto) , Eosinophils (%) (Auto) , Basophils (%) (Auto) , Neutrophils % (Manual) [Pending], Lymphocytes % (Manual) [Pending], Platelet Estimate [Pending], Platelet Morphology [Pending], Sodium Level 145, Potassium Level 3.6, Chloride Level 110H, Carbon Dioxide Level 33H, Anion Gap 3L, Blood Urea Nitrogen 10, Creatinine 0.6, Estimat Glomerular Filtration Rate , Glucose Level 72L, Calcium Level 7.5L 05/08/19 04:52: Phosphorus Level 3.3, Magnesium Level 1.7L Height (Feet): 5 Height (Inches): 3.00 Weight (Pounds): 105 General Appearance: no apparent distress EENT: other - extubated now Cardiovascular: normal rate Respiratory/Chest: decreased breath sounds Abdomen: soft Efra Das MD May 08, 2019 09:05
[2019-05-08] MEDS: Magnesium Sulfate 1gm/100ml IVPB SCH ×3 (09:23→12:35)
[2019-05-08] MEDS ORDERED: NS IV ONE (09:30)
[2019-05-08] MEDS ORDERED: MAGNESIUM SULFATE IV ONE (09:30)
--- NOTE | 2019-05-08 10:50 | NUR ---
NURSE NOTES: LATE ENTRY: PT STARTING TO FEEL SOB, APPEARS FATIGUED WITH INCREASED WORK OF BREATHING, RR 40's, SATING 100%. HOB 40. ON 2LNC. INFORMED R.T PLACED ON VENTURI MASK 4L AT 30%. WILL CONTINUE TO MONITOR PT.
--- NOTE | 2019-05-08 11:50 | NUR ---
NURSE NOTES: MD PEREZ HERE TO SEE PT. RECEIVED ORDER TO DOWNGRADE TO [facility]. PT IS STABLE. Addendum: 05/08/19 at 1554 by Shelby Hodges RN LATE ENTRY
--- NOTE | 2019-05-08 12:00 | NUR ---
NURSE NOTES: LATE ENTRY: PT IN BED PT STATES WANT TO GO HOME, CALL SON. EXPLAINED TO PT CONTINUE TO NEED MONITORING FOR A DAY OR SO. WILL PLACE CALL TO SON. VS: HR 67, RR41, BP 95/46, 02SAT 99%. BILATERAL RADIAL AND PEDAL PULSES WEAK. 2LNC WITH CO2 MONITORING. NSR. S1,S2 AND MURMUR PRESENT. LUNG SOUNDS DIMINISHED BILATERAL. SECRETIONS THICK. ABDOMEN ROUND, SOFT. BOWEL SOUNDS HYPOACTIVE. NO BM AT THIS TIME. APPETITE POOR. CLEAR LIQUID DIET. PT STATES DOS NOT LIKE FOOD HERE. SKIN IS DRY. CONTACT PRECAUTIONS IN PLACE. BED ALARM ON, LOCKED AND IN LOWEST POSITION. ZONE 2, SIDE RAILS UP X2. WILL CONTINUE TO IMPLEMENT PLAN OF CARE.
--- NOTE | 2019-05-08 14:00 | NUR ---
NURSE NOTES: LATE ENTRY: MD BARROSO HERE TO SEE PT. NO NEW ORDERS AT THIS TIME.
--- NOTE | 2019-05-08 15:00 | Pulmonolgy Critical Care Note ---
Critical Care - Asmt/Plan Problems: (1) Acute respiratory failure (2) Acute pulmonary edema (3) COPD (chronic obstructive pulmonary disease) (4) Severe protein-calorie malnutrition (5) Nosocomial pneumonia (6) Edema of both feet Respiratory: monitor respiratory rate, adjust FIO2 Cardiac: continue to monitor HR/BP Renal: F/U I&O, check electrolytes, other - lasxi one time today Infectious Disease: check cultures, continue antibiotics Gastrointestinal: continue feedings/current rate Endocrine: monitor blood sugar Hematologic: monitor H/H, transfuse if hgb<8.5 Neurologic: PRN Ativan, PRN Morphine, keep patient comfortable Disposition: keep in ICU 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, 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8 67 31 112/47 (68) 100 05/08/19 07:00 67 30 110/47 (68) 100 05/08/19 06:00 71 29 113/49 (70) 100 05/08/19 05:30 70 31 103/46 (65) 100 05/08/19 05:00 72 32 112/47 (68) 100 05/08/19 04:00 2.0 05/08/19 04:00 73 05/08/19 04:00 Nasal Cannula 2.0 Venturi Mask 8.0 05/08/19 04:00 98.4 64 34 104/50 (68) 100 05/08/19 03:30 58 34 116/46 (69) 100 05/08/19 03:00 61 39 107/47 (67) 100 05/08/19 02:00 63 34 124/42 (69) 100 05/08/19 01:00 65 33 153/61 (91) 97 05/08/19 00:00 Venturi Mask 8.0 Venturi Mask 8.0 05/08/19 00:00 63 05/08/19 00:00 98.1 71 30 150/58 (88) 92 05/08/19 00:00 8.0 40 05/07/19 23:00 63 30 129/55 (79) 100 05/07/19 22:00 73 34 164/123 (137) 94 05/07/19 21:00 60 36 110/50 (70) 99 05/07/19 20:00 Venturi Mask 8.0 Venturi Mask 8.0 05/07/19 20:00 68 05/07/19 20:00 98.6 64 31 129/51 (77) 81 05/07/19 20:00 8.0 40 05/07/19 19:30 78 31 103/45 (64) 99 05/07/19 19:00 69 31 116/50 (72) 99 05/07/19 18:00 68 13 101/85 (90) 100 05/07/19 17:00 66 34 110/58 (75) 100 05/07/19 16:00 10.0 05/07/19 16:00 76 05/07/19 16:00 98.0 72 28 135/44 (74) 99 05/07/19 16:00 Venturi Mask 10.0 Venturi Mask 10.0 05/07/19 15:00 61 30 124/42 (69) 100 Status: awake Condition: improving HEENT: atraumatic Lungs: chest wall tender Heart: HR/BP stable Abdomen: soft, non-tender Extremities: edema Critical Care - Subjective ROS Limited/Unobtainable: Yes Condition: critical FI02: 32 Vent Support Breath Rate: 16 Vent Support Mode: AC Vent Tidal Volume: 500 Sputum Amount: None PEEP: 5.0 PIP: 33 Tube Feeding Amount: 0 I&O: Intake and Output 05/07/19 05/08/19 18:59 06:59 Intake Total 846.333 ml 130 ml Output Total 1160 ml 1890 ml Balance -313.667 ml -1760 ml IV Total 826.333 ml 110 ml Tube Feeding 0 ml Other 20 ml 20 ml Output Urine Total 1160 ml 1890 ml # Voids 1 # Bowel Movements 1 2 CXR: no change ET-Tube: 7.0 ET Position: 22 Labs: Laboratory Tests Test 05/08/19 04:00 05/08/19 04:52 White Blood Count 4.2 K/UL (4.8-10.8) L Red Blood Count 2.92 M/UL (4.20-5.40) L Hemoglobin 8.8 G/DL (12.0-16.0) L Hematocrit 28.3 % (37.0-47.0) L Mean Corpuscular Volume 97 FL (80-99) Mean Corpuscular Hemoglobin 30.0 PG (27.0-31.0) Mean Corpuscular Hemoglobin Concent 30.9 G/DL (32.0-36.0) L Red Cell Distribution Width 19.5 % (11.6-14.8) H Platelet Count 60 K/UL (150-450) L Mean Platelet Volume 8.3 FL (6.5-10.1) Neutrophils (%) (Auto) % (45.0-75.0) Lymphocytes (%) (Auto) % (20.0-45.0) Monocytes (%) (Auto) % (1.0-10.0) Eosinophils (%) (Auto) % (0.0-3.0) Basophils (%) (Auto) % (0.0-2.0) Differential Total Cells Counted 100 Neutrophils % (Manual) 82 % (45-75) H Lymphocytes % (Manual) 8 % (20-45) L Monocytes % (Manual) 9 % (1-10) Eosinophils % (Manual) 1 % (0-3) Basophils % (Manual) 0 % (0-2) Band Neutrophils 0 % (0-8) Platelet Estimate Decreased L Platelet Morphology Normal Hypochromasia 2+ Anisocytosis 2+ Sodium Level 145 MMOL/L (136-145) Potassium Level 3.6 MMOL/L (3.5-5.1) Chloride Level 110 MMOL/L (98-107) H Carbon Dioxide Level 33 MMOL/L (21-32) H Anion Gap 3 mmol/L (5-15) L Blood Urea Nitrogen 10 mg/dL (7-18) Creatinine 0.6 MG/DL (0.55-1.30) Estimat Glomerular Filtration Rate mL/min (>60) Glucose Level 72 MG/DL (74-106) L Calcium Level 7.5 MG/DL (8.5-10.1) L Phosphorus Level 3.3 MG/DL (2.5-4.9) Magnesium Level 1.7 MG/DL (1.8-2.4) L Jamal Medina MD May 08, 2019 15:00
--- NOTE | 2019-05-08 15:32 | Cardiology Report ---
APPROVED REPORT EKG Measurement Heart [id number] Normal sinus rhythm Nonspecific ST abnormality Abnormal ECG
--- NOTE | 2019-05-08 15:40 | Infectious Diseases Prog Note ---
Assessment/Plan Assessment/Plan Afebrile No leukocytosis Lactate 1.2 dopamine, SP Hypoxic Respiratory failure PNA? Pulm edema 05/03 Flu swab negative 05/03 sputum cx: ngtd 05/03 CXR: Moderate to severe pulmonary edema. Bilateral pleural effusions 05/03 CXR: Diffuse airspace disease may be due to pulmonary edema. Small bilateral pleural effusions. Tubes and lines satisfactory 05/04 CXR: Improved bilateral pleural effusions, over one day 05/05 CXR: Bilateral interstitial and hazy airspace disease persists, unchanged. Probable small left pleural effusion is again demonstrated. The heart size is upper limits normal. No significant interim change 05/06 CXR: Stable to minimally improved bilateral interstitial and airspace disease, over one day. Otherwise stable findings as described. 05/07 CXR: Interstitial pneumonitis versus CHF. No change UA negative r/o bacteremia 05/03 Bcx: ngtd 05/03 TTE: EF 60%.No pericardial effusion. AV calcification with decreased cusp excursion c/w aortic stenosis. Heavily thickened mitral valve leaflets with reduced excursion. Echogenic material noted on posterior mitral valve leaflet is likely calcified mitral annular structure. Heavy mitral annulus and aortic root calcification. Pulmonic valve not well visualized. Normal tricuspid valve structure. VRE colonization MRSA colonization new subclavian central line placed in ED no sorensen COPD CHF Hep C cirrhosis GERD Plan: monitor off antibiotics 05/07 DC Ertapenem #5 05/06 DC Vancomycin #4 05/05 DC Amikacin #3 SP Zosyn and Vanc monitor CXR monitor temp monitor CBC steroids per pulm Thank you for this consult. [facility] will continue to follow the patient with you. Subjective Allergies: Coded Allergies: ACETAMINOPHEN (Verified Allergy, Unknown, 05/03/19) ASPIRIN (Verified Allergy, Unknown, 08/14/17) IBUPROFEN (Verified Allergy, Unknown, 05/03/19) PENICILLINS (Unverified Allergy, Unknown, 05/05/19) Uncoded Allergies: pain killers (Allergy, Severe, 01/28/17) Subjective Afebrile. was on nasal canula but then was mouth breathing and became tachypneic so placed on face mask pt denies sob, chills. states she is comfortable. calm. plan to transfer to stepdown Objective Vital Signs Last 24 Hour Vital Signs Date Time Temp Pulse Resp B/P (MAP) Pulse Ox O2 Delivery O2 Flow Rate FiO2 05/08/19 15:00 70 31 131/47 (75) 91 05/08/19 14:00 64 32 104/45 (64) 100 05/08/19 13:00 62 34 105/49 (67) 100 05/08/19 12:00 Venturi Mask 4.0 Venturi Mask 4.0 05/08/19 12:00 98.2 67 31 95/46 (62) 99 05/08/19 12:00 66 05/08/19 11:00 71 34 117/45 (69) 100 05/08/19 10:50 4.0 05/08/19 10:42 87 26 98 Nasal Cannula 3.0 32 05/08/19 10:00 71 30 101/47 (65) 100 05/08/19 09:00 2.0 05/08/19 09:00 76 28 100/47 (64) 100 05/08/19 08:00 68 05/08/19 08:00 Nasal Cannula 2.0 Nasal Cannula 2.0 05/08/19 08:00 97.8 67 31 112/47 (68) 100 05/08/19 07:00 67 30 110/47 (68) 100 05/08/19 06:00 71 29 113/49 (70) 100 05/08/19 05:30 70 31 103/46 (65) 100 05/08/19 05:00 72 32 112/47 (68) 100 05/08/19 04:00 2.0 05/08/19 04:00 73 05/08/19 04:00 Nasal Cannula 2.0 Venturi Mask 8.0 05/08/19 04:00 98.4 64 34 104/50 (68) 100 05/08/19 03:30 58 34 116/46 (69) 100 05/08/19 03:00 61 39 107/47 (67) 100 05/08/19 02:00 63 34 124/42 (69) 100 05/08/19 01:00 65 33 153/61 (91) 97 05/08/19 00:00 Venturi Mask 8.0 Venturi Mask 8.0 05/08/19 00:00 63 05/08/19 00:00 98.1 71 30 150/58 (88) 92 05/08/19 00:00 8.0 40 05/07/19 23:00 63 30 129/55 (79) 100 05/07/19 22:00 73 34 164/123 (137) 94 05/07/19 21:00 60 36 110/50 (70) 99 05/07/19 20:00 Venturi Mask 8.0 Venturi Mask 8.0 05/07/19 20:00 68 05/07/19 20:00 98.6 64 31 129/51 (77) 81 05/07/19 20:00 8.0 40 05/07/19 19:30 78 31 103/45 (64) 99 05/07/19 19:00 69 31 116/50 (72) 99 05/07/19 18:00 68 13 101/85 (90) 100 05/07/19 17:00 66 34 110/58 (75) 100 05/07/19 16:00 10.0 05/07/19 16:00 76 05/07/19 16:00 98.0 72 28 135/44 (74) 99 05/07/19 16:00 Venturi Mask 10.0 Venturi Mask 10.0 Height (Feet): 5 Height (Inches): 3.00 Weight (Pounds): 105 Objective Gen: NAD HEENT: anicteric sclera CV: RRR Resp: RRR. no wheezes. Abd: soft. normoactive Bs+ Neuro: awake Laboratory Tests Test 05/08/19 04:00 05/08/19 04:52 White Blood Count 4.2 K/UL (4.8-10.8) L Red Blood Count 2.92 M/UL (4.20-5.40) L Hemoglobin 8.8 G/DL (12.0-16.0) L Hematocrit 28.3 % (37.0-47.0) L Mean Corpuscular Volume 97 FL (80-99) Mean Corpuscular Hemoglobin 30.0 PG (27.0-31.0) Mean Corpuscular Hemoglobin Concent 30.9 G/DL (32.0-36.0) L Red Cell Distribution Width 19.5 % (11.6-14.8) H Platelet Count 60 K/UL (150-450) L Mean Platelet Volume 8.3 FL (6.5-10.1) Neutrophils (%) (Auto) % (45.0-75.0) Lymphocytes (%) (Auto) % (20.0-45.0) Monocytes (%) (Auto) % (1.0-10.0) Eosinophils (%) (Auto) % (0.0-3.0) Basophils (%) (Auto) % (0.0-2.0) Differential Total Cells Counted 100 Neutrophils % (Manual) 82 % (45-75) H Lymphocytes % (Manual) 8 % (20-45) L Monocytes % (Manual) 9 % (1-10) Eosinophils % (Manual) 1 % (0-3) Basophils % (Manual) 0 % (0-2) Band Neutrophils 0 % (0-8) Platelet Estimate Decreased L Platelet Morphology Normal Hypochromasia 2+ Anisocytosis 2+ Sodium Level 145 MMOL/L (136-145) Potassium Level 3.6 MMOL/L (3.5-5.1) Chloride Level 110 MMOL/L (98-107) H Carbon Dioxide Level 33 MMOL/L (21-32) H Anion Gap 3 mmol/L (5-15) L Blood Urea Nitrogen 10 mg/dL (7-18) Creatinine 0.6 MG/DL (0.55-1.30) Estimat Glomerular Filtration Rate mL/min (>60) Glucose Level 72 MG/DL (74-106) L Calcium Level 7.5 MG/DL (8.5-10.1) L Phosphorus Level 3.3 MG/DL (2.5-4.9) Magnesium Level 1.7 MG/DL (1.8-2.4) L Current Medications Medications (Trade) Dose Ordered Sig/Gautam Route PRN Reason Start Time Stop Time Status Last Admin Dose Admin Chlorhexidine Gluconate (Cherry-Hex 2%) 1 applic DAILY@2000 TOPIC 05/03/19 20:00 06/02/19 19:59 05/07/19 19:56 Ertapenem 1 gm/ Sodium Chloride 55 ml @ 110 mls/hr Q24H IV 05/03/19 21:00 05/09/19 20:59 05/07/19 19:55 Folic Acid (Folate) 5 mg DAILY NG 05/04/19 11:00 06/03/19 10:59 05/08/19 09:22 Furosemide (Lasix) 20 mg ONCE IV 05/08/19 15:00 05/08/19 17:00 Heparin Sodium (Porcine) (Heparin 5000 units/ml) 5,000 units EVERY 12 HOURS SUBQ 05/03/19 21:00 06/02/19 20:59 Iron Sucrose 100 mg/Sodium Chloride 55 ml @ 200 mls/hr BEDTIME IVPB 05/05/19 21:00 05/08/19 21:17 05/07/19 19:56 Lorazepam (Ativan 2mg/ml 1ml) 2 mg Q4H PRN IV For Anxiety 05/04/19 10:22 05/11/19 10:21 05/08/19 11:11 Midodrine (Pro-Amatine) 2.5 mg THREE TIMES A DAY NG 05/06/19 09:30 06/05/19 09:29 05/08/19 12:35 Norepinephrine Bitartrate 4 mg/ Dextrose 254 ml @ 0 mls/hr Q24H IV 05/03/19 12:17 06/02/19 12:16 05/03/19 18:42 Ondansetron HCl (Zofran) 4 mg Q6H PRN IVP Nausea & Vomiting 05/03/19 10:30 06/02/19 10:29 05/08/19 10:53 Polyethylene Glycol (Miralax) 17 gm DAILYPRN PRN ORAL Constipation 05/03/19 10:30 06/02/19 10:29 Yazan Minaya MD May 08, 2019 15:40
--- NOTE | 2019-05-08 15:43 | Cardiology Progress Note ---
Assessment/Plan Assessment/Plan HOCM, respiratory insufficiency, improving Subjective Subjective The patient is resting, on O2 mask she feels Ok, weak Objective Last 24 Hour Vital Signs Date Time Temp Pulse Resp B/P (MAP) Pulse Ox O2 Delivery O2 Flow Rate FiO2 05/08/19 15:00 70 31 131/47 (75) 91 05/08/19 14:00 64 32 104/45 (64) 100 05/08/19 13:00 62 34 105/49 (67) 100 05/08/19 12:00 Venturi Mask 4.0 Venturi Mask 4.0 05/08/19 12:00 98.2 67 31 95/46 (62) 99 05/08/19 12:00 66 05/08/19 11:00 71 34 117/45 (69) 100 05/08/19 10:50 4.0 05/08/19 10:42 87 26 98 Nasal Cannula 3.0 32 05/08/19 10:00 71 30 101/47 (65) 100 05/08/19 09:00 2.0 05/08/19 09:00 76 28 100/47 (64) 100 05/08/19 08:00 68 05/08/19 08:00 Nasal Cannula 2.0 Nasal Cannula 2.0 05/08/19 08:00 97.8 67 31 112/47 (68) 100 05/08/19 07:00 67 30 110/47 (68) 100 05/08/19 06:00 71 29 113/49 (70) 100 05/08/19 05:30 70 31 103/46 (65) 100 05/08/19 05:00 72 32 112/47 (68) 100 05/08/19 04:00 2.0 05/08/19 04:00 73 05/08/19 04:00 Nasal Cannula 2.0 Venturi Mask 8.0 05/08/19 04:00 98.4 64 34 104/50 (68) 100 05/08/19 03:30 58 34 116/46 (69) 100 05/08/19 03:00 61 39 107/47 (67) 100 05/08/19 02:00 63 34 124/42 (69) 100 05/08/19 01:00 65 33 153/61 (91) 97 05/08/19 00:00 Venturi Mask 8.0 Venturi Mask 8.0 05/08/19 00:00 63 05/08/19 00:00 98.1 71 30 150/58 (88) 92 05/08/19 00:00 8.0 40 05/07/19 23:00 63 30 129/55 (79) 100 05/07/19 22:00 73 34 164/123 (137) 94 05/07/19 21:00 60 36 110/50 (70) 99 05/07/19 20:00 Venturi Mask 8.0 Venturi Mask 8.0 05/07/19 20:00 68 05/07/19 20:00 98.6 64 31 129/51 (77) 81 05/07/19 20:00 8.0 40 05/07/19 19:30 78 31 103/45 (64) 99 05/07/19 19:00 69 31 116/50 (72) 99 05/07/19 18:00 68 13 101/85 (90) 100 05/07/19 17:00 66 34 110/58 (75) 100 05/07/19 16:00 10.0 05/07/19 16:00 76 05/07/19 16:00 98.0 72 28 135/44 (74) 99 05/07/19 16:00 Venturi Mask 10.0 Venturi Mask 10.0 General Appearance: mild distress EENT: PERRL/EOMI Neck: JVD Rhythm: NSR, SB Cardiovascular: systolic murmur Respiratory/Chest: crackles/rales - at bases Abdomen: soft Extremities: non-tender Intake and Output 05/07/19 05/08/19 18:59 06:59 Intake Total 846.333 ml 130 ml Output Total 1160 ml 1890 ml Balance -313.667 ml -1760 ml IV Total 826.333 ml 110 ml Tube Feeding 0 ml Other 20 ml 20 ml Output Urine Total 1160 ml 1890 ml # Voids 1 # Bowel Movements 1 2 Laboratory Tests Test 05/08/19 04:00 05/08/19 04:52 White Blood Count 4.2 K/UL (4.8-10.8) L Red Blood Count 2.92 M/UL (4.20-5.40) L Hemoglobin 8.8 G/DL (12.0-16.0) L Hematocrit 28.3 % (37.0-47.0) L Mean Corpuscular Volume 97 FL (80-99) Mean Corpuscular Hemoglobin 30.0 PG (27.0-31.0) Mean Corpuscular Hemoglobin Concent 30.9 G/DL (32.0-36.0) L Red Cell Distribution Width 19.5 % (11.6-14.8) H Platelet Count 60 K/UL (150-450) L Mean Platelet Volume 8.3 FL (6.5-10.1) Neutrophils (%) (Auto) % (45.0-75.0) Lymphocytes (%) (Auto) % (20.0-45.0) Monocytes (%) (Auto) % (1.0-10.0) Eosinophils (%) (Auto) % (0.0-3.0) Basophils (%) (Auto) % (0.0-2.0) Differential Total Cells Counted 100 Neutrophils % (Manual) 82 % (45-75) H Lymphocytes % (Manual) 8 % (20-45) L Monocytes % (Manual) 9 % (1-10) Eosinophils % (Manual) 1 % (0-3) Basophils % (Manual) 0 % (0-2) Band Neutrophils 0 % (0-8) Platelet Estimate Decreased L Platelet Morphology Normal Hypochromasia 2+ Anisocytosis 2+ Sodium Level 145 MMOL/L (136-145) Potassium Level 3.6 MMOL/L (3.5-5.1) Chloride Level 110 MMOL/L (98-107) H Carbon Dioxide Level 33 MMOL/L (21-32) H Anion Gap 3 mmol/L (5-15) L Blood Urea Nitrogen 10 mg/dL (7-18) Creatinine 0.6 MG/DL (0.55-1.30) Estimat Glomerular Filtration Rate mL/min (>60) Glucose Level 72 MG/DL (74-106) L Calcium Level 7.5 MG/DL (8.5-10.1) L Phosphorus Level 3.3 MG/DL (2.5-4.9) Magnesium Level 1.7 MG/DL (1.8-2.4) L Larissa Moran MD May 08, 2019 15:43
--- NOTE | 2019-05-08 16:00 | NUR ---
NURSE NOTES: pt in bed, wanting to talk with son. number called [phone] no answer. informed pt can call again in the morning. informed pt will be transferred out of ICU when bed available. pt cleaned and repositioned with pillows, purewick replaced for output collection. pt calm and able to rest. vss. will continue to monitor pt.
--- NOTE | 2019-05-08 16:07 | Internal Med Progress Note ---
Subjective Date of Service: May 08, 2019 Physician Name Romeo Tavares Attending Physician Zeke Munoz MD Current Medications Medications (Trade) Dose Ordered Sig/Gautam Route PRN Reason Start Time Stop Time Status Last Admin Dose Admin Chlorhexidine Gluconate (Cherry-Hex 2%) 1 applic DAILY@2000 TOPIC 05/03/19 20:00 06/02/19 19:59 05/07/19 19:56 Folic Acid (Folate) 5 mg DAILY NG 05/04/19 11:00 06/03/19 10:59 05/08/19 09:22 Furosemide (Lasix) 20 mg ONCE IV 05/08/19 15:00 05/08/19 17:00 05/08/19 15:59 Heparin Sodium (Porcine) (Heparin 5000 units/ml) 5,000 units EVERY 12 HOURS SUBQ 05/03/19 21:00 06/02/19 20:59 Iron Sucrose 100 mg/Sodium Chloride 55 ml @ 200 mls/hr BEDTIME IVPB 05/05/19 21:00 05/08/19 21:17 05/07/19 19:56 Lorazepam (Ativan 2mg/ml 1ml) 2 mg Q4H PRN IV For Anxiety 05/04/19 10:22 05/11/19 10:21 05/08/19 11:11 Midodrine (Pro-Amatine) 2.5 mg THREE TIMES A DAY NG 05/06/19 09:30 06/05/19 09:29 05/08/19 12:35 Norepinephrine Bitartrate 4 mg/ Dextrose 254 ml @ 0 mls/hr Q24H IV 05/03/19 12:17 06/02/19 12:16 05/03/19 18:42 Ondansetron HCl (Zofran) 4 mg Q6H PRN IVP Nausea & Vomiting 05/03/19 10:30 06/02/19 10:29 05/08/19 10:53 Polyethylene Glycol (Miralax) 17 gm DAILYPRN PRN ORAL Constipation 05/03/19 10:30 06/02/19 10:29 Allergies: Coded Allergies: ACETAMINOPHEN (Verified Allergy, Unknown, 05/03/19) ASPIRIN (Verified Allergy, Unknown, 08/14/17) IBUPROFEN (Verified Allergy, Unknown, 05/03/19) PENICILLINS (Unverified Allergy, Unknown, 05/05/19) Uncoded Allergies: pain killers (Allergy, Severe, 01/28/17) ROS Limited/Unobtainable: Yes Subjective 74 YO F admitted with respiratory failure. Now Link Heart Failure. Extubated 05/07/19; tolerating venturi mask. Cover for Zafar Ahuja-Dr Munoz. ICU. On levophed Objective Last Vital Signs Date Time Temp Pulse Resp B/P (MAP) Pulse Ox O2 Delivery O2 Flow Rate FiO2 05/08/19 15:00 70 31 131/47 (75) 91 05/08/19 12:00 Venturi Mask 4.0 Venturi Mask 4.0 05/08/19 12:00 98.2 05/08/19 10:42 32 Laboratory Tests Test 05/08/19 04:00 05/08/19 04:52 White Blood Count 4.2 K/UL (4.8-10.8) L Red Blood Count 2.92 M/UL (4.20-5.40) L Hemoglobin 8.8 G/DL (12.0-16.0) L Hematocrit 28.3 % (37.0-47.0) L Mean Corpuscular Volume 97 FL (80-99) Mean Corpuscular Hemoglobin 30.0 PG (27.0-31.0) Mean Corpuscular Hemoglobin Concent 30.9 G/DL (32.0-36.0) L Red Cell Distribution Width 19.5 % (11.6-14.8) H Platelet Count 60 K/UL (150-450) L Mean Platelet Volume 8.3 FL (6.5-10.1) Neutrophils (%) (Auto) % (45.0-75.0) Lymphocytes (%) (Auto) % (20.0-45.0) Monocytes (%) (Auto) % (1.0-10.0) Eosinophils (%) (Auto) % (0.0-3.0) Basophils (%) (Auto) % (0.0-2.0) Differential Total Cells Counted 100 Neutrophils % (Manual) 82 % (45-75) H Lymphocytes % (Manual) 8 % (20-45) L Monocytes % (Manual) 9 % (1-10) Eosinophils % (Manual) 1 % (0-3) Basophils % (Manual) 0 % (0-2) Band Neutrophils 0 % (0-8) Platelet Estimate Decreased L Platelet Morphology Normal Hypochromasia 2+ Anisocytosis 2+ Sodium Level 145 MMOL/L (136-145) Potassium Level 3.6 MMOL/L (3.5-5.1) Chloride Level 110 MMOL/L (98-107) H Carbon Dioxide Level 33 MMOL/L (21-32) H Anion Gap 3 mmol/L (5-15) L Blood Urea Nitrogen 10 mg/dL (7-18) Creatinine 0.6 MG/DL (0.55-1.30) Estimat Glomerular Filtration Rate mL/min (>60) Glucose Level 72 MG/DL (74-106) L Calcium Level 7.5 MG/DL (8.5-10.1) L Phosphorus Level 3.3 MG/DL (2.5-4.9) Magnesium Level 1.7 MG/DL (1.8-2.4) L Intake and Output 05/07/19 05/08/19 18:59 06:59 Intake Total 846.333 ml 130 ml Output Total 1160 ml 1890 ml Balance -313.667 ml -1760 ml IV Total 826.333 ml 110 ml Tube Feeding 0 ml Other 20 ml 20 ml Output Urine Total 1160 ml 1890 ml # Voids 1 # Bowel Movements 1 2 Objective PHYSICAL EXAMINATION: GENERAL: The patient is a thin-appearing female, who is currently intubated and sedated in the intensive care unit. HEENT: Eyes, pupils are equal and responsive to light and accommodation. Extraocular movements are intact. NECK: Supple without lymphadenopathy. CHEST: Coarse breath sounds bilaterally without wheezes or rales. CARDIOVASCULAR: Regular rhythm and rate. S1 and S2 are normal without murmurs, rubs, or gallops. ABDOMEN: Soft, nontender, and nondistended with positive bowel sounds. No evidence of hepatosplenomegaly, rebound, or guarding noted. EXTREMITIES: Negative for clubbing, cyanosis, or edema. RECTAL/GENITAL: Refused. NEUROLOGIC: Unable to assess secondary to intubation. Assessment/Plan Assessment/Plan ASSESSMENT: This is a 74-year-old female. 1. Respiratory failure. 2. Acute exacerbation of congestive heart failure. 3. Chronic obstructive pulmonary disease. 4. Hypertension. 5. Hypercholesterolemia. TREATMENT: 1. Respiratory failure. A Pulmonary consultation has been obtained with Dr. Mirali Zarrabi. The patient is currently intubated in the intensive care unit. Respiratory failure may be secondary to congestive heart failure. D/C ertapenem, amikacin and vancomycin per Inf Dis=Dr. Minaya 2. Congestive heart failure. A Cardiology consultation has been obtained with Dr. Philipp Ahmadi. The patient is currently receiving Lasix intravenously. We will follow recommendations of Cardiology. 3. Hypercholesterolemia. Continue atorvastatin as above. 4. Hypertension. The patient is currently hypotensive. Hold antihypertensive medication at this time. Continue levophed Romeo Tavares MD May 08, 2019 16:07
--- NOTE | 2019-05-08 18:58 | NUR ---
HAND-OFF: Report given to Corie DACOSTA. pt in no acute distress.
--- NOTE | 2019-05-08 19:00 | NUR ---
NURSE NOTES: Endorsement received from Shelby Holman RN. Patient asleep at this time. Sinus rhythm on the monitor. On venturi mask 30%. 96%^ saturation. Left AC g22, R FA g22 heplock, right subclavian TLC. With purewick connected to low suction in place. Head of bed elevated. Bed locked and in low position. Bed alarm on. Call light in visible reach. Will continue to monitor.
[2019-05-08] MEDS: Dyna-Hex 2% Top Sol 2oz TOPIC SCH (19:36)
--- NOTE | 2019-05-08 21:00 | NUR ---
NURSE NOTES: Heparin SQ not given due to low platelet level.
--- NOTE | 2019-05-08 23:30 | NUR ---
TRANSFER TO FLOOR: Patient transferred to [facility] room 236 per hospital bed is nstable condition. Report given to Tommie Bailey RN. Patient has 1 pair of earring which she is wearing, no other belongings.
[2019-05-09] MEDS ORDERED: Miralax 17gm pkt ORAL PRN (00:23)
--- NOTE | 2019-05-09 02:05 | NUR ---
NURSE NOTES: Patient is somnolent/drowsy. Patient is on venturi mask 30% FiO2. Spo2 is 89%, Patient seems a bit more confused than yesterday. ABG was performed.
--- NOTE | 2019-05-09 02:30 | NUR ---
NURSE NOTES: Patient placed on BIPAP12/36 at 30% Fio2. Patient sleeping at this time.
[2019-05-09 04:00] VITALS: BP 101/50
--- NOTE | 2019-05-09 04:00 | NUR ---
NURSE NOTES: Patient cleaned and repositioned. Blood drawn and sent to lab. Patient remains on BIPAP with same settings as before. Vitals are stable, Will continue to monitor.
[2019-05-09 05:50] LABS: HEMATOCRIT 29.4 % (37.0-47.0); HEMOGLOBIN 9.2 G/DL (12.0-16.0); MEAN CORPUSCULAR VOLUME 98 FL (80-99); PLATELET COUNT 64 K/UL (150-450); RED BLOOD COUNT 2.99 M/UL (4.20-5.40); RED CELL DISTRIBUTION WIDTH 18.9 % (11.6-14.8)
--- NOTE | 2019-05-09 06:17 | NUR ---
NURSE NOTES: Patient still on BIPAP /, 30% Fio2. Patient still somnolent and drowsy. Vitals remain stable at this this time, Spo2 is 96%, RR 12. Will continue to monitor.
[2019-05-09 06:21] LABS: ALANINE AMINOTRANSFERASE 18 U/L (12-78); ALBUMIN/GLOBULIN RATIO 0.5 (1.0-2.7); ALKALINE PHOSPHATASE 76 U/L (46-116); ANION GAP 3 mmol/L (5-15); ASPARTATE AMINO TRANSFERASE 24 U/L (15-37); BILIRUBIN,TOTAL 1.1 MG/DL (0.2-1.0); BLOOD UREA NITROGEN 9 mg/dL (7-18); CARBON DIOXIDE 33 MMOL/L (21-32); CHLORIDE 107 MMOL/L (98-107); CREATININE 0.5 MG/DL (0.55-1.30); PHOSPHORUS 3.1 MG/DL (2.5-4.9); POTASSIUM 3.8 MMOL/L (3.5-5.1); SODIUM 143 MMOL/L (136-145)
[2019-05-09 06:31] LABS: BILIRUBIN,DIRECT 0.4 MG/DL (0.0-0.3)
--- NOTE | 2019-05-09 07:18 | NUR ---
HAND-OFF: Report given to Kirsten DACOSTA. Endorsed patient current condition to nurse and to follow up with patients plan of care.
--- NOTE | 2019-05-09 07:20 | NUR ---
NURSE NOTES: Received bedside report from Tommie DACOSTA. Pt. in bed, sleeping but arousable. No sign of distress. Previous nurse switch pt. to Bipap at present with setting of 06/04, Fi O2 at 30%. No grimacing noted. IV at right FA #22g. , left AC #20g. and right subclavian TLC. in placed. patent/intact. SL. Bed in low position, locked. Call light within reach. Will cont. to monitor.
[2019-05-09 08:00] VITALS: BP 99/45
[2019-05-09] MEDS: Heparin 5000 units/ml inj SUBQ SCH ×2 (08:58→20:48)
--- NOTE | 2019-05-09 10:52 | Diagnostic Imaging Report ---
EXAM: XR Chest, 1 View CLINICAL HISTORY: DYSPNEA TECHNIQUE: Frontal view of the chest. COMPARISON: Chest x-ray 11 8 19 FINDINGS: Lungs: Diffuse bilateral interstitial airspace opacities are worse than prior study. Pleural space: New small bilateral pleural effusions. No pneumothorax. Heart: Unremarkable. No cardiomegaly. Mediastinum: Unremarkable. Bones joints: Unremarkable. Tubes, lines and devices: Interval removal endotracheal tube and NG tube. Stable right PICC line. IMPRESSION: 1. Interval removal endotracheal tube and NG tube. 2. Diffuse bilateral interstitial airspace opacities are worse than prior study. 3. New small bilateral pleural effusions.
[2019-05-09 12:00] VITALS: BP 109/55
--- NOTE | 2019-05-09 14:38 | Nephrology Progress Note ---
Assessment/Plan Problem List: (1) Acute respiratory failure Assessment: now extubated (2) Electrolyte imbalance (3) Anemia (4) NSTEMI (non-ST elevated myocardial infarction) (5) COPD (chronic obstructive pulmonary disease) Assessment Acute respiratory failure, on Vent- Underlying COPD HypoNatremia , Etiology TBI , ? CHF HyperKalemia Sever Anemia NSTEMI Plan extubated on midodrine on O2 Mask Folate . Iron . B12 supplement Mag and K and Phos supplement as needed Pulm support Monitor renal parameters Urine studies 2D echo Left ventricular ejection fraction estimated to be 60 %. per orders Subjective ROS Limited/Unobtainable: No Constitutional: Reports: malaise, weakness Objective Objective Last 24 Hour Vital Signs Date Time Temp Pulse Resp B/P (MAP) Pulse Ox O2 Delivery O2 Flow Rate FiO2 05/09/19 12:00 97.8 93 24 109/55 (73) 96 05/09/19 12:00 Bi-pap Bi-pap 05/09/19 12:00 4.0 30 05/09/19 11:40 101 05/09/19 09:19 77 05/09/19 08:00 30 05/09/19 08:00 Bi-pap Bi-pap 05/09/19 08:00 97.7 68 21 99/45 (63) 100 05/09/19 05:30 77 18 98 Facial 30 05/09/19 04:00 Bi-pap Bi-pap 05/09/19 04:00 30 05/09/19 04:00 75 05/09/19 04:00 99.0 77 22 101/50 (67) 98 05/09/19 02:23 75 23 96 Facial 30 05/09/19 00:00 4.0 30 05/09/19 00:00 69 05/09/19 00:00 Venturi Mask 4.0 Venturi Mask 4.0 05/08/19 23:00 70 43 114/43 (66) 97 05/08/19 22:00 70 47 104/42 (62) 99 05/08/19 21:00 72 49 90/40 (57) 96 05/08/19 20:00 Venturi Mask 4.0 Venturi Mask 4.0 05/08/19 20:00 4.0 30 05/08/19 20:00 71 05/08/19 20:00 97.5 73 21 120/42 (68) 96 05/08/19 19:00 62 22 94/48 (63) 99 05/08/19 18:00 65 35 112/41 (64) 100 05/08/19 17:00 63 45 112/41 (64) 91 05/08/19 16:00 97.8 66 47 102/43 (62) 100 05/08/19 16:00 70 05/08/19 16:00 Venturi Mask 4.0 Venturi Mask 4.0 05/08/19 16:00 4.0 05/08/19 15:00 70 31 131/47 (75) 91 Intake and Output 05/08/19 05/09/19 19:00 07:00 Intake Total 430 ml 55 ml Output Total 350 ml 400 ml Balance 80 ml -345 ml Intake Oral 130 ml IV Total 300 ml 55 ml Output Urine Total 350 ml 400 ml # Bowel Movements 3 Laboratory Tests 05/09/19 02:00: Arterial Blood pH 7.355, Arterial Blood Partial Pressure CO2 58.8*H, Arterial Blood Partial Pressure O2 64.9L, Arterial Blood HCO3 32.1H, Arterial Blood Oxygen Saturation 92.1L, Arterial Blood Base Excess 5.3H, Raghavendra Test Positive 05/09/19 04:00: White Blood Count 5.0, Red Blood Count 2.99L, Hemoglobin 9.2L, Hematocrit 29.4L , Mean Corpuscular Volume 98, Mean Corpuscular Hemoglobin 30.8, Mean Corpuscular Hemoglobin Concent 31.4L, Red Cell Distribution Width 18.9H, Platelet Count 64L, Mean Platelet Volume 7.7, Neutrophils (%) (Auto) , Lymphocytes (%) (Auto) , Monocytes (%) (Auto) , Eosinophils (%) (Auto) , Basophils (%) (Auto) , Differential Total Cells Counted 100, Neutrophils % ( Manual) 84H, Lymphocytes % (Manual) 7L, Monocytes % (Manual) 7, Eosinophils % ( Manual) 1, Basophils % (Manual) 1, Band Neutrophils 0, Platelet Estimate DecreasedL, Platelet Morphology Normal, Hypochromasia 2+, Anisocytosis 2+, Sodium Level 143, Potassium Level 3.8, Chloride Level 107, Carbon Dioxide Level 33H, Anion Gap 3L, Blood Urea Nitrogen 9, Creatinine 0.5L, Estimat Glomerular Filtration Rate , Glucose Level 74, Uric Acid 2.5L, Calcium Level 8.0L, Phosphorus Level 3.1, Magnesium Level 1.9, Total Bilirubin 1.1H, Direct Bilirubin 0.4H, Aspartate Amino Transf (AST/SGOT) 24, Alanine Aminotransferase ( ALT/SGPT) 18, Alkaline Phosphatase 76, C-Reactive Protein, Quantitative 2.3H, Pro-B-Type Natriuretic Peptide 4621H, Total Protein 6.3L, Albumin 2.0L, Globulin 4.3, Albumin/Globulin Ratio 0.5L Height (Feet): 5 Height (Inches): 3.00 Weight (Pounds): 108 General Appearance: mild distress EENT: other - O2 mask Cardiovascular: other - variable Respiratory/Chest: decreased breath sounds Abdomen: distended Efra Das MD May 09, 2019 14:38
[2019-05-09] MEDS: LORazepam Inj 2mg/ml 1ml IV PRN (15:47)
[2019-05-09 16:00] VITALS: BP 123/61
--- NOTE | 2019-05-09 16:21 | Pulmonolgy Critical Care Note ---
Critical Care - Asmt/Plan Problems: (1) Acute respiratory failure (2) Acute pulmonary edema (3) COPD (chronic obstructive pulmonary disease) (4) Severe protein-calorie malnutrition (5) Nosocomial pneumonia (6) Edema of both feet Respiratory: monitor respiratory rate, adjust FIO2 Cardiac: continue to monitor HR/BP Renal: F/U I&O Infectious Disease: check cultures, continue antibiotics Gastrointestinal: continue feedings/current rate Endocrine: monitor blood sugar Hematologic: transfuse if hgb<8.5 Neurologic: PRN Ativan, PRN Morphine, keep patient comfortable Prophylaxis: Protonix, Heparin Time Spent (Minutes): 40 Notes Reviewed: renal Discussed with: consultants, case management specialistmanager park - Objective Last 24 Hour Vital Signs Date Time Temp Pulse Resp B/P (MAP) Pulse Ox O2 Delivery O2 Flow Rate FiO2 05/09/19 16:00 30 05/09/19 16:00 Bi-pap Bi-pap 05/09/19 12:00 97.8 93 24 109/55 (73) 96 05/09/19 12:00 Bi-pap Bi-pap 05/09/19 12:00 4.0 30 05/09/19 11:40 101 05/09/19 09:19 77 05/09/19 08:00 30 05/09/19 08:00 Bi-pap Bi-pap 05/09/19 08:00 97.7 68 21 99/45 (63) 100 05/09/19 05:30 77 18 98 Facial 30 05/09/19 04:00 Bi-pap Bi-pap 05/09/19 04:00 30 05/09/19 04:00 75 05/09/19 04:00 99.0 77 22 101/50 (67) 98 05/09/19 02:23 75 23 96 Facial 30 05/09/19 00:00 4.0 30 05/09/19 00:00 69 05/09/19 00:00 Venturi Mask 4.0 Venturi Mask 4.0 05/08/19 23:00 70 43 114/43 (66) 97 05/08/19 22:00 70 47 104/42 (62) 99 05/08/19 21:00 72 49 90/40 (57) 96 05/08/19 20:00 Venturi Mask 4.0 Venturi Mask 4.0 05/08/19 20:00 4.0 30 05/08/19 20:00 71 05/08/19 20:00 97.5 73 21 120/42 (68) 96 05/08/19 19:00 62 22 94/48 (63) 99 05/08/19 18:00 65 35 112/41 (64) 100 05/08/19 17:00 63 45 112/41 (64) 91 Status: awake HEENT: atraumatic Lungs: chest wall tender Heart: HR/BP stable Abdomen: non-tender Extremities: no C/C/E Decubiti: location Critical Care - Subjective ROS Limited/Unobtainable: No Condition: critical EKG Rhythm: Sinus Rhythm FI02: 30 Vent Support Breath Rate: 16 Vent Support Mode: BiLevel Vent Tidal Volume: 500 Sputum Amount: None PEEP: 5.0 PIP: 33 Tube Feeding Amount: 0 I&O: Intake and Output 05/08/19 05/09/19 18:59 06:59 Intake Total 430 ml 55 ml Output Total 350 ml 400 ml Balance 80 ml -345 ml Intake Oral 130 ml IV Total 300 ml 55 ml Output Urine Total 350 ml 400 ml # Bowel Movements 3 ET-Tube: 7.0 ET Position: 22 Labs: Laboratory Tests Test 05/09/19 02:00 05/09/19 04:00 Arterial Blood pH 7.355 (7.350-7.450) Arterial Blood Partial Pressure CO2 58.8 mmHg (35.0-45.0) *H Arterial Blood Partial Pressure O2 64.9 mmHg (75.0-100.0) L Arterial Blood HCO3 32.1 mmol/L (22.0-26.0) H Arterial Blood Oxygen Saturation 92.1 % (95-100) L Arterial Blood Base Excess 5.3 (-2-2) H Raghavendra Test Positive White Blood Count 5.0 K/UL (4.8-10.8) Red Blood Count 2.99 M/UL (4.20-5.40) L Hemoglobin 9.2 G/DL (12.0-16.0) L Hematocrit 29.4 % (37.0-47.0) L Mean Corpuscular Volume 98 FL (80-99) Mean Corpuscular Hemoglobin 30.8 PG (27.0-31.0) Mean Corpuscular Hemoglobin Concent 31.4 G/DL (32.0-36.0) L Red Cell Distribution Width 18.9 % (11.6-14.8) H Platelet Count 64 K/UL (150-450) L Mean Platelet Volume 7.7 FL (6.5-10.1) Neutrophils (%) (Auto) % (45.0-75.0) Lymphocytes (%) (Auto) % (20.0-45.0) Monocytes (%) (Auto) % (1.0-10.0) Eosinophils (%) (Auto) % (0.0-3.0) Basophils (%) (Auto) % (0.0-2.0) Differential Total Cells Counted 100 Neutrophils % (Manual) 84 % (45-75) H Lymphocytes % (Manual) 7 % (20-45) L Monocytes % (Manual) 7 % (1-10) Eosinophils % (Manual) 1 % (0-3) Basophils % (Manual) 1 % (0-2) Band Neutrophils 0 % (0-8) Platelet Estimate Decreased L Platelet Morphology Normal Hypochromasia 2+ Anisocytosis 2+ Sodium Level 143 MMOL/L (136-145) Potassium Level 3.8 MMOL/L (3.5-5.1) Chloride Level 107 MMOL/L (98-107) Carbon Dioxide Level 33 MMOL/L (21-32) H Anion Gap 3 mmol/L (5-15) L Blood Urea Nitrogen 9 mg/dL (7-18) Creatinine 0.5 MG/DL (0.55-1.30) L Estimat Glomerular Filtration Rate mL/min (>60) Glucose Level 74 MG/DL (74-106) Uric Acid 2.5 MG/DL (2.6-7.2) L Calcium Level 8.0 MG/DL (8.5-10.1) L Phosphorus Level 3.1 MG/DL (2.5-4.9) Magnesium Level 1.9 MG/DL (1.8-2.4) Total Bilirubin 1.1 MG/DL (0.2-1.0) H Direct Bilirubin 0.4 MG/DL (0.0-0.3) H Aspartate Amino Transf (AST/SGOT) 24 U/L (15-37) Alanine Aminotransferase (ALT/SGPT) 18 U/L (12-78) Alkaline Phosphatase 76 U/L (46-116) C-Reactive Protein, Quantitative 2.3 mg/dL (0.00-0.90) H Pro-B-Type Natriuretic Peptide 4621 pg/mL (0-125) H Total Protein 6.3 G/DL (6.4-8.2) L Albumin 2.0 G/DL (3.4-5.0) L Globulin 4.3 g/dL Albumin/Globulin Ratio 0.5 (1.0-2.7) L Jamal Medina MD May 09, 2019 16:21
--- NOTE | 2019-05-09 16:26 | Cardiology Progress Note ---
Assessment/Plan Assessment/Plan HOCM, respiratory insufficiency, improving Subjective Subjective the patient was transferred to telemetry, she is more agitated today, trying to pull the O2 mask, off mask her saturation goes down Objective Last 24 Hour Vital Signs Date Time Temp Pulse Resp B/P (MAP) Pulse Ox O2 Delivery O2 Flow Rate FiO2 05/09/19 16:00 30 05/09/19 16:00 Bi-pap Bi-pap 05/09/19 12:00 97.8 93 24 109/55 (73) 96 05/09/19 12:00 Bi-pap Bi-pap 05/09/19 12:00 4.0 30 05/09/19 11:40 101 05/09/19 09:19 77 05/09/19 08:00 30 05/09/19 08:00 Bi-pap Bi-pap 05/09/19 08:00 97.7 68 21 99/45 (63) 100 05/09/19 05:30 77 18 98 Facial 30 05/09/19 04:00 Bi-pap Bi-pap 05/09/19 04:00 30 05/09/19 04:00 75 05/09/19 04:00 99.0 77 22 101/50 (67) 98 05/09/19 02:23 75 23 96 Facial 30 05/09/19 00:00 4.0 30 05/09/19 00:00 69 05/09/19 00:00 Venturi Mask 4.0 Venturi Mask 4.0 05/08/19 23:00 70 43 114/43 (66) 97 05/08/19 22:00 70 47 104/42 (62) 99 05/08/19 21:00 72 49 90/40 (57) 96 05/08/19 20:00 Venturi Mask 4.0 Venturi Mask 4.0 05/08/19 20:00 4.0 30 05/08/19 20:00 71 05/08/19 20:00 97.5 73 21 120/42 (68) 96 05/08/19 19:00 62 22 94/48 (63) 99 05/08/19 18:00 65 35 112/41 (64) 100 05/08/19 17:00 63 45 112/41 (64) 91 General Appearance: moderate distress, agitated EENT: PERRL/EOMI Neck: JVD Rhythm: NSR Cardiovascular: systolic murmur Respiratory/Chest: crackles/rales Abdomen: soft Intake and Output 05/08/19 05/09/19 18:59 06:59 Intake Total 430 ml 55 ml Output Total 350 ml 400 ml Balance 80 ml -345 ml Intake Oral 130 ml IV Total 300 ml 55 ml Output Urine Total 350 ml 400 ml # Bowel Movements 3 Laboratory Tests Test 05/09/19 02:00 05/09/19 04:00 Arterial Blood pH 7.355 (7.350-7.450) Arterial Blood Partial Pressure CO2 58.8 mmHg (35.0-45.0) *H Arterial Blood Partial Pressure O2 64.9 mmHg (75.0-100.0) L Arterial Blood HCO3 32.1 mmol/L (22.0-26.0) H Arterial Blood Oxygen Saturation 92.1 % (95-100) L Arterial Blood Base Excess 5.3 (-2-2) H Raghavendra Test Positive White Blood Count 5.0 K/UL (4.8-10.8) Red Blood Count 2.99 M/UL (4.20-5.40) L Hemoglobin 9.2 G/DL (12.0-16.0) L Hematocrit 29.4 % (37.0-47.0) L Mean Corpuscular Volume 98 FL (80-99) Mean Corpuscular Hemoglobin 30.8 PG (27.0-31.0) Mean Corpuscular Hemoglobin Concent 31.4 G/DL (32.0-36.0) L Red Cell Distribution Width 18.9 % (11.6-14.8) H Platelet Count 64 K/UL (150-450) L Mean Platelet Volume 7.7 FL (6.5-10.1) Neutrophils (%) (Auto) % (45.0-75.0) Lymphocytes (%) (Auto) % (20.0-45.0) Monocytes (%) (Auto) % (1.0-10.0) Eosinophils (%) (Auto) % (0.0-3.0) Basophils (%) (Auto) % (0.0-2.0) Differential Total Cells Counted 100 Neutrophils % (Manual) 84 % (45-75) H Lymphocytes % (Manual) 7 % (20-45) L Monocytes % (Manual) 7 % (1-10) Eosinophils % (Manual) 1 % (0-3) Basophils % (Manual) 1 % (0-2) Band Neutrophils 0 % (0-8) Platelet Estimate Decreased L Platelet Morphology Normal Hypochromasia 2+ Anisocytosis 2+ Sodium Level 143 MMOL/L (136-145) Potassium Level 3.8 MMOL/L (3.5-5.1) Chloride Level 107 MMOL/L (98-107) Carbon Dioxide Level 33 MMOL/L (21-32) H Anion Gap 3 mmol/L (5-15) L Blood Urea Nitrogen 9 mg/dL (7-18) Creatinine 0.5 MG/DL (0.55-1.30) L Estimat Glomerular Filtration Rate mL/min (>60) Glucose Level 74 MG/DL (74-106) Uric Acid 2.5 MG/DL (2.6-7.2) L Calcium Level 8.0 MG/DL (8.5-10.1) L Phosphorus Level 3.1 MG/DL (2.5-4.9) Magnesium Level 1.9 MG/DL (1.8-2.4) Total Bilirubin 1.1 MG/DL (0.2-1.0) H Direct Bilirubin 0.4 MG/DL (0.0-0.3) H Aspartate Amino Transf (AST/SGOT) 24 U/L (15-37) Alanine Aminotransferase (ALT/SGPT) 18 U/L (12-78) Alkaline Phosphatase 76 U/L (46-116) C-Reactive Protein, Quantitative 2.3 mg/dL (0.00-0.90) H Pro-B-Type Natriuretic Peptide 4621 pg/mL (0-125) H Total Protein 6.3 G/DL (6.4-8.2) L Albumin 2.0 G/DL (3.4-5.0) L Globulin 4.3 g/dL Albumin/Globulin Ratio 0.5 (1.0-2.7) L Larissa Moran MD May 09, 2019 16:26
--- NOTE | 2019-05-09 16:31 | Internal Med Progress Note ---
Subjective Date of Service: May 09, 2019 Physician Name Romeo Tavares Attending Physician Zeke Munoz MD Current Medications Medications (Trade) Dose Ordered Sig/Gautam Route PRN Reason Start Time Stop Time Status Last Admin Dose Admin Chlorhexidine Gluconate (Cherry-Hex 2%) 1 applic DAILY@1999 TOPIC 05/09/19 20:00 06/02/19 19:59 Folic Acid (Folate) 5 mg DAILY NG 05/09/19 09:00 06/03/19 10:59 05/09/19 08:57 Heparin Sodium (Porcine) (Heparin 5000 units/ml) 5,000 units EVERY 12 HOURS SUBQ 05/09/19 09:00 06/02/19 20:59 Lorazepam (Ativan 2mg/ml 1ml) 2 mg Q4H PRN IV For Anxiety 05/09/19 00:22 05/11/19 00:21 05/09/19 15:47 Midodrine (Pro-Amatine) 2.5 mg THREE TIMES A DAY NG 05/09/19 09:00 06/05/19 09:29 05/09/19 13:28 Ondansetron HCl (Zofran) 4 mg Q6H PRN IVP Nausea & Vomiting 05/09/19 00:22 06/02/19 00:21 Polyethylene Glycol (Miralax) 17 gm DAILYPRN PRN ORAL Constipation 05/09/19 00:23 06/02/19 00:22 Allergies: Coded Allergies: ACETAMINOPHEN (Verified Allergy, Unknown, 05/03/19) ASPIRIN (Verified Allergy, Unknown, 08/14/17) IBUPROFEN (Verified Allergy, Unknown, 05/03/19) PENICILLINS (Unverified Allergy, Unknown, 05/05/19) Uncoded Allergies: pain killers (Allergy, Severe, 01/28/17) ROS Limited/Unobtainable: Yes Subjective 74 YO F admitted with respiratory failure. Now Link Heart Failure. Extubated 05/07/19; on BIPAP. Cover for Int Med-Dr Munoz. DIANA. Objective Last Vital Signs Date Time Temp Pulse Resp B/P (MAP) Pulse Ox O2 Delivery O2 Flow Rate FiO2 05/09/19 16:00 30 05/09/19 16:00 Bi-pap Bi-pap 05/09/19 12:00 97.8 93 24 109/55 (73) 96 05/09/19 12:00 4.0 Laboratory Tests Test 05/09/19 02:00 05/09/19 04:00 Arterial Blood pH 7.355 (7.350-7.450) Arterial Blood Partial Pressure CO2 58.8 mmHg (35.0-45.0) *H Arterial Blood Partial Pressure O2 64.9 mmHg (75.0-100.0) L Arterial Blood HCO3 32.1 mmol/L (22.0-26.0) H Arterial Blood Oxygen Saturation 92.1 % (95-100) L Arterial Blood Base Excess 5.3 (-2-2) H Raghavendra Test Positive White Blood Count 5.0 K/UL (4.8-10.8) Red Blood Count 2.99 M/UL (4.20-5.40) L Hemoglobin 9.2 G/DL (12.0-16.0) L Hematocrit 29.4 % (37.0-47.0) L Mean Corpuscular Volume 98 FL (80-99) Mean Corpuscular Hemoglobin 30.8 PG (27.0-31.0) Mean Corpuscular Hemoglobin Concent 31.4 G/DL (32.0-36.0) L Red Cell Distribution Width 18.9 % (11.6-14.8) H Platelet Count 64 K/UL (150-450) L Mean Platelet Volume 7.7 FL (6.5-10.1) Neutrophils (%) (Auto) % (45.0-75.0) Lymphocytes (%) (Auto) % (20.0-45.0) Monocytes (%) (Auto) % (1.0-10.0) Eosinophils (%) (Auto) % (0.0-3.0) Basophils (%) (Auto) % (0.0-2.0) Differential Total Cells Counted 100 Neutrophils % (Manual) 84 % (45-75) H Lymphocytes % (Manual) 7 % (20-45) L Monocytes % (Manual) 7 % (1-10) Eosinophils % (Manual) 1 % (0-3) Basophils % (Manual) 1 % (0-2) Band Neutrophils 0 % (0-8) Platelet Estimate Decreased L Platelet Morphology Normal Hypochromasia 2+ Anisocytosis 2+ Sodium Level 143 MMOL/L (136-145) Potassium Level 3.8 MMOL/L (3.5-5.1) Chloride Level 107 MMOL/L (98-107) Carbon Dioxide Level 33 MMOL/L (21-32) H Anion Gap 3 mmol/L (5-15) L Blood Urea Nitrogen 9 mg/dL (7-18) Creatinine 0.5 MG/DL (0.55-1.30) L Estimat Glomerular Filtration Rate mL/min (>60) Glucose Level 74 MG/DL (74-106) Uric Acid 2.5 MG/DL (2.6-7.2) L Calcium Level 8.0 MG/DL (8.5-10.1) L Phosphorus Level 3.1 MG/DL (2.5-4.9) Magnesium Level 1.9 MG/DL (1.8-2.4) Total Bilirubin 1.1 MG/DL (0.2-1.0) H Direct Bilirubin 0.4 MG/DL (0.0-0.3) H Aspartate Amino Transf (AST/SGOT) 24 U/L (15-37) Alanine Aminotransferase (ALT/SGPT) 18 U/L (12-78) Alkaline Phosphatase 76 U/L (46-116) C-Reactive Protein, Quantitative 2.3 mg/dL (0.00-0.90) H Pro-B-Type Natriuretic Peptide 4621 pg/mL (0-125) H Total Protein 6.3 G/DL (6.4-8.2) L Albumin 2.0 G/DL (3.4-5.0) L Globulin 4.3 g/dL Albumin/Globulin Ratio 0.5 (1.0-2.7) L Intake and Output 05/08/19 05/09/19 18:59 06:59 Intake Total 430 ml 55 ml Output Total 350 ml 400 ml Balance 80 ml -345 ml Intake Oral 130 ml IV Total 300 ml 55 ml Output Urine Total 350 ml 400 ml # Bowel Movements 3 Objective PHYSICAL EXAMINATION: GENERAL: The patient is a thin-appearing female, who is currently intubated and sedated in the intensive care unit. HEENT: Eyes, pupils are equal and responsive to light and accommodation. Extraocular movements are intact. NECK: Supple without lymphadenopathy. CHEST: Coarse breath sounds bilaterally without wheezes or rales. CARDIOVASCULAR: Regular rhythm and rate. S1 and S2 are normal without murmurs, rubs, or gallops. ABDOMEN: Soft, nontender, and nondistended with positive bowel sounds. No evidence of hepatosplenomegaly, rebound, or guarding noted. EXTREMITIES: Negative for clubbing, cyanosis, or edema. RECTAL/GENITAL: Refused. NEUROLOGIC: Unable to assess secondary to intubation. Assessment/Plan Assessment/Plan ASSESSMENT: This is a 74-year-old female. 1. Respiratory failure. 2. Acute exacerbation of congestive heart failure. 3. Chronic obstructive pulmonary disease. 4. Hypertension. 5. Hypercholesterolemia. TREATMENT: 1. Respiratory failure. A Pulmonary consultation has been obtained with Dr. Jamal Medina. The patient is currently extubated on BIPAP in [place]. Respiratory failure may be secondary to congestive heart failure. D/C ertapenem, amikacin and vancomycin per Inf Dis=Dr. Minaya 2. Congestive heart failure. A Cardiology consultation has been obtained with Dr. Philipp Ahmadi. The patient is currently receiving Lasix intravenously. We will follow recommendations of Cardiology. 3. Hypercholesterolemia. Continue atorvastatin as above. 4. Hypertension. The patient is currently hypotensive. Hold antihypertensive medication at this time. Continue levophed Romeo Tavares MD May 09, 2019 16:31
--- NOTE | 2019-05-09 19:25 | NUR ---
NURSE NOTES: Received report form PRANEETH Ordoñez, pt. in bed awake, pt. appears to be confused but responds only to name. No signs or symptoms of acute cardiac or respiratory distress noted, bed alarm on, side rails up x's3 and safety brakes engaged, pt. appears to be tolerating current BIPAP settings 12/6 fio2 @40%- no distress noted. pt. has pure and set to suction, comfort measures provided, repositioned and turned patient, RFA 22G and LAC 20G both IVs intact and patent, safety measures continued, will continue with plan of care. Addendum: 05/09/19 at 2127 by CHANDRAKANT RUSS RN RN Fio2 is at 30%- not 40%.
--- NOTE | 2019-05-09 19:35 | NUR ---
HAND-OFF: Report given to Ariadna DACOSTA. Pt. remain stable.
[2019-05-09 20:00] VITALS: BP 102/54
[2019-05-09] MEDS ORDERED: Dyna-Hex 2% Top Sol 2oz TOPIC SCH (20:00)
[2019-05-10] VITALS (48 sets, daily range): BP systolic 60–182; BP diastolic 28–86
--- NOTE | 2019-05-10 00:40 | NUR ---
NURSE NOTES: pt. appears to be anxious trying to get out bed- will administer Ativan per doctors order- vital signs remain stable-109/60, heart rate 108, pulse ox 99%, resp 22- will continue to monitor pt. and with plan of care.
[2019-05-10] MEDS: LORazepam Inj 2mg/ml 1ml IV PRN (00:42)
--- NOTE | 2019-05-10 01:00 | NUR ---
NURSE NOTES: pt.appears to be resting more comfortably- not pulling on IV lines, BIPAP and trying to get out of bed- Ativan effective. Will continue to monitor pt. and with plan of care.
--- NOTE | 2019-05-10 02:50 | NUR ---
NURSE NOTES: pt. spontaneously desalting mid 70's to low 80's- pulse oximetry changed on rt.ear- RT. at bed side- adjusted FIo2 to 100%- pt. in moments sating at 90%- Vital signs stable 120/60, pulse 107, blood sugar 99, - pt. arousable to name, will continue to monitor pt. and with plan of care.
--- NOTE | 2019-05-10 03:24 | NUR ---
NURSE NOTES: pt. continuing to sat above 90%- and appears to be comfortable- will continue to monitor pt. and with plan of care.
--- NOTE | 2019-05-10 04:51 | NUR ---
NURSE NOTES: left message for DR. Munoz, regarding patients abnormal ABGS- awaiting for call back from doctor.
--- NOTE | 2019-05-10 04:53 | NUR ---
NURSE NOTES: I was told by RT Boubacar, pt. was tachypneic and ABGS were done. ABGS results came back abnormal message was left for DR. Munoz regarding ABG- results-awaiting for call back from doctor. At this time pt. was tachypneic, but still responsive to her name. pt. then spontaneously became unresponsive. Rapid response was initiated. See PERSONAL COUNSELOR sheet. Patient then transferred to ICU. Post PERSONAL COUNSELOR debriefing done. No issues during PERSONAL COUNSELOR.
--- NOTE | 2019-05-10 04:54 | NUR ---
TAX COMMISSIONER Note: TAX COMMISSIONER was called at 0454 by Seema Campbell. Message left for MD by PRANEETH Rosenthal. Pt transferred to ICU at 0500. See TAX COMMISSIONER documentation form for full report.
--- NOTE | 2019-05-10 05:00 | NUR ---
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
--- NOTE | 2019-05-10 05:00 | NUR ---
NURSE NOTES: pt. transferred to ICU- report given to Radha RN- aware message has been left for DR. Munoz and to f/u. Also aware son Dami has been notified of patient transfer.
--- NOTE | 2019-05-10 05:18 | Emergency Room Report ---
History of Present Illness General Chief Complaint: Dyspnea/Respdistress Source: Patient, EMS Present Illness Allergies: Coded Allergies: ACETAMINOPHEN (Verified Allergy, Unknown, 05/03/19) ASPIRIN (Verified Allergy, Unknown, 08/14/17) IBUPROFEN (Verified Allergy, Unknown, 05/03/19) PENICILLINS (Unverified Allergy, Unknown, 05/05/19) Uncoded Allergies: pain killers (Allergy, Severe, 01/28/17) Patient History Now: No Nursing Documentation-[facility] Past Medical History: No History, Except For Hx Asthma: Yes Hx COPD: Yes - PNA, Hx Cancer: No Hx Gastrointestinal Problems: No Hx Neurological Problems: No Physical Exam Vital Signs Date Time Temp Pulse Resp B/P (MAP) Pulse Ox O2 Delivery O2 Flow Rate FiO2 05/06/19 07:00 98.6 53 17 115/43 (67) 97 05/06/19 07:00 Mechanical Ventilator 40 05/06/19 11:24 15.0 Procedures Critical Care Time Critical Care Time i. I feel this is a highly complex case requiring extensive working including EKG/Rhythm strip, Xray/CT/US, Blood/urine lab work, repeat exams while in ED, and administration of strong opiates/narcotics for pain control, admission to hospital or close patient follow up. Total time: 30 min bedside evaluation and treatment excludes procedures (EKG). Reason for critical care: respiratory distress Possible complications: hypotension, hypertension, OH, shock, arrhythmias, metabolic acidosis, end organ damage, respiratory failure. Interventions: ABG, interpreation, evaluation, intubation Course: Patient presenting in respiratory distress. Rapid response called. Patient history of COPD. Currently on BiPAP. Recently extubated. ABG shows significant acidosis with hypercapnia. I made decision to intubate patient. Patient intubated. Placed on ventilator. Will be moved to ICU. Care endorsed to accepting physicians Consultations: nursing staff, EMS, family Performed by: Dr Woody Tolerated well condition = critical j. because of unstable vital signs this patient had a condition that could potentially threaten life or limb. I feel this is a critical patient who required my full attention while patient was considered critical. Total Critical Care Time excluding procedures was greater than 30 minutes Intubation Intubation : Consent: Emergent Intubation Method: orotracheal Tube Size (cm): 7.5 Breath Sounds after Intubation: equal Intubation Complications: no complications Post Intubation Xray: Yes Attempts: One Patient Tolerated: Well Complications: None Medical Decision Making Diagnostic Impression: Primary Impression: COPD (chronic obstructive pulmonary disease) Additional Impressions: Acute kidney injury Anemia Respiratory distress NSTEMI (non-ST elevated myocardial infarction) Hypotension ER Course I was called to the stepdown unit to evaluate this patient. Rapid response called as patient was found tachypneic. On BiPAP. History of COPD. Recently extubated. ABG shows significant acidosis with hypercapnia. Based on presentation I made decision to intubate patient. Patient intubated without complication. Chest x-ray confirms ET tube placement. Patient will be moved to ICU. Placed on ventilator. Case endorsed to admitting physicians Last Vital Signs Date Time Temp Pulse Resp B/P (MAP) Pulse Ox O2 Delivery O2 Flow Rate FiO2 05/10/19 04:00 30 05/10/19 04:00 98.0 107 24 119/60 (79) 92 05/10/19 04:00 Bi-pap Bi-pap 05/09/19 12:00 4.0 Status: improved Disposition: ADMITTED INPATIENT Condition: Critical Referrals: Zeke Munoz MD (PCP) Adolfo Woody MD May 10, 2019 05:18
--- NOTE | 2019-05-10 05:22 | NUR ---
RESPIRATORY NOTE: Pt intubated due to critically abnormal ABG result. Dr Cedillo. intubated pt with 7.5 size ett at 23 at the lip secured by anchor fast. Bilateral diminished breath sounds heard on both lungs. Pt with scant to small amount of secretions and will sxn prn. ABG pending. Vent is plugged into red outlet. Will continue to monitor pt
[2019-05-10 05:26] LABS: HEMATOCRIT 33.5 % (37.0-47.0); HEMOGLOBIN 10.4 G/DL (12.0-16.0); MEAN CORPUSCULAR VOLUME 100 FL (80-99); PLATELET COUNT 106 K/UL (150-450); RED BLOOD COUNT 3.36 M/UL (4.20-5.40); RED CELL DISTRIBUTION WIDTH 19.6 % (11.6-14.8); WHITE BLOOD COUNT 15.4 K/UL (4.8-10.8)
--- NOTE | 2019-05-10 05:43 | NUR ---
NURSE NOTES: Son Dami notified of pts condition that patient was tachypneic, then unresponsive seconds later- pt. still had heart rate of 104, CARTON FOLDER was initiated, pt. was intubated and transferred to ICU- Son aware and will follow up with patient in am.
[2019-05-10] MEDS ORDERED: Levophed 4mg/4mL Inj IV ONE ×2 (05:54→05:59)
--- NOTE | 2019-05-10 06:00 | NUR ---
NURSE NOTES: pt bp 64/46 dr agrawal was notify with order made levo drip at 10mcg/min will monitor pt
[2019-05-10 06:17] LABS: ALANINE AMINOTRANSFERASE 23 U/L (12-78); ALBUMIN 2.4 G/DL (3.4-5.0); ALBUMIN/GLOBULIN RATIO 0.5 (1.0-2.7); ALKALINE PHOSPHATASE 82 U/L (46-116); ANION GAP 0 mmol/L (5-15); ASPARTATE AMINO TRANSFERASE 31 U/L (15-37); BILIRUBIN,TOTAL 1.3 MG/DL (0.2-1.0); BLOOD UREA NITROGEN 16 mg/dL (7-18); CALCIUM 8.5 MG/DL (8.5-10.1); CARBON DIOXIDE 37 MMOL/L (21-32); CHLORIDE 107 MMOL/L (98-107); CREATININE 0.6 MG/DL (0.55-1.30); POTASSIUM 4.4 MMOL/L (3.5-5.1); SODIUM 144 MMOL/L (136-145)
[2019-05-10 06:20] LABS: BILIRUBIN,DIRECT 0.5 MG/DL (0.0-0.3)
[2019-05-10] MEDS ORDERED: LORazepam Inj 2mg/ml 1ml IV PRN (06:30)
--- NOTE | 2019-05-10 06:38 | Diagnostic Imaging Report ---
Indication: Intubation. Shortness of breath Comparison: None A single view chest radiograph was obtained. Findings: Endotracheal tube is at the loni and is low-lying. There is complete atelectasis of the left lung. This was subsequently corrected. There is pulmonary edema evidence within the right lung. Subclavian line in good position. IMPRESSION: Complete atelectasis of the left lung. Pulmonary edema
--- NOTE | 2019-05-10 07:50 | NUR ---
NURSE NOTES: RECEIVED REPORT FROM Quintin PIÑA PT IN BED. OPENS EYES SPONTANEOUSLY. NO S/S OF DISTRESS. NO PAIN USING FLACC. PUPILS 3MM AND SLUGGISH. GAG REFLEX PRESENT. VS:98.8 AX TEMP. HR 68, RR18, BP 156/61, 02SAT 100%. NO JVD, COOL TO TOUCH. CAP REFILL>3SEC. BILATERAL RADIAL AND PEDAL PULSES WEAK. PT INTUBATED: ETTUBE 7.5, 21CM AT LIP. VENT SETTINGS AC14, VT 450, PEEP 5, [id number]. NSR. S1,S2 AND MURMUR PRESENT. LUNG SOUNDS DIMINISHED, BILATERAL RHONCHI. SECRETIONS THICK, KO AND YELLOW. ABDOMEN FLAT, SOFT. BOWEL SOUNDS HYPOACTIVE. NO BM AT THIS TIME. DIET NPO. NO GI ACCESS AT THIS TIME. SKIN- SEE ASSESSMENT, SKIN IS DRY, PT VERY THIN. RT SUBCLAVIAN TLC RUNNING LEVOPHED AT 10MCG/KG/MIN. LT AC AND RT FA 22G TKO PATENT. CONTACT PRECAUTIONS IN PLACE. BED ALARM ON, LOCKED AND IN LOWEST POSITION. ZONE 2, SIDE RAILS UP X2. EDUCATION PROVIDED IN MEDICATION SIDE EFFECTS, RESTRAINTS. WILL CONTINUE TO IMPLEMENT PLAN OF CARE.
--- NOTE | 2019-05-10 07:51 | NUR ---
HAND-OFF: Report given to joshua john using sbar.
[2019-05-10] MEDS: Heparin 5000 units/ml inj SUBQ SCH ×2 (09:00→20:49)
[2019-05-10] MEDS ORDERED: NS 500ML ONE (09:02)
[2019-05-10] MEDS ORDERED: Tubing IV Secondary IV ONE (09:07)
[2019-05-10] MEDS ORDERED: NS 275ml ONE (09:07)
[2019-05-10 09:15] LABS: PHOSPHORUS 3.7 MG/DL (2.5-4.9)
--- NOTE | 2019-05-10 09:30 | NUR ---
NURSE NOTES: MD ZAVALA HERE TO SEE PT. NO NEW ORDERS AT THIS TIME.
--- NOTE | 2019-05-10 09:47 | Nephrology Progress Note ---
Assessment/Plan Problem List: (1) Acute respiratory failure Assessment: now extubated (2) Electrolyte imbalance (3) Anemia (4) NSTEMI (non-ST elevated myocardial infarction) (5) COPD (chronic obstructive pulmonary disease) Assessment Acute respiratory failure, on Vent- Underlying COPD HypoNatremia , Etiology TBI , ? CHF HyperKalemia Sever Anemia NSTEMI Plan re intubated on midodrine when bp low on O2 Mask Folate . Iron . B12 supplement Mag and K and Phos supplement as needed Pulm support Monitor renal parameters Urine studies 2D echo Left ventricular ejection fraction estimated to be 60 %. per orders Subjective ROS Limited/Unobtainable: Yes Objective Objective Last 24 Hour Vital Signs Date Time Temp Pulse Resp B/P (MAP) Pulse Ox O2 Delivery O2 Flow Rate FiO2 05/10/19 09:30 77 16 100 05/10/19 08:00 Mechanical Ventilator Mechanical Ventilator 05/10/19 06:45 76 18 141/67 (91) 100 05/10/19 06:41 70 15 100 05/10/19 06:30 77 16 124/53 (76) 95 05/10/19 06:15 66/36 05/10/19 06:15 87 20 180/57 (98) 97 05/10/19 06:11 84 19 155/86 (109) 99 05/10/19 06:00 85 14 66/36 (46) 100 05/10/19 05:45 84 15 65/38 (47) 99 05/10/19 05:43 105 05/10/19 05:35 86 16 60/38 (45) 98 05/10/19 05:30 87 15 64/42 (49) 98 05/10/19 05:25 88 15 63/39 (47) 97 05/10/19 05:22 95 16 100 05/10/19 05:19 91 16 71/46 (54) 97 05/10/19 05:15 94 17 62/44 (50) 97 05/10/19 05:13 97.5 94 65/28 (40) 05/10/19 05:00 100 05/10/19 05:00 Bi-pap Bi-pap 05/10/19 04:00 30 05/10/19 04:00 98.0 107 24 119/60 (79) 92 05/10/19 04:00 Bi-pap Bi-pap 05/10/19 03:24 107 05/10/19 02:50 107 28 89 Facial 100 05/10/19 01:00 104 23 96 Facial 40 05/10/19 00:00 30 05/10/19 00:00 97.9 107 22 112/60 (77) 97 05/10/19 00:00 Bi-pap Bi-pap 05/09/19 23:49 105 05/09/19 22:20 111 25 94 Facial 40 05/09/19 20:36 107 28 95 Facial 40 05/09/19 20:00 97.7 108 24 102/54 (70) 94 05/09/19 20:00 Bi-pap Bi-pap 05/09/19 20:00 30 05/09/19 19:51 108 05/09/19 19:08 110 30 94 Facial 40 05/09/19 19:07 110 30 95 Bi-Pap 40 05/09/19 16:20 102 23 94 Facial 30 05/09/19 16:00 30 05/09/19 16:00 Bi-pap Bi-pap 05/09/19 16:00 97.9 110 21 123/61 (81) 94 05/09/19 15:48 108 05/09/19 12:00 97.8 93 24 109/55 (73) 96 05/09/19 12:00 Bi-pap Bi-pap 05/09/19 12:00 4.0 30 05/09/19 11:40 101 Intake and Output 05/09/19 05/10/19 19:00 07:00 Intake Total 75 ml Output Total 250 ml Balance -175 ml IV Total 75 ml Output Urine Total 250 ml Laboratory Tests 05/10/19 03:05: White Blood Count 15.4#H, Red Blood Count 3.36L, Hemoglobin 10.4L, Hematocrit 33.5L, Mean Corpuscular Volume 100H, Mean Corpuscular Hemoglobin 30.9, Mean Corpuscular Hemoglobin Concent 31.0L, Red Cell Distribution Width 19.6H, Platelet Count 106#L, Mean Platelet Volume 7.1, Neutrophils (%) (Auto) , Lymphocytes (%) (Auto) , Monocytes (%) (Auto) , Eosinophils (%) (Auto) , Basophils (%) (Auto) , Neutrophils % (Manual) [Pending], Lymphocytes % (Manual) [Pending], Platelet Estimate [Pending], Platelet Morphology [Pending], Sodium Level 144, Potassium Level 4.4, Chloride Level 107, Carbon Dioxide Level 37H, Anion Gap 0L, Blood Urea Nitrogen 16, Creatinine 0.6, Estimat Glomerular Filtration Rate , Glucose Level 96, Calcium Level 8.5, Phosphorus Level 3.7, Magnesium Level 1.7L, Total Bilirubin 1.3H, Direct Bilirubin 0.5H, Aspartate Amino Transf (AST/SGOT) 31, Alanine Aminotransferase (ALT/SGPT) 23, Alkaline Phosphatase 82, Pro-B-Type Natriuretic Peptide 97678Y, Total Protein 7.5, Albumin 2.4L, Globulin 5.1, Albumin/Globulin Ratio 0.5L 05/10/19 04:41: Arterial Blood pH 7.022*L, Arterial Blood Partial Pressure CO2 154.3*H, Arterial Blood Partial Pressure O2 73.4L, Arterial Blood HCO3 39.1H, Arterial Blood Oxygen Saturation 87.0*L, Arterial Blood Base Excess 4.3H, Raghavendra Test Positive Height (Feet): 5 Height (Inches): 3.00 Weight (Pounds): 115 General Appearance: mild distress EENT: other - intubated Cardiovascular: normal rate Respiratory/Chest: decreased breath sounds Abdomen: distended Efra Das MD May 10, 2019 09:47
--- NOTE | 2019-05-10 09:58 | NUR ---
NURSE NOTES: MD PEREZ HERE TO SEE PT, INFORMED OF WHITE OUT CXR LT SIDE, ET-TUBE WITHDRAWN PER PM RN 3CM NOW AT 21CM, AWAITING RESULTS OF F/U CXR. ABG: PH 7.022, PCO2 154.3, P0273.4, HCO3 39.1 BASE 4.3, FI02 REMAINS AT 100%. WAS GOING TO CONTACT MD BOUDREAUX FOR NGT FOR MEDICATION ADMINISTRATION. RECEIVED ORDER TO PLACE NGT. MD WILL LOOK INTO POSSIBLE TRACH OR COMFORT MEASURES FOR PT.
--- NOTE | 2019-05-10 10:16 | NUR ---
NURSE NOTES: CALLED AND LEFT MESSAGE FOR MD BARROSO REGARDING SPIKE IN WBC FROM 4.2 TO 15.4 THIS AM. NO UPCOMING SCHEDULED ANTIBIOTICS AT THIS MOMENT. PT CURRENTLY INTUBATED IN ICU. AWAITING CALL BACK.
--- NOTE | 2019-05-10 10:21 | NUR ---
NURSE NOTES: DIETITIAN VARUN HERE TO SEE PT. INFORMED THAT NGT WILL BE PLACED. RECOMMENDATION OF OLD DIET VITAL A.F GAOL 45ML/HR, WITH REGULAR H20 FLUSHES. WILL INFORMED MD PEREZ, RECEIVED ORDER TO INPUT FOR VITAL A.F.
--- NOTE | 2019-05-10 10:23 | NUR ---
CASE MANAGEMENT:REVIEW 05/10/19 SI: ACUTE RESPIRATORY FAILURE COPD. PNA 97.5 88 15 63/39 97% ON BIPAP WBC+15.4 PLT-106 IS: IV VANCOMYCIN Q12 IV ERTAPENEM Q24 IV VENOFER QHS IVF@50/HR VERSED GTT : ICU STATUS DCP: FROM [facility]
--- NOTE | 2019-05-10 10:26 | Pulmonolgy Critical Care Note ---
Critical Care - Asmt/Plan Problems: (1) Acute respiratory failure (2) Acute pulmonary edema (3) COPD (chronic obstructive pulmonary disease) (4) Severe protein-calorie malnutrition (5) Nosocomial pneumonia (6) Edema of both feet Respiratory: monitor respiratory rate, adjust FIO2, CXR Cardiac: continue pressors, continue to monitor HR/BP Renal: F/U I&O, check electrolytes Infectious Disease: check cultures, continue antibiotics Gastrointestinal: continue feedings/current rate Endocrine: monitor blood sugar Hematologic: monitor H/H, transfuse if hgb<8.5 Neurologic: PRN Morphine, keep patient comfortable Affect: PRN ativan Prophylaxis: Protonix, Heparin Time Spent (Minutes): 40 Notes Reviewed: doctor of podiatric medicine, cardio Discussed with: nurses, consultants, rn field case managercase management manager - Objective Last 24 Hour Vital Signs Date Time Temp Pulse Resp B/P (MAP) Pulse Ox O2 Delivery O2 Flow Rate FiO2 05/10/19 09:30 77 16 100 05/10/19 08:00 70 05/10/19 08:00 Mechanical Ventilator Mechanical Ventilator 05/10/19 06:45 76 18 141/67 (91) 100 05/10/19 06:41 70 15 100 05/10/19 06:30 77 16 124/53 (76) 95 05/10/19 06:15 66/36 05/10/19 06:15 87 20 180/57 (98) 97 05/10/19 06:11 84 19 155/86 (109) 99 05/10/19 06:00 85 14 66/36 (46) 100 05/10/19 05:45 84 15 65/38 (47) 99 05/10/19 05:43 105 05/10/19 05:35 86 16 60/38 (45) 98 05/10/19 05:30 87 15 64/42 (49) 98 05/10/19 05:25 88 15 63/39 (47) 97 05/10/19 05:22 95 16 100 05/10/19 05:19 91 16 71/46 (54) 97 05/10/19 05:15 94 17 62/44 (50) 97 05/10/19 05:13 97.5 94 65/28 (40) 05/10/19 05:00 100 05/10/19 05:00 Bi-pap Bi-pap 05/10/19 04:00 30 05/10/19 04:00 98.0 107 24 119/60 (79) 92 05/10/19 04:00 Bi-pap Bi-pap 05/10/19 03:24 107 05/10/19 02:50 107 28 89 Facial 100 05/10/19 01:00 104 23 96 Facial 40 05/10/19 00:00 30 05/10/19 00:00 97.9 107 22 112/60 (77) 97 05/10/19 00:00 Bi-pap Bi-pap 05/09/19 23:49 105 05/09/19 22:20 111 25 94 Facial 40 05/09/19 20:36 107 28 95 Facial 40 05/09/19 20:00 97.7 108 24 102/54 (70) 94 05/09/19 20:00 Bi-pap Bi-pap 05/09/19 20:00 30 05/09/19 19:51 108 05/09/19 19:08 110 30 94 Facial 40 05/09/19 19:07 110 30 95 Bi-Pap 40 05/09/19 16:20 102 23 94 Facial 30 05/09/19 16:00 30 05/09/19 16:00 Bi-pap Bi-pap 05/09/19 16:00 97.9 110 21 123/61 (81) 94 05/09/19 15:48 108 05/09/19 12:00 97.8 93 24 109/55 (73) 96 05/09/19 12:00 Bi-pap Bi-pap 05/09/19 12:00 4.0 30 05/09/19 11:40 101 Status: awake Condition: critical HEENT: atraumatic Neck: full ROM Heart: HR/BP stable Abdomen: soft Extremities: no C/C/E, edema Critical Care - Subjective Interval Events: got reintubated early this morning FI02: 100 Vent Support Breath Rate: 16 Vent Support Mode: AC Vent Tidal Volume: 500 Sputum Amount: Small PEEP: 5.0 PIP: 38 Tube Feeding Amount: 0 I&O: Intake and Output 05/09/19 05/10/19 19:00 07:00 Intake Total 75 ml Output Total 250 ml Balance -175 ml IV Total 75 ml Output Urine Total 250 ml CXR: left lung collapse ET-Tube: 7.5 ET Position: 20 Labs: Laboratory Tests Test 05/10/19 03:05 05/10/19 04:41 White Blood Count 15.4 K/UL (4.8-10.8) #H Red Blood Count 3.36 M/UL (4.20-5.40) L Hemoglobin 10.4 G/DL (12.0-16.0) L Hematocrit 33.5 % (37.0-47.0) L Mean Corpuscular Volume 100 FL (80-99) H Mean Corpuscular Hemoglobin 30.9 PG (27.0-31.0) Mean Corpuscular Hemoglobin Concent 31.0 G/DL (32.0-36.0) L Red Cell Distribution Width 19.6 % (11.6-14.8) H Platelet Count 106 K/UL (150-450) #L Mean Platelet Volume 7.1 FL (6.5-10.1) Neutrophils (%) (Auto) % (45.0-75.0) Lymphocytes (%) (Auto) % (20.0-45.0) Monocytes (%) (Auto) % (1.0-10.0) Eosinophils (%) (Auto) % (0.0-3.0) Basophils (%) (Auto) % (0.0-2.0) Differential Total Cells Counted 100 Neutrophils % (Manual) 90 % (45-75) H Lymphocytes % (Manual) 3 % (20-45) L Monocytes % (Manual) 7 % (1-10) Eosinophils % (Manual) 0 % (0-3) Basophils % (Manual) 0 % (0-2) Band Neutrophils 0 % (0-8) Platelet Estimate Decreased L Platelet Morphology Normal Anisocytosis 1+ Sodium Level 144 MMOL/L (136-145) Potassium Level 4.4 MMOL/L (3.5-5.1) Chloride Level 107 MMOL/L (98-107) Carbon Dioxide Level 37 MMOL/L (21-32) H Anion Gap 0 mmol/L (5-15) L Blood Urea Nitrogen 16 mg/dL (7-18) Creatinine 0.6 MG/DL (0.55-1.30) Estimat Glomerular Filtration Rate mL/min (>60) Glucose Level 96 MG/DL (74-106) Calcium Level 8.5 MG/DL (8.5-10.1) Phosphorus Level 3.7 MG/DL (2.5-4.9) Magnesium Level 1.7 MG/DL (1.8-2.4) L Total Bilirubin 1.3 MG/DL (0.2-1.0) H Direct Bilirubin 0.5 MG/DL (0.0-0.3) H Aspartate Amino Transf (AST/SGOT) 31 U/L (15-37) Alanine Aminotransferase (ALT/SGPT) 23 U/L (12-78) Alkaline Phosphatase 82 U/L (46-116) Pro-B-Type Natriuretic Peptide 39021 pg/mL (0-125) H Total Protein 7.5 G/DL (6.4-8.2) Albumin 2.4 G/DL (3.4-5.0) L Globulin 5.1 g/dL Albumin/Globulin Ratio 0.5 (1.0-2.7) L Arterial Blood pH 7.022 (7.350-7.450) Arterial Blood Partial Pressure CO2 154.3 mmHg (35.0-45.0) *H Arterial Blood Partial Pressure O2 73.4 mmHg (75.0-100.0) L Arterial Blood HCO3 39.1 mmol/L (22.0-26.0) H Arterial Blood Oxygen Saturation 87.0 % (95-100) *L Arterial Blood Base Excess 4.3 (-2-2) H Raghavendra Test Positive Jamal Medina MD May 10, 2019 10:26
--- NOTE | 2019-05-10 10:30 | NUR ---
NURSE NOTES: LATE ENTRY: RECEIVED CALL FROM MD BARROSO, WANTS TO PLACE ORDER FOR CULTURE SPUTUM AND BLOOD CULTURE X2. WILL BE IN TO SEE PT TODAY.
--- NOTE | 2019-05-10 11:00 | NUR ---
NURSE NOTES: PT FOUND DISCONNECTED ET TUBE FROM T-PIECE OF VENT TUBING, BITTING AND SHAKING HEAD BACK AND FORTH, PULLING AT RESTRAINTS AND OVER BREATHING THE VENT. FOR PT SAFETY ATIVAN 2MG, 1ML IVP GIVEN FOR ANXIETY. WILL CONTINUE TO MONITOR PT.
--- NOTE | 2019-05-10 12:00 | NUR ---
NURSE NOTES: PT IN BED. OPENS EYES SPONTANEOUSLY. VSS. NO S/S OF DISTRESS. PUPILS 3MM AND SLUGGISH. BILATERAL RADIAL AND PEDAL PULSES BOUNDING. PT INTUBATED: ETTUBE 7.5, 21CM AT LIP. VENT SETTINGS AC14, VT 450, PEEP 5, [id number]. NO CREPITUS NOTED. NSR. S1,S2 AND MURMUR PRESENT. LUNG SOUNDS DIMINISHED, BILATERAL RHONCHI. SECRETIONS THICK, KO AND YELLOW. BOWEL SOUNDS HYPOACTIVE. NO BM AT THIS TIME. OGT PLACED, CLAMPED. KUB ORDERED, AWAITING PLACEMENT CONFIRMATION. RT SUBCLAVIAN TLC RUNNING LEVOPHED AT 2MCG/KG/MIN. LT AC AND RT FA 22G TKO PATENT. CONTACT PRECAUTIONS IN PLACE. BED ALARM ON, LOCKED AND IN LOWEST POSITION. SIDE RAILS UP X2. BILATERAL SOFT WRIST RESTRAINTS, CIRCULATION CHECK AND R.O.M ALLOWED, PT CONTINUES TO REACH FOR TUBING WHEN ARMS RELEASED. WILL CONTINUE TO MONITOR PT.
--- NOTE | 2019-05-10 12:01 | NUR ---
RD ASSESSMENT & RECOMMENDATIONS SEE CARE ACTIVITY FOR COMPLETE ASSESSMENT DAILY ESTIMATED NEEDS: Needs based on critical care, 48.6kg 22-28 kcals/kg 7010-1732 total kcals 1.2-2 g protein/kg 58-97 g total protein 22-28ml/kcal mL/kg 5929-1755 total fluid mLs NUTRITION DIAGNOSIS: Swallowing difficulty r/t respiratory failure as evidenced by pt is orally RE-intubated, pending OGT feeds. ENTERAL NUTRITION RECOMMENDATIONS: Vital 1.2 @45ml/hr x24 hrs to provide 1080ml, 1296 kcal, 81g pro, 876ml free H2O - With hemodynamic stability, initiate Vital 1.2 at low rate 15ml/hr for 6 hrs. Advance as tolerated 10ml/hr q4-6 hrs to goal. - TF to meet 100% est needs. - Flush per MD. HOB over 30 degrees ADDITIONAL RECOMMENDATIONS: 1) monitor for weaning, need for non oral feeds 2) Check lytes daily, replete as needed- Mg low (1.7) 3) Maintain calibrated bed scale wts 4) CAREER DEVELOPMENT ASSOCIATE eval upon extubation.
[2019-05-10] MEDS ORDERED: Omnipaque-300 100ml vial INJ PRN (13:00)
--- NOTE | 2019-05-10 13:09 | Internal Med Progress Note ---
Subjective Date of Service: May 10, 2019 Physician Name Romeo Tavares Attending Physician Zeke Munoz MD Current Medications Medications (Trade) Dose Ordered Sig/Gautam Route PRN Reason Start Time Stop Time Status Last Admin Dose Admin Cefepime HCl 2 gm/ Dextrose 55 ml @ 110 mls/hr Q12H IVPB 05/10/19 15:00 05/17/19 14:59 Chlorhexidine Gluconate (Cherry-Hex 2%) 1 applic DAILY@2000 TOPIC 05/10/19 20:00 06/02/19 19:59 Folic Acid (Folate) 5 mg DAILY NG 05/10/19 09:00 06/03/19 10:59 Heparin Sodium (Porcine) (Heparin 5000 units/ml) 5,000 units EVERY 12 HOURS SUBQ 05/10/19 09:00 06/02/19 20:59 Iohexol (OMNIPAQUE-300 100ml) 100 ml ONCE PRN INJ RADIOLOGY 05/10/19 13:00 05/11/19 23:59 Lorazepam (Ativan 2mg/ml 1ml) 2 mg Q4H PRN IV For Anxiety 05/10/19 06:30 05/11/19 06:29 05/10/19 08:45 Midodrine (Pro-Amatine) 2.5 mg THREE TIMES A DAY NG 05/10/19 13:00 06/05/19 09:29 Norepinephrine Bitartrate 4 mg/ Dextrose 250 ml @ 0 mls/hr Q24H IV 05/10/19 06:00 06/09/19 05:59 05/10/19 06:15 Ondansetron HCl (Zofran) 4 mg Q6H PRN IVP Nausea & Vomiting 05/10/19 05:30 06/02/19 05:29 Polyethylene Glycol (Miralax) 17 gm DAILYPRN PRN ORAL Constipation 05/10/19 05:30 06/09/19 05:29 Vancomycin HCl (Vanco rx to dose) 1 ea DAILY PRN MISC Per rx protocol 05/10/19 13:00 06/09/19 12:59 Vancomycin HCl 750 mg/Dextrose 275 ml @ 183.333 mls/hr Q12HR@0400,1600 IVPB 05/10/19 16:00 05/15/19 15:59 Allergies: Coded Allergies: ACETAMINOPHEN (Verified Allergy, Unknown, 05/03/19) ASPIRIN (Verified Allergy, Unknown, 08/14/17) IBUPROFEN (Verified Allergy, Unknown, 05/03/19) PENICILLINS (Unverified Allergy, Unknown, 05/05/19) Uncoded Allergies: pain killers (Allergy, Severe, 01/28/17) ROS Limited/Unobtainable: Yes Subjective 74 YO F admitted with respiratory failure. Now Link Heart Failure. Extubated 05/07/19; reintubated early 05/10/19. Cover for Int [facility]-Dr Munoz. ICU Objective Last Vital Signs Date Time Temp Pulse Resp B/P (MAP) Pulse Ox O2 Delivery O2 Flow Rate FiO2 05/10/19 12:00 Mechanical Ventilator Mechanical Ventilator 05/10/19 12:00 73 05/10/19 12:00 100 05/10/19 11:20 16 05/10/19 06:45 141/67 (91) 100 05/10/19 05:13 97.5 05/09/19 12:00 4.0 Laboratory Tests Test 05/10/19 03:05 05/10/19 04:41 White Blood Count 15.4 K/UL (4.8-10.8) #H Red Blood Count 3.36 M/UL (4.20-5.40) L Hemoglobin 10.4 G/DL (12.0-16.0) L Hematocrit 33.5 % (37.0-47.0) L Mean Corpuscular Volume 100 FL (80-99) H Mean Corpuscular Hemoglobin 30.9 PG (27.0-31.0) Mean Corpuscular Hemoglobin Concent 31.0 G/DL (32.0-36.0) L Red Cell Distribution Width 19.6 % (11.6-14.8) H Platelet Count 106 K/UL (150-450) #L Mean Platelet Volume 7.1 FL (6.5-10.1) Neutrophils (%) (Auto) % (45.0-75.0) Lymphocytes (%) (Auto) % (20.0-45.0) Monocytes (%) (Auto) % (1.0-10.0) Eosinophils (%) (Auto) % (0.0-3.0) Basophils (%) (Auto) % (0.0-2.0) Differential Total Cells Counted 100 Neutrophils % (Manual) 90 % (45-75) H Lymphocytes % (Manual) 3 % (20-45) L Monocytes % (Manual) 7 % (1-10) Eosinophils % (Manual) 0 % (0-3) Basophils % (Manual) 0 % (0-2) Band Neutrophils 0 % (0-8) Platelet Estimate Decreased L Platelet Morphology Normal Anisocytosis 1+ Sodium Level 144 MMOL/L (136-145) Potassium Level 4.4 MMOL/L (3.5-5.1) Chloride Level 107 MMOL/L (98-107) Carbon Dioxide Level 37 MMOL/L (21-32) H Anion Gap 0 mmol/L (5-15) L Blood Urea Nitrogen 16 mg/dL (7-18) Creatinine 0.6 MG/DL (0.55-1.30) Estimat Glomerular Filtration Rate mL/min (>60) Glucose Level 96 MG/DL (74-106) Calcium Level 8.5 MG/DL (8.5-10.1) Phosphorus Level 3.7 MG/DL (2.5-4.9) Magnesium Level 1.7 MG/DL (1.8-2.4) L Total Bilirubin 1.3 MG/DL (0.2-1.0) H Direct Bilirubin 0.5 MG/DL (0.0-0.3) H Aspartate Amino Transf (AST/SGOT) 31 U/L (15-37) Alanine Aminotransferase (ALT/SGPT) 23 U/L (12-78) Alkaline Phosphatase 82 U/L (46-116) Pro-B-Type Natriuretic Peptide 68845 pg/mL (0-125) H Total Protein 7.5 G/DL (6.4-8.2) Albumin 2.4 G/DL (3.4-5.0) L Globulin 5.1 g/dL Albumin/Globulin Ratio 0.5 (1.0-2.7) L Arterial Blood pH 7.022 (7.350-7.450) Arterial Blood Partial Pressure CO2 154.3 mmHg (35.0-45.0) *H Arterial Blood Partial Pressure O2 73.4 mmHg (75.0-100.0) L Arterial Blood HCO3 39.1 mmol/L (22.0-26.0) H Arterial Blood Oxygen Saturation 87.0 % (95-100) *L Arterial Blood Base Excess 4.3 (-2-2) H Raghavendra Test Positive Intake and Output 05/09/19 05/10/19 19:00 07:00 Intake Total 75 ml Output Total 250 ml Balance -175 ml IV Total 75 ml Output Urine Total 250 ml Objective PHYSICAL EXAMINATION: GENERAL: The patient is a thin-appearing female, who is currently intubated and sedated in the intensive care unit. HEENT: Eyes, pupils are equal and responsive to light and accommodation. Extraocular movements are intact. NECK: Supple without lymphadenopathy. CHEST: Mechanical vent; Coarse breath sounds bilaterally without wheezes or rales. CARDIOVASCULAR: Regular rhythm and rate. S1 and S2 are normal without murmurs, rubs, or gallops. ABDOMEN: Soft, nontender, and nondistended with positive bowel sounds. No evidence of hepatosplenomegaly, rebound, or guarding noted. EXTREMITIES: Negative for clubbing, cyanosis, or edema. RECTAL/GENITAL: Refused. NEUROLOGIC: Unable to assess secondary to intubation. Assessment/Plan Assessment/Plan ASSESSMENT: This is a 74-year-old female. 1. Respiratory failure. 2. Acute exacerbation of congestive heart failure. 3. Chronic obstructive pulmonary disease. 4. Hypertension. 5. Hypercholesterolemia. TREATMENT: 1. Respiratory failure. A Pulmonary consultation has been obtained with Dr. Jamal Medina. The patient is currently reintubated 05/10/19 in ICU. Respiratory failure may be secondary to congestive heart failure. Continue cefepime and vancomycin per Inf Dis=Dr. Minaya 2. Congestive heart failure. A Cardiology consultation has been obtained with Dr. Philipp Ahmadi. The patient is currently receiving Lasix intravenously. We will follow recommendations of Cardiology. 3. Hypercholesterolemia. Continue atorvastatin as above. 4. Hypertension. The patient is currently hypotensive. Hold antihypertensive medication at this time. Continue levophed Romeo Tavares MD May 10, 2019 13:09
--- NOTE | 2019-05-10 13:53 | Diagnostic Imaging Report ---
Indication: NG tube placement Comparison: None Single view of the abdomen obtained Findings: NG tube tip is in the stomach. The proximal port is in the upper part of the stomach. Extensive infiltrates demonstrated within the lungs. There is a distal aorta left iliac stent. Bowel gas pattern is nonspecific. IMPRESSION: NG tube satisfactory in position
[2019-05-10] MEDS: Cefepime HCl 2 GM in D5W 55 ML IVPB SCH (14:56)
--- NOTE | 2019-05-10 15:09 | NUR ---
NURSE NOTES: cefepime 2g ivpb hanging. pt resting, cleaned, repositioned, replaced purewick, draining dark celsa with strong odor. vss. levophed at 2mch/kg/hr. unable to turn off pt sbp drops to 86/44. will continue to monitor pt.
[2019-05-10] MEDS: Vancomycin 750mg/D5W 275ml IVPB SCH ×2 (15:34)
--- NOTE | 2019-05-10 16:12 | Diagnostic Imaging Report ---
Indication: Dyspnea Comparison: 05/10/2019 A single view chest radiograph was obtained. Findings: Pulmonary edema demonstrated once again. The left lung is better inflated after repositioning of endotracheal tube which is now about 2 cm above the loni. Persistent left basilar effusion and atelectasis suspected. IMPRESSION: Endotracheal tube in good position. Interval reexpansion of the left upper lobe with significant residual atelectasis left lung base as well as a suspected pleural effusion. Pulmonary edema
--- NOTE | 2019-05-10 16:20 | NUR ---
NURSE NOTES: late entry: PT IN BED. DROWSY. VSS. NO S/S OF DISTRESS. PT INTUBATED: ETTUBE 7.5, 21CM AT LIP. VENT SETTINGS AC14, VT 450, PEEP 5, FI02 100%. NSR.LUNG SOUNDS DIMINISHED, BILATERAL RHONCHI. SECRETIONS THICK, KO, PINKISH. BOWEL SOUNDS HYPOACTIVE. NO BM AT THIS TIME. OGT PLACED, CLAMPED. RT SUBCLAVIAN TLC RUNNING LEVOPHED AT 2MCG/KG/MIN. LT AC AND RT FA 22G TKO PATENT. CONTACT PRECAUTIONS IN PLACE. BED ALARM ON, LOCKED AND IN LOWEST POSITION. SIDE RAILS UP X2. BILATERAL SOFT WRIST RESTRAINTS, CIRCULATION CHECK AND R.O.M ALLOWED, WILL CONTINUE TO MONITOR PT. PT FAMILY AT BEDSIDE. WAS UPDATED ON STATUS.
--- NOTE | 2019-05-10 17:30 | Infectious Diseases Prog Note ---
Assessment/Plan Assessment/Plan Afebrile Leukocytosis 05/10 reintubation 05/10 bcx: P sputum cx: P CXR: Complete atelectasis of the left lung. Pulmonary edema Afebrile No leukocytosis Lactate 1.2 dopamine, SP Hypoxic Respiratory failure PNA? Pulm edema 05/03 Flu swab negative 05/03 sputum cx: ngtd 05/03 CXR: Moderate to severe pulmonary edema. Bilateral pleural effusions 05/03 CXR: Diffuse airspace disease may be due to pulmonary edema. Small bilateral pleural effusions. Tubes and lines satisfactory 05/04 CXR: Improved bilateral pleural effusions, over one day 05/05 CXR: Bilateral interstitial and hazy airspace disease persists, unchanged. Probable small left pleural effusion is again demonstrated. The heart size is upper limits normal. No significant interim change 05/06 CXR: Stable to minimally improved bilateral interstitial and airspace disease, over one day. Otherwise stable findings as described. 05/07 CXR: Interstitial pneumonitis versus CHF. No change UA negative r/o bacteremia 05/03 Bcx: ngtd 05/03 TTE: EF 60%.No pericardial effusion. AV calcification with decreased cusp excursion c/w aortic stenosis. Heavily thickened mitral valve leaflets with reduced excursion. Echogenic material noted on posterior mitral valve leaflet is likely calcified mitral annular structure. Heavy mitral annulus and aortic root calcification. Pulmonic valve not well visualized. Normal tricuspid valve structure. VRE colonization MRSA colonization new subclavian central line placed in ED no sorensen COPD CHF Hep C cirrhosis GERD Plan: cefepime and vancomycin #1 05/07 DC Ertapenem #5 05/06 DC Vancomycin #4 05/05 DC Amikacin #3 SP Zosyn and Vanc monitor CXR monitor temp monitor CBC steroids per pulm repeat blood cx, sputum cx CT chest once stable Thank you for this consult. [facility] will continue to follow the patient with you. Subjective Allergies: Coded Allergies: ACETAMINOPHEN (Verified Allergy, Unknown, 05/03/19) ASPIRIN (Verified Allergy, Unknown, 08/14/17) IBUPROFEN (Verified Allergy, Unknown, 05/03/19) PENICILLINS (Unverified Allergy, Unknown, 05/05/19) Uncoded Allergies: pain killers (Allergy, Severe, 01/28/17) Subjective Afebrile. Pt was doing well but then early this morning, pt became altered, desatted. Rapid response. CO2 high. intubated. Currently 100% FiO2. levophed 2, decrasing. coarse braths ounds Objective Vital Signs Last 24 Hour Vital Signs Date Time Temp Pulse Resp B/P (MAP) Pulse Ox O2 Delivery O2 Flow Rate FiO2 05/10/19 16:53 69 16 100 05/10/19 15:30 64 16 118/48 (71) 100 05/10/19 15:20 68 16 100 05/10/19 15:00 67 16 108/50 (69) 100 05/10/19 15:00 103/44 05/10/19 14:30 67 16 103/44 (63) 100 05/10/19 14:00 66 16 110/44 (66) 100 05/10/19 13:30 68 16 122/38 (66) 100 05/10/19 13:30 66 16 100 05/10/19 13:00 67 16 116/43 (67) 100 05/10/19 12:30 71 16 117/43 (67) 05/10/19 12:00 Mechanical Ventilator Mechanical Ventilator 05/10/19 12:00 98.6 69 16 120/43 (68) 05/10/19 12:00 73 05/10/19 12:00 100 05/10/19 11:30 73 16 109/53 (71) 100 05/10/19 11:20 71 16 100 05/10/19 11:00 72 16 107/52 (70) 100 05/10/19 10:30 73 16 107/52 (70) 100 05/10/19 10:00 71 16 115/59 (77) 100 05/10/19 09:30 77 16 141/52 (81) 100 05/10/19 09:30 77 16 100 05/10/19 09:00 67 17 145/37 (73) 100 05/10/19 08:30 69 18 161/48 (85) 100 05/10/19 08:00 70 05/10/19 08:00 66 18 152/69 (96) 100 05/10/19 08:00 Mechanical Ventilator Mechanical Ventilator 05/10/19 07:30 65 16 165/62 (96) 100 05/10/19 07:00 97.8 65 16 182/68 (106) 100 05/10/19 06:45 76 18 141/67 (91) 100 05/10/19 06:41 70 15 100 05/10/19 06:30 77 16 124/53 (76) 95 05/10/19 06:15 66/36 05/10/19 06:15 87 20 180/57 (98) 97 05/10/19 06:11 84 19 155/86 (109) 99 05/10/19 06:00 85 14 66/36 (46) 100 05/10/19 05:45 84 15 65/38 (47) 99 05/10/19 05:43 105 05/10/19 05:35 86 16 60/38 (45) 98 05/10/19 05:30 87 15 64/42 (49) 98 05/10/19 05:25 88 15 63/39 (47) 97 05/10/19 05:22 95 16 100 05/10/19 05:19 91 16 71/46 (54) 97 05/10/19 05:15 94 17 62/44 (50) 97 05/10/19 05:13 97.5 94 65/28 (40) 05/10/19 05:00 100 05/10/19 05:00 Bi-pap Bi-pap 05/10/19 04:00 30 05/10/19 04:00 98.0 107 24 119/60 (79) 92 05/10/19 04:00 Bi-pap Bi-pap 05/10/19 03:24 107 05/10/19 02:50 107 28 89 Facial 100 05/10/19 01:00 104 23 96 Facial 40 05/10/19 00:00 30 05/10/19 00:00 97.9 107 22 112/60 (77) 97 05/10/19 00:00 Bi-pap Bi-pap 05/09/19 23:49 105 05/09/19 22:20 111 25 94 Facial 40 05/09/19 20:36 107 28 95 Facial 40 05/09/19 20:00 97.7 108 24 102/54 (70) 94 05/09/19 20:00 Bi-pap Bi-pap 05/09/19 20:00 30 05/09/19 19:51 108 05/09/19 19:08 110 30 94 Facial 40 05/09/19 19:07 110 30 95 Bi-Pap 40 Height (Feet): 5 Height (Inches): 3.00 Weight (Pounds): 115 Objective Gen: NAD HEENT: anicteric sclera CV: RRR Resp: RRR. no wheezes. coarse Abd: soft. normoactive Bs+ Neuro: sedated Laboratory Tests Test 05/10/19 03:05 05/10/19 04:41 White Blood Count 15.4 K/UL (4.8-10.8) #H Red Blood Count 3.36 M/UL (4.20-5.40) L Hemoglobin 10.4 G/DL (12.0-16.0) L Hematocrit 33.5 % (37.0-47.0) L Mean Corpuscular Volume 100 FL (80-99) H Mean Corpuscular Hemoglobin 30.9 PG (27.0-31.0) Mean Corpuscular Hemoglobin Concent 31.0 G/DL (32.0-36.0) L Red Cell Distribution Width 19.6 % (11.6-14.8) H Platelet Count 106 K/UL (150-450) #L Mean Platelet Volume 7.1 FL (6.5-10.1) Neutrophils (%) (Auto) % (45.0-75.0) Lymphocytes (%) (Auto) % (20.0-45.0) Monocytes (%) (Auto) % (1.0-10.0) Eosinophils (%) (Auto) % (0.0-3.0) Basophils (%) (Auto) % (0.0-2.0) Differential Total Cells Counted 100 Neutrophils % (Manual) 90 % (45-75) H Lymphocytes % (Manual) 3 % (20-45) L Monocytes % (Manual) 7 % (1-10) Eosinophils % (Manual) 0 % (0-3) Basophils % (Manual) 0 % (0-2) Band Neutrophils 0 % (0-8) Platelet Estimate Decreased L Platelet Morphology Normal Anisocytosis 1+ Sodium Level 144 MMOL/L (136-145) Potassium Level 4.4 MMOL/L (3.5-5.1) Chloride Level 107 MMOL/L (98-107) Carbon Dioxide Level 37 MMOL/L (21-32) H Anion Gap 0 mmol/L (5-15) L Blood Urea Nitrogen 16 mg/dL (7-18) Creatinine 0.6 MG/DL (0.55-1.30) Estimat Glomerular Filtration Rate mL/min (>60) Glucose Level 96 MG/DL (74-106) Calcium Level 8.5 MG/DL (8.5-10.1) Phosphorus Level 3.7 MG/DL (2.5-4.9) Magnesium Level 1.7 MG/DL (1.8-2.4) L Total Bilirubin 1.3 MG/DL (0.2-1.0) H Direct Bilirubin 0.5 MG/DL (0.0-0.3) H Aspartate Amino Transf (AST/SGOT) 31 U/L (15-37) Alanine Aminotransferase (ALT/SGPT) 23 U/L (12-78) Alkaline Phosphatase 82 U/L (46-116) Pro-B-Type Natriuretic Peptide 37066 pg/mL (0-125) H Total Protein 7.5 G/DL (6.4-8.2) Albumin 2.4 G/DL (3.4-5.0) L Globulin 5.1 g/dL Albumin/Globulin Ratio 0.5 (1.0-2.7) L Arterial Blood pH 7.022 (7.350-7.450) Arterial Blood Partial Pressure CO2 154.3 mmHg (35.0-45.0) *H Arterial Blood Partial Pressure O2 73.4 mmHg (75.0-100.0) L Arterial Blood HCO3 39.1 mmol/L (22.0-26.0) H Arterial Blood Oxygen Saturation 87.0 % (95-100) *L Arterial Blood Base Excess 4.3 (-2-2) H Raghavendra Test Positive Current Medications Medications (Trade) Dose Ordered Sig/Gautam Route PRN Reason Start Time Stop Time Status Last Admin Dose Admin Cefepime HCl 2 gm/ Dextrose 55 ml @ 110 mls/hr Q12H IVPB 05/10/19 15:00 05/17/19 14:59 05/10/19 14:56 Chlorhexidine Gluconate (Cherry-Hex 2%) 1 applic DAILY@2000 TOPIC 05/10/19 20:00 06/02/19 19:59 Folic Acid (Folate) 5 mg DAILY NG 05/10/19 09:00 06/03/19 10:59 Heparin Sodium (Porcine) (Heparin 5000 units/ml) 5,000 units EVERY 12 HOURS SUBQ 05/10/19 09:00 06/02/19 20:59 Iohexol (OMNIPAQUE-300 100ml) 100 ml ONCE PRN INJ RADIOLOGY 05/10/19 13:00 05/11/19 23:59 Lorazepam (Ativan 2mg/ml 1ml) 2 mg Q4H PRN IV For Anxiety 05/10/19 06:30 05/11/19 06:29 05/10/19 08:45 Midodrine (Pro-Amatine) 2.5 mg THREE TIMES A DAY NG 05/10/19 13:00 06/05/19 09:29 Norepinephrine Bitartrate 4 mg/ Dextrose 250 ml @ 0 mls/hr Q24H IV 05/10/19 06:00 06/09/19 05:59 05/10/19 15:00 Ondansetron HCl (Zofran) 4 mg Q6H PRN IVP Nausea & Vomiting 05/10/19 05:30 06/02/19 05:29 Polyethylene Glycol (Miralax) 17 gm DAILYPRN PRN ORAL Constipation 05/10/19 05:30 06/09/19 05:29 Vancomycin HCl (Vanco rx to dose) 1 ea DAILY PRN MISC Per rx protocol 05/10/19 13:00 06/09/19 12:59 Vancomycin HCl 750 mg/Dextrose 275 ml @ 183.333 mls/hr Q12HR@0400,1600 IVPB 05/10/19 16:00 05/15/19 15:59 05/10/19 15:34 Yazan Minaya MD May 10, 2019 17:30
--- NOTE | 2019-05-10 18:00 | NUR ---
NURSE NOTES: PT REQUESTING CHANGE IN CODE STATUS. DNR/DNI, COMFORT MEASURES WHEN NEEDED. NO DRASTIC MEASURES LIKE TRACH AND GT. POLST WILL BE UPDATED AND CN AWARE.
--- NOTE | 2019-05-10 19:45 | NUR ---
NURSE NOTES: pt asleep and sedated on binh soft restraint nan complaint sr on levo drip at 2mcg /min infusing rt subcla tlc dressing dry and intact reposition and suction no acute respiratory distress noted
--- NOTE | 2019-05-10 19:50 | NUR ---
HAND-OFF: Report given to LUI DACOSTA. ENDORSED TUBE FEEDING. PT IN NO ACUTE DISTRESS.
--- NOTE | 2019-05-10 20:00 | NUR ---
NURSE NOTES:received lethargic open eyes to touch on binh soft restraints nan complaint
--- NOTE | 2019-05-10 20:34 | Cardiology Progress Note ---
Assessment/Plan Assessment/Plan 1. Paroxysmal episodes of atrial fibrillation. 2. Severe left ventricular hypertrophy with left ventricular outflow tract, mild obstruction. 3. Severe aortic regurgitation. 4. Severe mitral stenosis/regurgitation. 5. Pulmonary hypertension. 6. Anemia. 7. Respiratory failure secondary to congestive heart failure. 8. History of recent GI bleeding, site undetermined. 9. Sinus bradycardia with abnormal T-waves. 10. Autoimmune hepatitis history. 11. History of severe COPD, on home O2. 12. Cirrhosis and portal hypertension. 13. History of hepatitis C. 14. Thrombocytopenia. richardson respir ffialure was intubed has lef lung infiltrae seeem to be in sinus diureitc prn tele sinus labs noted d/w rn s/p mg sulfate await ct when feasisble now dnr per staff Subjective ROS Limited/Unobtainable: Yes Subjective on the vent Objective Last 24 Hour Vital Signs Date Time Temp Pulse Resp B/P (MAP) Pulse Ox O2 Delivery O2 Flow Rate FiO2 05/10/19 19:30 71 16 106/53 (70) 100 05/10/19 19:00 72 16 104/52 (69) 99 05/10/19 18:58 70 16 100 05/10/19 18:29 69 16 111/50 (70) 100 05/10/19 18:00 68 16 112/49 (70) 100 05/10/19 17:30 68 16 105/54 (71) 100 05/10/19 17:00 69 16 127/52 (77) 100 05/10/19 16:53 69 16 100 05/10/19 16:30 71 16 112/49 (70) 100 05/10/19 16:00 Mechanical Ventilator Mechanical Ventilator 05/10/19 16:00 100 05/10/19 16:00 70 05/10/19 16:00 97.8 67 16 100/49 (66) 100 05/10/19 15:30 64 16 118/48 (71) 100 05/10/19 15:20 68 16 100 05/10/19 15:00 67 16 108/50 (69) 100 05/10/19 15:00 103/44 05/10/19 14:30 67 16 103/44 (63) 100 05/10/19 14:00 66 16 110/44 (66) 100 05/10/19 13:30 68 16 122/38 (66) 100 05/10/19 13:30 66 16 100 05/10/19 13:00 67 16 116/43 (67) 100 05/10/19 12:30 71 16 117/43 (67) 05/10/19 12:00 Mechanical Ventilator Mechanical Ventilator 05/10/19 12:00 98.6 69 16 120/43 (68) 05/10/19 12:00 73 05/10/19 12:00 100 05/10/19 11:30 73 16 109/53 (71) 100 05/10/19 11:20 71 16 100 05/10/19 11:00 72 16 107/52 (70) 100 05/10/19 10:30 73 16 107/52 (70) 100 05/10/19 10:00 71 16 115/59 (77) 100 05/10/19 09:30 77 16 141/52 (81) 100 05/10/19 09:30 77 16 100 05/10/19 09:00 67 17 145/37 (73) 100 05/10/19 08:30 69 18 161/48 (85) 100 05/10/19 08:00 70 05/10/19 08:00 66 18 152/69 (96) 100 05/10/19 08:00 Mechanical Ventilator Mechanical Ventilator 05/10/19 07:30 65 16 165/62 (96) 100 05/10/19 07:00 97.8 65 16 182/68 (106) 100 05/10/19 06:45 76 18 141/67 (91) 100 05/10/19 06:41 70 15 100 05/10/19 06:30 77 16 124/53 (76) 95 05/10/19 06:15 66/36 05/10/19 06:15 87 20 180/57 (98) 97 05/10/19 06:11 84 19 155/86 (109) 99 05/10/19 06:00 85 14 66/36 (46) 100 05/10/19 05:45 84 15 65/38 (47) 99 05/10/19 05:43 105 05/10/19 05:35 86 16 60/38 (45) 98 05/10/19 05:30 87 15 64/42 (49) 98 05/10/19 05:25 88 15 63/39 (47) 97 05/10/19 05:22 95 16 100 05/10/19 05:19 91 16 71/46 (54) 97 05/10/19 05:15 94 17 62/44 (50) 97 05/10/19 05:13 97.5 94 65/28 (40) 05/10/19 05:00 100 05/10/19 05:00 Bi-pap Bi-pap 05/10/19 04:00 30 05/10/19 04:00 98.0 107 24 119/60 (79) 92 05/10/19 04:00 Bi-pap Bi-pap 05/10/19 03:24 107 05/10/19 02:50 107 28 89 Facial 100 05/10/19 01:00 104 23 96 Facial 40 05/10/19 00:00 30 05/10/19 00:00 97.9 107 22 112/60 (77) 97 05/10/19 00:00 Bi-pap Bi-pap 05/09/19 23:49 105 05/09/19 22:20 111 25 94 Facial 40 05/09/19 20:36 107 28 95 Facial 40 General Appearance: no apparent distress, on vent, patient on isolation Cardiovascular: normal rate, systolic murmur Respiratory/Chest: lungs clear Abdomen: normal bowel sounds, non tender, soft Extremities: no swelling Intake and Output 05/09/19 05/10/19 18:59 06:59 Output Total 250 ml Balance -250 ml Output Urine Total 250 ml Laboratory Tests Test 05/10/19 03:05 05/10/19 04:41 White Blood Count 15.4 K/UL (4.8-10.8) #H Red Blood Count 3.36 M/UL (4.20-5.40) L Hemoglobin 10.4 G/DL (12.0-16.0) L Hematocrit 33.5 % (37.0-47.0) L Mean Corpuscular Volume 100 FL (80-99) H Mean Corpuscular Hemoglobin 30.9 PG (27.0-31.0) Mean Corpuscular Hemoglobin Concent 31.0 G/DL (32.0-36.0) L Red Cell Distribution Width 19.6 % (11.6-14.8) H Platelet Count 106 K/UL (150-450) #L Mean Platelet Volume 7.1 FL (6.5-10.1) Neutrophils (%) (Auto) % (45.0-75.0) Lymphocytes (%) (Auto) % (20.0-45.0) Monocytes (%) (Auto) % (1.0-10.0) Eosinophils (%) (Auto) % (0.0-3.0) Basophils (%) (Auto) % (0.0-2.0) Differential Total Cells Counted 100 Neutrophils % (Manual) 90 % (45-75) H Lymphocytes % (Manual) 3 % (20-45) L Monocytes % (Manual) 7 % (1-10) Eosinophils % (Manual) 0 % (0-3) Basophils % (Manual) 0 % (0-2) Band Neutrophils 0 % (0-8) Platelet Estimate Decreased L Platelet Morphology Normal Anisocytosis 1+ Sodium Level 144 MMOL/L (136-145) Potassium Level 4.4 MMOL/L (3.5-5.1) Chloride Level 107 MMOL/L (98-107) Carbon Dioxide Level 37 MMOL/L (21-32) H Anion Gap 0 mmol/L (5-15) L Blood Urea Nitrogen 16 mg/dL (7-18) Creatinine 0.6 MG/DL (0.55-1.30) Estimat Glomerular Filtration Rate mL/min (>60) Glucose Level 96 MG/DL (74-106) Calcium Level 8.5 MG/DL (8.5-10.1) Phosphorus Level 3.7 MG/DL (2.5-4.9) Magnesium Level 1.7 MG/DL (1.8-2.4) L Total Bilirubin 1.3 MG/DL (0.2-1.0) H Direct Bilirubin 0.5 MG/DL (0.0-0.3) H Aspartate Amino Transf (AST/SGOT) 31 U/L (15-37) Alanine Aminotransferase (ALT/SGPT) 23 U/L (12-78) Alkaline Phosphatase 82 U/L (46-116) Pro-B-Type Natriuretic Peptide 11879 pg/mL (0-125) H Total Protein 7.5 G/DL (6.4-8.2) Albumin 2.4 G/DL (3.4-5.0) L Globulin 5.1 g/dL Albumin/Globulin Ratio 0.5 (1.0-2.7) L Arterial Blood pH 7.022 (7.350-7.450) Arterial Blood Partial Pressure CO2 154.3 mmHg (35.0-45.0) *H Arterial Blood Partial Pressure O2 73.4 mmHg (75.0-100.0) L Arterial Blood HCO3 39.1 mmol/L (22.0-26.0) H Arterial Blood Oxygen Saturation 87.0 % (95-100) *L Arterial Blood Base Excess 4.3 (-2-2) H Raghavendra Test Positive Philipp Ahmadi MD May 10, 2019 20:33
[2019-05-10] MEDS: Dyna-Hex 2% Top Sol 2oz TOPIC SCH (20:44)
--- NOTE | 2019-05-10 22:00 | NUR ---
NURSE NOTES: dr orozco in see reposition and suction tolerating tube feeding no residual
[2019-05-11] VITALS (31 sets, daily range): BP systolic 92–136; BP diastolic 25–59
--- NOTE | 2019-05-11 | NUR ---
NURSE NOTES: reposition and suction no acute distress noted
--- NOTE | 2019-05-11 02:00 | NUR ---
NURSE NOTES: asleep no acute distress noted
--- NOTE | 2019-05-11 04:00 | NUR ---
NURSE NOTES: complete bed bath oral care done reposition and suction tolerating tube feeding no acute resp distress noted on levo drip at 1mcg /min
[2019-05-11] MEDS: Cefepime HCl 2 GM in D5W 55 ML IVPB SCH ×2 (04:15→14:37)
[2019-05-11] MEDS: Vancomycin 750mg/D5W 275ml IVPB SCH ×4 (04:16→15:55)
[2019-05-11 05:14] LABS: HEMATOCRIT 24.8 % (37.0-47.0); HEMOGLOBIN 7.9 G/DL (12.0-16.0); MEAN CORPUSCULAR VOLUME 96 FL (80-99); PLATELET COUNT 85 K/UL (150-450); RED BLOOD COUNT 2.58 M/UL (4.20-5.40); RED CELL DISTRIBUTION WIDTH 18.8 % (11.6-14.8); WHITE BLOOD COUNT 10.4 K/UL (4.8-10.8)
[2019-05-11 05:52] LABS: ALANINE AMINOTRANSFERASE 15 U/L (12-78); ALBUMIN/GLOBULIN RATIO 0.5 (1.0-2.7); ALKALINE PHOSPHATASE 69 U/L (46-116); ANION GAP 4 mmol/L (5-15); ASPARTATE AMINO TRANSFERASE 26 U/L (15-37); BILIRUBIN,TOTAL 1.4 MG/DL (0.2-1.0); BLOOD UREA NITROGEN 27 mg/dL (7-18); CALCIUM 8.3 MG/DL (8.5-10.1); CARBON DIOXIDE 32 MMOL/L (21-32); CHLORIDE 108 MMOL/L (98-107); CREATININE 0.7 MG/DL (0.55-1.30); PHOSPHORUS 1.6 MG/DL (2.5-4.9); POTASSIUM 3.6 MMOL/L (3.5-5.1); SODIUM 144 MMOL/L (136-145)
--- NOTE | 2019-05-11 06:00 | NUR ---
NURSE NOTES: reposition and suction levo drip at 1 mcg /min on binh soft restraint nan complaint
[2019-05-11 06:27] LABS: BILIRUBIN,DIRECT 0.5 MG/DL (0.0-0.3)
--- NOTE | 2019-05-11 07:06 | NUR ---
RESPIRATORY NOTE: Received pt on ETT 7.5@20cm lip line, secured with anchor fast, with current vent settings: AC 16-500-100%- peep 5. Pt is awake, alert, able to follow simple commands. No SOB or resp distress noted at this time. Alarms are set and audible, vent is plugged into the red outlet, ambu bag is at bedside. Vent circuits and suction tubing are secured and out of the way. Will continue to monitor pt.
--- NOTE | 2019-05-11 07:30 | NUR ---
HAND-OFF: Report given to [].
--- NOTE | 2019-05-11 07:30 | NUR ---
NURSE NOTES: Received report from PRANEETH Bates. Patient asleep and open eyes to verbal and tactile stimuli. SR on the monitor. ETT 7.5/21cm at lip line with vent setting AC 14, VT 450, Peep 5 and FiO2 100%. OGT intact, patent and running with Vital 1.2 30ml/hr. Right subclavian TLC intact, clean and patent, TKO. Just held levophed. Bilateral soft wrist band restraints noted. Skin intact and clean on wrist area. Hands are warm to touch. Kept dry, clean and comfortable. Will continue plan of care.
--- NOTE | 2019-05-11 08:02 | NUR ---
NURSE NOTES: Repositioned patient and oral care provided. BP is stable since held levophed. Will continue to monitor closely.
[2019-05-11] MEDS: Heparin 5000 units/ml inj SUBQ SCH ×2 (08:24→20:47)
--- NOTE | 2019-05-11 08:56 | NUR ---
RADIOLOGU DEPT., CHEST X-RAY DONE.-P.DYE
--- NOTE | 2019-05-11 09:16 | NUR ---
RESPIRATORY NOTE: No weaning today due to high FiO2 100%. Will titrated FiO2 down during the shift. PRANEETH Burger aware.
--- NOTE | 2019-05-11 09:55 | NUR ---
NURSE NOTES: Seen by Dr. Medina and assessed patient.
--- NOTE | 2019-05-11 10:02 | NUR ---
NURSE NOTES: Called son for CT chest w/ contrast. No answer. Will follow up.
--- NOTE | 2019-05-11 10:09 | Pulmonolgy Critical Care Note ---
Critical Care - Asmt/Plan Problems: (1) Acute respiratory failure (2) Acute pulmonary edema (3) COPD (chronic obstructive pulmonary disease) (4) Severe protein-calorie malnutrition (5) Nosocomial pneumonia (6) Edema of both feet Respiratory: monitor respiratory rate, adjust FIO2, CXR, other - left lung opened up. Cardiac: continue to monitor HR/BP Renal: F/U I&O, keep IV fluid Infectious Disease: check cultures, continue antibiotics Gastrointestinal: continue feedings/current rate Endocrine: monitor blood sugar Hematologic: monitor H/H, transfuse if hgb<8.5 Neurologic: PRN Ativan, keep patient comfortable Prophylaxis: Protonix, Heparin Disposition: keep in ICU Time Spent (Minutes): 40 Notes Reviewed: renal Discussed with: nurses, consultants, pillowcase makersales activity manager - Objective Last 24 Hour Vital Signs Date Time Temp Pulse Resp B/P (MAP) Pulse Ox O2 Delivery O2 Flow Rate FiO2 05/11/19 09:58 70 05/11/19 09:16 65 16 100 05/11/19 09:00 67 16 98/57 (71) 100 05/11/19 08:00 Mechanical Ventilator Mechanical Ventilator 05/11/19 08:00 98.4 65 16 119/50 (73) 100 05/11/19 08:00 100 05/11/19 07:06 65 16 100 05/11/19 07:00 62 16 104/53 (70) 100 05/11/19 06:30 65 16 104/44 (64) 100 05/11/19 06:00 67 16 114/37 (62) 100 05/11/19 06:00 104/60 05/11/19 05:30 66 16 111/49 (69) 100 05/11/19 05:05 64 16 100 05/11/19 05:00 111/49 05/11/19 05:00 63 16 120/46 (70) 100 05/11/19 04:30 77 29 124/25 (58) 98 05/11/19 04:00 104/60 05/11/19 04:00 97.8 76 14 114/57 (76) 100 05/11/19 04:00 100 05/11/19 04:00 76 14 114/57 (76) 100 05/11/19 04:00 Mechanical Ventilator Mechanical Ventilator 05/11/19 04:00 73 05/11/19 03:30 71 16 129/41 (70) 99 05/11/19 03:30 71 16 129/41 (70) 99 05/11/19 03:22 68 16 100 05/11/19 03:00 70 16 124/48 (73) 100 05/11/19 03:00 127/76 05/11/19 03:00 70 16 124/48 (73) 100 05/11/19 02:30 73 16 127/57 (80) 100 05/11/19 02:30 73 16 127/57 (80) 100 05/11/19 02:15 74 17 100 05/11/19 02:00 69 16 124/56 (78) 100 05/11/19 02:00 121/56 05/11/19 02:00 75 16 131/51 (77) 100 05/11/19 01:45 78 17 100 05/11/19 01:30 69 16 121/56 (77) 100 05/11/19 01:30 69 16 136/50 (78) 100 05/11/19 01:17 71 16 100 05/11/19 01:15 79 17 100 05/11/19 01:00 126/59 05/11/19 01:00 73 16 128/59 (82) 100 05/11/19 01:00 73 16 128/59 (82) 100 05/11/19 00:45 74 16 100 05/11/19 00:30 79 16 127/53 (77) 100 05/11/19 00:30 79 16 127/53 (77) 100 05/11/19 00:15 73 16 100 05/11/19 00:00 Mechanical Ventilator Mechanical Ventilator 05/11/19 00:00 100 05/11/19 00:00 69 16 121/55 (77) 100 05/11/19 00:00 121/55 05/11/19 00:00 97.6 69 16 121/55 (77) 100 05/11/19 00:00 73 05/10/19 23:30 66 16 121/53 (75) 100 05/10/19 23:00 123/48 05/10/19 23:00 66 16 119/48 (71) 100 05/10/19 22:44 67 16 100 05/10/19 22:30 68 16 128/48 (74) 100 05/10/19 22:00 67 16 114/50 (71) 99 05/10/19 21:30 68 16 112/51 (71) 100 05/10/19 21:00 72 16 112/55 (74) 100 05/10/19 21:00 112/55 05/10/19 21:00 72 16 100 05/10/19 20:30 72 16 107/53 (71) 100 05/10/19 20:00 100 05/10/19 20:00 97.8 73 16 107/54 (71) 100 05/10/19 20:00 73 05/10/19 20:00 106/53 05/10/19 20:00 Mechanical Ventilator Mechanical Ventilator 05/10/19 19:30 71 16 106/53 (70) 100 05/10/19 19:00 72 16 104/52 (69) 99 05/10/19 18:58 70 16 100 05/10/19 18:29 69 16 111/50 (70) 100 05/10/19 18:00 68 16 112/49 (70) 100 05/10/19 17:30 68 16 105/54 (71) 100 05/10/19 17:00 69 16 127/52 (77) 100 05/10/19 16:53 69 16 100 05/10/19 16:30 71 16 112/49 (70) 100 05/10/19 16:00 Mechanical Ventilator Mechanical Ventilator 05/10/19 16:00 100 05/10/19 16:00 70 05/10/19 16:00 97.8 67 16 100/49 (66) 100 05/10/19 15:30 64 16 118/48 (71) 100 05/10/19 15:20 68 16 100 05/10/19 15:00 67 16 108/50 (69) 100 05/10/19 15:00 103/44 05/10/19 14:30 67 16 103/44 (63) 100 05/10/19 14:00 66 16 110/44 (66) 100 05/10/19 13:30 68 16 122/38 (66) 100 05/10/19 13:30 66 16 100 05/10/19 13:00 67 16 116/43 (67) 100 05/10/19 12:30 71 16 117/43 (67) 05/10/19 12:00 Mechanical Ventilator Mechanical Ventilator 05/10/19 12:00 98.6 69 16 120/43 (68) 05/10/19 12:00 73 05/10/19 12:00 100 05/10/19 11:30 73 16 109/53 (71) 100 05/10/19 11:20 71 16 100 05/10/19 11:00 72 16 107/52 (70) 100 05/10/19 10:30 73 16 107/52 (70) 100 Status: sedated Condition: critical HEENT: atraumatic, normocephalic Neck: full ROM Lungs: chest wall tender Heart: HR/BP stable Abdomen: soft, non-tender Extremities: no C/C/E Decubiti: location Critical Care - Subjective ROS Limited/Unobtainable: Yes Condition: critical EKG Rhythm: Sinus Rhythm FI02: 70 Vent Support Breath Rate: 16 Vent Support Mode: AC Vent Tidal Volume: 500 Sputum Amount: Small PEEP: 5.0 PIP: 32 Tube Feeding Amount: 30 I&O: Intake and Output 05/10/19 05/11/19 19:00 07:00 Intake Total 886.766 ml 702.450 ml Output Total 295 ml 300 ml Balance 591.766 ml 402.450 ml Free Water 20 ml IV Total 886.766 ml 397.450 ml Tube Feeding 285 ml Output Urine Total 295 ml 300 ml ET-Tube: 7.5 ET Position: 20 Labs: Laboratory Tests Test 05/11/19 03:10 05/11/19 09:43 White Blood Count 10.4 K/UL (4.8-10.8) Red Blood Count 2.58 M/UL (4.20-5.40) L Hemoglobin 7.9 G/DL (12.0-16.0) L Hematocrit 24.8 % (37.0-47.0) L Mean Corpuscular Volume 96 FL (80-99) Mean Corpuscular Hemoglobin 30.8 PG (27.0-31.0) Mean Corpuscular Hemoglobin Concent 32.0 G/DL (32.0-36.0) Red Cell Distribution Width 18.8 % (11.6-14.8) H Platelet Count 85 K/UL (150-450) L Mean Platelet Volume 7.6 FL (6.5-10.1) Neutrophils (%) (Auto) % (45.0-75.0) Lymphocytes (%) (Auto) % (20.0-45.0) Monocytes (%) (Auto) % (1.0-10.0) Eosinophils (%) (Auto) % (0.0-3.0) Basophils (%) (Auto) % (0.0-2.0) Differential Total Cells Counted 100 Neutrophils % (Manual) 86 % (45-75) H Lymphocytes % (Manual) 10 % (20-45) L Monocytes % (Manual) 4 % (1-10) Eosinophils % (Manual) 0 % (0-3) Basophils % (Manual) 0 % (0-2) Band Neutrophils 0 % (0-8) Platelet Estimate Decreased L Platelet Morphology Normal Anisocytosis 1+ Sodium Level 144 MMOL/L (136-145) Potassium Level 3.6 MMOL/L (3.5-5.1) Chloride Level 108 MMOL/L (98-107) H Carbon Dioxide Level 32 MMOL/L (21-32) Anion Gap 4 mmol/L (5-15) L Blood Urea Nitrogen 27 mg/dL (7-18) H Creatinine 0.7 MG/DL (0.55-1.30) Estimat Glomerular Filtration Rate mL/min (>60) Glucose Level 114 MG/DL (74-106) H Calcium Level 8.3 MG/DL (8.5-10.1) L Phosphorus Level 1.6 MG/DL (2.5-4.9) L Magnesium Level 1.8 MG/DL (1.8-2.4) Total Bilirubin 1.4 MG/DL (0.2-1.0) H Direct Bilirubin 0.5 MG/DL (0.0-0.3) H Aspartate Amino Transf (AST/SGOT) 26 U/L (15-37) Alanine Aminotransferase (ALT/SGPT) 15 U/L (12-78) Alkaline Phosphatase 69 U/L (46-116) Total Protein 6.1 G/DL (6.4-8.2) L Albumin 2.0 G/DL (3.4-5.0) L Globulin 4.1 g/dL Albumin/Globulin Ratio 0.5 (1.0-2.7) L Arterial Blood pH 7.559 (7.350-7.450) Arterial Blood Partial Pressure CO2 38.1 mmHg (35.0-45.0) Arterial Blood Partial Pressure O2 466.3 mmHg (75.0-100.0) H Arterial Blood HCO3 33.3 mmol/L (22.0-26.0) H Arterial Blood Oxygen Saturation 99.6 % (95-100) Arterial Blood Base Excess 10.2 (-2-2) *H Raghavendra Test Positive Jamal Medina MD May 11, 2019 10:09
[2019-05-11] MEDS ORDERED: Potassium Phosphate 30 MM in NS 275 ML IV ONE (11:00)
--- NOTE | 2019-05-11 12:01 | Nephrology Progress Note ---
Assessment/Plan Problem List: (1) Acute respiratory failure Assessment: now extubated (2) Electrolyte imbalance (3) Anemia (4) NSTEMI (non-ST elevated myocardial infarction) (5) COPD (chronic obstructive pulmonary disease) Assessment Acute respiratory failure, on Vent- Underlying COPD HypoNatremia , Etiology TBI , ? CHF HyperKalemia Sever Anemia NSTEMI Plan re intubated on midodrine when bp low Folate . Iron . B12 supplement Mag and K and Phos supplement as needed Pulm support Monitor renal parameters Urine studies 2D echo Left ventricular ejection fraction estimated to be 60 %. per orders Subjective ROS Limited/Unobtainable: Yes Objective Objective Last 24 Hour Vital Signs Date Time Temp Pulse Resp B/P (MAP) Pulse Ox O2 Delivery O2 Flow Rate FiO2 05/11/19 11:06 50 05/11/19 11:06 73 16 50 05/11/19 11:00 69 16 110/34 (59) 100 05/11/19 10:00 70 05/11/19 10:00 79 21 120/46 (70) 100 05/11/19 09:58 70 05/11/19 09:16 65 16 100 05/11/19 09:00 67 16 98/57 (71) 100 05/11/19 08:00 68 05/11/19 08:00 Mechanical Ventilator Mechanical Ventilator 05/11/19 08:00 98.4 65 16 119/50 (73) 100 05/11/19 08:00 100 05/11/19 07:06 65 16 100 05/11/19 07:00 62 16 104/53 (70) 100 05/11/19 07:00 104/53 05/11/19 06:30 65 16 104/44 (64) 100 05/11/19 06:00 67 16 114/37 (62) 100 05/11/19 06:00 104/60 05/11/19 05:30 66 16 111/49 (69) 100 05/11/19 05:05 64 16 100 05/11/19 05:00 111/49 05/11/19 05:00 63 16 120/46 (70) 100 05/11/19 04:30 77 29 124/25 (58) 98 05/11/19 04:00 104/60 05/11/19 04:00 97.8 76 14 114/57 (76) 100 05/11/19 04:00 100 05/11/19 04:00 76 14 114/57 (76) 100 05/11/19 04:00 Mechanical Ventilator Mechanical Ventilator 05/11/19 04:00 73 05/11/19 03:30 71 16 129/41 (70) 99 05/11/19 03:30 71 16 129/41 (70) 99 05/11/19 03:22 68 16 100 05/11/19 03:00 70 16 124/48 (73) 100 05/11/19 03:00 127/76 05/11/19 03:00 70 16 124/48 (73) 100 05/11/19 02:30 73 16 127/57 (80) 100 05/11/19 02:30 73 16 127/57 (80) 100 05/11/19 02:15 74 17 100 05/11/19 02:00 69 16 124/56 (78) 100 05/11/19 02:00 121/56 05/11/19 02:00 75 16 131/51 (77) 100 05/11/19 01:45 78 17 100 05/11/19 01:30 69 16 121/56 (77) 100 05/11/19 01:30 69 16 136/50 (78) 100 05/11/19 01:17 71 16 100 05/11/19 01:15 79 17 100 05/11/19 01:00 126/59 05/11/19 01:00 73 16 128/59 (82) 100 05/11/19 01:00 73 16 128/59 (82) 100 05/11/19 00:45 74 16 100 05/11/19 00:30 79 16 127/53 (77) 100 05/11/19 00:30 79 16 127/53 (77) 100 05/11/19 00:15 73 16 100 05/11/19 00:00 Mechanical Ventilator Mechanical Ventilator 05/11/19 00:00 100 05/11/19 00:00 69 16 121/55 (77) 100 05/11/19 00:00 121/55 05/11/19 00:00 97.6 69 16 121/55 (77) 100 05/11/19 00:00 73 05/10/19 23:30 66 16 121/53 (75) 100 05/10/19 23:00 123/48 05/10/19 23:00 66 16 119/48 (71) 100 05/10/19 22:44 67 16 100 05/10/19 22:30 68 16 128/48 (74) 100 05/10/19 22:00 67 16 114/50 (71) 99 05/10/19 21:30 68 16 112/51 (71) 100 05/10/19 21:00 72 16 112/55 (74) 100 05/10/19 21:00 112/55 05/10/19 21:00 72 16 100 05/10/19 20:30 72 16 107/53 (71) 100 05/10/19 20:00 100 05/10/19 20:00 97.8 73 16 107/54 (71) 100 05/10/19 20:00 73 05/10/19 20:00 106/53 05/10/19 20:00 Mechanical Ventilator Mechanical Ventilator 05/10/19 19:30 71 16 106/53 (70) 100 05/10/19 19:00 72 16 104/52 (69) 99 05/10/19 18:58 70 16 100 05/10/19 18:29 69 16 111/50 (70) 100 05/10/19 18:00 68 16 112/49 (70) 100 05/10/19 17:30 68 16 105/54 (71) 100 05/10/19 17:00 69 16 127/52 (77) 100 05/10/19 16:53 69 16 100 05/10/19 16:30 71 16 112/49 (70) 100 05/10/19 16:00 Mechanical Ventilator Mechanical Ventilator 05/10/19 16:00 100 05/10/19 16:00 70 05/10/19 16:00 97.8 67 16 100/49 (66) 100 05/10/19 15:30 64 16 118/48 (71) 100 05/10/19 15:20 68 16 100 05/10/19 15:00 67 16 108/50 (69) 100 05/10/19 15:00 103/44 05/10/19 14:30 67 16 103/44 (63) 100 05/10/19 14:00 66 16 110/44 (66) 100 05/10/19 13:30 68 16 122/38 (66) 100 11/11/19 13:30 66 16 100 05/10/19 13:00 67 16 116/43 (67) 100 05/10/19 12:30 71 16 117/43 (67) Intake and Output 05/10/19 05/11/19 19:00 07:00 Intake Total 886.766 ml 706.200 ml Output Total 295 ml 300 ml Balance 591.766 ml 406.200 ml Free Water 20 ml IV Total 886.766 ml 401.200 ml Tube Feeding 285 ml Output Urine Total 295 ml 300 ml Laboratory Tests 05/11/19 03:10: White Blood Count 10.4, Red Blood Count 2.58L, Hemoglobin 7.9L, Hematocrit 24.8L , Mean Corpuscular Volume 96, Mean Corpuscular Hemoglobin 30.8, Mean Corpuscular Hemoglobin Concent 32.0, Red Cell Distribution Width 18.8H, Platelet Count 85L, Mean Platelet Volume 7.6, Neutrophils (%) (Auto) , Lymphocytes (%) (Auto) , Monocytes (%) (Auto) , Eosinophils (%) (Auto) , Basophils (%) (Auto) , Differential Total Cells Counted 100, Neutrophils % ( Manual) 86H, Lymphocytes % (Manual) 10L, Monocytes % (Manual) 4, Eosinophils % ( Manual) 0, Basophils % (Manual) 0, Band Neutrophils 0, Platelet Estimate DecreasedL, Platelet Morphology Normal, Anisocytosis 1+, Sodium Level 144, Potassium Level 3.6, Chloride Level 108H, Carbon Dioxide Level 32, Anion Gap 4L , Blood Urea Nitrogen 27H, Creatinine 0.7, Estimat Glomerular Filtration Rate , Glucose Level 114H, Calcium Level 8.3L, Phosphorus Level 1.6L, Magnesium Level 1.8, Total Bilirubin 1.4H, Direct Bilirubin 0.5H, Aspartate Amino Transf (AST/ SGOT) 26, Alanine Aminotransferase (ALT/SGPT) 15, Alkaline Phosphatase 69, Total Protein 6.1L, Albumin 2.0L, Globulin 4.1, Albumin/Globulin Ratio 0.5L 05/11/19 09:43: Arterial Blood pH 7.559*H, Arterial Blood Partial Pressure CO2 38.1, Arterial Blood Partial Pressure O2 466.3H, Arterial Blood HCO3 33.3H, Arterial Blood Oxygen Saturation 99.6, Arterial Blood Base Excess 10.2*H, Raghavendra Test Positive Height (Feet): 5 Height (Inches): 3.00 Weight (Pounds): 119 General Appearance: no apparent distress EENT: other - vented Cardiovascular: normal rate Respiratory/Chest: decreased breath sounds Abdomen: distended Efra Das MD May 11, 2019 12:01
--- NOTE | 2019-05-11 12:20 | NUR ---
NURSE NOTES: Repositioned patient and oral care provided.
--- NOTE | 2019-05-11 13:25 | NUR ---
CASE MANAGEMENT:REVIEW 05/11/19 SI: ACUTE RESPIRATORY FAILURE COPD. PNA 98.4 65 16 98/57 100% ON VENT SUPPORT H/H-7.9/24.8 PLT-85 PHOS-1.6 IS: IV KPHOS X1 LEVOPHED GTT IV VANCOMYCIN Q12 IV CEFEPIME Q12 HEPARIN SQ Q12 MIDODRINE NG TID : ICU STATUS DCP: FROM [facility]
--- NOTE | 2019-05-11 14:21 | Diagnostic Imaging Report ---
Indication: Dyspnea Comparison: 05/10/2019 A single view chest radiograph was obtained. Findings: Interstitial edema vascular congestion demonstrated without significant change. Left pleural effusion may have shifted or decreased congestion. Endotracheal tube and NG tube, right subclavian catheter appear stable. IMPRESSION: Pulmonary vascular congestion without significant change. Apparent decrease in a left pleural effusion
--- NOTE | 2019-05-11 14:47 | NUR ---
*-* INSURANCE *-* ALL AVAILABLE CLINICALS AND REVIEWS HAVE BEEN FAXED TO: [facility] [phone] JIAN Toscano/[facility] [employer]#[id number] CM: BRETT #[phone] [id number] FAX#[phone] REVIEWS/CLINICALS
--- NOTE | 2019-05-11 15:30 | NUR ---
NURSE NOTES: Oral suction and ETT suction given. Bed bath given. Kept dry, clean and comfortable. Call light placed in easy reach.
--- NOTE | 2019-05-11 15:31 | Infectious Diseases Prog Note ---
Assessment/Plan Assessment/Plan Afebrile Leukocytosis 05/10 reintubation 05/10 Levophed, SP 05/10 05/10 bcx: P 05/10 sputum cx: P 05/10 CXR: Complete atelectasis of the left lung. Pulmonary edema 05/11 CXR: Pulmonary vascular congestion without significant change. Apparent decrease in a left pleural effusion. Earlier in hospital stay: Afebrile No leukocytosis Lactate 1.2 dopamine, SP Hypoxic Respiratory failure PNA? Pulm edema 05/03 Flu swab negative 05/03 sputum cx: ngtd 05/03 CXR: Moderate to severe pulmonary edema. Bilateral pleural effusions 05/03 CXR: Diffuse airspace disease may be due to pulmonary edema. Small bilateral pleural effusions. Tubes and lines satisfactory 05/04 CXR: Improved bilateral pleural effusions, over one day 05/05 CXR: Bilateral interstitial and hazy airspace disease persists, unchanged. Probable small left pleural effusion is again demonstrated. The heart size is upper limits normal. No significant interim change 05/06 CXR: Stable to minimally improved bilateral interstitial and airspace disease, over one day. Otherwise stable findings as described. 05/07 CXR: Interstitial pneumonitis versus CHF. No change UA negative r/o bacteremia 05/03 Bcx: ngtd 05/03 TTE: EF 60%.No pericardial effusion. AV calcification with decreased cusp excursion c/w aortic stenosis. Heavily thickened mitral valve leaflets with reduced excursion. Echogenic material noted on posterior mitral valve leaflet is likely calcified mitral annular structure. Heavy mitral annulus and aortic root calcification. Pulmonic valve not well visualized. Normal tricuspid valve structure. VRE colonization MRSA colonization new subclavian central line placed in ED no sorensen COPD CHF Hep C cirrhosis GERD Plan: cefepime and vancomycin #2 05/07 DC Ertapenem #5 05/06 DC Vancomycin #4 05/05 DC Amikacin #3 SP Zosyn and Vanc monitor CXR monitor temp monitor CBC steroids per pulm repeat blood cx, sputum cx CT chest once stable Thank you for this consult. [facility] will continue to follow the patient with you. Subjective Allergies: Coded Allergies: ACETAMINOPHEN (Verified Allergy, Unknown, 05/03/19) ASPIRIN (Verified Allergy, Unknown, 08/14/17) IBUPROFEN (Verified Allergy, Unknown, 05/03/19) PENICILLINS (Unverified Allergy, Unknown, 05/05/19) Uncoded Allergies: pain killers (Allergy, Severe, 01/28/17) Subjective Afebrile. FiO2 50% Leukocytosis resolved Hemoglobin dropped Off levophed Objective Vital Signs Last 24 Hour Vital Signs Date Time Temp Pulse Resp B/P (MAP) Pulse Ox O2 Delivery O2 Flow Rate FiO2 05/11/19 14:00 90 16 103/38 (59) 100 05/11/19 13:00 88 16 103/38 (59) 100 05/11/19 12:39 40 05/11/19 12:30 75 16 40 05/11/19 12:00 98.3 84 16 95/53 (67) 99 05/11/19 12:00 Mechanical Ventilator Mechanical Ventilator 05/11/19 12:00 76 05/11/19 11:06 50 05/11/19 11:06 73 16 50 05/11/19 11:00 69 16 110/34 (59) 100 05/11/19 10:00 70 05/11/19 10:00 79 21 120/46 (70) 100 05/11/19 09:58 70 05/11/19 09:16 65 16 100 05/11/19 09:00 67 16 98/57 (71) 100 05/11/19 08:00 68 05/11/19 08:00 Mechanical Ventilator Mechanical Ventilator 05/11/19 08:00 98.4 65 16 119/50 (73) 100 05/11/19 08:00 100 05/11/19 07:06 65 16 100 05/11/19 07:00 62 16 104/53 (70) 100 05/11/19 07:00 104/53 05/11/19 06:30 65 16 104/44 (64) 100 05/11/19 06:00 67 16 114/37 (62) 100 05/11/19 06:00 104/60 05/11/19 05:30 66 16 111/49 (69) 100 05/11/19 05:05 64 16 100 05/11/19 05:00 111/49 05/11/19 05:00 63 16 120/46 (70) 100 05/11/19 04:30 77 29 124/25 (58) 98 05/11/19 04:00 104/60 05/11/19 04:00 97.8 76 14 114/57 (76) 100 05/11/19 04:00 100 05/11/19 04:00 76 14 114/57 (76) 100 05/11/19 04:00 Mechanical Ventilator Mechanical Ventilator 05/11/19 04:00 73 05/11/19 03:30 71 16 129/41 (70) 99 05/11/19 03:30 71 16 129/41 (70) 99 05/11/19 03:22 68 16 100 05/11/19 03:00 70 16 124/48 (73) 100 05/11/19 03:00 127/76 05/11/19 03:00 70 16 124/48 (73) 100 05/11/19 02:30 73 16 127/57 (80) 100 05/11/19 02:30 73 16 127/57 (80) 100 05/11/19 02:15 74 17 100 05/11/19 02:00 69 16 124/56 (78) 100 05/11/19 02:00 121/56 05/11/19 02:00 75 16 131/51 (77) 100 05/11/19 01:45 78 17 100 05/11/19 01:30 69 16 121/56 (77) 100 05/11/19 01:30 69 16 136/50 (78) 100 05/11/19 01:17 71 16 100 05/11/19 01:15 79 17 100 05/11/19 01:00 126/59 05/11/19 01:00 73 16 128/59 (82) 100 05/11/19 01:00 73 16 128/59 (82) 100 05/11/19 00:45 74 16 100 05/11/19 00:30 79 16 127/53 (77) 100 05/11/19 00:30 79 16 127/53 (77) 100 05/11/19 00:15 73 16 100 05/11/19 00:00 Mechanical Ventilator Mechanical Ventilator 05/11/19 00:00 100 05/11/19 00:00 69 16 121/55 (77) 100 05/11/19 00:00 121/55 05/11/19 00:00 97.6 69 16 121/55 (77) 100 05/11/19 00:00 73 05/10/19 23:30 66 16 121/53 (75) 100 05/10/19 23:00 123/48 05/10/19 23:00 66 16 119/48 (71) 100 05/10/19 22:44 67 16 100 05/10/19 22:30 68 16 128/48 (74) 100 05/10/19 22:00 67 16 114/50 (71) 99 05/10/19 21:30 68 16 112/51 (71) 100 05/10/19 21:00 72 16 112/55 (74) 100 05/10/19 21:00 112/55 05/10/19 21:00 72 16 100 05/10/19 20:30 72 16 107/53 (71) 100 05/10/19 20:00 100 05/10/19 20:00 97.8 73 16 107/54 (71) 100 05/10/19 20:00 73 05/10/19 20:00 106/53 05/10/19 20:00 Mechanical Ventilator Mechanical Ventilator 05/10/19 19:30 71 16 106/53 (70) 100 05/10/19 19:00 72 16 104/52 (69) 99 05/10/19 18:58 70 16 100 05/10/19 18:29 69 16 111/50 (70) 100 05/10/19 18:00 68 16 112/49 (70) 100 05/10/19 17:30 68 16 105/54 (71) 100 05/10/19 17:00 69 16 127/52 (77) 100 05/10/19 16:53 69 16 100 05/10/19 16:30 71 16 112/49 (70) 100 05/10/19 16:00 Mechanical Ventilator Mechanical Ventilator 05/10/19 16:00 100 05/10/19 16:00 70 05/10/19 16:00 97.8 67 16 100/49 (66) 100 05/10/19 15:30 64 16 118/48 (71) 100 Height (Feet): 5 Height (Inches): 3.00 Weight (Pounds): 119 Objective Gen: NAD HEENT: anicteric sclera CV: RRR Resp: RRR. no wheezes. coarse Abd: soft. normoactive Bs+ Neuro: sedated Microbiology Date/Time Source Procedure Growth Status 05/10/19 11:50 Sputum Gram Stain - Final Resulted 05/10/19 11:50 Sputum Sputum Culture Pending Resulted Laboratory Tests Test 05/11/19 03:10 05/11/19 09:43 White Blood Count 10.4 K/UL (4.8-10.8) Red Blood Count 2.58 M/UL (4.20-5.40) L Hemoglobin 7.9 G/DL (12.0-16.0) L Hematocrit 24.8 % (37.0-47.0) L Mean Corpuscular Volume 96 FL (80-99) Mean Corpuscular Hemoglobin 30.8 PG (27.0-31.0) Mean Corpuscular Hemoglobin Concent 32.0 G/DL (32.0-36.0) Red Cell Distribution Width 18.8 % (11.6-14.8) H Platelet Count 85 K/UL (150-450) L Mean Platelet Volume 7.6 FL (6.5-10.1) Neutrophils (%) (Auto) % (45.0-75.0) Lymphocytes (%) (Auto) % (20.0-45.0) Monocytes (%) (Auto) % (1.0-10.0) Eosinophils (%) (Auto) % (0.0-3.0) Basophils (%) (Auto) % (0.0-2.0) Differential Total Cells Counted 100 Neutrophils % (Manual) 86 % (45-75) H Lymphocytes % (Manual) 10 % (20-45) L Monocytes % (Manual) 4 % (1-10) Eosinophils % (Manual) 0 % (0-3) Basophils % (Manual) 0 % (0-2) Band Neutrophils 0 % (0-8) Platelet Estimate Decreased L Platelet Morphology Normal Anisocytosis 1+ Sodium Level 144 MMOL/L (136-145) Potassium Level 3.6 MMOL/L (3.5-5.1) Chloride Level 108 MMOL/L (98-107) H Carbon Dioxide Level 32 MMOL/L (21-32) Anion Gap 4 mmol/L (5-15) L Blood Urea Nitrogen 27 mg/dL (7-18) H Creatinine 0.7 MG/DL (0.55-1.30) Estimat Glomerular Filtration Rate mL/min (>60) Glucose Level 114 MG/DL (74-106) H Calcium Level 8.3 MG/DL (8.5-10.1) L Phosphorus Level 1.6 MG/DL (2.5-4.9) L Magnesium Level 1.8 MG/DL (1.8-2.4) Total Bilirubin 1.4 MG/DL (0.2-1.0) H Direct Bilirubin 0.5 MG/DL (0.0-0.3) H Aspartate Amino Transf (AST/SGOT) 26 U/L (15-37) Alanine Aminotransferase (ALT/SGPT) 15 U/L (12-78) Alkaline Phosphatase 69 U/L (46-116) Total Protein 6.1 G/DL (6.4-8.2) L Albumin 2.0 G/DL (3.4-5.0) L Globulin 4.1 g/dL Albumin/Globulin Ratio 0.5 (1.0-2.7) L Arterial Blood pH 7.559 (7.350-7.450) Arterial Blood Partial Pressure CO2 38.1 mmHg (35.0-45.0) Arterial Blood Partial Pressure O2 466.3 mmHg (75.0-100.0) H Arterial Blood HCO3 33.3 mmol/L (22.0-26.0) H Arterial Blood Oxygen Saturation 99.6 % (95-100) Arterial Blood Base Excess 10.2 (-2-2) *H Raghavendra Test Positive Current Medications Medications (Trade) Dose Ordered Sig/Gautam Route PRN Reason Start Time Stop Time Status Last Admin Dose Admin Cefepime HCl 2 gm/ Dextrose 55 ml @ 110 mls/hr Q12H IVPB 05/10/19 15:00 05/17/19 14:59 05/11/19 14:37 Chlorhexidine Gluconate (Cherry-Hex 2%) 1 applic DAILY@1999 TOPIC 05/10/19 20:00 06/02/19 19:59 05/10/19 20:44 Folic Acid (Folate) 5 mg DAILY NG 05/10/19 09:00 06/03/19 10:59 05/11/19 08:23 Heparin Sodium (Porcine) (Heparin 5000 units/ml) 5,000 units EVERY 12 HOURS SUBQ 05/10/19 09:00 06/02/19 20:59 Iohexol (OMNIPAQUE-300 100ml) 100 ml ONCE PRN INJ RADIOLOGY 05/10/19 13:00 05/11/19 23:59 Midodrine (Pro-Amatine) 2.5 mg THREE TIMES A DAY NG 05/10/19 13:00 06/05/19 09:29 05/11/19 12:38 Norepinephrine Bitartrate 4 mg/ Dextrose 250 ml @ 0 mls/hr Q24H IV 05/10/19 06:00 06/09/19 05:59 05/10/19 15:00 Ondansetron HCl (Zofran) 4 mg Q6H PRN IVP Nausea & Vomiting 05/10/19 05:30 06/02/19 05:29 Polyethylene Glycol (Miralax) 17 gm DAILYPRN PRN ORAL Constipation 05/10/19 05:30 06/09/19 05:29 Potassium Phosphate 30 mm/ Sodium Chloride 285 ml @ 47.5 mls/hr ONCE ONCE IV 05/11/19 11:00 05/11/19 16:59 05/11/19 11:02 Vancomycin HCl (Vanco rx to dose) 1 ea DAILY PRN MISC Per rx protocol 05/10/19 13:00 06/09/19 12:59 Vancomycin HCl 750 mg/Dextrose 275 ml @ 183.333 mls/hr Q12HR@0400,1600 IVPB 05/10/19 16:00 05/15/19 15:59 05/11/19 04:16 Yazan Minaya MD May 11, 2019 15:31
--- NOTE | 2019-05-11 15:48 | Internal Med Progress Note ---
Subjective Date of Service: May 11, 2019 Physician Name Romeo Tavares Attending Physician Zeke Munoz MD Current Medications Medications (Trade) Dose Ordered Sig/Gautam Route PRN Reason Start Time Stop Time Status Last Admin Dose Admin Cefepime HCl 2 gm/ Dextrose 55 ml @ 110 mls/hr Q12H IVPB 05/10/19 15:00 05/17/19 14:59 05/11/19 14:37 Chlorhexidine Gluconate (Cherry-Hex 2%) 1 applic DAILY@2000 TOPIC 05/10/19 20:00 06/02/19 19:59 05/10/19 20:44 Folic Acid (Folate) 5 mg DAILY NG 05/10/19 09:00 06/03/19 10:59 05/11/19 08:23 Heparin Sodium (Porcine) (Heparin 5000 units/ml) 5,000 units EVERY 12 HOURS SUBQ 05/10/19 09:00 06/02/19 20:59 Iohexol (OMNIPAQUE-300 100ml) 100 ml ONCE PRN INJ RADIOLOGY 05/10/19 13:00 05/11/19 23:59 Midodrine (Pro-Amatine) 2.5 mg THREE TIMES A DAY NG 05/10/19 13:00 06/05/19 09:29 05/11/19 12:38 Norepinephrine Bitartrate 4 mg/ Dextrose 250 ml @ 0 mls/hr Q24H IV 05/10/19 06:00 06/09/19 05:59 05/10/19 15:00 Ondansetron HCl (Zofran) 4 mg Q6H PRN IVP Nausea & Vomiting 05/10/19 05:30 06/02/19 05:29 Polyethylene Glycol (Miralax) 17 gm DAILYPRN PRN ORAL Constipation 05/10/19 05:30 06/09/19 05:29 Potassium Phosphate 30 mm/ Sodium Chloride 285 ml @ 47.5 mls/hr ONCE ONCE IV 05/11/19 11:00 05/11/19 16:59 05/11/19 11:02 Vancomycin HCl (Vanco rx to dose) 1 ea DAILY PRN MISC Per rx protocol 05/10/19 13:00 06/09/19 12:59 Vancomycin HCl 750 mg/Dextrose 275 ml @ 183.333 mls/hr Q12HR@0400,1600 IVPB 05/10/19 16:00 05/15/19 15:59 05/11/19 04:16 Allergies: Coded Allergies: ACETAMINOPHEN (Verified Allergy, Unknown, 05/03/19) ASPIRIN (Verified Allergy, Unknown, 08/14/17) IBUPROFEN (Verified Allergy, Unknown, 05/03/19) PENICILLINS (Unverified Allergy, Unknown, 05/05/19) Uncoded Allergies: pain killers (Allergy, Severe, 01/28/17) ROS Limited/Unobtainable: Yes Subjective 74 YO F admitted with respiratory failure. Now Link Heart Failure. Extubated 05/07/19; reintubated early 05/10/19. Cover for Int [facility]-Dr Munoz. ICU Objective Last Vital Signs Date Time Temp Pulse Resp B/P (MAP) Pulse Ox O2 Delivery O2 Flow Rate FiO2 05/11/19 15:10 76 16 30 05/11/19 14:00 103/38 (59) 100 05/11/19 12:00 98.3 05/11/19 12:00 Mechanical Ventilator Mechanical Ventilator 05/09/19 12:00 4.0 Laboratory Tests Test 05/11/19 03:10 05/11/19 09:43 White Blood Count 10.4 K/UL (4.8-10.8) Red Blood Count 2.58 M/UL (4.20-5.40) L Hemoglobin 7.9 G/DL (12.0-16.0) L Hematocrit 24.8 % (37.0-47.0) L Mean Corpuscular Volume 96 FL (80-99) Mean Corpuscular Hemoglobin 30.8 PG (27.0-31.0) Mean Corpuscular Hemoglobin Concent 32.0 G/DL (32.0-36.0) Red Cell Distribution Width 18.8 % (11.6-14.8) H Platelet Count 85 K/UL (150-450) L Mean Platelet Volume 7.6 FL (6.5-10.1) Neutrophils (%) (Auto) % (45.0-75.0) Lymphocytes (%) (Auto) % (20.0-45.0) Monocytes (%) (Auto) % (1.0-10.0) Eosinophils (%) (Auto) % (0.0-3.0) Basophils (%) (Auto) % (0.0-2.0) Differential Total Cells Counted 100 Neutrophils % (Manual) 86 % (45-75) H Lymphocytes % (Manual) 10 % (20-45) L Monocytes % (Manual) 4 % (1-10) Eosinophils % (Manual) 0 % (0-3) Basophils % (Manual) 0 % (0-2) Band Neutrophils 0 % (0-8) Platelet Estimate Decreased L Platelet Morphology Normal Anisocytosis 1+ Sodium Level 144 MMOL/L (136-145) Potassium Level 3.6 MMOL/L (3.5-5.1) Chloride Level 108 MMOL/L (98-107) H Carbon Dioxide Level 32 MMOL/L (21-32) Anion Gap 4 mmol/L (5-15) L Blood Urea Nitrogen 27 mg/dL (7-18) H Creatinine 0.7 MG/DL (0.55-1.30) Estimat Glomerular Filtration Rate mL/min (>60) Glucose Level 114 MG/DL (74-106) H Calcium Level 8.3 MG/DL (8.5-10.1) L Phosphorus Level 1.6 MG/DL (2.5-4.9) L Magnesium Level 1.8 MG/DL (1.8-2.4) Total Bilirubin 1.4 MG/DL (0.2-1.0) H Direct Bilirubin 0.5 MG/DL (0.0-0.3) H Aspartate Amino Transf (AST/SGOT) 26 U/L (15-37) Alanine Aminotransferase (ALT/SGPT) 15 U/L (12-78) Alkaline Phosphatase 69 U/L (46-116) Total Protein 6.1 G/DL (6.4-8.2) L Albumin 2.0 G/DL (3.4-5.0) L Globulin 4.1 g/dL Albumin/Globulin Ratio 0.5 (1.0-2.7) L Arterial Blood pH 7.559 (7.350-7.450) Arterial Blood Partial Pressure CO2 38.1 mmHg (35.0-45.0) Arterial Blood Partial Pressure O2 466.3 mmHg (75.0-100.0) H Arterial Blood HCO3 33.3 mmol/L (22.0-26.0) H Arterial Blood Oxygen Saturation 99.6 % (95-100) Arterial Blood Base Excess 10.2 (-2-2) *H Raghavendra Test Positive Microbiology Date/Time Source Procedure Growth Status 05/10/19 11:50 Sputum Gram Stain - Final Resulted 05/10/19 11:50 Sputum Sputum Culture Pending Resulted Intake and Output 05/10/19 05/11/19 19:00 07:00 Intake Total 886.766 ml 706.200 ml Output Total 295 ml 300 ml Balance 591.766 ml 406.200 ml Free Water 20 ml IV Total 886.766 ml 401.200 ml Tube Feeding 285 ml Output Urine Total 295 ml 300 ml Objective PHYSICAL EXAMINATION: GENERAL: The patient is a thin-appearing female, who is currently intubated and sedated in the intensive care unit. HEENT: Eyes, pupils are equal and responsive to light and accommodation. Extraocular movements are intact. NECK: Supple without lymphadenopathy. CHEST: Mechanical vent; Coarse breath sounds bilaterally without wheezes or rales. CARDIOVASCULAR: Regular rhythm and rate. S1 and S2 are normal without murmurs, rubs, or gallops. ABDOMEN: Soft, nontender, and nondistended with positive bowel sounds. No evidence of hepatosplenomegaly, rebound, or guarding noted. EXTREMITIES: Negative for clubbing, cyanosis, or edema. RECTAL/GENITAL: Refused. NEUROLOGIC: Unable to assess secondary to intubation. Assessment/Plan Assessment/Plan ASSESSMENT: This is a 74-year-old female. 1. Respiratory failure. 2. Acute exacerbation of congestive heart failure. 3. Chronic obstructive pulmonary disease. 4. Hypertension. 5. Hypercholesterolemia. TREATMENT: 1. Respiratory failure. A Pulmonary consultation has been obtained with Dr. Jamal Medina. The patient is currently reintubated 05/10/19 in ICU. Respiratory failure may be secondary to congestive heart failure. Continue cefepime and vancomycin per Inf Dis=Dr. Minaya 2. Congestive heart failure. A Cardiology consultation has been obtained with Dr. Philipp Ahmadi. The patient is currently receiving Lasix intravenously. We will follow recommendations of Cardiology. 3. Hypercholesterolemia. Continue atorvastatin as above. 4. Hypertension. The patient is currently hypotensive. Hold antihypertensive medication at this time. Continue levophed Romeo Tavares MD May 11, 2019 15:48
--- NOTE | 2019-05-11 17:04 | Cardiology Progress Note ---
Assessment/Plan Assessment/Plan 1. Paroxysmal episodes of atrial fibrillation. 2. Severe left ventricular hypertrophy with left ventricular outflow tract, mild obstruction. 3. Severe aortic regurgitation. 4. Severe mitral stenosis/regurgitation. 5. Pulmonary hypertension. 6. Anemia now worse 7. Respiratory failure secondary to congestive heart failure. 8. History of recent GI bleeding, site undetermined. 9. Sinus bradycardia with abnormal T-waves. 10. Autoimmune hepatitis history. 11. History of severe COPD, on home O2. 12. Cirrhosis and portal hypertension. 13. History of hepatitis C. 14. Thrombocytopenia. 15. left lung collapse richardson respir failiure was intubated cxr much improved seem to be in sinus diureitc prn labs noted d/w rn s/p mg sulfate await ct when feasisble now dnr per staff much improved mentating ok still on vent hope to wean off soon ofpressor at this time wbs better plt dropping agian d/w rn Subjective ROS Limited/Unobtainable: Yes Subjective on the vent Objective Last 24 Hour Vital Signs Date Time Temp Pulse Resp B/P (MAP) Pulse Ox O2 Delivery O2 Flow Rate FiO2 05/11/19 16:00 30 05/11/19 16:00 99.2 86 16 102/44 (63) 95 05/11/19 16:00 81 05/11/19 16:00 Mechanical Ventilator Mechanical Ventilator 05/11/19 15:10 76 16 30 05/11/19 15:00 92 16 106/53 (70) 95 05/11/19 14:00 90 16 103/38 (59) 100 05/11/19 13:00 88 16 103/38 (59) 100 05/11/19 12:39 40 05/11/19 12:30 75 16 40 05/11/19 12:00 98.3 84 16 95/53 (67) 99 05/11/19 12:00 Mechanical Ventilator Mechanical Ventilator 05/11/19 12:00 76 05/11/19 11:06 50 05/11/19 11:06 73 16 50 05/11/19 11:00 69 16 110/34 (59) 100 05/11/19 10:00 70 05/11/19 10:00 79 21 120/46 (70) 100 05/11/19 09:58 70 05/11/19 09:16 65 16 100 11/12/19 09:00 67 16 98/57 (71) 100 05/11/19 08:00 68 05/11/19 08:00 Mechanical Ventilator Mechanical Ventilator 05/11/19 08:00 98.4 65 16 119/50 (73) 100 05/11/19 08:00 100 05/11/19 07:06 65 16 100 05/11/19 07:00 62 16 104/53 (70) 100 05/11/19 07:00 104/53 05/11/19 06:30 65 16 104/44 (64) 100 05/11/19 06:00 67 16 114/37 (62) 100 05/11/19 06:00 104/60 05/11/19 05:30 66 16 111/49 (69) 100 05/11/19 05:05 64 16 100 05/11/19 05:00 111/49 05/11/19 05:00 63 16 120/46 (70) 100 05/11/19 04:30 77 29 124/25 (58) 98 05/11/19 04:00 104/60 05/11/19 04:00 97.8 76 14 114/57 (76) 100 05/11/19 04:00 100 05/11/19 04:00 76 14 114/57 (76) 100 05/11/19 04:00 Mechanical Ventilator Mechanical Ventilator 05/11/19 04:00 73 05/11/19 03:30 71 16 129/41 (70) 99 05/11/19 03:30 71 16 129/41 (70) 99 05/11/19 03:22 68 16 100 05/11/19 03:00 70 16 124/48 (73) 100 05/11/19 03:00 127/76 05/11/19 03:00 70 16 124/48 (73) 100 05/11/19 02:30 73 16 127/57 (80) 100 05/11/19 02:30 73 16 127/57 (80) 100 05/11/19 02:15 74 17 100 05/11/19 02:00 69 16 124/56 (78) 100 05/11/19 02:00 121/56 05/11/19 02:00 75 16 131/51 (77) 100 05/11/19 01:45 78 17 100 05/11/19 01:30 69 16 121/56 (77) 100 05/11/19 01:30 69 16 136/50 (78) 100 05/11/19 01:17 71 16 100 05/11/19 01:15 79 17 100 05/11/19 01:00 126/59 05/11/19 01:00 73 16 128/59 (82) 100 05/11/19 01:00 73 16 128/59 (82) 100 05/11/19 00:45 74 16 100 05/11/19 00:30 79 16 127/53 (77) 100 05/11/19 00:30 79 16 127/53 (77) 100 05/11/19 00:15 73 16 100 05/11/19 00:00 Mechanical Ventilator Mechanical Ventilator 05/11/19 00:00 100 05/11/19 00:00 69 16 121/55 (77) 100 05/11/19 00:00 121/55 05/11/19 00:00 97.6 69 16 121/55 (77) 100 05/11/19 00:00 73 05/10/19 23:30 66 16 121/53 (75) 100 05/10/19 23:00 123/48 05/10/19 23:00 66 16 119/48 (71) 100 05/10/19 22:44 67 16 100 05/10/19 22:30 68 16 128/48 (74) 100 05/10/19 22:00 67 16 114/50 (71) 99 05/10/19 21:30 68 16 112/51 (71) 100 05/10/19 21:00 72 16 112/55 (74) 100 05/10/19 21:00 112/55 05/10/19 21:00 72 16 100 05/10/19 20:30 72 16 107/53 (71) 100 05/10/19 20:00 100 05/10/19 20:00 97.8 73 16 107/54 (71) 100 05/10/19 20:00 73 05/10/19 20:00 106/53 05/10/19 20:00 Mechanical Ventilator Mechanical Ventilator 05/10/19 19:30 71 16 106/53 (70) 100 05/10/19 19:00 72 16 104/52 (69) 99 05/10/19 18:58 70 16 100 05/10/19 18:29 69 16 111/50 (70) 100 05/10/19 18:00 68 16 112/49 (70) 100 05/10/19 17:30 68 16 105/54 (71) 100 05/10/19 17:00 69 16 127/52 (77) 100 General Appearance: no apparent distress, on vent, patient on isolation Intake and Output 05/10/19 05/11/19 19:00 07:00 Intake Total 886.766 ml 706.200 ml Output Total 295 ml 300 ml Balance 591.766 ml 406.200 ml Free Water 20 ml IV Total 886.766 ml 401.200 ml Tube Feeding 285 ml Output Urine Total 295 ml 300 ml Laboratory Tests Test 05/11/19 03:10 05/11/19 09:43 White Blood Count 10.4 K/UL (4.8-10.8) Red Blood Count 2.58 M/UL (4.20-5.40) L Hemoglobin 7.9 G/DL (12.0-16.0) L Hematocrit 24.8 % (37.0-47.0) L Mean Corpuscular Volume 96 FL (80-99) Mean Corpuscular Hemoglobin 30.8 PG (27.0-31.0) Mean Corpuscular Hemoglobin Concent 32.0 G/DL (32.0-36.0) Red Cell Distribution Width 18.8 % (11.6-14.8) H Platelet Count 85 K/UL (150-450) L Mean Platelet Volume 7.6 FL (6.5-10.1) Neutrophils (%) (Auto) % (45.0-75.0) Lymphocytes (%) (Auto) % (20.0-45.0) Monocytes (%) (Auto) % (1.0-10.0) Eosinophils (%) (Auto) % (0.0-3.0) Basophils (%) (Auto) % (0.0-2.0) Differential Total Cells Counted 100 Neutrophils % (Manual) 86 % (45-75) H Lymphocytes % (Manual) 10 % (20-45) L Monocytes % (Manual) 4 % (1-10) Eosinophils % (Manual) 0 % (0-3) Basophils % (Manual) 0 % (0-2) Band Neutrophils 0 % (0-8) Platelet Estimate Decreased L Platelet Morphology Normal Anisocytosis 1+ Sodium Level 144 MMOL/L (136-145) Potassium Level 3.6 MMOL/L (3.5-5.1) Chloride Level 108 MMOL/L (98-107) H Carbon Dioxide Level 32 MMOL/L (21-32) Anion Gap 4 mmol/L (5-15) L Blood Urea Nitrogen 27 mg/dL (7-18) H Creatinine 0.7 MG/DL (0.55-1.30) Estimat Glomerular Filtration Rate mL/min (>60) Glucose Level 114 MG/DL (74-106) H Calcium Level 8.3 MG/DL (8.5-10.1) L Phosphorus Level 1.6 MG/DL (2.5-4.9) L Magnesium Level 1.8 MG/DL (1.8-2.4) Total Bilirubin 1.4 MG/DL (0.2-1.0) H Direct Bilirubin 0.5 MG/DL (0.0-0.3) H Aspartate Amino Transf (AST/SGOT) 26 U/L (15-37) Alanine Aminotransferase (ALT/SGPT) 15 U/L (12-78) Alkaline Phosphatase 69 U/L (46-116) Total Protein 6.1 G/DL (6.4-8.2) L Albumin 2.0 G/DL (3.4-5.0) L Globulin 4.1 g/dL Albumin/Globulin Ratio 0.5 (1.0-2.7) L Arterial Blood pH 7.559 (7.350-7.450) Arterial Blood Partial Pressure CO2 38.1 mmHg (35.0-45.0) Arterial Blood Partial Pressure O2 466.3 mmHg (75.0-100.0) H Arterial Blood HCO3 33.3 mmol/L (22.0-26.0) H Arterial Blood Oxygen Saturation 99.6 % (95-100) Arterial Blood Base Excess 10.2 (-2-2) *H Raghavendra Test Positive Microbiology Date/Time Source Procedure Growth Status 05/10/19 11:50 Sputum Gram Stain - Final Resulted 05/10/19 11:50 Sputum Sputum Culture Pending Resulted Philipp Ahmadi MD May 11, 2019 17:04
--- NOTE | 2019-05-11 17:09 | NUR ---
NURSE NOTES: BP 115/51. Held midodrine 2.5mg. and wasted medication. Will continue plan of care.
--- NOTE | 2019-05-11 18:05 | NUR ---
HAND-OFF: Report given to Mirna Cronin RN. Endorsed plan of care.
--- NOTE | 2019-05-11 18:05 | NUR ---
NURSE NOTES: received pt from PRANEETH Burger. pt is awake. orally intubated 7.5/21cm at lip line, 14/450/30%/+5, Spo2 98%. OGT currently clamped and TF held due to aspiration risk. Right subclavian TLC connected to TO. RW 22G patent and asymptomatic. bilateral soft wrist restraints in place; skin intact and warm to touch. purwick draining to sxn. No signs of distress noted. Bed locked, alarmed and in lowest position. Will continue plan of care.
--- NOTE | 2019-05-11 19:05 | NUR ---
HAND-OFF: Report given to PRANEETH Garcia.
--- NOTE | 2019-05-11 20:00 | NUR ---
NURSE NOTES: received report fr moran rn pt awake and restless and confused does not follows command binh soft wrest restraint dr agrawal was notify fr sedation with order made reposition suction
[2019-05-11] MEDS: Dyna-Hex 2% Top Sol 2oz TOPIC SCH (20:31)
[2019-05-11] MEDS: LORazepam Inj 2mg/ml 1ml IV PRN (20:44)
--- NOTE | 2019-05-11 22:00 | NUR ---
NURSE NOTES: asleep reposition and suction
[2019-05-12] VITALS (24 sets, daily range): BP systolic 85–129; BP diastolic 32–72
--- NOTE | 2019-05-12 | NUR ---
NURSE NOTES: no acute resp distress noted
--- NOTE | 2019-05-12 02:00 | NUR ---
NURSE NOTES: reposition:
[2019-05-12 02:54] LABS: HEMATOCRIT 22.3 % (37.0-47.0); HEMOGLOBIN 7.2 G/DL (12.0-16.0); MEAN CORPUSCULAR VOLUME 96 FL (80-99); PLATELET COUNT 57 K/UL (150-450); RED BLOOD COUNT 2.31 M/UL (4.20-5.40); RED CELL DISTRIBUTION WIDTH 18.3 % (11.6-14.8); WHITE BLOOD COUNT 5.8 K/UL (4.8-10.8)
[2019-05-12] MEDS: Cefepime HCl 2 GM in D5W 55 ML IVPB SCH ×2 (03:00→16:12)
[2019-05-12 03:01] LABS: PHOSPHORUS 2.4 MG/DL (2.5-4.9)
[2019-05-12 03:06] LABS: ALANINE AMINOTRANSFERASE 15 U/L (12-78); ALBUMIN 1.9 G/DL (3.4-5.0); ALBUMIN/GLOBULIN RATIO 0.5 (1.0-2.7); ALKALINE PHOSPHATASE 66 U/L (46-116); ANION GAP 5 mmol/L (5-15); ASPARTATE AMINO TRANSFERASE 27 U/L (15-37); BILIRUBIN,TOTAL 2.1 MG/DL (0.2-1.0); BLOOD UREA NITROGEN 28 mg/dL (7-18); CALCIUM 7.8 MG/DL (8.5-10.1); CARBON DIOXIDE 31 MMOL/L (21-32); CHLORIDE 107 MMOL/L (98-107); CREATININE 0.7 MG/DL (0.55-1.30); POTASSIUM 3.7 MMOL/L (3.5-5.1); SODIUM 143 MMOL/L (136-145)
[2019-05-12 03:45] LABS: BILIRUBIN,DIRECT 0.8 MG/DL (0.0-0.3)
[2019-05-12] MEDS: Vancomycin 750mg/D5W 275ml IVPB SCH ×4 (03:57→17:17)
--- NOTE | 2019-05-12 04:00 | NUR ---
NURSE NOTES: complete bed bed
--- NOTE | 2019-05-12 06:00 | NUR ---
NURSE NOTES: transfer sdu as icu pt report using sbar
--- NOTE | 2019-05-12 07:20 | NUR ---
NURSE NOTES: Report received from franko Sheffield RN. Patient's connveted to vent, ET inplace, OGT inplace with continuous TF. Purewick noted. Bilateral soft wrist restraints noted. Contact isolation observed. Will continue plan of care.
[2019-05-12] MEDS: Heparin 5000 units/ml inj SUBQ SCH ×2 (09:00→20:16)
--- NOTE | 2019-05-12 09:53 | NUR ---
RADIOLOGY DEPT., CHEST X-RAY DONE.-P.DYE
--- NOTE | 2019-05-12 10:19 | NUR ---
RESPIRATORY NOTE: Placed pt on CPAP 5 PS 8 40%. Pt is alert and awake. Understands the purpose of weaning. RSBI 132. RR changed from 16 to 32. Pt placed back on AC 16 VT 500 30% PEEP +5. PRANEETH Hidalgo notified.
[2019-05-12] MEDS ORDERED: Potassium Phosphate 30 MM in NS 275 ML IV SCH (11:00)
--- NOTE | 2019-05-12 11:00 | NUR ---
NURSE NOTES: Dr. Medina at bedside. Informed MD that RT tried to wean patient today but failed.
--- NOTE | 2019-05-12 11:27 | Pulmonolgy Critical Care Note ---
Critical Care - Asmt/Plan Problems: (1) Acute respiratory failure (2) Acute pulmonary edema (3) COPD (chronic obstructive pulmonary disease) (4) Severe protein-calorie malnutrition (5) Nosocomial pneumonia (6) Edema of both feet Respiratory: adjust tidal volume, monitor respiratory rate, adjust FIO2 Cardiac: continue to monitor HR/BP Renal: F/U I&O, keep IV fluid Infectious Disease: check cultures Gastrointestinal: continue feedings/current rate Endocrine: monitor blood sugar Hematologic: monitor H/H, transfuse if hgb<8.5 Neurologic: PRN Morphine, keep patient comfortable Affect: PRN ativan Prophylaxis: Protonix Time Spent (Minutes): 40 Notes Reviewed: aerial photographer, renal Discussed with: nurses, consultants, telehealth case managertelehealth case manager - Objective Last 24 Hour Vital Signs Date Time Temp Pulse Resp B/P (MAP) Pulse Ox O2 Delivery O2 Flow Rate FiO2 05/12/19 10:40 30 05/12/19 10:19 65 32 40 40 05/12/19 10:00 66 17 104/48 (66) 99 05/12/19 09:00 72 17 90/41 (57) 99 05/12/19 08:00 Mechanical Ventilator Mechanical Ventilator 05/12/19 08:00 40 05/12/19 08:00 98.7 70 16 106/49 (68) 99 05/12/19 07:28 64 05/12/19 07:00 61 16 94/44 (61) 99 05/12/19 06:55 63 16 40 05/12/19 06:15 66 16 100 05/12/19 06:00 65 16 103/44 (63) 100 05/12/19 06:00 110/50 05/12/19 05:00 75 17 101/49 (66) 99 05/12/19 04:55 75 21 40 05/12/19 04:00 98.6 77 16 101/37 (58) 97 05/12/19 04:00 Mechanical Ventilator Mechanical Ventilator 05/12/19 04:00 65 05/12/19 04:00 30 05/12/19 03:00 86 16 89/44 (59) 95 05/12/19 02:33 82 16 40 05/12/19 02:00 82 16 109/47 (67) 90 05/12/19 01:00 79 16 99/39 (59) 92 05/12/19 00:49 73 16 30 05/12/19 00:00 73 16 85/37 (53) 95 05/12/19 00:00 30 05/12/19 00:00 Mechanical Ventilator Mechanical Ventilator 05/12/19 00:00 79 05/11/19 23:02 81 16 30 05/11/19 23:00 82 16 93/40 (57) 93 05/11/19 22:00 79 16 93/46 (62) 95 05/11/19 21:00 85 16 92/39 (56) 94 05/11/19 20:36 89 25 30 05/11/19 20:00 99.0 91 19 121/54 (76) 97 05/11/19 20:00 30 05/11/19 20:00 Mechanical Ventilator Mechanical Ventilator 05/11/19 20:00 84 05/11/19 19:00 84 23 121/55 (77) 99 05/11/19 18:45 81 20 30 05/11/19 18:00 81 24 113/57 (75) 96 05/11/19 17:00 91 24 118/59 (78) 96 05/11/19 16:58 81 16 30 05/11/19 16:00 30 05/11/19 16:00 99.2 86 16 102/44 (63) 95 05/11/19 16:00 81 05/11/19 16:00 Mechanical Ventilator Mechanical Ventilator 05/11/19 15:10 76 16 30 05/11/19 15:00 92 16 106/53 (70) 95 05/11/19 14:00 90 16 103/38 (59) 100 05/11/19 13:00 88 16 103/38 (59) 100 05/11/19 12:39 40 05/11/19 12:30 75 16 40 05/11/19 12:00 98.3 84 16 95/53 (67) 99 05/11/19 12:00 Mechanical Ventilator Mechanical Ventilator 05/11/19 12:00 76 Status: obtunded Condition: critical HEENT: atraumatic Lungs: clear Heart: HR/BP stable Abdomen: soft, active bowel sounds Extremities: no C/C/E Decubiti: location Micro: Microbiology Date/Time Source Procedure Growth Status 05/10/19 11:52 Blood Blood Culture - Preliminary NO GROWTH AFTER 24 HOURS Resulted 05/10/19 11:40 Blood Blood Culture - Preliminary NO GROWTH AFTER 24 HOURS Resulted 05/10/19 11:50 Sputum Gram Stain - Final Resulted 05/10/19 11:50 Sputum Culture - Preliminary Staphylococcus Aureus Gram Negative Bacillus 1 Resulted Critical Care - Subjective ROS Limited/Unobtainable: Yes Condition: critical FI02: 30 Vent Support Breath Rate: 16 Vent Support Mode: AC Vent Tidal Volume: 500 Sputum Amount: Moderate PEEP: 5.0 PIP: 15 Tube Feeding Amount: 15 I&O: Intake and Output 05/11/19 05/12/19 19:00 07:00 Intake Total 590.0 ml 390.000 ml Output Total 550 ml 600 ml Balance 40.0 ml -210.000 ml IV Total 245.0 ml 330.000 ml Tube Feeding 345 ml 60 ml Output Urine Total 550 ml 600 ml CXR: no change, ET in good position ET-Tube: 7.5 ET Position: 21 Labs: Laboratory Tests Test 05/12/19 02:00 05/12/19 02:50 05/12/19 10:27 Sodium Level 143 MMOL/L (136-145) Potassium Level 3.7 MMOL/L (3.5-5.1) Chloride Level 107 MMOL/L (98-107) Carbon Dioxide Level 31 MMOL/L (21-32) Anion Gap 5 mmol/L (5-15) Blood Urea Nitrogen 28 mg/dL (7-18) H Creatinine 0.7 MG/DL (0.55-1.30) Estimat Glomerular Filtration Rate mL/min (>60) Glucose Level 98 MG/DL (74-106) Calcium Level 7.8 MG/DL (8.5-10.1) L Total Bilirubin 2.1 MG/DL (0.2-1.0) H Direct Bilirubin 0.8 MG/DL (0.0-0.3) H Aspartate Amino Transf (AST/SGOT) 27 U/L (15-37) Alanine Aminotransferase (ALT/SGPT) 15 U/L (12-78) Alkaline Phosphatase 66 U/L (46-116) Total Protein 6.0 G/DL (6.4-8.2) L Albumin 1.9 G/DL (3.4-5.0) L Globulin 4.1 g/dL Albumin/Globulin Ratio 0.5 (1.0-2.7) L Vancomycin Level Trough 19.4 ug/mL (5.0-12.0) H White Blood Count 5.8 K/UL (4.8-10.8) Red Blood Count 2.31 M/UL (4.20-5.40) L Hemoglobin 7.2 G/DL (12.0-16.0) L Hematocrit 22.3 % (37.0-47.0) L Mean Corpuscular Volume 96 FL (80-99) Mean Corpuscular Hemoglobin 31.1 PG (27.0-31.0) H Mean Corpuscular Hemoglobin Concent 32.3 G/DL (32.0-36.0) Red Cell Distribution Width 18.3 % (11.6-14.8) H Platelet Count 57 K/UL (150-450) L Mean Platelet Volume 7.9 FL (6.5-10.1) Neutrophils (%) (Auto) % (45.0-75.0) Lymphocytes (%) (Auto) % (20.0-45.0) Monocytes (%) (Auto) % (1.0-10.0) Eosinophils (%) (Auto) % (0.0-3.0) Basophils (%) (Auto) % (0.0-2.0) Phosphorus Level 2.4 MG/DL (2.5-4.9) L Magnesium Level 1.5 MG/DL (1.8-2.4) L Arterial Blood pH 7.557 (7.350-7.450) Arterial Blood Partial Pressure CO2 31.2 mmHg (35.0-45.0) L Arterial Blood Partial Pressure O2 142.3 mmHg (75.0-100.0) H Arterial Blood HCO3 27.1 mmol/L (22.0-26.0) H Arterial Blood Oxygen Saturation 99.0 % (95-100) Arterial Blood Base Excess 4.7 (-2-2) H Raghavendra Test Positive Jamal Medina MD May 12, 2019 11:27
--- NOTE | 2019-05-12 11:51 | Diagnostic Imaging Report ---
Indication: Dyspnea Comparison: 05/11/2019 A single view chest radiograph was obtained. Findings: There are some technical differences but that there is apparent worsening interstitial edema compared to the previous examination. There is a probable small left pleural effusion. Tubes and lines are stable. IMPRESSION: Suspect slightly worsening interstitial edema
--- NOTE | 2019-05-12 12:03 | NUR ---
RD ASSESSMENT & RECOMMENDATIONS SEE CARE ACTIVITY FOR COMPLETE ASSESSMENT DAILY ESTIMATED NEEDS: Needs based on critical care, 48.6kg 22-28 kcals/kg 8752-3312 total kcals 1.2-2 g protein/kg 58-97 g total protein 22-28ml/kcal mL/kg 0988-6339 total fluid mLs NUTRITION DIAGNOSIS: Swallowing difficulty r/t respiratory failure as evidenced by pt is orally RE-intubated, on OGT feeds. ENTERAL NUTRITION RECOMMENDATIONS: Vital 1.2 @45ml/hr x24 hrs to provide 1080ml, 1296 kcal, 81g pro, 876ml free H2O - With good tolerance, slowly advance Vital by 5-10ml/hr q4-6 hrs to goal. - TF to meet 100% est needs. - Flush per MD. HOB over 30 degrees ADDITIONAL RECOMMENDATIONS: 1) monitor TF tolerance 2) Check lytes daily, replete as needed- (Mg 1.5, phos 2.4) 3) Maintain calibrated bed scale wts- noted up trend in daily wts 4) EQUIPMENT MAN eval upon extubation.
--- NOTE | 2019-05-12 12:47 | Nephrology Progress Note ---
Assessment/Plan Problem List: (1) Acute respiratory failure Assessment: now extubated (2) Electrolyte imbalance (3) Anemia (4) NSTEMI (non-ST elevated myocardial infarction) (5) COPD (chronic obstructive pulmonary disease) Assessment Acute respiratory failure, on Vent- Underlying COPD HypoNatremia , Etiology TBI , ? CHF HyperKalemia Sever Anemia NSTEMI Plan re intubated on midodrine when bp low Folate . Iron . B12 supplement Mag and K and Phos supplement as needed Pulm support Monitor renal parameters Urine studies 2D echo Left ventricular ejection fraction estimated to be 60 %. per orders Subjective ROS Limited/Unobtainable: Yes Objective Objective Last 24 Hour Vital Signs Date Time Temp Pulse Resp B/P (MAP) Pulse Ox O2 Delivery O2 Flow Rate FiO2 05/12/19 11:15 63 22 30 05/12/19 11:00 71 19 109/56 (73) 97 05/12/19 10:40 30 05/12/19 10:19 65 32 40 40 05/12/19 10:00 66 17 104/48 (66) 99 05/12/19 09:00 72 17 90/41 (57) 99 05/12/19 08:00 Mechanical Ventilator Mechanical Ventilator 05/12/19 08:00 40 05/12/19 08:00 98.7 70 16 106/49 (68) 99 05/12/19 07:28 64 05/12/19 07:00 61 16 94/44 (61) 99 05/12/19 06:55 63 16 40 05/12/19 06:15 66 16 100 05/12/19 06:00 65 16 103/44 (63) 100 05/12/19 06:00 110/50 05/12/19 05:00 75 17 101/49 (66) 99 05/12/19 04:55 75 21 40 05/12/19 04:00 98.6 77 16 101/37 (58) 97 05/12/19 04:00 Mechanical Ventilator Mechanical Ventilator 05/12/19 04:00 65 05/12/19 04:00 30 05/12/19 03:00 86 16 89/44 (59) 95 05/12/19 02:33 82 16 40 05/12/19 02:00 82 16 109/47 (67) 90 05/12/19 01:00 79 16 99/39 (59) 92 05/12/19 00:49 73 16 30 05/12/19 00:00 73 16 85/37 (53) 95 05/12/19 00:00 30 05/12/19 00:00 Mechanical Ventilator Mechanical Ventilator 05/12/19 00:00 79 05/11/19 23:02 81 16 30 05/11/19 23:00 82 16 93/40 (57) 93 05/11/19 22:00 79 16 93/46 (62) 95 05/11/19 21:00 85 16 92/39 (56) 94 05/11/19 20:36 89 25 30 05/11/19 20:00 99.0 91 19 121/54 (76) 97 05/11/19 20:00 30 05/11/19 20:00 Mechanical Ventilator Mechanical Ventilator 05/11/19 20:00 84 05/11/19 19:00 84 23 121/55 (77) 99 05/11/19 18:45 81 20 30 05/11/19 18:00 81 24 113/57 (75) 96 05/11/19 17:00 91 24 118/59 (78) 96 05/11/19 16:58 81 16 30 05/11/19 16:00 30 05/11/19 16:00 99.2 86 16 102/44 (63) 95 05/11/19 16:00 81 05/11/19 16:00 Mechanical Ventilator Mechanical Ventilator 05/11/19 15:10 76 16 30 05/11/19 15:00 92 16 106/53 (70) 95 05/11/19 14:00 90 16 103/38 (59) 100 05/11/19 13:00 88 16 103/38 (59) 100 Intake and Output 05/11/19 05/12/19 19:00 07:00 Intake Total 590.0 ml 390.000 ml Output Total 550 ml 600 ml Balance 40.0 ml -210.000 ml IV Total 245.0 ml 330.000 ml Tube Feeding 345 ml 60 ml Output Urine Total 550 ml 600 ml Laboratory Tests 05/12/19 02:00: Sodium Level 143, Potassium Level 3.7, Chloride Level 107, Carbon Dioxide Level 31, Anion Gap 5, Blood Urea Nitrogen 28H, Creatinine 0.7, Estimat Glomerular Filtration Rate , Glucose Level 98, Calcium Level 7.8L, Total Bilirubin 2.1H, Direct Bilirubin 0.8H, Aspartate Amino Transf (AST/SGOT) 27, Alanine Aminotransferase (ALT/SGPT) 15, Alkaline Phosphatase 66, Total Protein 6.0L, Albumin 1.9L, Globulin 4.1, Albumin/Globulin Ratio 0.5L, Vancomycin Level Trough 19.4H 05/12/19 02:50: White Blood Count 5.8, Red Blood Count 2.31L, Hemoglobin 7.2L, Hematocrit 22.3L , Mean Corpuscular Volume 96, Mean Corpuscular Hemoglobin 31.1H, Mean Corpuscular Hemoglobin Concent 32.3, Red Cell Distribution Width 18.3H, Platelet Count 57L, Mean Platelet Volume 7.9, Neutrophils (%) (Auto) , Lymphocytes (%) (Auto) , Monocytes (%) (Auto) , Eosinophils (%) (Auto) , Basophils (%) (Auto) , Phosphorus Level 2.4L, Magnesium Level 1.5L 05/12/19 10:27: Arterial Blood pH 7.557*H, Arterial Blood Partial Pressure CO2 31.2L, Arterial Blood Partial Pressure O2 142.3H, Arterial Blood HCO3 27.1H, Arterial Blood Oxygen Saturation 99.0, Arterial Blood Base Excess 4.7H, Raghavendra Test Positive Height (Feet): 5 Height (Inches): 3.00 Weight (Pounds): 120 General Appearance: no apparent distress EENT: other - vented Cardiovascular: normal rate Respiratory/Chest: decreased breath sounds Efra Das MD May 12, 2019 12:47
--- NOTE | 2019-05-12 13:39 | Infectious Diseases Prog Note ---
Assessment/Plan Assessment/Plan Afebrile Leukocytosis 05/10 reintubation 05/10 Levophed, SP 05/10 Likely aspiration pneumonia 05/10 bcx: P 05/10 sputum cx: Staph aureus, GNR 05/10 CXR: Complete atelectasis of the left lung. Pulmonary edema 05/11 CXR: Pulmonary vascular congestion without significant change. Apparent decrease in a left pleural effusion. 05/12 CXR: Suspect slightly worsening interstitial edema Earlier in hospital stay: Afebrile No leukocytosis Lactate 1.2 dopamine, SP Hypoxic Respiratory failure PNA? Pulm edema 05/03 Flu swab negative 05/03 sputum cx: ngtd 05/03 CXR: Moderate to severe pulmonary edema. Bilateral pleural effusions 05/03 CXR: Diffuse airspace disease may be due to pulmonary edema. Small bilateral pleural effusions. Tubes and lines satisfactory 05/04 CXR: Improved bilateral pleural effusions, over one day 05/05 CXR: Bilateral interstitial and hazy airspace disease persists, unchanged. Probable small left pleural effusion is again demonstrated. The heart size is upper limits normal. No significant interim change 05/06 CXR: Stable to minimally improved bilateral interstitial and airspace disease, over one day. Otherwise stable findings as described. 05/07 CXR: Interstitial pneumonitis versus CHF. No change UA negative r/o bacteremia 05/03 Bcx: ngtd 05/03 TTE: EF 60%.No pericardial effusion. AV calcification with decreased cusp excursion c/w aortic stenosis. Heavily thickened mitral valve leaflets with reduced excursion. Echogenic material noted on posterior mitral valve leaflet is likely calcified mitral annular structure. Heavy mitral annulus and aortic root calcification. Pulmonic valve not well visualized. Normal tricuspid valve structure. VRE colonization MRSA colonization new subclavian central line placed in ED no sorensen COPD CHF Hep C cirrhosis GERD Plan: cefepime and vancomycin #3, f/u sputum cx 05/07 DC Ertapenem #5 05/06 DC Vancomycin #4 05/05 DC Amikacin #3 SP Zosyn and Vanc monitor CXR monitor temp monitor CBC steroids per pulm repeat blood cx, sputum cx CT chest once stable Thank you for this consult. [facility] will continue to follow the patient with you. Subjective Allergies: Coded Allergies: ACETAMINOPHEN (Verified Allergy, Unknown, 05/03/19) ASPIRIN (Verified Allergy, Unknown, 08/14/17) IBUPROFEN (Verified Allergy, Unknown, 05/03/19) PENICILLINS (Unverified Allergy, Unknown, 05/05/19) Uncoded Allergies: pain killers (Allergy, Severe, 01/28/17) Subjective Afebrile. FiO2 30% Leukocytosis resolved Pt awake and alert. Asking for restraints to be removed. Denies SOB Objective Vital Signs Last 24 Hour Vital Signs Date Time Temp Pulse Resp B/P (MAP) Pulse Ox O2 Delivery O2 Flow Rate FiO2 05/12/19 13:12 59 22 30 05/12/19 11:15 63 22 30 05/12/19 11:00 71 19 109/56 (73) 97 05/12/19 10:40 30 05/12/19 10:19 65 32 40 40 05/12/19 10:00 66 17 104/48 (66) 99 05/12/19 09:00 72 17 90/41 (57) 99 05/12/19 08:00 Mechanical Ventilator Mechanical Ventilator 05/12/19 08:00 40 05/12/19 08:00 98.7 70 16 106/49 (68) 99 05/12/19 07:28 64 05/12/19 07:00 61 16 94/44 (61) 99 05/12/19 06:55 63 16 40 05/12/19 06:15 66 16 100 05/12/19 06:00 65 16 103/44 (63) 100 05/12/19 06:00 110/50 05/12/19 05:00 75 17 101/49 (66) 99 05/12/19 04:55 75 21 40 05/12/19 04:00 98.6 77 16 101/37 (58) 97 05/12/19 04:00 Mechanical Ventilator Mechanical Ventilator 05/12/19 04:00 65 05/12/19 04:00 30 05/12/19 03:00 86 16 89/44 (59) 95 05/12/19 02:33 82 16 40 05/12/19 02:00 82 16 109/47 (67) 90 05/12/19 01:00 79 16 99/39 (59) 92 05/12/19 00:49 73 16 30 05/12/19 00:00 73 16 85/37 (53) 95 05/12/19 00:00 30 05/12/19 00:00 Mechanical Ventilator Mechanical Ventilator 05/12/19 00:00 79 05/11/19 23:02 81 16 30 05/11/19 23:00 82 16 93/40 (57) 93 05/11/19 22:00 79 16 93/46 (62) 95 05/11/19 21:00 85 16 92/39 (56) 94 05/11/19 20:36 89 25 30 05/11/19 20:00 99.0 91 19 121/54 (76) 97 05/11/19 20:00 30 05/11/19 20:00 Mechanical Ventilator Mechanical Ventilator 05/11/19 20:00 84 05/11/19 19:00 84 23 121/55 (77) 99 05/11/19 18:45 81 20 30 05/11/19 18:00 81 24 113/57 (75) 96 05/11/19 17:00 91 24 118/59 (78) 96 05/11/19 16:58 81 16 30 05/11/19 16:00 30 05/11/19 16:00 99.2 86 16 102/44 (63) 95 05/11/19 16:00 81 05/11/19 16:00 Mechanical Ventilator Mechanical Ventilator 05/11/19 15:10 76 16 30 05/11/19 15:00 92 16 106/53 (70) 95 05/11/19 14:00 90 16 103/38 (59) 100 Height (Feet): 5 Height (Inches): 3.00 Weight (Pounds): 120 Objective Gen: NAD HEENT: anicteric sclera CV: RRR Resp: RRR. no wheezes. coarse Abd: soft. normoactive Bs+ Neuro: sedated Microbiology Date/Time Source Procedure Growth Status 05/10/19 11:52 Blood Blood Culture - Preliminary NO GROWTH AFTER 24 HOURS Resulted 05/10/19 11:40 Blood Blood Culture - Preliminary NO GROWTH AFTER 24 HOURS Resulted 05/10/19 11:50 Sputum Gram Stain - Final Resulted 05/10/19 11:50 Sputum Culture - Preliminary Staphylococcus Aureus Gram Negative Bacillus 1 Resulted Laboratory Tests Test 05/12/19 02:00 05/12/19 02:50 05/12/19 10:27 Sodium Level 143 MMOL/L (136-145) Potassium Level 3.7 MMOL/L (3.5-5.1) Chloride Level 107 MMOL/L (98-107) Carbon Dioxide Level 31 MMOL/L (21-32) Anion Gap 5 mmol/L (5-15) Blood Urea Nitrogen 28 mg/dL (7-18) H Creatinine 0.7 MG/DL (0.55-1.30) Estimat Glomerular Filtration Rate mL/min (>60) Glucose Level 98 MG/DL (74-106) Calcium Level 7.8 MG/DL (8.5-10.1) L Total Bilirubin 2.1 MG/DL (0.2-1.0) H Direct Bilirubin 0.8 MG/DL (0.0-0.3) H Aspartate Amino Transf (AST/SGOT) 27 U/L (15-37) Alanine Aminotransferase (ALT/SGPT) 15 U/L (12-78) Alkaline Phosphatase 66 U/L (46-116) Total Protein 6.0 G/DL (6.4-8.2) L Albumin 1.9 G/DL (3.4-5.0) L Globulin 4.1 g/dL Albumin/Globulin Ratio 0.5 (1.0-2.7) L Vancomycin Level Trough 19.4 ug/mL (5.0-12.0) H White Blood Count 5.8 K/UL (4.8-10.8) Red Blood Count 2.31 M/UL (4.20-5.40) L Hemoglobin 7.2 G/DL (12.0-16.0) L Hematocrit 22.3 % (37.0-47.0) L Mean Corpuscular Volume 96 FL (80-99) Mean Corpuscular Hemoglobin 31.1 PG (27.0-31.0) H Mean Corpuscular Hemoglobin Concent 32.3 G/DL (32.0-36.0) Red Cell Distribution Width 18.3 % (11.6-14.8) H Platelet Count 57 K/UL (150-450) L Mean Platelet Volume 7.9 FL (6.5-10.1) Neutrophils (%) (Auto) % (45.0-75.0) Lymphocytes (%) (Auto) % (20.0-45.0) Monocytes (%) (Auto) % (1.0-10.0) Eosinophils (%) (Auto) % (0.0-3.0) Basophils (%) (Auto) % (0.0-2.0) Phosphorus Level 2.4 MG/DL (2.5-4.9) L Magnesium Level 1.5 MG/DL (1.8-2.4) L Arterial Blood pH 7.557 (7.350-7.450) Arterial Blood Partial Pressure CO2 31.2 mmHg (35.0-45.0) L Arterial Blood Partial Pressure O2 142.3 mmHg (75.0-100.0) H Arterial Blood HCO3 27.1 mmol/L (22.0-26.0) H Arterial Blood Oxygen Saturation 99.0 % (95-100) Arterial Blood Base Excess 4.7 (-2-2) H Raghavendra Test Positive Current Medications Medications (Trade) Dose Ordered Sig/Gautam Route PRN Reason Start Time Stop Time Status Last Admin Dose Admin Cefepime HCl 2 gm/ Dextrose 55 ml @ 110 mls/hr Q12H IVPB 05/10/19 15:00 05/17/19 14:59 05/12/19 03:00 Chlorhexidine Gluconate (Cherry-Hex 2%) 1 applic DAILY@2000 TOPIC 05/10/19 20:00 06/02/19 19:59 05/11/19 20:31 Folic Acid (Folate) 5 mg DAILY NG 05/10/19 09:00 06/03/19 10:59 05/12/19 09:08 Heparin Sodium (Porcine) (Heparin 5000 units/ml) 5,000 units EVERY 12 HOURS SUBQ 05/10/19 09:00 06/02/19 20:59 Lorazepam (Ativan 2mg/ml 1ml) 2 mg Q2H PRN IV Agitation 05/11/19 20:30 05/18/19 20:29 05/11/19 20:44 Magnesium Sulfate 100 ml @ 100 mls/hr Q1H IVPB 05/12/19 10:15 05/12/19 14:14 05/12/19 12:57 Midodrine (Pro-Amatine) 2.5 mg THREE TIMES A DAY NG 05/10/19 13:00 06/05/19 09:29 05/12/19 12:58 Norepinephrine Bitartrate 4 mg/ Dextrose 250 ml @ 0 mls/hr Q24H IV 05/10/19 06:00 06/09/19 05:59 05/10/19 15:00 Ondansetron HCl (Zofran) 4 mg Q6H PRN IVP Nausea & Vomiting 05/10/19 05:30 06/02/19 05:29 05/11/19 16:23 Polyethylene Glycol (Miralax) 17 gm DAILYPRN PRN ORAL Constipation 05/10/19 05:30 06/09/19 05:29 Potassium Phosphate 30 mm/ Sodium Chloride 285 ml @ 47.5 mls/hr ONCE IV 05/12/19 11:00 05/12/19 18:00 05/12/19 11:46 Vancomycin HCl (Vanco rx to dose) 1 ea DAILY PRN MISC Per rx protocol 05/10/19 13:00 06/09/19 12:59 Vancomycin HCl 750 mg/Dextrose 275 ml @ 183.333 mls/hr Q12HR@0400,1600 IVPB 05/10/19 16:00 05/15/19 15:59 05/12/19 03:57 Yazan Minaya MD May 12, 2019 13:39
--- NOTE | 2019-05-12 14:00 | NUR ---
NURSE NOTES: Bedbath provided by 2 staff. Patient not cooperative with care. Unable to remove restraints at this time.
[2019-05-12] MEDS: LORazepam Inj 2mg/ml 1ml IV PRN (15:29)
--- NOTE | 2019-05-12 15:39 | NUR ---
CASE MANAGEMENT:REVIEW 05/12/19 SI: ACUTE RESPIRATORY FAILURE COPD. PNA 98.8 97 16 100/45 97% ON VENT SUPPORT @ 30% FIO2 IS: IV K-PHOS X1 LEVOPHED GTT IV VANCOMYCIN Q12 IV CEFEPIME Q12 HEPARIN SQ Q12 MIDODRINE NG TID : ICU STATUS DCP: FROM CV [facility] Addendum: 05/12/19 at 1545 by CELINA MILLER LVN LVN 05/12/19 LABS: H/H-7.2/22.3 PLT-57 PHOS-2.4 MAG-1.5
[2019-05-12] MEDS ORDERED: Tubing IV Secondary IV ONE ×2 (15:54→16:05)
[2019-05-12] MEDS ORDERED: NS 275ml ONE ×2 (15:54→16:05)
[2019-05-12] MEDS ORDERED: D5W 275ml ONE (16:05)
--- NOTE | 2019-05-12 18:41 | Internal Med Progress Note ---
Subjective Date of Service: May 12, 2019 Physician Name oRmeo Tavares Attending Physician Zeke Munoz MD Current Medications Medications (Trade) Dose Ordered Sig/Gautam Route PRN Reason Start Time Stop Time Status Last Admin Dose Admin Cefepime HCl 2 gm/ Dextrose 55 ml @ 110 mls/hr Q12H IVPB 05/10/19 15:00 05/17/19 14:59 05/12/19 16:12 Chlorhexidine Gluconate (Cherry-Hex 2%) 1 applic DAILY@2000 TOPIC 05/10/19 20:00 06/02/19 19:59 05/11/19 20:31 Folic Acid (Folate) 5 mg DAILY NG 05/10/19 09:00 06/03/19 10:59 05/12/19 09:08 Heparin Sodium (Porcine) (Heparin 5000 units/ml) 5,000 units EVERY 12 HOURS SUBQ 05/10/19 09:00 06/02/19 20:59 Lorazepam (Ativan 2mg/ml 1ml) 2 mg Q2H PRN IV Agitation 05/11/19 20:30 05/18/19 20:29 05/12/19 15:29 Midodrine (Pro-Amatine) 2.5 mg THREE TIMES A DAY NG 05/10/19 13:00 06/05/19 09:29 05/12/19 18:21 Norepinephrine Bitartrate 4 mg/ Dextrose 250 ml @ 0 mls/hr Q24H IV 05/10/19 06:00 06/09/19 05:59 05/10/19 15:00 Ondansetron HCl (Zofran) 4 mg Q6H PRN IVP Nausea & Vomiting 05/10/19 05:30 06/02/19 05:29 05/11/19 16:23 Polyethylene Glycol (Miralax) 17 gm DAILYPRN PRN ORAL Constipation 05/10/19 05:30 06/09/19 05:29 Vancomycin HCl (Vanco rx to dose) 1 ea DAILY PRN MISC Per rx protocol 05/10/19 13:00 06/09/19 12:59 Vancomycin HCl 750 mg/Dextrose 275 ml @ 183.333 mls/hr Q12HR@0400,1600 IVPB 05/10/19 16:00 05/15/19 15:59 05/12/19 17:17 Allergies: Coded Allergies: ACETAMINOPHEN (Verified Allergy, Unknown, 05/03/19) ASPIRIN (Verified Allergy, Unknown, 08/14/17) IBUPROFEN (Verified Allergy, Unknown, 05/03/19) PENICILLINS (Unverified Allergy, Unknown, 05/05/19) Uncoded Allergies: pain killers (Allergy, Severe, 01/28/17) ROS Limited/Unobtainable: Yes Subjective 74 YO F admitted with respiratory failure. Now Link Heart Failure. Extubated 05/07/19; reintubated early 05/10/19. Cover for Int Med-Dr Munoz. DIANA Objective Last Vital Signs Date Time Temp Pulse Resp B/P (MAP) Pulse Ox O2 Delivery O2 Flow Rate FiO2 05/12/19 18:00 64 19 98/46 (63) 92 05/12/19 16:50 30 05/12/19 16:00 98.5 05/12/19 16:00 Mechanical Ventilator Mechanical Ventilator 05/09/19 12:00 4.0 Laboratory Tests Test 05/12/19 02:00 05/12/19 02:50 05/12/19 10:27 Sodium Level 143 MMOL/L (136-145) Potassium Level 3.7 MMOL/L (3.5-5.1) Chloride Level 107 MMOL/L (98-107) Carbon Dioxide Level 31 MMOL/L (21-32) Anion Gap 5 mmol/L (5-15) Blood Urea Nitrogen 28 mg/dL (7-18) H Creatinine 0.7 MG/DL (0.55-1.30) Estimat Glomerular Filtration Rate mL/min (>60) Glucose Level 98 MG/DL (74-106) Calcium Level 7.8 MG/DL (8.5-10.1) L Total Bilirubin 2.1 MG/DL (0.2-1.0) H Direct Bilirubin 0.8 MG/DL (0.0-0.3) H Aspartate Amino Transf (AST/SGOT) 27 U/L (15-37) Alanine Aminotransferase (ALT/SGPT) 15 U/L (12-78) Alkaline Phosphatase 66 U/L (46-116) Total Protein 6.0 G/DL (6.4-8.2) L Albumin 1.9 G/DL (3.4-5.0) L Globulin 4.1 g/dL Albumin/Globulin Ratio 0.5 (1.0-2.7) L Vancomycin Level Trough 19.4 ug/mL (5.0-12.0) H White Blood Count 5.8 K/UL (4.8-10.8) Red Blood Count 2.31 M/UL (4.20-5.40) L Hemoglobin 7.2 G/DL (12.0-16.0) L Hematocrit 22.3 % (37.0-47.0) L Mean Corpuscular Volume 96 FL (80-99) Mean Corpuscular Hemoglobin 31.1 PG (27.0-31.0) H Mean Corpuscular Hemoglobin Concent 32.3 G/DL (32.0-36.0) Red Cell Distribution Width 18.3 % (11.6-14.8) H Platelet Count 57 K/UL (150-450) L Mean Platelet Volume 7.9 FL (6.5-10.1) Neutrophils (%) (Auto) % (45.0-75.0) Lymphocytes (%) (Auto) % (20.0-45.0) Monocytes (%) (Auto) % (1.0-10.0) Eosinophils (%) (Auto) % (0.0-3.0) Basophils (%) (Auto) % (0.0-2.0) Phosphorus Level 2.4 MG/DL (2.5-4.9) L Magnesium Level 1.5 MG/DL (1.8-2.4) L Arterial Blood pH 7.557 (7.350-7.450) Arterial Blood Partial Pressure CO2 31.2 mmHg (35.0-45.0) L Arterial Blood Partial Pressure O2 142.3 mmHg (75.0-100.0) H Arterial Blood HCO3 27.1 mmol/L (22.0-26.0) H Arterial Blood Oxygen Saturation 99.0 % (95-100) Arterial Blood Base Excess 4.7 (-2-2) H Raghavendra Test Positive Microbiology Date/Time Source Procedure Growth Status 05/10/19 11:52 Blood Blood Culture - Preliminary NO GROWTH AFTER 24 HOURS Resulted 05/10/19 11:40 Blood Blood Culture - Preliminary NO GROWTH AFTER 24 HOURS Resulted 05/10/19 11:50 Sputum Gram Stain - Final Resulted 05/10/19 11:50 Sputum Culture - Preliminary Staphylococcus Aureus Gram Negative Bacillus 1 Resulted Intake and Output 11/12/19 11/13/19 19:00 07:00 Intake Total 590.0 ml 390.000 ml Output Total 550 ml 600 ml Balance 40.0 ml -210.000 ml IV Total 245.0 ml 330.000 ml Tube Feeding 345 ml 60 ml Output Urine Total 550 ml 600 ml Objective PHYSICAL EXAMINATION: GENERAL: The patient is a thin-appearing female, who is currently intubated and sedated in the intensive care unit. HEENT: Eyes, pupils are equal and responsive to light and accommodation. Extraocular movements are intact. NECK: Supple without lymphadenopathy. CHEST: Mechanical vent; Coarse breath sounds bilaterally without wheezes or rales. CARDIOVASCULAR: Regular rhythm and rate. S1 and S2 are normal without murmurs, rubs, or gallops. ABDOMEN: Soft, nontender, and nondistended with positive bowel sounds. No evidence of hepatosplenomegaly, rebound, or guarding noted. EXTREMITIES: Negative for clubbing, cyanosis, or edema. RECTAL/GENITAL: Refused. NEUROLOGIC: Unable to assess secondary to intubation. Assessment/Plan Assessment/Plan ASSESSMENT: This is a 74-year-old female. 1. Respiratory failure. 2. Acute exacerbation of congestive heart failure. 3. Chronic obstructive pulmonary disease. 4. Hypertension. 5. Hypercholesterolemia. TREATMENT: 1. Respiratory failure. A Pulmonary consultation has been obtained with Dr. Jamal Medina. The patient is currently reintubated 05/10/19. Weaning protocol. Respiratory failure may be secondary to congestive heart failure. Continue cefepime and vancomycin per Inf Dis=Dr. Minaya 2. Congestive heart failure. A Cardiology consultation has been obtained with Dr. Philipp Ahmadi. The patient is currently receiving Lasix intravenously. We will follow recommendations of Cardiology. 3. Hypercholesterolemia. Continue atorvastatin as above. 4. Hypertension. The patient is currently hypotensive. Hold antihypertensive medication at this time. Continue levophed Romeo Tavares MD May 12, 2019 18:41
--- NOTE | 2019-05-12 19:20 | NUR ---
HAND-OFF: Report given to Luanne James.PRANEETH.
--- NOTE | 2019-05-12 19:21 | NUR ---
NURSE NOTES: Endorsement received from Gwen Moody RN. Patient orally intuabted. 7.5, 21 lipline. AC 16, 500, PEEP 5, 30%. Right subclavian IJ. With OGT, patent and intact. Rechecked placement per auscultation. On Vital AF 30ml with goal of 45 ml/hr. No residual. Purewick in place. Head of bed elevated. Bed locked and in low position. Call light within reach. Bed alarm on
--- NOTE | 2019-05-12 19:23 | Cardiology Progress Note ---
Assessment/Plan Assessment/Plan 1. Paroxysmal episodes of atrial fibrillation. 2. Severe left ventricular hypertrophy with left ventricular outflow tract, mild obstruction. 3. Severe aortic regurgitation. 4. Severe mitral stenosis/regurgitation. 5. Pulmonary hypertension. 6. Anemia now worse 7. Respiratory failure secondary to congestive heart failure. 8. History of recent GI bleeding, site undetermined. 9. Sinus bradycardia with abnormal T-waves. 10. Autoimmune hepatitis history. 11. History of severe COPD, on home O2. 12. Cirrhosis and portal hypertension. 13. History of hepatitis C. 14. Thrombocytopenia. 15. left lung collapse richardson respir failiure was intubated cxr much improved seem to be in sinus diureitc prn labs noted now dnr per staff still on vent hope to wean off soon off pressor at this time wbc better plt dropping agian Subjective ROS Limited/Unobtainable: Yes Subjective on the vent Objective Last 24 Hour Vital Signs Date Time Temp Pulse Resp B/P (MAP) Pulse Ox O2 Delivery O2 Flow Rate FiO2 05/12/19 18:52 58 16 30 05/12/19 18:00 64 19 98/46 (63) 92 05/12/19 17:00 58 19 129/32 (64) 100 05/12/19 16:50 57 19 30 05/12/19 16:00 98.5 64 16 124/72 (89) 96 05/12/19 16:00 Mechanical Ventilator Mechanical Ventilator 05/12/19 16:00 30 05/12/19 15:27 60 05/12/19 15:00 65 19 108/35 (59) 97 05/12/19 14:00 61 19 112/44 (66) 98 05/12/19 13:12 59 22 30 05/12/19 13:00 66 19 110/46 (67) 97 05/12/19 12:00 30 05/12/19 12:00 98.8 97 16 100/45 (63) 64 05/12/19 12:00 Mechanical Ventilator Mechanical Ventilator 05/12/19 11:29 59 05/12/19 11:15 63 22 30 05/12/19 11:00 71 19 109/56 (73) 97 05/12/19 10:40 30 05/12/19 10:19 65 32 40 40 05/12/19 10:00 66 17 104/48 (66) 99 05/12/19 09:00 72 17 90/41 (57) 99 05/12/19 08:00 Mechanical Ventilator Mechanical Ventilator 05/12/19 08:00 40 05/12/19 08:00 98.7 70 16 106/49 (68) 99 05/12/19 07:28 64 05/12/19 07:00 61 16 94/44 (61) 99 05/12/19 06:55 63 16 40 05/12/19 06:15 66 16 100 05/12/19 06:00 65 16 103/44 (63) 100 05/12/19 06:00 110/50 05/12/19 05:00 75 17 101/49 (66) 99 05/12/19 04:55 75 21 40 05/12/19 04:00 98.6 77 16 101/37 (58) 97 05/12/19 04:00 Mechanical Ventilator Mechanical Ventilator 05/12/19 04:00 65 05/12/19 04:00 30 05/12/19 03:00 86 16 89/44 (59) 95 05/12/19 02:33 82 16 40 05/12/19 02:00 82 16 109/47 (67) 90 05/12/19 01:00 79 16 99/39 (59) 92 05/12/19 00:49 73 16 30 05/12/19 00:00 73 16 85/37 (53) 95 05/12/19 00:00 30 05/12/19 00:00 Mechanical Ventilator Mechanical Ventilator 05/12/19 00:00 79 05/11/19 23:02 81 16 30 05/11/19 23:00 82 16 93/40 (57) 93 05/11/19 22:00 79 16 93/46 (62) 95 05/11/19 21:00 85 16 92/39 (56) 94 05/11/19 20:36 89 25 30 05/11/19 20:00 99.0 91 19 121/54 (76) 97 05/11/19 20:00 30 05/11/19 20:00 Mechanical Ventilator Mechanical Ventilator 05/11/19 20:00 84 General Appearance: lethargic, on vent, patient on isolation Cardiovascular: normal rate, systolic murmur Respiratory/Chest: lungs clear Abdomen: normal bowel sounds, soft Extremities: no swelling Intake and Output 05/11/19 05/12/19 19:00 07:00 Intake Total 590.0 ml 390.000 ml Output Total 550 ml 600 ml Balance 40.0 ml -210.000 ml IV Total 245.0 ml 330.000 ml Tube Feeding 345 ml 60 ml Output Urine Total 550 ml 600 ml Laboratory Tests Test 05/12/19 02:00 05/12/19 02:50 05/12/19 10:27 Sodium Level 143 MMOL/L (136-145) Potassium Level 3.7 MMOL/L (3.5-5.1) Chloride Level 107 MMOL/L (98-107) Carbon Dioxide Level 31 MMOL/L (21-32) Anion Gap 5 mmol/L (5-15) Blood Urea Nitrogen 28 mg/dL (7-18) H Creatinine 0.7 MG/DL (0.55-1.30) Estimat Glomerular Filtration Rate mL/min (>60) Glucose Level 98 MG/DL (74-106) Calcium Level 7.8 MG/DL (8.5-10.1) L Total Bilirubin 2.1 MG/DL (0.2-1.0) H Direct Bilirubin 0.8 MG/DL (0.0-0.3) H Aspartate Amino Transf (AST/SGOT) 27 U/L (15-37) Alanine Aminotransferase (ALT/SGPT) 15 U/L (12-78) Alkaline Phosphatase 66 U/L (46-116) Total Protein 6.0 G/DL (6.4-8.2) L Albumin 1.9 G/DL (3.4-5.0) L Globulin 4.1 g/dL Albumin/Globulin Ratio 0.5 (1.0-2.7) L Vancomycin Level Trough 19.4 ug/mL (5.0-12.0) H White Blood Count 5.8 K/UL (4.8-10.8) Red Blood Count 2.31 M/UL (4.20-5.40) L Hemoglobin 7.2 G/DL (12.0-16.0) L Hematocrit 22.3 % (37.0-47.0) L Mean Corpuscular Volume 96 FL (80-99) Mean Corpuscular Hemoglobin 31.1 PG (27.0-31.0) H Mean Corpuscular Hemoglobin Concent 32.3 G/DL (32.0-36.0) Red Cell Distribution Width 18.3 % (11.6-14.8) H Platelet Count 57 K/UL (150-450) L Mean Platelet Volume 7.9 FL (6.5-10.1) Neutrophils (%) (Auto) % (45.0-75.0) Lymphocytes (%) (Auto) % (20.0-45.0) Monocytes (%) (Auto) % (1.0-10.0) Eosinophils (%) (Auto) % (0.0-3.0) Basophils (%) (Auto) % (0.0-2.0) Phosphorus Level 2.4 MG/DL (2.5-4.9) L Magnesium Level 1.5 MG/DL (1.8-2.4) L Arterial Blood pH 7.557 (7.350-7.450) Arterial Blood Partial Pressure CO2 31.2 mmHg (35.0-45.0) L Arterial Blood Partial Pressure O2 142.3 mmHg (75.0-100.0) H Arterial Blood HCO3 27.1 mmol/L (22.0-26.0) H Arterial Blood Oxygen Saturation 99.0 % (95-100) Arterial Blood Base Excess 4.7 (-2-2) H Raghavendra Test Positive Microbiology Date/Time Source Procedure Growth Status 05/10/19 11:52 Blood Blood Culture - Preliminary NO GROWTH AFTER 24 HOURS Resulted 05/10/19 11:40 Blood Blood Culture - Preliminary NO GROWTH AFTER 24 HOURS Resulted 05/10/19 11:50 Sputum Gram Stain - Final Resulted 05/10/19 11:50 Sputum Culture - Preliminary Staphylococcus Aureus Gram Negative Bacillus 1 Resulted Philipp Ahmadi MD May 12, 2019 19:23
[2019-05-12] MEDS: Dyna-Hex 2% Top Sol 2oz TOPIC SCH (20:16)
--- NOTE | 2019-05-12 21:00 | NUR ---
NURSE NOTES: Heparin not given due to low platelet.
--- NOTE | 2019-05-12 23:00 | NUR ---
NURSE NOTES: Patient asleep. Arousable per light touch. Sinus taran - sinus rhythm on the monitor.
[2019-05-13] VITALS (24 sets, daily range): BP systolic 86–123; BP diastolic 37–92
--- NOTE | 2019-05-13 | NUR ---
NURSE NOTES: Patient awake, restless. Repositioned, reoriented but not effective. PRN Ativan given. No residual from NGT. Increased NGT feeding to 40 ml/hr. HOB kept elevated.
[2019-05-13] MEDS: LORazepam Inj 2mg/ml 1ml IV PRN ×2 (00:30→20:40)
--- NOTE | 2019-05-13 02:00 | NUR ---
NURSE NOTES: NURSE NOTES: Patient asleep. Tolerating feeding. No signs of pain or discomfort.
[2019-05-13] MEDS: Cefepime HCl 2 GM in D5W 55 ML IVPB SCH ×2 (02:56→15:10)
[2019-05-13] MEDS: Vancomycin 750mg/D5W 275ml IVPB SCH ×2 (03:59)
--- NOTE | 2019-05-13 04:00 | NUR ---
NURSE NOTES: 200ml urine since 1999H, bladder scanner done shows 94ml urine.
--- NOTE | 2019-05-13 05:00 | NUR ---
NURSE NOTES: Patient passed urine, 150ml. Bed bath, oral care, change of linens done
[2019-05-13] MEDS: Miralax 17gm pkt ORAL PRN (05:39)
[2019-05-13 05:56] LABS: HEMATOCRIT 22.6 % (37.0-47.0); HEMOGLOBIN 7.1 G/DL (12.0-16.0); MEAN CORPUSCULAR VOLUME 98 FL (80-99); PLATELET COUNT 51 K/UL (150-450); RED BLOOD COUNT 2.32 M/UL (4.20-5.40); RED CELL DISTRIBUTION WIDTH 18.6 % (11.6-14.8); WHITE BLOOD COUNT 5.3 K/UL (4.8-10.8)
[2019-05-13 06:28] LABS: ALANINE AMINOTRANSFERASE 16 U/L (12-78); ALBUMIN 1.8 G/DL (3.4-5.0); ALBUMIN/GLOBULIN RATIO 0.4 (1.0-2.7); ALKALINE PHOSPHATASE 65 U/L (46-116); ANION GAP 2 mmol/L (5-15); ASPARTATE AMINO TRANSFERASE 26 U/L (15-37); BILIRUBIN,TOTAL 2.5 MG/DL (0.2-1.0); BLOOD UREA NITROGEN 25 mg/dL (7-18); CALCIUM 7.5 MG/DL (8.5-10.1); CARBON DIOXIDE 32 MMOL/L (21-32); CHLORIDE 101 MMOL/L (98-107); CREATININE 0.6 MG/DL (0.55-1.30); PHOSPHORUS 2.5 MG/DL (2.5-4.9); POTASSIUM 3.4 MMOL/L (3.5-5.1); SODIUM 135 MMOL/L (136-145)
[2019-05-13 06:55] LABS: BILIRUBIN,DIRECT 0.9 MG/DL (0.0-0.3)
--- NOTE | 2019-05-13 07:02 | NUR ---
HAND-OFF: Report given to Akira DACOSTA.
--- NOTE | 2019-05-13 07:03 | NUR ---
NURSE NOTES: RECEIVED PATIENT FROM Luanne ALFARO RN. PATIENT IS LYING IN BED, ABLE TO OPEN EYES. HOOKED TO PRINCIPAL EXAMINER. HR OF 59. ORALLY INTUBATED ETT 7.5 AT 21CM LIP LINE. VENT SETTINGS AC 16, TV 500, FiO2 30%, PEEP 5. NO SIGNS OF DISTRESS OF THE MOMENT. OGT NOTED WITH GTF RUNNING VITAL AF AT 45ML/HR. ON PUREWICK, NOTED DARK COLORED URINE. WITH R IJ SC, TKO. CALL LIGHT WITHIN REACH. BED AT LOWEST POSITION. SIDE RAILS UP. WILL CONTINUE TO MONITOR.
--- NOTE | 2019-05-13 08:23 | NUR ---
RESPIRATORY NOTES: Attempted to wean patient however she immediately began to desaturate. Tidal volumes dropped below 200mL and Breath rate jumpped to >36. Patient desaturated to 87 and I placed her back onto acvc. RN aware.
[2019-05-13] MEDS: Heparin 5000 units/ml inj SUBQ SCH (09:00)
--- NOTE | 2019-05-13 09:01 | NUR ---
RADIOLOGY DEPT., CHEST X-RAY DONE.-P.DYE
--- NOTE | 2019-05-13 09:08 | NUR ---
NURSE NOTES: SATING AT ROUND 72% STARTED BAGGING THE PATIENT SINCE START OF THE SHIFT INTERMITTENTLY. SEEN AND EXAMINED BY DR ZAVALA. WILL CONTINUE TO MONITOR. Addendum: 05/13/19 at 0910 by JOSE REA RN NURSE NOTES: WRONG ENTRY.
--- NOTE | 2019-05-13 09:10 | NUR ---
NURSE NOTES: SEEN AND EXAMINED BY DR ZAVALA. WITH NEW ORDERS MADE. WILL CONTINUE TO MONITOR.
--- NOTE | 2019-05-13 10:09 | Nephrology Progress Note ---
Assessment/Plan Problem List: (1) Acute respiratory failure Assessment: now extubated (2) Electrolyte imbalance (3) Anemia (4) NSTEMI (non-ST elevated myocardial infarction) (5) COPD (chronic obstructive pulmonary disease) Assessment Acute respiratory failure, on Vent- Underlying COPD HypoNatremia , Etiology TBI , ? CHF HyperKalemia Sever Anemia NSTEMI Plan re intubated on midodrine when bp low Folate . Iron . B12 supplement Mag and K and Phos supplement as needed Pulm support Monitor renal parameters Urine studies 2D echo Left ventricular ejection fraction estimated to be 60 %. per orders Subjective ROS Limited/Unobtainable: Yes Objective Objective Last 24 Hour Vital Signs Date Time Temp Pulse Resp B/P (MAP) Pulse Ox O2 Delivery O2 Flow Rate FiO2 05/13/19 09:29 58 21 30 05/13/19 09:00 64 25 106/39 (61) 97 05/13/19 08:21 79 31 30 05/13/19 08:00 98.2 52 16 93/42 (59) 100 05/13/19 08:00 30 05/13/19 08:00 Mechanical Ventilator 05/13/19 07:00 62 17 107/46 (66) 99 05/13/19 06:00 63 20 98/52 (67) 100 05/13/19 05:40 100/47 05/13/19 05:29 62 17 30 05/13/19 05:00 64 16 100/47 (64) 100 05/13/19 04:00 Mechanical Ventilator 05/13/19 04:00 30 05/13/19 04:00 98.3 60 18 111/44 (66) 98 05/13/19 04:00 64 05/13/19 03:28 72 17 30 05/13/19 03:00 58 16 103/43 (63) 94 05/13/19 02:00 59 16 97/41 (59) 96 05/13/19 01:36 58 17 30 05/13/19 01:00 66 17 108/58 (75) 98 05/13/19 00:00 98.5 64 23 107/46 (66) 98 05/13/19 00:00 66 05/13/19 00:00 Mechanical Ventilator 05/12/19 23:29 59 16 30 05/12/19 23:00 61 16 100/45 (63) 96 05/12/19 22:00 56 16 94/44 (61) 96 05/12/19 21:00 63 16 90/38 (55) 95 05/12/19 20:51 66 16 30 05/12/19 20:00 Mechanical Ventilator 05/12/19 20:00 57 05/12/19 20:00 98.7 59 16 115/40 (65) 96 05/12/19 20:00 30 05/12/19 19:00 54 19 100/52 (68) 98 05/12/19 18:52 58 16 30 05/12/19 18:00 64 19 98/46 (63) 92 05/12/19 17:00 58 19 129/32 (64) 100 05/12/19 16:50 57 19 30 05/12/19 16:00 98.5 64 16 124/72 (89) 96 05/12/19 16:00 Mechanical Ventilator Mechanical Ventilator 05/12/19 16:00 30 05/12/19 15:27 60 05/12/19 15:00 65 19 108/35 (59) 97 05/12/19 14:00 61 19 112/44 (66) 98 05/12/19 13:12 59 22 30 05/12/19 13:00 66 19 110/46 (67) 97 05/12/19 12:00 30 05/12/19 12:00 98.8 97 16 100/45 (63) 64 05/12/19 12:00 Mechanical Ventilator Mechanical Ventilator 05/12/19 11:29 59 05/12/19 11:15 63 22 30 05/12/19 11:00 71 19 109/56 (73) 97 05/12/19 10:40 30 05/12/19 10:19 65 32 40 40 Intake and Output 05/12/19 05/13/19 19:00 07:00 Intake Total 1125.000 ml 455 ml Output Total 410 ml 350 ml Balance 715.000 ml 105 ml Free Water 50 ml IV Total 825.000 ml Tube Feeding 240 ml 405 ml Other 60 ml Output Urine Total 410 ml 350 ml Laboratory Tests 05/12/19 10:27: Arterial Blood pH 7.557*H, Arterial Blood Partial Pressure CO2 31.2L, Arterial Blood Partial Pressure O2 142.3H, Arterial Blood HCO3 27.1H, Arterial Blood Oxygen Saturation 99.0, Arterial Blood Base Excess 4.7H, Raghavendra Test Positive 05/13/19 04:44: White Blood Count 5.3, Red Blood Count 2.32L, Hemoglobin 7.1L, Hematocrit 22.6L , Mean Corpuscular Volume 98, Mean Corpuscular Hemoglobin 30.8, Mean Corpuscular Hemoglobin Concent 31.5L, Red Cell Distribution Width 18.6H, Platelet Count 51L, Mean Platelet Volume 8.3, Neutrophils (%) (Auto) , Lymphocytes (%) (Auto) , Monocytes (%) (Auto) , Eosinophils (%) (Auto) , Basophils (%) (Auto) , Differential Total Cells Counted 100, Neutrophils % ( Manual) 80H, Lymphocytes % (Manual) 8L, Monocytes % (Manual) 12H, Eosinophils % (Manual) 0, Basophils % (Manual) 0, Band Neutrophils 0, Platelet Estimate DecreasedL, Platelet Morphology Normal, Anisocytosis 1+, Sodium Level 135L, Potassium Level 3.4L, Chloride Level 101, Carbon Dioxide Level 32, Anion Gap 2L , Blood Urea Nitrogen 25H, Creatinine 0.6, Estimat Glomerular Filtration Rate , Glucose Level 104, Calcium Level 7.5L, Phosphorus Level 2.5, Magnesium Level 2.1 , Total Bilirubin 2.5H, Direct Bilirubin 0.9H, Aspartate Amino Transf (AST/SGOT ) 26, Alanine Aminotransferase (ALT/SGPT) 16, Alkaline Phosphatase 65, Total Protein 6.0L, Albumin 1.8L, Globulin 4.2, Albumin/Globulin Ratio 0.4L Height (Feet): 5 Height (Inches): 3.00 Weight (Pounds): 118 General Appearance: no apparent distress EENT: other - vented Respiratory/Chest: decreased breath sounds Abdomen: soft, distended Efra Das MD May 13, 2019 10:09
[2019-05-13] MEDS ORDERED: Potassium Phosphate 30 MM in NS 275 ML IV ONE (10:30)
--- NOTE | 2019-05-13 11:31 | NUR ---
NURSE NOTES: NOTED HR OF 55 ON THE MONITOR. PATIENT IS ASYMPTOMATIC. SEEN LYING IN BED, ASLEEP. NO SIGNS OF DISTRESS. SUCTIONED AND REPOSITIONED PATIENT. WILL CONTINUE TO MONITOR.
--- NOTE | 2019-05-13 12:03 | Pulmonolgy Critical Care Note ---
Critical Care - Asmt/Plan Problems: (1) Acute respiratory failure (2) Acute pulmonary edema (3) COPD (chronic obstructive pulmonary disease) (4) Severe protein-calorie malnutrition (5) Nosocomial pneumonia (6) Edema of both feet Respiratory: monitor respiratory rate, adjust FIO2, CXR Cardiac: continue to monitor HR/BP Renal: F/U I&O, keep IV fluid, check electrolytes Infectious Disease: check cultures Gastrointestinal: continue feedings/current rate Endocrine: check HgA1C Hematologic: monitor H/H, transfuse if hgb<8.5 Neurologic: PRN Ativan, keep patient comfortable Affect: PRN ativan Prophylaxis: Protonix Disposition: keep in ICU Time Spent (Minutes): 40 Notes Reviewed: production drilling 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 operator, cardio, ID Discussed with: nurses, consultants, pillowcase turnersales effectiveness manager - Objective Last 24 Hour Vital Signs Date Time Temp Pulse Resp B/P (MAP) Pulse Ox O2 Delivery O2 Flow Rate FiO2 05/13/19 11:20 55 16 30 05/13/19 11:00 57 16 98/39 (58) 99 05/13/19 10:17 90 28 97 Mechanical Ventilator 45 05/13/19 10:00 53 05/13/19 10:00 57 16 87/37 (54) 95 05/13/19 09:29 58 21 30 05/13/19 09:00 64 25 106/39 (61) 97 05/13/19 08:21 79 31 30 05/13/19 08:00 98.2 52 16 93/42 (59) 100 05/13/19 08:00 30 05/13/19 08:00 Mechanical Ventilator 05/13/19 07:00 62 17 107/46 (66) 99 05/13/19 06:00 63 20 98/52 (67) 100 05/13/19 05:40 100/47 05/13/19 05:29 62 17 30 05/13/19 05:00 64 16 100/47 (64) 100 05/13/19 04:00 Mechanical Ventilator 05/13/19 04:00 30 05/13/19 04:00 98.3 60 18 111/44 (66) 98 05/13/19 04:00 64 05/13/19 03:28 72 17 30 05/13/19 03:00 58 16 103/43 (63) 94 05/13/19 02:00 59 16 97/41 (59) 96 05/13/19 01:36 58 17 30 05/13/19 01:00 66 17 108/58 (75) 98 05/13/19 00:00 98.5 64 23 107/46 (66) 98 05/13/19 00:00 66 05/13/19 00:00 Mechanical Ventilator 05/12/19 23:29 59 16 30 05/12/19 23:00 61 16 100/45 (63) 96 05/12/19 22:00 56 16 94/44 (61) 96 05/12/19 21:00 63 16 90/38 (55) 95 05/12/19 20:51 66 16 30 05/12/19 20:00 Mechanical Ventilator 05/12/19 20:00 57 05/12/19 20:00 98.7 59 16 115/40 (65) 96 05/12/19 20:00 30 05/12/19 19:00 54 19 100/52 (68) 98 05/12/19 18:52 58 16 30 05/12/19 18:00 64 19 98/46 (63) 92 05/12/19 17:00 58 19 129/32 (64) 100 05/12/19 16:50 57 19 30 05/12/19 16:00 98.5 64 16 124/72 (89) 96 05/12/19 16:00 Mechanical Ventilator Mechanical Ventilator 05/12/19 16:00 30 05/12/19 15:27 60 05/12/19 15:00 65 19 108/35 (59) 97 05/12/19 14:00 61 19 112/44 (66) 98 05/12/19 13:12 59 22 30 05/12/19 13:00 66 19 110/46 (67) 97 Status: awake Condition: critical Neck: full ROM Lungs: clear Heart: HR/BP stable Abdomen: soft, feeding tube Extremities: no C/C/E Decubiti: location Critical Care - Subjective Condition: critical EKG Rhythm: Sinus Rhythm FI02: 30 Vent Support Breath Rate: 16 Vent Support Mode: AC Vent Tidal Volume: 500 Sputum Amount: Small PEEP: 5.0 PIP: 33 Tube Feeding Amount: 40 I&O: Intake and Output 05/12/19 05/13/19 19:00 07:00 Intake Total 1125.000 ml 455 ml Output Total 410 ml 350 ml Balance 715.000 ml 105 ml Free Water 50 ml IV Total 825.000 ml Tube Feeding 240 ml 405 ml Other 60 ml Output Urine Total 410 ml 350 ml CXR: ET in good position ET-Tube: 7.5 ET Position: 21 Labs: Laboratory Tests Test 05/13/19 04:44 05/13/19 10:29 White Blood Count 5.3 K/UL (4.8-10.8) Red Blood Count 2.32 M/UL (4.20-5.40) L Hemoglobin 7.1 G/DL (12.0-16.0) L Hematocrit 22.6 % (37.0-47.0) L Mean Corpuscular Volume 98 FL (80-99) Mean Corpuscular Hemoglobin 30.8 PG (27.0-31.0) Mean Corpuscular Hemoglobin Concent 31.5 G/DL (32.0-36.0) L Red Cell Distribution Width 18.6 % (11.6-14.8) H Platelet Count 51 K/UL (150-450) L Mean Platelet Volume 8.3 FL (6.5-10.1) Neutrophils (%) (Auto) % (45.0-75.0) Lymphocytes (%) (Auto) % (20.0-45.0) Monocytes (%) (Auto) % (1.0-10.0) Eosinophils (%) (Auto) % (0.0-3.0) Basophils (%) (Auto) % (0.0-2.0) Differential Total Cells Counted 100 Neutrophils % (Manual) 80 % (45-75) H Lymphocytes % (Manual) 8 % (20-45) L Monocytes % (Manual) 12 % (1-10) H Eosinophils % (Manual) 0 % (0-3) Basophils % (Manual) 0 % (0-2) Band Neutrophils 0 % (0-8) Platelet Estimate Decreased L Platelet Morphology Normal Anisocytosis 1+ Sodium Level 135 MMOL/L (136-145) L Potassium Level 3.4 MMOL/L (3.5-5.1) L Chloride Level 101 MMOL/L (98-107) Carbon Dioxide Level 32 MMOL/L (21-32) Anion Gap 2 mmol/L (5-15) L Blood Urea Nitrogen 25 mg/dL (7-18) H Creatinine 0.6 MG/DL (0.55-1.30) Estimat Glomerular Filtration Rate mL/min (>60) Glucose Level 104 MG/DL (74-106) Calcium Level 7.5 MG/DL (8.5-10.1) L Phosphorus Level 2.5 MG/DL (2.5-4.9) Magnesium Level 2.1 MG/DL (1.8-2.4) Total Bilirubin 2.5 MG/DL (0.2-1.0) H Direct Bilirubin 0.9 MG/DL (0.0-0.3) H Aspartate Amino Transf (AST/SGOT) 26 U/L (15-37) Alanine Aminotransferase (ALT/SGPT) 16 U/L (12-78) Alkaline Phosphatase 65 U/L (46-116) Total Protein 6.0 G/DL (6.4-8.2) L Albumin 1.8 G/DL (3.4-5.0) L Globulin 4.2 g/dL Albumin/Globulin Ratio 0.4 (1.0-2.7) L Arterial Blood pH 7.492 (7.350-7.450) Arterial Blood Partial Pressure CO2 40.3 mmHg (35.0-45.0) Arterial Blood Partial Pressure O2 105.0 mmHg (75.0-100.0) H Arterial Blood HCO3 30.2 mmol/L (22.0-26.0) H Arterial Blood Oxygen Saturation 97.6 % (95-100) Arterial Blood Base Excess 6.3 (-2-2) H Raghavendra Test Positive Jamal Medina MD May 13, 2019 12:03
--- NOTE | 2019-05-13 12:09 | NUR ---
NURSE NOTES: SEEN AND EXAMINED BY DR PEREZ WITH NEW ORDERS MADE. SPOKE WITH THE SON. WILL CONTINUE TO MONITOR.
--- NOTE | 2019-05-13 12:39 | Diagnostic Imaging Report ---
Indication: Dyspnea Comparison: 05/12/2019 A single view chest radiograph was obtained. Findings: Patchy interstitial and alveolar opacities again demonstrated bilaterally. Heart size is borderline enlarged but stable. Tubes and lines are stable. There is no change accounting for some differences in technique. IMPRESSION: No significant address change clerk 24
--- NOTE | 2019-05-13 14:30 | NUR ---
NURSE NOTES: TURNED AND REPOSITIONED LATER. WILL CONTINUE TO MONITOR.
--- NOTE | 2019-05-13 14:49 | Infectious Diseases Prog Note ---
Assessment/Plan Assessment/Plan Afebrile Leukocytosis 05/10 reintubation 05/10 Levophed, SP 05/10 Likely aspiration pneumonia 05/10 bcx: ngtd 05/10 sputum cx: Staph aureus, GNR 05/10 CXR: Complete atelectasis of the left lung. Pulmonary edema 05/11 CXR: Pulmonary vascular congestion without significant change. Apparent decrease in a left pleural effusion. 05/12 CXR: Suspect slightly worsening interstitial edema 05/13 CXR: Patchy interstitial and alveolar opacities again demonstrated bilaterally. There is no change accounting for some differences in technique. Earlier in hospital stay: Afebrile No leukocytosis Lactate 1.2 dopamine, SP Hypoxic Respiratory failure PNA? Pulm edema 05/03 Flu swab negative 05/03 sputum cx: ngtd 05/03 CXR: Moderate to severe pulmonary edema. Bilateral pleural effusions 05/03 CXR: Diffuse airspace disease may be due to pulmonary edema. Small bilateral pleural effusions. Tubes and lines satisfactory 05/04 CXR: Improved bilateral pleural effusions, over one day 05/05 CXR: Bilateral interstitial and hazy airspace disease persists, unchanged. Probable small left pleural effusion is again demonstrated. The heart size is upper limits normal. No significant interim change 05/06 CXR: Stable to minimally improved bilateral interstitial and airspace disease, over one day. Otherwise stable findings as described. 05/07 CXR: Interstitial pneumonitis versus CHF. No change UA negative r/o bacteremia 05/03 Bcx: ngtd 05/03 TTE: EF 60%.No pericardial effusion. AV calcification with decreased cusp excursion c/w aortic stenosis. Heavily thickened mitral valve leaflets with reduced excursion. Echogenic material noted on posterior mitral valve leaflet is likely calcified mitral annular structure. Heavy mitral annulus and aortic root calcification. Pulmonic valve not well visualized. Normal tricuspid valve structure. VRE colonization MRSA colonization new subclavian central line placed in ED no sorensen COPD CHF Hep C cirrhosis GERD Plan: cefepime and vancomycin #4 05/07 DC Ertapenem #5 05/06 DC Vancomycin #4 05/05 DC Amikacin #3 SP Zosyn and Vanc monitor CXR monitor temp monitor CBC steroids per pulm repeat blood cx, sputum cx CT chest once stable Thank you for this consult. [facility] will continue to follow the patient with you. Subjective Allergies: Coded Allergies: ACETAMINOPHEN (Verified Allergy, Unknown, 05/03/19) ASPIRIN (Verified Allergy, Unknown, 08/14/17) IBUPROFEN (Verified Allergy, Unknown, 05/03/19) PENICILLINS (Unverified Allergy, Unknown, 05/05/19) Uncoded Allergies: pain killers (Allergy, Severe, 01/28/17) Subjective Afebrile. DNR/DNI Possible extubation tomorrow awake. denies sob or abdominal pain No pressor Objective Vital Signs Last 24 Hour Vital Signs Date Time Temp Pulse Resp B/P (MAP) Pulse Ox O2 Delivery O2 Flow Rate FiO2 05/13/19 14:00 60 16 93/40 (57) 95 05/13/19 13:22 63 16 30 05/13/19 13:00 54 16 115/43 (67) 96 05/13/19 12:00 Mechanical Ventilator 05/13/19 12:00 98.2 54 16 112/44 (66) 96 05/13/19 12:00 30 05/13/19 11:20 55 16 30 05/13/19 11:00 57 16 98/39 (58) 99 05/13/19 10:17 90 28 97 Mechanical Ventilator 45 05/13/19 10:00 53 05/13/19 10:00 57 16 87/37 (54) 95 05/13/19 09:29 58 21 30 05/13/19 09:00 64 25 106/39 (61) 97 05/13/19 08:21 79 31 30 05/13/19 08:00 98.2 52 16 93/42 (59) 100 05/13/19 08:00 30 05/13/19 08:00 Mechanical Ventilator 05/13/19 07:00 62 17 107/46 (66) 99 05/13/19 06:00 63 20 98/52 (67) 100 05/13/19 05:40 100/47 05/13/19 05:29 62 17 30 05/13/19 05:00 64 16 100/47 (64) 100 05/13/19 04:00 Mechanical Ventilator 05/13/19 04:00 30 05/13/19 04:00 98.3 60 18 111/44 (66) 98 05/13/19 04:00 64 05/13/19 03:28 72 17 30 05/13/19 03:00 58 16 103/43 (63) 94 05/13/19 02:00 59 16 97/41 (59) 96 05/13/19 01:36 58 17 30 05/13/19 01:00 66 17 108/58 (75) 98 05/13/19 00:00 98.5 64 23 107/46 (66) 98 05/13/19 00:00 66 05/13/19 00:00 Mechanical Ventilator 05/12/19 23:29 59 16 30 05/12/19 23:00 61 16 100/45 (63) 96 05/12/19 22:00 56 16 94/44 (61) 96 05/12/19 21:00 63 16 90/38 (55) 95 05/12/19 20:51 66 16 30 05/12/19 20:00 Mechanical Ventilator 05/12/19 20:00 57 05/12/19 20:00 98.7 59 16 115/40 (65) 96 05/12/19 20:00 30 05/12/19 19:00 54 19 100/52 (68) 98 05/12/19 18:52 58 16 30 05/12/19 18:00 64 19 98/46 (63) 92 05/12/19 17:00 58 19 129/32 (64) 100 05/12/19 16:50 57 19 30 05/12/19 16:00 98.5 64 16 124/72 (89) 96 05/12/19 16:00 Mechanical Ventilator Mechanical Ventilator 05/12/19 16:00 30 05/12/19 15:27 60 05/12/19 15:00 65 19 108/35 (59) 97 Height (Feet): 5 Height (Inches): 3.00 Weight (Pounds): 118 Objective Gen: NAD HEENT: anicteric sclera CV: RRR Resp: RRR. no wheezes. coarse Abd: soft. normoactive Bs+ Neuro: sedated Laboratory Tests Test 05/13/19 04:44 05/13/19 10:29 White Blood Count 5.3 K/UL (4.8-10.8) Red Blood Count 2.32 M/UL (4.20-5.40) L Hemoglobin 7.1 G/DL (12.0-16.0) L Hematocrit 22.6 % (37.0-47.0) L Mean Corpuscular Volume 98 FL (80-99) Mean Corpuscular Hemoglobin 30.8 PG (27.0-31.0) Mean Corpuscular Hemoglobin Concent 31.5 G/DL (32.0-36.0) L Red Cell Distribution Width 18.6 % (11.6-14.8) H Platelet Count 51 K/UL (150-450) L Mean Platelet Volume 8.3 FL (6.5-10.1) Neutrophils (%) (Auto) % (45.0-75.0) Lymphocytes (%) (Auto) % (20.0-45.0) Monocytes (%) (Auto) % (1.0-10.0) Eosinophils (%) (Auto) % (0.0-3.0) Basophils (%) (Auto) % (0.0-2.0) Differential Total Cells Counted 100 Neutrophils % (Manual) 80 % (45-75) H Lymphocytes % (Manual) 8 % (20-45) L Monocytes % (Manual) 12 % (1-10) H Eosinophils % (Manual) 0 % (0-3) Basophils % (Manual) 0 % (0-2) Band Neutrophils 0 % (0-8) Platelet Estimate Decreased L Platelet Morphology Normal Anisocytosis 1+ Sodium Level 135 MMOL/L (136-145) L Potassium Level 3.4 MMOL/L (3.5-5.1) L Chloride Level 101 MMOL/L (98-107) Carbon Dioxide Level 32 MMOL/L (21-32) Anion Gap 2 mmol/L (5-15) L Blood Urea Nitrogen 25 mg/dL (7-18) H Creatinine 0.6 MG/DL (0.55-1.30) Estimat Glomerular Filtration Rate mL/min (>60) Glucose Level 104 MG/DL (74-106) Calcium Level 7.5 MG/DL (8.5-10.1) L Phosphorus Level 2.5 MG/DL (2.5-4.9) Magnesium Level 2.1 MG/DL (1.8-2.4) Total Bilirubin 2.5 MG/DL (0.2-1.0) H Direct Bilirubin 0.9 MG/DL (0.0-0.3) H Aspartate Amino Transf (AST/SGOT) 26 U/L (15-37) Alanine Aminotransferase (ALT/SGPT) 16 U/L (12-78) Alkaline Phosphatase 65 U/L (46-116) Total Protein 6.0 G/DL (6.4-8.2) L Albumin 1.8 G/DL (3.4-5.0) L Globulin 4.2 g/dL Albumin/Globulin Ratio 0.4 (1.0-2.7) L Arterial Blood pH 7.492 (7.350-7.450) Arterial Blood Partial Pressure CO2 40.3 mmHg (35.0-45.0) Arterial Blood Partial Pressure O2 105.0 mmHg (75.0-100.0) H Arterial Blood HCO3 30.2 mmol/L (22.0-26.0) H Arterial Blood Oxygen Saturation 97.6 % (95-100) Arterial Blood Base Excess 6.3 (-2-2) H Raghavendra Test Positive Current Medications Medications (Trade) Dose Ordered Sig/Gautam Route PRN Reason Start Time Stop Time Status Last Admin Dose Admin Cefepime HCl 2 gm/ Dextrose 55 ml @ 110 mls/hr Q12H IVPB 05/10/19 15:00 05/17/19 14:59 05/13/19 02:56 Chlorhexidine Gluconate (Cherry-Hex 2%) 1 applic DAILY@1999 TOPIC 05/10/19 20:00 06/02/19 19:59 05/12/19 20:16 Folic Acid (Folate) 5 mg DAILY NG 05/10/19 09:00 06/03/19 10:59 05/13/19 09:39 Lorazepam (Ativan 2mg/ml 1ml) 2 mg Q2H PRN IV Agitation 05/11/19 20:30 05/18/19 20:29 05/13/19 00:30 Midodrine (Pro-Amatine) 2.5 mg THREE TIMES A DAY NG 05/10/19 13:00 06/05/19 09:29 05/13/19 09:39 Norepinephrine Bitartrate 4 mg/ Dextrose 250 ml @ 0 mls/hr Q24H IV 05/10/19 06:00 06/09/19 05:59 05/10/19 15:00 Ondansetron HCl (Zofran) 4 mg Q6H PRN IVP Nausea & Vomiting 05/10/19 05:30 06/02/19 05:29 05/11/19 16:23 Polyethylene Glycol (Miralax) 17 gm DAILYPRN PRN ORAL Constipation 05/10/19 05:30 06/09/19 05:29 05/13/19 05:39 Potassium Phosphate 30 mm/ Sodium Chloride 285 ml @ 47.5 mls/hr ONCE ONCE IV 05/13/19 10:30 05/13/19 16:29 05/13/19 10:19 Vancomycin HCl (Vanco rx to dose) 1 ea DAILY PRN MISC Per rx protocol 05/10/19 13:00 06/09/19 12:59 Vancomycin HCl 750 mg/Dextrose 275 ml @ 183.333 mls/hr Q12HR@0400,1600 IVPB 05/10/19 16:00 05/15/19 15:59 05/13/19 03:59 Yazan Minaya MD May 13, 2019 14:49
--- NOTE | 2019-05-13 14:51 | NUR ---
CASE MANAGEMENT:REVIEW 05/13/19 SI: ACUTE RESPIRATORY FAILURE COPD. PNA 98.2 54 16 112/44 96% ON VENT SUPPORT @ 30% FIO2 H/H-7.1/22.6 PLT-51 IS: IV K-PHOS X1 IV ATIVAN Q2HRS PRN LEVOPHED GTT IV VANCOMYCIN Q12 IV CEFEPIME Q12 HEPARIN SQ Q12 MIDODRINE NG TID : ICU STATUS DCP: FROM [facility] SHANKS
[2019-05-13] MEDS ORDERED: Tubing IV Secondary IV ONE (16:25)
--- NOTE | 2019-05-13 16:44 | Internal Med Progress Note ---
Subjective Date of Service: May 13, 2019 Physician Name Romeo Tavares Attending Physician Zeke Munoz MD Current Medications Medications (Trade) Dose Ordered Sig/Gautam Route PRN Reason Start Time Stop Time Status Last Admin Dose Admin Cefepime HCl 2 gm/ Dextrose 55 ml @ 110 mls/hr Q12H IVPB 05/10/19 15:00 05/17/19 14:59 05/13/19 15:10 Chlorhexidine Gluconate (Cherry-Hex 2%) 1 applic DAILY@2000 TOPIC 05/10/19 20:00 06/02/19 19:59 05/12/19 20:16 Folic Acid (Folate) 5 mg DAILY NG 05/10/19 09:00 06/03/19 10:59 05/13/19 09:39 Lorazepam (Ativan 2mg/ml 1ml) 2 mg Q2H PRN IV Agitation 05/11/19 20:30 05/18/19 20:29 05/13/19 00:30 Midodrine (Pro-Amatine) 2.5 mg THREE TIMES A DAY NG 05/10/19 13:00 06/05/19 09:29 05/13/19 09:39 Norepinephrine Bitartrate 4 mg/ Dextrose 250 ml @ 0 mls/hr Q24H IV 05/10/19 06:00 06/09/19 05:59 05/10/19 15:00 Ondansetron HCl (Zofran) 4 mg Q6H PRN IVP Nausea & Vomiting 05/10/19 05:30 06/02/19 05:29 05/11/19 16:23 Polyethylene Glycol (Miralax) 17 gm DAILYPRN PRN ORAL Constipation 05/10/19 05:30 06/09/19 05:29 05/13/19 05:39 Vancomycin HCl (Vanco rx to dose) 1 ea DAILY PRN MISC Per rx protocol 05/10/19 13:00 06/09/19 12:59 Vancomycin HCl 500 mg/Dextrose 110 ml @ 110 mls/hr Q12HR@0500,1700 IVPB 05/13/19 17:00 05/18/19 16:59 Allergies: Coded Allergies: ACETAMINOPHEN (Verified Allergy, Unknown, 05/03/19) ASPIRIN (Verified Allergy, Unknown, 08/14/17) IBUPROFEN (Verified Allergy, Unknown, 05/03/19) PENICILLINS (Unverified Allergy, Unknown, 05/05/19) Uncoded Allergies: pain killers (Allergy, Severe, 01/28/17) ROS Limited/Unobtainable: Yes Subjective 74 YO F admitted with respiratory failure. Now Link Heart Failure. Extubated 05/07/19; reintubated early 05/10/19. Cover for Int [facility]-Dr Munoz. ICU Objective Last Vital Signs Date Time Temp Pulse Resp B/P (MAP) Pulse Ox O2 Delivery O2 Flow Rate FiO2 05/13/19 16:00 30 05/13/19 16:00 73 86/45 (59) 96 05/13/19 15:22 16 05/13/19 12:00 Mechanical Ventilator 05/13/19 12:00 98.2 05/09/19 12:00 4.0 Laboratory Tests Test 05/13/19 04:44 05/13/19 10:29 05/13/19 15:10 White Blood Count 5.3 K/UL (4.8-10.8) Red Blood Count 2.32 M/UL (4.20-5.40) L Hemoglobin 7.1 G/DL (12.0-16.0) L Hematocrit 22.6 % (37.0-47.0) L Mean Corpuscular Volume 98 FL (80-99) Mean Corpuscular Hemoglobin 30.8 PG (27.0-31.0) Mean Corpuscular Hemoglobin Concent 31.5 G/DL (32.0-36.0) L Red Cell Distribution Width 18.6 % (11.6-14.8) H Platelet Count 51 K/UL (150-450) L Mean Platelet Volume 8.3 FL (6.5-10.1) Neutrophils (%) (Auto) % (45.0-75.0) Lymphocytes (%) (Auto) % (20.0-45.0) Monocytes (%) (Auto) % (1.0-10.0) Eosinophils (%) (Auto) % (0.0-3.0) Basophils (%) (Auto) % (0.0-2.0) Differential Total Cells Counted 100 Neutrophils % (Manual) 80 % (45-75) H Lymphocytes % (Manual) 8 % (20-45) L Monocytes % (Manual) 12 % (1-10) H Eosinophils % (Manual) 0 % (0-3) Basophils % (Manual) 0 % (0-2) Band Neutrophils 0 % (0-8) Platelet Estimate Decreased L Platelet Morphology Normal Anisocytosis 1+ Sodium Level 135 MMOL/L (136-145) L Potassium Level 3.4 MMOL/L (3.5-5.1) L Chloride Level 101 MMOL/L (98-107) Carbon Dioxide Level 32 MMOL/L (21-32) Anion Gap 2 mmol/L (5-15) L Blood Urea Nitrogen 25 mg/dL (7-18) H Creatinine 0.6 MG/DL (0.55-1.30) Estimat Glomerular Filtration Rate mL/min (>60) Glucose Level 104 MG/DL (74-106) Calcium Level 7.5 MG/DL (8.5-10.1) L Phosphorus Level 2.5 MG/DL (2.5-4.9) Magnesium Level 2.1 MG/DL (1.8-2.4) Total Bilirubin 2.5 MG/DL (0.2-1.0) H Direct Bilirubin 0.9 MG/DL (0.0-0.3) H Aspartate Amino Transf (AST/SGOT) 26 U/L (15-37) Alanine Aminotransferase (ALT/SGPT) 16 U/L (12-78) Alkaline Phosphatase 65 U/L (46-116) Total Protein 6.0 G/DL (6.4-8.2) L Albumin 1.8 G/DL (3.4-5.0) L Globulin 4.2 g/dL Albumin/Globulin Ratio 0.4 (1.0-2.7) L Arterial Blood pH 7.492 (7.350-7.450) Arterial Blood Partial Pressure CO2 40.3 mmHg (35.0-45.0) Arterial Blood Partial Pressure O2 105.0 mmHg (75.0-100.0) H Arterial Blood HCO3 30.2 mmol/L (22.0-26.0) H Arterial Blood Oxygen Saturation 97.6 % (95-100) Arterial Blood Base Excess 6.3 (-2-2) H Raghavendra Test Positive Vancomycin Level Trough 20.9 ug/mL (5.0-12.0) H Intake and Output 05/12/19 05/13/19 19:00 07:00 Intake Total 1125.000 ml 455 ml Output Total 410 ml 350 ml Balance 715.000 ml 105 ml Free Water 50 ml IV Total 825.000 ml Tube Feeding 240 ml 405 ml Other 60 ml Output Urine Total 410 ml 350 ml Objective PHYSICAL EXAMINATION: GENERAL: The patient is a thin-appearing female, who is currently intubated and sedated in the intensive care unit. HEENT: Eyes, pupils are equal and responsive to light and accommodation. Extraocular movements are intact. NECK: Supple without lymphadenopathy. CHEST: Mechanical vent; Coarse breath sounds bilaterally without wheezes or rales. CARDIOVASCULAR: Regular rhythm and rate. S1 and S2 are normal without murmurs, rubs, or gallops. ABDOMEN: Soft, nontender, and nondistended with positive bowel sounds. No evidence of hepatosplenomegaly, rebound, or guarding noted. EXTREMITIES: Negative for clubbing, cyanosis, or edema. RECTAL/GENITAL: Refused. NEUROLOGIC: Unable to assess secondary to intubation. Assessment/Plan Assessment/Plan ASSESSMENT: This is a 74-year-old female. 1. Respiratory failure. 2. Acute exacerbation of congestive heart failure. 3. Chronic obstructive pulmonary disease. 4. Hypertension. 5. Hypercholesterolemia. TREATMENT: 1. Respiratory failure. A Pulmonary consultation has been obtained with Dr. Jamal Medina. The patient is currently reintubated 05/10/19. Weaning protocol. Respiratory failure may be secondary to congestive heart failure. Continue cefepime and vancomycin per Inf Dis=Dr. Minaya 2. Congestive heart failure. A Cardiology consultation has been obtained with Dr. Philipp Ahmadi. The patient is currently receiving Lasix intravenously. We will follow recommendations of Cardiology. 3. Hypercholesterolemia. Continue atorvastatin as above. 4. Hypertension. The patient is currently hypotensive. Hold antihypertensive medication at this time. Continue levophed Romeo Tavares MD May 13, 2019 16:44
--- NOTE | 2019-05-13 16:45 | NUR ---
NURSE NOTES: NOTED PATIENT TO BE INCONTINENT OF URINE. DARK COLORED URINE NOTED. PATIENT STILL TRYING TO PULL THE TUBE. WILL CONTINUE TO MONITOR.
[2019-05-13] MEDS: Vancomycin 500mg/D5W 110ml IVPB SCH ×2 (18:44)
--- NOTE | 2019-05-13 18:50 | NUR ---
NURSE NOTES: TURNED AND REPOSITIONED PATIENT. NOTED FAMILY MEMBER AT THE BEDSIDE. WILL CONTINUE TO MONITOR.
--- NOTE | 2019-05-13 19:30 | NUR ---
NURSE NOTES: Received pt awake with lots of visitors at bedside, orally intubated on ac mode, bilateral soft wrist restraints on for safety to avoid self extubation. SB on the 40s-50s Dr Ahmadi was aware, no orders given. TLC RT SVC with drsg dry and intact. Purewick to suction with celsa yellow urine moderate in amt.Tolerated OGT fdg at this time, no residuals. HOB kept elevated, On aspiration precautions. Will continue to monitor,
--- NOTE | 2019-05-13 19:37 | NUR ---
HAND-OFF: Report given to Phillip Navas RN.
--- NOTE | 2019-05-13 20:14 | Cardiology Progress Note ---
Assessment/Plan Assessment/Plan 1. Paroxysmal episodes of atrial fibrillation. 2. Severe left ventricular hypertrophy with left ventricular outflow tract, mild obstruction. 3. Severe aortic regurgitation. 4. Severe mitral stenosis/regurgitation. 5. Pulmonary hypertension. 6. Anemia now worse 7. Respiratory failure secondary to congestive heart failure. 8. History of recent GI bleeding, site undetermined. 9. Sinus bradycardia with abnormal T-waves. 10. Autoimmune hepatitis history. 11. History of severe COPD, on home O2. 12. Cirrhosis and portal hypertension. 13. History of hepatitis C. 14. Thrombocytopenia. 15. left lung collapse cxr much improved seem to be in sinus diureitc prn labs noted now dnr per staff still on vent hope to wean off soon off pressor at this time looks awake plan for extubation tomorrow Subjective Subjective on the vent Objective Last 24 Hour Vital Signs Date Time Temp Pulse Resp B/P (MAP) Pulse Ox O2 Delivery O2 Flow Rate FiO2 05/13/19 19:15 55 25 40 05/13/19 19:00 57 21 108/92 (97) 88 05/13/19 18:00 58 25 106/59 (75) 95 05/13/19 17:23 74 17 40 05/13/19 17:00 61 105/59 (74) 95 05/13/19 16:00 30 05/13/19 16:00 Mechanical Ventilator 05/13/19 16:00 73 86/45 (59) 96 05/13/19 15:22 72 16 40 05/13/19 15:00 60 16 115/43 (67) 96 05/13/19 14:00 60 16 93/40 (57) 95 05/13/19 13:22 63 16 30 05/13/19 13:00 54 16 115/43 (67) 96 05/13/19 12:00 Mechanical Ventilator 05/13/19 12:00 98.2 54 16 112/44 (66) 96 05/13/19 12:00 61 05/13/19 12:00 30 05/13/19 11:20 55 16 30 05/13/19 11:00 57 16 98/39 (58) 99 05/13/19 10:17 90 28 97 Mechanical Ventilator 45 05/13/19 10:00 57 16 87/37 (54) 95 05/13/19 09:29 58 21 30 05/13/19 09:00 64 25 106/39 (61) 97 05/13/19 08:21 79 31 30 05/13/19 08:00 98.2 52 16 93/42 (59) 100 05/13/19 08:00 53 05/13/19 08:00 30 05/13/19 08:00 Mechanical Ventilator 05/13/19 07:00 62 17 107/46 (66) 99 05/13/19 06:00 63 20 98/52 (67) 100 05/13/19 05:40 100/47 05/13/19 05:29 62 17 30 05/13/19 05:00 64 16 100/47 (64) 100 05/13/19 04:00 Mechanical Ventilator 05/13/19 04:00 30 05/13/19 04:00 98.3 60 18 111/44 (66) 98 05/13/19 04:00 64 05/13/19 03:28 72 17 30 05/13/19 03:00 58 16 103/43 (63) 94 05/13/19 02:00 59 16 97/41 (59) 96 05/13/19 01:36 58 17 30 05/13/19 01:00 66 17 108/58 (75) 98 05/13/19 00:00 98.5 64 23 107/46 (66) 98 05/13/19 00:00 66 05/13/19 00:00 Mechanical Ventilator 05/12/19 23:29 59 16 30 05/12/19 23:00 61 16 100/45 (63) 96 05/12/19 22:00 56 16 94/44 (61) 96 05/12/19 21:00 63 16 90/38 (55) 95 05/12/19 20:51 66 16 30 Intake and Output 05/12/19 05/13/19 19:00 07:00 Intake Total 1125.000 ml 455 ml Output Total 410 ml 350 ml Balance 715.000 ml 105 ml Free Water 50 ml IV Total 825.000 ml Tube Feeding 240 ml 405 ml Other 60 ml Output Urine Total 410 ml 350 ml Laboratory Tests Test 05/13/19 04:44 05/13/19 10:29 05/13/19 15:10 White Blood Count 5.3 K/UL (4.8-10.8) Red Blood Count 2.32 M/UL (4.20-5.40) L Hemoglobin 7.1 G/DL (12.0-16.0) L Hematocrit 22.6 % (37.0-47.0) L Mean Corpuscular Volume 98 FL (80-99) Mean Corpuscular Hemoglobin 30.8 PG (27.0-31.0) Mean Corpuscular Hemoglobin Concent 31.5 G/DL (32.0-36.0) L Red Cell Distribution Width 18.6 % (11.6-14.8) H Platelet Count 51 K/UL (150-450) L Mean Platelet Volume 8.3 FL (6.5-10.1) Neutrophils (%) (Auto) % (45.0-75.0) Lymphocytes (%) (Auto) % (20.0-45.0) Monocytes (%) (Auto) % (1.0-10.0) Eosinophils (%) (Auto) % (0.0-3.0) Basophils (%) (Auto) % (0.0-2.0) Differential Total Cells Counted 100 Neutrophils % (Manual) 80 % (45-75) H Lymphocytes % (Manual) 8 % (20-45) L Monocytes % (Manual) 12 % (1-10) H Eosinophils % (Manual) 0 % (0-3) Basophils % (Manual) 0 % (0-2) Band Neutrophils 0 % (0-8) Platelet Estimate Decreased L Platelet Morphology Normal Anisocytosis 1+ Sodium Level 135 MMOL/L (136-145) L Potassium Level 3.4 MMOL/L (3.5-5.1) L Chloride Level 101 MMOL/L (98-107) Carbon Dioxide Level 32 MMOL/L (21-32) Anion Gap 2 mmol/L (5-15) L Blood Urea Nitrogen 25 mg/dL (7-18) H Creatinine 0.6 MG/DL (0.55-1.30) Estimat Glomerular Filtration Rate mL/min (>60) Glucose Level 104 MG/DL (74-106) Calcium Level 7.5 MG/DL (8.5-10.1) L Phosphorus Level 2.5 MG/DL (2.5-4.9) Magnesium Level 2.1 MG/DL (1.8-2.4) Total Bilirubin 2.5 MG/DL (0.2-1.0) H Direct Bilirubin 0.9 MG/DL (0.0-0.3) H Aspartate Amino Transf (AST/SGOT) 26 U/L (15-37) Alanine Aminotransferase (ALT/SGPT) 16 U/L (12-78) Alkaline Phosphatase 65 U/L (46-116) Total Protein 6.0 G/DL (6.4-8.2) L Albumin 1.8 G/DL (3.4-5.0) L Globulin 4.2 g/dL Albumin/Globulin Ratio 0.4 (1.0-2.7) L Arterial Blood pH 7.492 (7.350-7.450) Arterial Blood Partial Pressure CO2 40.3 mmHg (35.0-45.0) Arterial Blood Partial Pressure O2 105.0 mmHg (75.0-100.0) H Arterial Blood HCO3 30.2 mmol/L (22.0-26.0) H Arterial Blood Oxygen Saturation 97.6 % (95-100) Arterial Blood Base Excess 6.3 (-2-2) H Raghavendra Test Positive Vancomycin Level Trough 20.9 ug/mL (5.0-12.0) H Philipp Ahmadi MD May 13, 2019 20:14
[2019-05-13] MEDS: Dyna-Hex 2% Top Sol 2oz TOPIC SCH (20:40)
--- NOTE | 2019-05-13 20:40 | NUR ---
NURSE NOTES: Ativan 2mg ivp given due to pts agitation
--- NOTE | 2019-05-13 22:00 | NUR ---
NURSE NOTES: REsting well at this time, not restless nor agitated.
[2019-05-14] VITALS (23 sets, daily range): BP systolic 92–131; BP diastolic 42–63
--- NOTE | 2019-05-14 | NUR ---
NURSE NOTES: Suctioned tn tk light yellowish secretions moderate in amt.02 sat >95%. Will continue to monitor.
--- NOTE | 2019-05-14 02:00 | NUR ---
NURSE NOTES: Complete bath was given, purewick replaced.
--- NOTE | 2019-05-14 02:51 | NUR ---
NURSE NOTES: Oral care done. Resting well at this time.
[2019-05-14] MEDS: Cefepime HCl 2 GM in D5W 55 ML IVPB SCH ×2 (03:19→15:11)
[2019-05-14] MEDS: LORazepam Inj 2mg/ml 1ml IV PRN ×5 (04:26→22:26)
[2019-05-14] MEDS: Vancomycin 500mg/D5W 110ml IVPB SCH ×4 (04:30→16:50)
--- NOTE | 2019-05-14 04:31 | NUR ---
NURSE NOTES: Ativan 2mg ivp was given due to pts agitation
--- NOTE | 2019-05-14 05:00 | NUR ---
NURSE NOTES: Pt still on and off restless. inspite of explaination and re orientation.
[2019-05-14 05:45] LABS: HEMATOCRIT 22.4 % (37.0-47.0); HEMOGLOBIN 7.2 G/DL (12.0-16.0); MEAN CORPUSCULAR VOLUME 97 FL (80-99); PLATELET COUNT 60 K/UL (150-450); RED BLOOD COUNT 2.31 M/UL (4.20-5.40); RED CELL DISTRIBUTION WIDTH 17.8 % (11.6-14.8); WHITE BLOOD COUNT 4.6 K/UL (4.8-10.8)
[2019-05-14 06:30] LABS: ALANINE AMINOTRANSFERASE 19 U/L (12-78); ALBUMIN 1.7 G/DL (3.4-5.0); ALBUMIN/GLOBULIN RATIO 0.4 (1.0-2.7); ALKALINE PHOSPHATASE 67 U/L (46-116); ANION GAP 2 mmol/L (5-15); ASPARTATE AMINO TRANSFERASE 27 U/L (15-37); BLOOD UREA NITROGEN 24 mg/dL (7-18); CALCIUM 7.8 MG/DL (8.5-10.1); CARBON DIOXIDE 30 MMOL/L (21-32); CHLORIDE 101 MMOL/L (98-107); CREATININE 0.6 MG/DL (0.55-1.30); SODIUM 133 MMOL/L (136-145)
--- NOTE | 2019-05-14 06:38 | NUR ---
NURSE NOTES: Ativan 2mg was given due to pts agitation.
[2019-05-14 07:07] LABS: BILIRUBIN,DIRECT 0.8 MG/DL (0.0-0.3)
--- NOTE | 2019-05-14 07:15 | NUR ---
HAND-OFF: Report given to Mirna Aiken RN.
--- NOTE | 2019-05-14 07:16 | NUR ---
NURSE NOTES: Received patient from PRANEETH Copeland. Patient vital signs stale at this time. Patient showing sinus bradycardia on the quality assurance monitor chassis at this time with rate of 56-60 beat s per minute. Patient opens eyes and tracks at this time. Receoved report that patient attempts to communicate. Patient drowsy at this time. Will continue to monitor neurological status. Patient orally intubated at this time with ETT size 7.5cm with 21cm showing at the lip line. Patient on ventilator with setting of AC 16, tidal volume 500, FiO2 30%, and PEEP 5. Patient tolerating setting with RR 16 and SpO2 99%. Patient showing no sign of acute distress. Patient has oral gastric tube that is patent, asymptomatic, and running tube feeding of vital AF and 45mL/hr at this time with no residual noted. Patient has purewick on at this time but it is not draining correctly as patient keeps removing it. Patient restrained at this time due to patient being witnessed attempting to remove ET tube. Patient has bilateral soft wrist restraints with intact skin, pulses, and absent edema. Patient has central subclavian IV line that is patent, asymptomatic, and saline locked at this time. Patient Hgb low this morning. aware. Lab unchanged from yesterday. Patient bed in low position with bed alarm on and call light in reach. Will continue to monitor. Patient repositioned and oral care performed at this time.
--- NOTE | 2019-05-14 07:20 | NUR ---
RESPIRATORY NOTE: received pt orally intubated with ETT 7.5, placed 20cm at the lip. ETT is secured via anchor fast with no visible redness or skin wounds. alarms are set and audible with ambu bag at bedside. will attempt to wean later this morning and cont to monitor.
--- NOTE | 2019-05-14 09:15 | NUR ---
RESPIRATORY NOTE: attempted to wean pt at 0915 on CPAP PS8 fio2 30% but pt is not fully awake to understand. measuring inadequate Vt. RN notified and will attempt later this morning and cont to monitor.
--- NOTE | 2019-05-14 09:30 | Nephrology Progress Note ---
Assessment/Plan Problem List: (1) Acute respiratory failure Assessment: now extubated (2) Electrolyte imbalance (3) Anemia (4) NSTEMI (non-ST elevated myocardial infarction) (5) COPD (chronic obstructive pulmonary disease) Assessment Acute respiratory failure, on Vent- Underlying COPD HypoNatremia , Etiology TBI , ? CHF HyperKalemia Sever Anemia NSTEMI Plan re intubated, waiting for decision regarding extubation vs Trach on midodrine when bp low Folate . Iron . B12 supplement Mag and K and Phos supplement as needed Pulm support Monitor renal parameters Urine studies 2D echo Left ventricular ejection fraction estimated to be 60 %. per orders Subjective ROS Limited/Unobtainable: Yes Objective Objective Last 24 Hour Vital Signs Date Time Temp Pulse Resp B/P (MAP) Pulse Ox O2 Delivery O2 Flow Rate FiO2 05/14/19 09:14 67 21 40 05/14/19 08:00 Mechanical Ventilator 05/14/19 07:17 65 21 40 05/14/19 07:00 60 16 108/46 (66) 99 05/14/19 06:00 58 16 108/50 (69) 100 05/14/19 06:00 143/51 05/14/19 05:20 56 16 40 05/14/19 05:00 56 16 104/48 (66) 100 05/14/19 04:00 98.0 61 16 100/47 (64) 99 05/14/19 04:00 Mechanical Ventilator 05/14/19 04:00 30 05/14/19 04:00 57 05/14/19 03:00 61 16 98/44 (62) 99 05/14/19 02:41 63 16 40 05/14/19 02:00 59 16 120/48 (72) 100 05/14/19 01:30 62 17 40 05/14/19 01:00 57 16 121/48 (72) 100 05/14/19 00:00 Mechanical Ventilator 05/14/19 00:00 55 05/14/19 00:00 30 05/14/19 00:00 98.4 55 16 122/51 (74) 100 05/13/19 23:25 55 16 40 05/13/19 23:00 52 16 114/51 (72) 100 05/13/19 22:00 56 16 119/45 (69) 100 05/13/19 21:19 59 17 40 05/13/19 21:00 60 16 123/53 (76) 100 05/13/19 20:00 30 05/13/19 20:00 98.0 57 15 108/92 (97) 100 05/13/19 20:00 57 05/13/19 20:00 Mechanical Ventilator 05/13/19 19:15 55 25 40 05/13/19 19:00 57 21 108/92 (97) 88 05/13/19 18:00 58 25 106/59 (75) 95 05/13/19 17:23 74 17 40 05/13/19 17:00 61 105/59 (74) 95 05/13/19 16:00 30 05/13/19 16:00 Mechanical Ventilator 05/13/19 16:00 73 86/45 (59) 96 05/13/19 15:22 72 16 40 05/13/19 15:00 60 16 115/43 (67) 96 05/13/19 14:00 60 16 93/40 (57) 95 05/13/19 13:22 63 16 30 05/13/19 13:00 54 16 115/43 (67) 96 05/13/19 12:00 Mechanical Ventilator 05/13/19 12:00 98.2 54 16 112/44 (66) 96 05/13/19 12:00 61 05/13/19 12:00 30 05/13/19 11:20 55 16 30 05/13/19 11:00 57 16 98/39 (58) 99 05/13/19 10:17 90 28 97 Mechanical Ventilator 45 05/13/19 10:00 57 16 87/37 (54) 95 Intake and Output 05/13/19 05/14/19 18:59 06:59 Intake Total 973.0 ml 640 ml Output Total 300 ml 470 ml Balance 673.0 ml 170 ml Free Water 100 ml 50 ml IV Total 433.0 ml 110 ml Tube Feeding 440 ml 480 ml Output Urine Total 300 ml 470 ml # Voids 3 Laboratory Tests 05/13/19 10:29: Arterial Blood pH 7.492H, Arterial Blood Partial Pressure CO2 40.3, Arterial Blood Partial Pressure O2 105.0H, Arterial Blood HCO3 30.2H, Arterial Blood Oxygen Saturation 97.6, Arterial Blood Base Excess 6.3H, Raghavendra Test Positive 05/13/19 15:10: Vancomycin Level Trough 20.9H 05/14/19 04:30: White Blood Count 4.6L, Red Blood Count 2.31L, Hemoglobin 7.2L, Hematocrit 22.4L , Mean Corpuscular Volume 97, Mean Corpuscular Hemoglobin 31.2H, Mean Corpuscular Hemoglobin Concent 32.2, Red Cell Distribution Width 17.8H, Platelet Count 60L, Mean Platelet Volume 8.3, Neutrophils (%) (Auto) , Lymphocytes (%) (Auto) , Monocytes (%) (Auto) , Eosinophils (%) (Auto) , Basophils (%) (Auto) , Differential Total Cells Counted 100, Neutrophils % ( Manual) 86H, Lymphocytes % (Manual) 8L, Monocytes % (Manual) 4, Eosinophils % ( Manual) 2, Basophils % (Manual) 0, Band Neutrophils 0, Platelet Estimate DecreasedL, Platelet Morphology Normal, Basophilic Stippling 1+, Anisocytosis 1+ , Sodium Level 133L, Potassium Level 4.0, Chloride Level 101, Carbon Dioxide Level 30, Anion Gap 2L, Blood Urea Nitrogen 24H, Creatinine 0.6, Estimat Glomerular Filtration Rate , Glucose Level 102, Calcium Level 7.8L, Phosphorus Level 3.0, Magnesium Level 1.9, Total Bilirubin 2.0H, Direct Bilirubin 0.8H, Aspartate Amino Transf (AST/SGOT) 27, Alanine Aminotransferase (ALT/SGPT) 19, Alkaline Phosphatase 67, Total Protein 6.0L, Albumin 1.7L, Globulin 4.3, Albumin /Globulin Ratio 0.4L 05/14/19 08:10: Arterial Blood pH 7.485H, Arterial Blood Partial Pressure CO2 38.8, Arterial Blood Partial Pressure O2 104.9H, Arterial Blood HCO3 28.6H, Arterial Blood Oxygen Saturation 97.5, Arterial Blood Base Excess 4.8H, Raghavendra Test Positive Height (Feet): 5 Height (Inches): 3.00 Weight (Pounds): 122 General Appearance: no apparent distress EENT: other - vented Respiratory/Chest: decreased breath sounds Abdomen: distended Efra Das MD May 14, 2019 09:30
--- NOTE | 2019-05-14 10:19 | Pulmonolgy Critical Care Note ---
Critical Care - Asmt/Plan Problems: (1) Acute respiratory failure (2) Acute pulmonary edema (3) COPD (chronic obstructive pulmonary disease) (4) Severe protein-calorie malnutrition (5) Nosocomial pneumonia (6) Edema of both feet Respiratory: monitor respiratory rate, adjust FIO2, CXR Cardiac: continue to monitor HR/BP Renal: F/U I&O Gastrointestinal: continue feedings/current rate Endocrine: monitor blood sugar Hematologic: monitor H/H, transfuse if hgb<8.5 Neurologic: PRN Ativan, keep patient comfortable Affect: PRN ativan Prophylaxis: Protonix, Heparin Notes Reviewed: cardio, renal Discussed with: nurses, consultants, case fitterwatershed manager - Objective Last 24 Hour Vital Signs Date Time Temp Pulse Resp B/P (MAP) Pulse Ox O2 Delivery O2 Flow Rate FiO2 05/14/19 09:14 67 21 40 05/14/19 08:00 Mechanical Ventilator 05/14/19 07:17 65 21 40 05/14/19 07:00 60 16 108/46 (66) 99 05/14/19 06:00 58 16 108/50 (69) 100 05/14/19 06:00 143/51 05/14/19 05:20 56 16 40 05/14/19 05:00 56 16 104/48 (66) 100 05/14/19 04:00 98.0 61 16 100/47 (64) 99 05/14/19 04:00 Mechanical Ventilator 05/14/19 04:00 30 05/14/19 04:00 57 05/14/19 03:00 61 16 98/44 (62) 99 05/14/19 02:41 63 16 40 05/14/19 02:00 59 16 120/48 (72) 100 05/14/19 01:30 62 17 40 05/14/19 01:00 57 16 121/48 (72) 100 05/14/19 00:00 Mechanical Ventilator 05/14/19 00:00 55 05/14/19 00:00 30 05/14/19 00:00 98.4 55 16 122/51 (74) 100 05/13/19 23:25 55 16 40 05/13/19 23:00 52 16 114/51 (72) 100 05/13/19 22:00 56 16 119/45 (69) 100 05/13/19 21:19 59 17 40 05/13/19 21:00 60 16 123/53 (76) 100 05/13/19 20:00 30 05/13/19 20:00 98.0 57 15 108/92 (97) 100 05/13/19 20:00 57 05/13/19 20:00 Mechanical Ventilator 05/13/19 19:15 55 25 40 05/13/19 19:00 57 21 108/92 (97) 88 05/13/19 18:00 58 25 106/59 (75) 95 05/13/19 17:23 74 17 40 05/13/19 17:00 61 105/59 (74) 95 05/13/19 16:00 30 05/13/19 16:00 Mechanical Ventilator 05/13/19 16:00 73 86/45 (59) 96 05/13/19 15:22 72 16 40 05/13/19 15:00 60 16 115/43 (67) 96 05/13/19 14:00 60 16 93/40 (57) 95 05/13/19 13:22 63 16 30 05/13/19 13:00 54 16 115/43 (67) 96 05/13/19 12:00 Mechanical Ventilator 05/13/19 12:00 98.2 54 16 112/44 (66) 96 05/13/19 12:00 61 05/13/19 12:00 30 05/13/19 11:20 55 16 30 05/13/19 11:00 57 16 98/39 (58) 99 Status: awake Condition: critical HEENT: atraumatic, normocephalic Neck: full ROM Lungs: chest wall tender Heart: HR/BP stable Abdomen: soft, active bowel sounds Extremities: no C/C/E Critical Care - Subjective Intubation Day: 11 Interval Events: sedated, looks comfortable Condition: critical FI02: 40 Vent Support Breath Rate: 16 Vent Support Mode: AC Vent Tidal Volume: 500 Sputum Amount: Scant PEEP: 5.0 PIP: 36 Tube Feeding Amount: 40 I&O: Intake and Output 05/13/19 05/14/19 19:00 07:00 Intake Total 1013.0 ml 640 ml Output Total 300 ml 490 ml Balance 713.0 ml 150 ml Free Water 100 ml 50 ml IV Total 433.0 ml 110 ml Tube Feeding 480 ml 480 ml Output Urine Total 300 ml 490 ml # Voids 3 CXR: worsening RLL infiltrate ET-Tube: 7.5 ET Position: 20 Labs: Laboratory Tests Test 05/13/19 10:29 05/13/19 15:10 05/14/19 04:30 05/14/19 08:10 Arterial Blood pH 7.492 (7.350-7.450) 7.485 (7.350-7.450) Arterial Blood Partial Pressure CO2 40.3 mmHg (35.0-45.0) 38.8 mmHg (35.0-45.0) Arterial Blood Partial Pressure O2 105.0 mmHg (75.0-100.0) H 104.9 mmHg (75.0-100.0) H Arterial Blood HCO3 30.2 mmol/L (22.0-26.0) H 28.6 mmol/L (22.0-26.0) H Arterial Blood Oxygen Saturation 97.6 % (95-100) 97.5 % (95-100) Arterial Blood Base Excess 6.3 (-2-2) H 4.8 (-2-2) H Raghavendra Test Positive Positive Vancomycin Level Trough 20.9 ug/mL (5.0-12.0) H White Blood Count 4.6 K/UL (4.8-10.8) L Red Blood Count 2.31 M/UL (4.20-5.40) L Hemoglobin 7.2 G/DL (12.0-16.0) L Hematocrit 22.4 % (37.0-47.0) L Mean Corpuscular Volume 97 FL (80-99) Mean Corpuscular Hemoglobin 31.2 PG (27.0-31.0) H Mean Corpuscular Hemoglobin Concent 32.2 G/DL (32.0-36.0) Red Cell Distribution Width 17.8 % (11.6-14.8) H Platelet Count 60 K/UL (150-450) L Mean Platelet Volume 8.3 FL (6.5-10.1) Neutrophils (%) (Auto) % (45.0-75.0) Lymphocytes (%) (Auto) % (20.0-45.0) Monocytes (%) (Auto) % (1.0-10.0) Eosinophils (%) (Auto) % (0.0-3.0) Basophils (%) (Auto) % (0.0-2.0) Differential Total Cells Counted 100 Neutrophils % (Manual) 86 % (45-75) H Lymphocytes % (Manual) 8 % (20-45) L Monocytes % (Manual) 4 % (1-10) Eosinophils % (Manual) 2 % (0-3) Basophils % (Manual) 0 % (0-2) Band Neutrophils 0 % (0-8) Platelet Estimate Decreased L Platelet Morphology Normal Basophilic Stippling 1+ Anisocytosis 1+ Sodium Level 133 MMOL/L (136-145) L Potassium Level 4.0 MMOL/L (3.5-5.1) Chloride Level 101 MMOL/L (98-107) Carbon Dioxide Level 30 MMOL/L (21-32) Anion Gap 2 mmol/L (5-15) L Blood Urea Nitrogen 24 mg/dL (7-18) H Creatinine 0.6 MG/DL (0.55-1.30) Estimat Glomerular Filtration Rate mL/min (>60) Glucose Level 102 MG/DL (74-106) Calcium Level 7.8 MG/DL (8.5-10.1) L Phosphorus Level 3.0 MG/DL (2.5-4.9) Magnesium Level 1.9 MG/DL (1.8-2.4) Total Bilirubin 2.0 MG/DL (0.2-1.0) H Direct Bilirubin 0.8 MG/DL (0.0-0.3) H Aspartate Amino Transf (AST/SGOT) 27 U/L (15-37) Alanine Aminotransferase (ALT/SGPT) 19 U/L (12-78) Alkaline Phosphatase 67 U/L (46-116) Total Protein 6.0 G/DL (6.4-8.2) L Albumin 1.7 G/DL (3.4-5.0) L Globulin 4.3 g/dL Albumin/Globulin Ratio 0.4 (1.0-2.7) L Jamal Medina MD May 14, 2019 10:19
--- NOTE | 2019-05-14 10:30 | NUR ---
NURSE NOTES: Patient remains drowsy and calm at this time. Blood pressure remains low but stable. Will continue to monitor. BP 103/51. HR 67 in normal sinus rhythm. Family at the beside. NO sign of acute distress. Patient repositioned. Will continue to monitor.
--- NOTE | 2019-05-14 10:34 | Infectious Diseases Prog Note ---
Assessment/Plan Assessment/Plan Afebrile Leukocytosis 05/10 reintubation 05/10 Levophed, SP 05/10 Likely aspiration pneumonia 05/10 bcx: ngtd 05/10 sputum cx: Staph aureus, GNR 05/10 CXR: Complete atelectasis of the left lung. Pulmonary edema 05/11 CXR: Pulmonary vascular congestion without significant change. Apparent decrease in a left pleural effusion. 05/12 CXR: Suspect slightly worsening interstitial edema 05/13 CXR: Patchy interstitial and alveolar opacities again demonstrated bilaterally. There is no change accounting for some differences in technique. Earlier in hospital stay: Afebrile No leukocytosis Lactate 1.2 dopamine, SP Hypoxic Respiratory failure PNA? Pulm edema 05/03 Flu swab negative 05/03 sputum cx: ngtd 05/03 CXR: Moderate to severe pulmonary edema. Bilateral pleural effusions 05/03 CXR: Diffuse airspace disease may be due to pulmonary edema. Small bilateral pleural effusions. Tubes and lines satisfactory 05/04 CXR: Improved bilateral pleural effusions, over one day 05/05 CXR: Bilateral interstitial and hazy airspace disease persists, unchanged. Probable small left pleural effusion is again demonstrated. The heart size is upper limits normal. No significant interim change 05/06 CXR: Stable to minimally improved bilateral interstitial and airspace disease, over one day. Otherwise stable findings as described. 05/07 CXR: Interstitial pneumonitis versus CHF. No change UA negative r/o bacteremia 05/03 Bcx: ngtd 05/03 TTE: EF 60%.No pericardial effusion. AV calcification with decreased cusp excursion c/w aortic stenosis. Heavily thickened mitral valve leaflets with reduced excursion. Echogenic material noted on posterior mitral valve leaflet is likely calcified mitral annular structure. Heavy mitral annulus and aortic root calcification. Pulmonic valve not well visualized. Normal tricuspid valve structure. VRE colonization MRSA colonization new subclavian central line placed in ED no sorensen COPD CHF Hep C cirrhosis GERD Plan: cefepime and vancomycin #5/10 05/07 DC Ertapenem #5 05/06 DC Vancomycin #4 05/05 DC Amikacin #3 SP Zosyn and Vanc monitor CXR monitor temp monitor CBC steroids per pulm repeat blood cx, sputum cx CT chest once stable Thank you for this consult. [facility] will continue to follow the patient with you. Subjective Allergies: Coded Allergies: ACETAMINOPHEN (Verified Allergy, Unknown, 05/03/19) ASPIRIN (Verified Allergy, Unknown, 08/14/17) IBUPROFEN (Verified Allergy, Unknown, 05/03/19) PENICILLINS (Unverified Allergy, Unknown, 05/05/19) Uncoded Allergies: pain killers (Allergy, Severe, 01/28/17) Subjective Afebrile. DNR/DNI Lethargic but received Ativan this morning FiO2 30% PEEP 5 no leukocytosis no diarrhea thick secretion Objective Vital Signs Last 24 Hour Vital Signs Date Time Temp Pulse Resp B/P (MAP) Pulse Ox O2 Delivery O2 Flow Rate FiO2 05/14/19 09:14 67 21 40 05/14/19 08:00 Mechanical Ventilator 05/14/19 07:17 65 21 40 05/14/19 07:00 60 16 108/46 (66) 99 05/14/19 06:00 58 16 108/50 (69) 100 05/14/19 06:00 143/51 05/14/19 05:20 56 16 40 05/14/19 05:00 56 16 104/48 (66) 100 05/14/19 04:00 98.0 61 16 100/47 (64) 99 05/14/19 04:00 Mechanical Ventilator 05/14/19 04:00 30 05/14/19 04:00 57 05/14/19 03:00 61 16 98/44 (62) 99 05/14/19 02:41 63 16 40 05/14/19 02:00 59 16 120/48 (72) 100 05/14/19 01:30 62 17 40 05/14/19 01:00 57 16 121/48 (72) 100 05/14/19 00:00 Mechanical Ventilator 05/14/19 00:00 55 05/14/19 00:00 30 05/14/19 00:00 98.4 55 16 122/51 (74) 100 05/13/19 23:25 55 16 40 05/13/19 23:00 52 16 114/51 (72) 100 05/13/19 22:00 56 16 119/45 (69) 100 05/13/19 21:19 59 17 40 05/13/19 21:00 60 16 123/53 (76) 100 05/13/19 20:00 30 05/13/19 20:00 98.0 57 15 108/92 (97) 100 05/13/19 20:00 57 05/13/19 20:00 Mechanical Ventilator 05/13/19 19:15 55 25 40 05/13/19 19:00 57 21 108/92 (97) 88 05/13/19 18:00 58 25 106/59 (75) 95 05/13/19 17:23 74 17 40 05/13/19 17:00 61 105/59 (74) 95 05/13/19 16:00 30 05/13/19 16:00 Mechanical Ventilator 05/13/19 16:00 73 86/45 (59) 96 05/13/19 15:22 72 16 40 05/13/19 15:00 60 16 115/43 (67) 96 05/13/19 14:00 60 16 93/40 (57) 95 05/13/19 13:22 63 16 30 05/13/19 13:00 54 16 115/43 (67) 96 05/13/19 12:00 Mechanical Ventilator 05/13/19 12:00 98.2 54 16 112/44 (66) 96 05/13/19 12:00 61 05/13/19 12:00 30 05/13/19 11:20 55 16 30 05/13/19 11:00 57 16 98/39 (58) 99 Height (Feet): 5 Height (Inches): 3.00 Weight (Pounds): 122 Objective Gen: NAD HEENT: anicteric sclera CV: RRR Resp: RRR. no wheezes. coarse Abd: soft. normoactive Bs+ Neuro: sedated Laboratory Tests Test 05/13/19 15:10 05/14/19 04:30 05/14/19 08:10 Vancomycin Level Trough 20.9 ug/mL (5.0-12.0) H White Blood Count 4.6 K/UL (4.8-10.8) L Red Blood Count 2.31 M/UL (4.20-5.40) L Hemoglobin 7.2 G/DL (12.0-16.0) L Hematocrit 22.4 % (37.0-47.0) L Mean Corpuscular Volume 97 FL (80-99) Mean Corpuscular Hemoglobin 31.2 PG (27.0-31.0) H Mean Corpuscular Hemoglobin Concent 32.2 G/DL (32.0-36.0) Red Cell Distribution Width 17.8 % (11.6-14.8) H Platelet Count 60 K/UL (150-450) L Mean Platelet Volume 8.3 FL (6.5-10.1) Neutrophils (%) (Auto) % (45.0-75.0) Lymphocytes (%) (Auto) % (20.0-45.0) Monocytes (%) (Auto) % (1.0-10.0) Eosinophils (%) (Auto) % (0.0-3.0) Basophils (%) (Auto) % (0.0-2.0) Differential Total Cells Counted 100 Neutrophils % (Manual) 86 % (45-75) H Lymphocytes % (Manual) 8 % (20-45) L Monocytes % (Manual) 4 % (1-10) Eosinophils % (Manual) 2 % (0-3) Basophils % (Manual) 0 % (0-2) Band Neutrophils 0 % (0-8) Platelet Estimate Decreased L Platelet Morphology Normal Basophilic Stippling 1+ Anisocytosis 1+ Sodium Level 133 MMOL/L (136-145) L Potassium Level 4.0 MMOL/L (3.5-5.1) Chloride Level 101 MMOL/L (98-107) Carbon Dioxide Level 30 MMOL/L (21-32) Anion Gap 2 mmol/L (5-15) L Blood Urea Nitrogen 24 mg/dL (7-18) H Creatinine 0.6 MG/DL (0.55-1.30) Estimat Glomerular Filtration Rate mL/min (>60) Glucose Level 102 MG/DL (74-106) Calcium Level 7.8 MG/DL (8.5-10.1) L Phosphorus Level 3.0 MG/DL (2.5-4.9) Magnesium Level 1.9 MG/DL (1.8-2.4) Total Bilirubin 2.0 MG/DL (0.2-1.0) H Direct Bilirubin 0.8 MG/DL (0.0-0.3) H Aspartate Amino Transf (AST/SGOT) 27 U/L (15-37) Alanine Aminotransferase (ALT/SGPT) 19 U/L (12-78) Alkaline Phosphatase 67 U/L (46-116) Total Protein 6.0 G/DL (6.4-8.2) L Albumin 1.7 G/DL (3.4-5.0) L Globulin 4.3 g/dL Albumin/Globulin Ratio 0.4 (1.0-2.7) L Arterial Blood pH 7.485 (7.350-7.450) Arterial Blood Partial Pressure CO2 38.8 mmHg (35.0-45.0) Arterial Blood Partial Pressure O2 104.9 mmHg (75.0-100.0) H Arterial Blood HCO3 28.6 mmol/L (22.0-26.0) H Arterial Blood Oxygen Saturation 97.5 % (95-100) Arterial Blood Base Excess 4.8 (-2-2) H Raghavendra Test Positive Current Medications Medications (Trade) Dose Ordered Sig/Gautam Route PRN Reason Start Time Stop Time Status Last Admin Dose Admin Cefepime HCl 2 gm/ Dextrose 55 ml @ 110 mls/hr Q12H IVPB 05/10/19 15:00 05/17/19 14:59 05/14/19 03:19 Chlorhexidine Gluconate (Cherry-Hex 2%) 1 applic DAILY@2000 TOPIC 05/10/19 20:00 06/02/19 19:59 05/13/19 20:40 Folic Acid (Folate) 5 mg DAILY NG 05/10/19 09:00 06/03/19 10:59 05/14/19 09:30 Lorazepam (Ativan 2mg/ml 1ml) 2 mg Q2H PRN IV Agitation 05/11/19 20:30 05/18/19 20:29 05/14/19 06:36 Midodrine (Pro-Amatine) 2.5 mg THREE TIMES A DAY NG 05/10/19 13:00 06/05/19 09:29 05/14/19 09:29 Norepinephrine Bitartrate 4 mg/ Dextrose 250 ml @ 0 mls/hr Q24H IV 05/10/19 06:00 06/09/19 05:59 05/10/19 15:00 Ondansetron HCl (Zofran) 4 mg Q6H PRN IVP Nausea & Vomiting 05/10/19 05:30 06/02/19 05:29 05/11/19 16:23 Polyethylene Glycol (Miralax) 17 gm DAILYPRN PRN ORAL Constipation 05/10/19 05:30 06/09/19 05:29 05/13/19 05:39 Vancomycin HCl (Vanco rx to dose) 1 ea DAILY PRN MISC Per rx protocol 05/10/19 13:00 06/09/19 12:59 Vancomycin HCl 500 mg/Dextrose 110 ml @ 110 mls/hr Q12HR@0500,1700 IVPB 05/13/19 17:00 05/18/19 16:59 05/14/19 04:30 Yazan Minaya MD May 14, 2019 10:34
--- NOTE | 2019-05-14 11:25 | NUR ---
RADIOLOGY DEPT., CHEST X-RAY DONE.-P.DYE
--- NOTE | 2019-05-14 11:52 | Diagnostic Imaging Report ---
Indication: Dyspnea Comparison: 05/13/2019 A single view chest radiograph was obtained. Findings: There is increasing airspace disease at the right lung base. There is a diffuse background of the interstitial and some vascular prominence which is probably unchanged. The heart is mildly enlarged. There is a probable right pleural effusion. NG tube, endotracheal tube and right subclavian line are stable. IMPRESSION: Increasing asymmetric airspace disease right lung base. Consider pneumonia. Suspected interstitial edema. This is probably stable.
--- NOTE | 2019-05-14 12:00 | NUR ---
NURSE NOTES: Patient vital signs remain stable at this time. Patient showing sinus rhythm on the monitoring and evaluation advisor at this time. Patient remains drowsy. Patient remains restrained with bilateral soft wrist restraints at this time. Will continue to reorient patient when needed. Patient remains orally intubated at this time with ETT size 7.5cm with 21cm showing at the lip line. Patient remains on ventilator with setting of AC 16, tidal volume 500, FiO2 30%, and PEEP 5. Patient tolerating setting with RR 16 and SpO2 99%. Oral gastric tube remains patent, asymptomatic, and running tube feeding of vital AF and 45mL/hr at this time with no residual noted. Patient still has purewick on at this time. Central subclavian IV line is patent, asymptomatic, and saline locked at this time. Patient bed in low position with bed alarm on and call light in reach. Will continue to monitor. Patient repositioned and oral care performed at this time. Patient bed bath done at this time.
--- NOTE | 2019-05-14 13:00 | NUR ---
RESPIRATORY NOTE: attempted to wean pt again on CPAP PS8, pt became tachypneic with RR 37-38 with inadequate Vt of <128. will hold off on weaning until pt is more awake and ready. RN notified.
--- NOTE | 2019-05-14 14:38 | NUR ---
*-* INSURANCE *-* ALL AVAILABLE CLINICALS AND REVIEWS HAVE BEEN FAXED TO: [facility] [phone] JIAN Toscano/NATACHA TRACKING#[id number] CM: BRETT #[phone] FAX#[phone] REVIEWS/CLINICALS
--- NOTE | 2019-05-14 15:30 | NUR ---
RD ASSESSMENT & RECOMMENDATIONS SEE CARE ACTIVITY FOR COMPLETE ASSESSMENT DAILY ESTIMATED NEEDS: Needs based on critical care, 48.6kg 22-28 kcals/kg 7389-7378 total kcals 1.2-2 g protein/kg 58-97 g total protein 22-28ml/kcal mL/kg 6610-1424 total fluid mLs NUTRITION DIAGNOSIS: Swallowing difficulty r/t respiratory failure as evidenced by pt is orally RE-intubated, on OGT feeds. CURRENT TF:Vital 1.2 @45ml/hr x 24 hrs ENTERAL NUTRITION RECOMMENDATIONS: Vital 1.2 @45ml/hr x24 hrs to provide 1080ml, 1296 kcal, 81g pro, 876ml free H2O - Rec to increase TF rate to goal as tolerated - TF at goal meets 100% est needs. - H2O flush 120ml q 6 hrs - HOB over 30 degrees ADDITIONAL RECOMMENDATIONS: 1) Monitor TF tolerance, cont to increase to goal 2) Check lytes daily, replete as needed 3) Maintain calibrated bed scale wts- noted uptrend in daily wts 4) DATA PROCESSOR eval upon extubation.
--- NOTE | 2019-05-14 16:00 | NUR ---
NURSE NOTES: Patient vital signs remain stable at this time. Patient showing sinus rhythm on the seismic prospecting supervisor at this time. Patient restless and attempting to pull out her tube at this time. Patient remains restrained with bilateral soft wrist restraints at this time. Will continue to reorient patient. Patient remains orally intubated at this time with ETT size 7.5cm with 21cm showing at the lip line. Patient remains on ventilator with setting of AC 16, tidal volume 500, FiO2 30%, and PEEP 5. Patient tolerating setting with RR 16 and SpO2 99%. Patient has copious oral foamy white secretions at this time. Will continue to monitor. Patient showing no sign of acute distress. Patient has oral gastric tube that is patent, asymptomatic, and running tube feeding of vital AF and 45mL/hr at this time with no residual noted. Patient still has purewick on at this time but it is not draining correctly as patient keeps removing it. Patient has central subclavian IV line that is patent, asymptomatic, and saline locked at this time. Patient bed in low position with bed alarm on and call light in reach. Will continue to monitor. Patient repositioned and oral care performed at this time. Patient bed bath done at this time. Called and asked Dr Minaya if the CT chest needed to be completed at this time. Received order to cancel the order. Order read back, verified, and placed at this time.
--- NOTE | 2019-05-14 16:17 | Internal Med Progress Note ---
Subjective Physician Name Zeke Munoz Attending Physician Zeke Munoz MD Current Medications Medications (Trade) Dose Ordered Sig/Gautam Route PRN Reason Start Time Stop Time Status Last Admin Dose Admin Cefepime HCl 2 gm/ Dextrose 55 ml @ 110 mls/hr Q12H IVPB 05/10/19 15:00 05/17/19 14:59 05/14/19 15:11 Chlorhexidine Gluconate (Cherry-Hex 2%) 1 applic DAILY@2000 TOPIC 05/10/19 20:00 06/02/19 19:59 05/13/19 20:40 Folic Acid (Folate) 5 mg DAILY NG 05/10/19 09:00 06/03/19 10:59 05/14/19 09:30 Lorazepam (Ativan 2mg/ml 1ml) 2 mg Q2H PRN IV Agitation 05/11/19 20:30 05/18/19 20:29 05/14/19 15:02 Midodrine (Pro-Amatine) 2.5 mg THREE TIMES A DAY NG 05/10/19 13:00 06/05/19 09:29 05/14/19 13:30 Norepinephrine Bitartrate 4 mg/ Dextrose 250 ml @ 0 mls/hr Q24H IV 05/10/19 06:00 06/09/19 05:59 05/10/19 15:00 Ondansetron HCl (Zofran) 4 mg Q6H PRN IVP Nausea & Vomiting 05/10/19 05:30 06/02/19 05:29 05/11/19 16:23 Polyethylene Glycol (Miralax) 17 gm DAILYPRN PRN ORAL Constipation 05/10/19 05:30 06/09/19 05:29 05/13/19 05:39 Vancomycin HCl (Vanco rx to dose) 1 ea DAILY PRN MISC Per rx protocol 05/10/19 13:00 06/09/19 12:59 Vancomycin HCl 500 mg/Dextrose 110 ml @ 110 mls/hr Q12HR@0500,1700 IVPB 05/13/19 17:00 05/18/19 16:59 05/14/19 04:30 Allergies: Coded Allergies: ACETAMINOPHEN (Verified Allergy, Unknown, 05/03/19) ASPIRIN (Verified Allergy, Unknown, 08/14/17) IBUPROFEN (Verified Allergy, Unknown, 05/03/19) PENICILLINS (Unverified Allergy, Unknown, 05/05/19) Uncoded Allergies: pain killers (Allergy, Severe, 01/28/17) Subjective in ICU, awake, responsive, intubated. Objective Last Vital Signs Date Time Temp Pulse Resp B/P (MAP) Pulse Ox O2 Delivery O2 Flow Rate FiO2 05/14/19 15:00 72 112/52 (72) 99 05/14/19 14:54 23 40 05/14/19 13:00 98.1 05/14/19 12:00 Mechanical Ventilator 05/09/19 12:00 4.0 Laboratory Tests Test 05/14/19 04:30 05/14/19 08:10 White Blood Count 4.6 K/UL (4.8-10.8) L Red Blood Count 2.31 M/UL (4.20-5.40) L Hemoglobin 7.2 G/DL (12.0-16.0) L Hematocrit 22.4 % (37.0-47.0) L Mean Corpuscular Volume 97 FL (80-99) Mean Corpuscular Hemoglobin 31.2 PG (27.0-31.0) H Mean Corpuscular Hemoglobin Concent 32.2 G/DL (32.0-36.0) Red Cell Distribution Width 17.8 % (11.6-14.8) H Platelet Count 60 K/UL (150-450) L Mean Platelet Volume 8.3 FL (6.5-10.1) Neutrophils (%) (Auto) % (45.0-75.0) Lymphocytes (%) (Auto) % (20.0-45.0) Monocytes (%) (Auto) % (1.0-10.0) Eosinophils (%) (Auto) % (0.0-3.0) Basophils (%) (Auto) % (0.0-2.0) Differential Total Cells Counted 100 Neutrophils % (Manual) 86 % (45-75) H Lymphocytes % (Manual) 8 % (20-45) L Monocytes % (Manual) 4 % (1-10) Eosinophils % (Manual) 2 % (0-3) Basophils % (Manual) 0 % (0-2) Band Neutrophils 0 % (0-8) Platelet Estimate Decreased L Platelet Morphology Normal Basophilic Stippling 1+ Anisocytosis 1+ Sodium Level 133 MMOL/L (136-145) L Potassium Level 4.0 MMOL/L (3.5-5.1) Chloride Level 101 MMOL/L (98-107) Carbon Dioxide Level 30 MMOL/L (21-32) Anion Gap 2 mmol/L (5-15) L Blood Urea Nitrogen 24 mg/dL (7-18) H Creatinine 0.6 MG/DL (0.55-1.30) Estimat Glomerular Filtration Rate mL/min (>60) Glucose Level 102 MG/DL (74-106) Calcium Level 7.8 MG/DL (8.5-10.1) L Phosphorus Level 3.0 MG/DL (2.5-4.9) Magnesium Level 1.9 MG/DL (1.8-2.4) Total Bilirubin 2.0 MG/DL (0.2-1.0) H Direct Bilirubin 0.8 MG/DL (0.0-0.3) H Aspartate Amino Transf (AST/SGOT) 27 U/L (15-37) Alanine Aminotransferase (ALT/SGPT) 19 U/L (12-78) Alkaline Phosphatase 67 U/L (46-116) Total Protein 6.0 G/DL (6.4-8.2) L Albumin 1.7 G/DL (3.4-5.0) L Globulin 4.3 g/dL Albumin/Globulin Ratio 0.4 (1.0-2.7) L Arterial Blood pH 7.485 (7.350-7.450) Arterial Blood Partial Pressure CO2 38.8 mmHg (35.0-45.0) Arterial Blood Partial Pressure O2 104.9 mmHg (75.0-100.0) H Arterial Blood HCO3 28.6 mmol/L (22.0-26.0) H Arterial Blood Oxygen Saturation 97.5 % (95-100) Arterial Blood Base Excess 4.8 (-2-2) H Raghavendra Test Positive Intake and Output 05/13/19 05/14/19 19:00 07:00 Intake Total 1013.0 ml 640 ml Output Total 300 ml 490 ml Balance 713.0 ml 150 ml Free Water 100 ml 50 ml IV Total 433.0 ml 110 ml Tube Feeding 480 ml 480 ml Output Urine Total 300 ml 490 ml # Voids 3 Objective General: Intubated, awake and responsive. HEENT: NCAT, sclera anicteric, PERRL, EOMI, NG tube. Neck: Supple, no significant jugular venous distention, Lungs: fair inspiratory effort, decrease bilateral air entry at bases, no Wheeze or Rales. Chest wall: Right side TLC. Heart: Regular rate and rhythm, normal S1/S2, + PABLO. Abdomen: soft, nontender, nondistended. Normoactive bowel sounds. / Rectal: Refused and deferred. Extremities: No Cyanosis , clubbing or edema. Neuro: A&O x 3, Able to move all extremities Skin: warm, no rashes or lesions Psych: Normal mood and affect Assessment/Plan Assessment/Plan 1. Paroxysmal episodes of atrial fibrillation. 2. Severe left ventricular hypertrophy with left ventricular outflow tract, mild obstruction. 3. Severe aortic regurgitation. 4. Severe mitral stenosis/regurgitation. 5. Pulmonary hypertension. 6. Anemia. 7. Acute on chronic Hypoxemic and hypercapnic Respiratory failure. 8. History of recent GI bleeding, site undetermined. 9. Sinus bradycardia with abnormal T-waves. 10. Autoimmune hepatitis history. 11. History of severe COPD, on home O2. 12. Cirrhosis and portal hypertension. 13. History of hepatitis C. 14. Thrombocytopenia / Pancytopenia. 15. History of HCOM 16. VRE and MRSA colonized Plan: Tube feeding Abx: cefepime and vancomycin DVT prophylaxes: SCD Code status: DNR Consider terminal extubation on Friday. Zeke Munoz MD May 14, 2019 16:17
--- NOTE | 2019-05-14 16:32 | NUR ---
CASE MANAGEMENT:REVIEW 05/14/19 SI: ACUTE RESPIRATORY FAILURE COPD. PNA 98.1 72 16 102/47 95% ON VENT SUPPORT 40% FIO2 H/H-7.2/22.4 PLT-60 BUN+24 IS: IV VANCOMYCIN Q12 IV ATIVAN Q2HRS PRN IV CEFEPIME Q12 LEVOPHED GTT MIDODRINE NG TID : ICU STATUS DCP: [facility]
--- NOTE | 2019-05-14 18:14 | NUR ---
HAND-OFF: Report given to PRANEETH Pan. Patient VS Stable. Endorsed to monitor and follow up.
--- NOTE | 2019-05-14 18:15 | NUR ---
NURSE NOTES: Report received from Mirna Aiken RN. Pt is alert and able to understand little Mongolian and follow simple commands. Mainly Farsi speaking. Pt is on bilateral soft wrist restraints since she is constantly trying to reach ETT and OGT. Sinus rhythm on monitoring coordinator. ETT 7.5/21CM at left lip line. AC 16, TV 500, FiO2 30%, P 5. O2 sat 100%. Foamy secretion orally noted. Suctioned PRN. OGT in place receiving Vital AF 1.2 at 45cc/hr. Purewick for urine noted. Right subclavian TLC patent and asymptomatic. Bed in lowest position. Side rails up x3. Call light within reach. Will continue plan fo care.
--- NOTE | 2019-05-14 19:05 | NUR ---
NURSE NOTES: Endorsement received from PRANEETH Vásquez. Patient opens eyes spontaneously, follows simple commands. Orally intubated with 7.5, lipline currently 19 lipline. Noted with gurgling sound, foamy secretions in the mouth. Volume at 300s. Secretions suctioned. Lipline adjusted to 21 lipline. Still with gurgling and foamy secretions. Lowest noted volume 350, mostly at 430s. Informed Dr. Medina, awaiting for response. OGT present, rechecked per auscultation. On Vital AF 45ml/hr, held at this time due to secretions. Purewick in place. head of bed elevated. Bed locked, low position. Bed alarm on. Bilateral soft wrist restraints in place for attempting to pull out tubings. Skin warm and dry, normal in color.
--- NOTE | 2019-05-14 19:05 | NUR ---
HAND-OFF: Report given to PRANEETH Fontenot.
[2019-05-14] MEDS: Dyna-Hex 2% Top Sol 2oz TOPIC SCH (20:05)
--- NOTE | 2019-05-14 20:41 | NUR ---
NURSE NOTES: Received response from Dr. Medina, no new order at this time.
--- NOTE | 2019-05-14 21:00 | NUR ---
NURSE NOTES: OGT feeding resumed at 20ml/hr
--- NOTE | 2019-05-14 22:00 | NUR ---
Pt. received on AC16/ VT500/ +5/FiO2.40, pt has frothy secretions coming out of the mouth with audible leak heard from the door. ETT at 19cm eldon re-adjusted to 21cm eldon. Cuff pressure checked gurgling still present PRANEETH Fontenot called to the bedside, average tidal volume low 300-low 400 t/o shift. DR. Medina made aware no changes ordered. Will continue to closely monitor.
--- NOTE | 2019-05-14 22:30 | NUR ---
NURSE NOTES: Patient awake, restless. Unable to redirect. PRN ativan given.
[2019-05-15] VITALS (24 sets, daily range): BP systolic 96–144; BP diastolic 43–87
--- NOTE | 2019-05-15 | NUR ---
NURSE NOTES: Patient asleep at this time. Afebril. Sinus rhythm on the monitor.
--- NOTE | 2019-05-15 02:00 | NUR ---
NURSE NOTES: Patient asleep. Vital signs stable. 100% saturation, RR 18-20s.
[2019-05-15] MEDS: Cefepime HCl 2 GM in D5W 55 ML IVPB SCH ×2 (03:23→14:04)
--- NOTE | 2019-05-15 04:00 | NUR ---
NURSE NOTES: Patient asleep. Getting volume between 350-400. 100% saturation on the monitor
--- NOTE | 2019-05-15 05:00 | NUR ---
NURSE NOTES: Bed bath, oral care, change of linens done
[2019-05-15] MEDS: Vancomycin 500mg/D5W 110ml IVPB SCH ×4 (05:18→17:05)
--- NOTE | 2019-05-15 06:00 | NUR ---
NURSE NOTES: PRN Miralax given for constipation.
[2019-05-15] MEDS: Miralax 17gm pkt ORAL PRN (06:11)
[2019-05-15 06:19] LABS: HEMATOCRIT 23.3 % (37.0-47.0); HEMOGLOBIN 7.5 G/DL (12.0-16.0); MEAN CORPUSCULAR VOLUME 98 FL (80-99); PLATELET COUNT 62 K/UL (150-450); RED BLOOD COUNT 2.38 M/UL (4.20-5.40); RED CELL DISTRIBUTION WIDTH 17.8 % (11.6-14.8); WHITE BLOOD COUNT 5.8 K/UL (4.8-10.8)
--- NOTE | 2019-05-15 07:13 | NUR ---
HAND-OFF: Report given to PRANEETH Garcia
--- NOTE | 2019-05-15 07:14 | NUR ---
NURSE NOTES: Endorsement received from PRANEETH Fontenot. Patient opens eyes spontaneously, follows simple commands. Orally intubated with ETT 7.5, 21cm @ lipline. Vent setting AC 16, TV 500, PEEP 5, FiO2 30%. Noted with gurgling sound, foamy secretions in the mouth were suctioned. Audible gurgling and foamy secretions remain despite suctioning. Rt subclavian TLC, dressing clean dry and intact. OGT present, rechecked per auscultation. On Vital AF 20mL/hr. Purewick in place, draining well. Bed locked, in lowest position, alarm on. Head of bed elevated. Bilateral soft wrist restraints in place for safety d/t attempting to pull out tubings. Will resume plan of care.
[2019-05-15 07:23] LABS: ANION GAP 4 mmol/L (5-15); BLOOD UREA NITROGEN 21 mg/dL (7-18); CALCIUM 7.8 MG/DL (8.5-10.1); CARBON DIOXIDE 30 MMOL/L (21-32); CHLORIDE 106 MMOL/L (98-107); CREATININE 0.6 MG/DL (0.55-1.30); PHOSPHORUS 2.4 MG/DL (2.5-4.9); POTASSIUM 3.8 MMOL/L (3.5-5.1); SODIUM 140 MMOL/L (136-145)
[2019-05-15] MEDS: LORazepam Inj 2mg/ml 1ml IV PRN (07:59)
--- NOTE | 2019-05-15 07:59 | NUR ---
NURSE NOTES: Pt is restless, agitated, trying to get out of bed. Given Ativan 2MG IV. Will monitor.
--- NOTE | 2019-05-15 08:16 | NUR ---
RESPIRATORY NOTE: canceled ABG order.
--- NOTE | 2019-05-15 08:45 | NUR ---
NURSE NOTES: Ativan took effect. Pt is calm, laying in bed with her eyes closed, easily arousable; however, no longer appears restless.
--- NOTE | 2019-05-15 10:32 | Diagnostic Imaging Report ---
EXAM: XR Chest, 1 View CLINICAL HISTORY: SOB TECHNIQUE: Frontal view of the chest. COMPARISON: Chest radiograph on 05 14 2019 FINDINGS: Hardware: Endotracheal tube terminates in the region of the upper thoracic trachea. Enteric tube courses past the diaphragm and out of the field of view with side hole again seen near the GE junction. Stable right subclavian central venous catheter. Lungs pleura: Slightly increased opacification in the right mid and lower lung zones which may represent combination of pleural effusion and atelectasis versus pneumonia. Slightly increased hazy and interstitial opacities throughout the lungs which may represent pulmonary edema and or infectious inflammatory process. Possible small left pleural effusion. Heart mediastinum: Stable enlargement of the cardiomediastinal silhouette. Atherosclerotic calcifications in the aorta. Soft tissues: Unremarkable. Bones: No acute fracture. Degenerative changes of the acromioclavicular joints and spine. Upper abdomen: Normal. IMPRESSION: 1. Slightly increased opacification in the right mid and lower lung zones which may represent combination of pleural effusion and atelectasis versus pneumonia. Slightly increased hazy and interstitial opacities throughout the lungs which may represent pulmonary edema and or infectious inflammatory process. Possible small left pleural effusion. 2. Endotracheal tube terminates in the region of the upper thoracic trachea. Enteric tube courses past the diaphragm and out of the field of view with side hole again seen near the GE junction. Stable right subclavian central venous catheter.
--- NOTE | 2019-05-15 11:06 | Pulmonolgy Critical Care Note ---
Critical Care - Asmt/Plan Assessment/Plan: ASSESSMENT Acute on chronic hypoxemic and hypercapnic respiratory failure , requiring intubation due to congestive heart failure Acute pulmonary edema Paroxysmal atrial fibrillation Severe COPD ; home O2 dependent Severe aortic regurgitation Severe mitral stenosis Pulmonary hypertension Anemia Cirrhosis with portal hypertension History of hepatitis C Left lung collapse Thrombocytopenia History of GI bleeding PLAN OF CARE in ICU off pressors vent support pulmonary toilet now DNR status abx as per ID strict aspiration precaution TF DVT prophylaxis family agreed to terminal extubation plan for Friday am not Friday due to worship believes/not on Shabbat -per sons case discussed and evaluated by supervising physician Critical Care - Objective Last 24 Hour Vital Signs Date Time Temp Pulse Resp B/P (MAP) Pulse Ox O2 Delivery O2 Flow Rate FiO2 05/15/19 10:00 68 29 126/56 (79) 100 05/15/19 09:48 69 26 40 05/15/19 09:00 74 21 118/53 (74) 100 05/15/19 08:00 97.0 75 25 124/56 (78) 100 05/15/19 08:00 30 05/15/19 08:00 Mechanical Ventilator 05/15/19 07:30 70 05/15/19 07:09 73 28 40 05/15/19 07:00 74 17 137/44 (75) 100 05/15/19 06:00 119/69 05/15/19 06:00 65 18 119/69 (86) 100 05/15/19 05:20 64 20 40 05/15/19 05:00 68 25 127/46 (73) 100 05/15/19 04:00 Mechanical Ventilator 05/15/19 04:00 98.2 79 22 127/46 (73) 100 05/15/19 04:00 76 05/15/19 04:00 30 05/15/19 03:00 70 25 144/56 (85) 100 05/15/19 02:57 72 28 40 05/15/19 02:00 70 22 139/87 (104) 100 05/15/19 01:00 71 24 114/55 (74) 100 05/15/19 00:53 71 27 40 05/15/19 00:00 98.1 80 26 102/53 (69) 100 05/15/19 00:00 Mechanical Ventilator 05/15/19 00:00 30 05/15/19 00:00 69 05/14/19 23:07 62 30 40 05/14/19 23:00 71 26 121/50 (73) 100 05/14/19 22:00 73 24 121/46 (71) 100 05/14/19 21:00 77 26 131/63 (85) 100 05/14/19 20:41 73 27 40 05/14/19 20:00 Mechanical Ventilator 05/14/19 20:00 72 05/14/19 20:00 30 05/14/19 20:00 98.0 69 23 128/60 (82) 100 05/14/19 19:22 72 30 40 05/14/19 19:06 30 05/14/19 19:05 30 05/14/19 19:00 70 27 102/51 (68) 100 05/14/19 18:00 69 28 130/50 (76) 100 05/14/19 17:09 76 26 40 05/14/19 16:00 Mechanical Ventilator 05/14/19 16:00 68 05/14/19 16:00 30 05/14/19 16:00 98.3 72 94/46 (62) 100 05/14/19 15:00 72 112/52 (72) 99 05/14/19 14:54 71 23 40 05/14/19 14:00 66 92/48 (63) 98 05/14/19 13:00 98.1 72 102/47 (65) 95 05/14/19 12:57 70 16 40 05/14/19 12:00 Mechanical Ventilator 05/14/19 12:00 30 05/14/19 12:00 70 16 95/47 (63) 95 05/14/19 12:00 70 Status: awake, other - intubated on vent Condition: critical HEENT: atraumatic, normocephalic, other - OP with ET in palce, intact OP with TF Lungs: other - BS diminished , some crackles at bases Heart: HR/BP stable Abdomen: soft, non-tender, active bowel sounds Extremities: no C/C/E Critical Care - Subjective Interval Events: afebrile, no leukocytosis family decided on terminal extubation, plan for am Friday Condition: critical IV Access: central - R subclavian intact EKG Rhythm: Sinus Rhythm FI02: 40 Vent Support Breath Rate: 16 Vent Support Mode: AC Vent Tidal Volume: 500 Sputum Amount: Scant PEEP: 5.0 PIP: 39 Tube Feeding Amount: 20 I&O: Intake and Output 05/14/19 05/15/19 18:59 06:59 Intake Total 555 ml 365 ml Output Total 500 ml 400 ml Balance 55 ml -35 ml IV Total 55 ml 165 ml Tube Feeding 440 ml 200 ml Other 60 ml Output Urine Total 500 ml 400 ml # Voids 2 CXR: CXR 05/15 1. Slightly increased opacification in the right mid and lower lung zones which may represent combination of pleural effusion and atelectasis versus pneumonia. Slightly increased hazy and interstitial opacities throughout the lungs which may represent pulmonary edema and or infectious inflammatory process. Possible small left pleural effusion. 2. Endotracheal tube terminates in the region of the upper thoracic trachea. Enteric tube courses past the diaphragm and out of the field of view with side hole again seen near the GE junction. Stable right subclavian central venous catheter. ET-Tube: 7.5 ET Position: 21 Landy Payne NP May 15, 2019 11:06
[2019-05-15] MEDS ORDERED: Albuterol/Ipratropium 3ml neb HHN PRN (11:15)
--- NOTE | 2019-05-15 11:20 | NUR ---
NURSE NOTES: Dr. Das at bedside assessing pt. Updated him on patient's current condition. New orders for electrolyte replacement noted and carried out.
--- NOTE | 2019-05-15 11:50 | Nephrology Progress Note ---
Assessment/Plan Problem List: (1) Acute respiratory failure Assessment: now extubated (2) Electrolyte imbalance (3) Anemia (4) NSTEMI (non-ST elevated myocardial infarction) (5) COPD (chronic obstructive pulmonary disease) Assessment Acute respiratory failure, on Vent- Underlying COPD HypoNatremia , Etiology TBI , ? CHF HyperKalemia Sever Anemia NSTEMI Plan re intubated, waiting for decision regarding extubation vs Trach on midodrine when bp low Folate . Iron . B12 supplement Mag and K and Phos supplement as needed Pulm support Monitor renal parameters Urine studies 2D echo Left ventricular ejection fraction estimated to be 60 %. per orders Subjective ROS Limited/Unobtainable: Yes Objective Objective Last 24 Hour Vital Signs Date Time Temp Pulse Resp B/P (MAP) Pulse Ox O2 Delivery O2 Flow Rate FiO2 05/15/19 11:10 74 26 40 05/15/19 11:00 69 25 125/50 (75) 100 05/15/19 10:00 68 29 126/56 (79) 100 05/15/19 09:48 69 26 40 05/15/19 09:00 74 21 118/53 (74) 100 05/15/19 08:00 97.0 75 25 124/56 (78) 100 05/15/19 08:00 30 05/15/19 08:00 Mechanical Ventilator 05/15/19 07:30 70 05/15/19 07:09 73 28 40 05/15/19 07:00 74 17 137/44 (75) 100 05/15/19 06:00 119/69 05/15/19 06:00 65 18 119/69 (86) 100 05/15/19 05:20 64 20 40 05/15/19 05:00 68 25 127/46 (73) 100 05/15/19 04:00 Mechanical Ventilator 05/15/19 04:00 98.2 79 22 127/46 (73) 100 05/15/19 04:00 76 05/15/19 04:00 30 05/15/19 03:00 70 25 144/56 (85) 100 05/15/19 02:57 72 28 40 05/15/19 02:00 70 22 139/87 (104) 100 05/15/19 01:00 71 24 114/55 (74) 100 05/15/19 00:53 71 27 40 05/15/19 00:00 98.1 80 26 102/53 (69) 100 05/15/19 00:00 Mechanical Ventilator 05/15/19 00:00 30 05/15/19 00:00 69 05/14/19 23:07 62 30 40 05/14/19 23:00 71 26 121/50 (73) 100 05/14/19 22:00 73 24 121/46 (71) 100 05/14/19 21:00 77 26 131/63 (85) 100 05/14/19 20:41 73 27 40 05/14/19 20:00 Mechanical Ventilator 05/14/19 20:00 72 05/14/19 20:00 30 05/14/19 20:00 98.0 69 23 128/60 (82) 100 05/14/19 19:22 72 30 40 05/14/19 19:06 30 05/14/19 19:05 30 05/14/19 19:00 70 27 102/51 (68) 100 05/14/19 18:00 69 28 130/50 (76) 100 05/14/19 17:09 76 26 40 05/14/19 16:00 Mechanical Ventilator 05/14/19 16:00 68 05/14/19 16:00 30 05/14/19 16:00 98.3 72 94/46 (62) 100 05/14/19 15:00 72 112/52 (72) 99 05/14/19 14:54 71 23 40 05/14/19 14:00 66 92/48 (63) 98 05/14/19 13:00 98.1 72 102/47 (65) 95 05/14/19 12:57 70 16 40 05/14/19 12:00 Mechanical Ventilator 05/14/19 12:00 30 05/14/19 12:00 70 16 95/47 (63) 95 05/14/19 12:00 70 Intake and Output 05/14/19 05/15/19 18:59 06:59 Intake Total 555 ml 365 ml Output Total 500 ml 400 ml Balance 55 ml -35 ml IV Total 55 ml 165 ml Tube Feeding 440 ml 200 ml Other 60 ml Output Urine Total 500 ml 400 ml # Voids 2 Laboratory Tests 05/15/19 05:00: White Blood Count 5.8, Red Blood Count 2.38L, Hemoglobin 7.5L, Hematocrit 23.3L , Mean Corpuscular Volume 98, Mean Corpuscular Hemoglobin 31.4H, Mean Corpuscular Hemoglobin Concent 32.2, Red Cell Distribution Width 17.8H, Platelet Count 62L, Mean Platelet Volume 7.9, Neutrophils (%) (Auto) , Lymphocytes (%) (Auto) , Monocytes (%) (Auto) , Eosinophils (%) (Auto) , Basophils (%) (Auto) , Differential Total Cells Counted 100, Neutrophils % ( Manual) 92H, Lymphocytes % (Manual) 5L, Monocytes % (Manual) 2, Eosinophils % ( Manual) 1, Basophils % (Manual) 0, Band Neutrophils 0, Platelet Estimate DecreasedL, Platelet Morphology Normal, Hypochromasia 1+, Anisocytosis 1+, Sodium Level 140, Potassium Level 3.8, Chloride Level 106, Carbon Dioxide Level 30, Anion Gap 4L, Blood Urea Nitrogen 21H, Creatinine 0.6, Estimat Glomerular Filtration Rate , Glucose Level 96, Calcium Level 7.8L, Phosphorus Level 2.4L, Magnesium Level 1.7L Height (Feet): 5 Height (Inches): 3.00 Weight (Pounds): 120 General Appearance: no apparent distress EENT: other - vented Cardiovascular: tachycardia Respiratory/Chest: decreased breath sounds Abdomen: distended Efra Das MD May 15, 2019 11:50
[2019-05-15] MEDS ORDERED: Potassium Phosphate 30 MM in NS 275 ML IV ONE (12:00)
--- NOTE | 2019-05-15 13:26 | Cardiology Progress Note ---
Assessment/Plan Problem List: (1) Hypertrophic cardiomyopathy (2) Paroxysmal A-fib (3) Respiratory distress (4) COPD (chronic obstructive pulmonary disease) (5) Aortic regurgitation (6) Mitral regurgitation Status: not improved, unchanged Status Narrative Cardiac status unchanged. Pt w/ pulm edema, likely due to diastolic dysfunction and valve disease. Has severe LVH and significant valve disease ( MR, AR) by ECHO Respiratory failure due to CHF and severe COPD Assessment/Plan Continue supportive care. Diuresis as fredis by BP. DNR status noted, and consideration for palliative care, possible terminal extubation Subjective ROS Limited/Unobtainable: Yes Subjective Cardiology for Dr. Ahmadi Intubated, not responsive Objective Last 24 Hour Vital Signs Date Time Temp Pulse Resp B/P (MAP) Pulse Ox O2 Delivery O2 Flow Rate FiO2 05/15/19 13:12 67 19 40 05/15/19 12:00 99.0 72 23 118/60 (79) 100 05/15/19 12:00 30 05/15/19 12:00 Mechanical Ventilator 05/15/19 11:20 70 05/15/19 11:10 74 26 40 05/15/19 11:00 69 25 125/50 (75) 100 05/15/19 10:00 68 29 126/56 (79) 100 05/15/19 09:48 69 26 40 05/15/19 09:00 74 21 118/53 (74) 100 05/15/19 08:00 97.0 75 25 124/56 (78) 100 05/15/19 08:00 30 05/15/19 08:00 Mechanical Ventilator 05/15/19 07:30 70 05/15/19 07:09 73 28 40 05/15/19 07:00 74 17 137/44 (75) 100 05/15/19 06:00 119/69 05/15/19 06:00 65 18 119/69 (86) 100 05/15/19 05:20 64 20 40 05/15/19 05:00 68 25 127/46 (73) 100 05/15/19 04:00 Mechanical Ventilator 05/15/19 04:00 98.2 79 22 127/46 (73) 100 05/15/19 04:00 76 05/15/19 04:00 30 05/15/19 03:00 70 25 144/56 (85) 100 05/15/19 02:57 72 28 40 05/15/19 02:00 70 22 139/87 (104) 100 05/15/19 01:00 71 24 114/55 (74) 100 05/15/19 00:53 71 27 40 05/15/19 00:00 98.1 80 26 102/53 (69) 100 05/15/19 00:00 Mechanical Ventilator 05/15/19 00:00 30 05/15/19 00:00 69 05/14/19 23:07 62 30 40 05/14/19 23:00 71 26 121/50 (73) 100 05/14/19 22:00 73 24 121/46 (71) 100 05/14/19 21:00 77 26 131/63 (85) 100 05/14/19 20:41 73 27 40 05/14/19 20:00 Mechanical Ventilator 05/14/19 20:00 72 05/14/19 20:00 30 05/14/19 20:00 98.0 69 23 128/60 (82) 100 05/14/19 19:22 72 30 40 05/14/19 19:06 30 05/14/19 19:05 30 05/14/19 19:00 70 27 102/51 (68) 100 05/14/19 18:00 69 28 130/50 (76) 100 05/14/19 17:09 76 26 40 05/14/19 16:00 Mechanical Ventilator 05/14/19 16:00 68 05/14/19 16:00 30 05/14/19 16:00 98.3 72 94/46 (62) 100 05/14/19 15:00 72 112/52 (72) 99 05/14/19 14:54 71 23 40 05/14/19 14:00 66 92/48 (63) 98 General Appearance: WD/WN, on vent EENT: PERRL/EOMI, other - et tube Neck: no JVD Rhythm: NSR Cardiovascular: regular rhythm, other - RRR s1s2 with a ii/vi PABLO apex . no s3 Respiratory/Chest: other - bilat rhonchi Abdomen: non tender, soft Extremities: no swelling Intake and Output 05/14/19 05/15/19 18:59 06:59 Intake Total 665 ml 365 ml Output Total 500 ml 400 ml Balance 165 ml -35 ml IV Total 165 ml 165 ml Tube Feeding 440 ml 200 ml Other 60 ml Output Urine Total 500 ml 400 ml # Voids 2 Laboratory Tests Test 05/15/19 05:00 White Blood Count 5.8 K/UL (4.8-10.8) Red Blood Count 2.38 M/UL (4.20-5.40) L Hemoglobin 7.5 G/DL (12.0-16.0) L Hematocrit 23.3 % (37.0-47.0) L Mean Corpuscular Volume 98 FL (80-99) Mean Corpuscular Hemoglobin 31.4 PG (27.0-31.0) H Mean Corpuscular Hemoglobin Concent 32.2 G/DL (32.0-36.0) Red Cell Distribution Width 17.8 % (11.6-14.8) H Platelet Count 62 K/UL (150-450) L Mean Platelet Volume 7.9 FL (6.5-10.1) Neutrophils (%) (Auto) % (45.0-75.0) Lymphocytes (%) (Auto) % (20.0-45.0) Monocytes (%) (Auto) % (1.0-10.0) Eosinophils (%) (Auto) % (0.0-3.0) Basophils (%) (Auto) % (0.0-2.0) Differential Total Cells Counted 100 Neutrophils % (Manual) 92 % (45-75) H Lymphocytes % (Manual) 5 % (20-45) L Monocytes % (Manual) 2 % (1-10) Eosinophils % (Manual) 1 % (0-3) Basophils % (Manual) 0 % (0-2) Band Neutrophils 0 % (0-8) Platelet Estimate Decreased L Platelet Morphology Normal Hypochromasia 1+ Anisocytosis 1+ Sodium Level 140 MMOL/L (136-145) Potassium Level 3.8 MMOL/L (3.5-5.1) Chloride Level 106 MMOL/L (98-107) Carbon Dioxide Level 30 MMOL/L (21-32) Anion Gap 4 mmol/L (5-15) L Blood Urea Nitrogen 21 mg/dL (7-18) H Creatinine 0.6 MG/DL (0.55-1.30) Estimat Glomerular Filtration Rate mL/min (>60) Glucose Level 96 MG/DL (74-106) Calcium Level 7.8 MG/DL (8.5-10.1) L Phosphorus Level 2.4 MG/DL (2.5-4.9) L Magnesium Level 1.7 MG/DL (1.8-2.4) L Julissa Espitia MD May 15, 2019 13:26
--- NOTE | 2019-05-15 15:16 | Internal Med Progress Note ---
Subjective Date of Service: May 15, 2019 Physician Name Romeo Tavares Attending Physician Zeke Munoz MD Current Medications Medications (Trade) Dose Ordered Sig/Gautam Route PRN Reason Start Time Stop Time Status Last Admin Dose Admin Albuterol/ Ipratropium (Albuterol/ Ipratropium) 3 ml Q4H PRN HHN Shortness of Breath 05/15/19 11:15 05/20/19 11:14 Cefepime HCl 2 gm/ Dextrose 55 ml @ 110 mls/hr Q12H IVPB 05/10/19 15:00 05/17/19 14:59 05/15/19 14:04 Chlorhexidine Gluconate (Cherry-Hex 2%) 1 applic DAILY@2000 TOPIC 05/10/19 20:00 06/02/19 19:59 05/14/19 20:05 Folic Acid (Folate) 5 mg DAILY NG 05/10/19 09:00 06/03/19 10:59 05/15/19 08:02 Lorazepam (Ativan 2mg/ml 1ml) 2 mg Q2H PRN IV Agitation 05/11/19 20:30 05/18/19 20:29 05/15/19 07:59 Midodrine (Pro-Amatine) 2.5 mg THREE TIMES A DAY NG 05/10/19 13:00 06/05/19 09:29 05/15/19 12:20 Norepinephrine Bitartrate 4 mg/ Dextrose 250 ml @ 0 mls/hr Q24H IV 05/10/19 06:00 06/09/19 05:59 05/10/19 15:00 Ondansetron HCl (Zofran) 4 mg Q6H PRN IVP Nausea & Vomiting 05/10/19 05:30 06/02/19 05:29 05/11/19 16:23 Polyethylene Glycol (Miralax) 17 gm DAILYPRN PRN ORAL Constipation 05/10/19 05:30 06/09/19 05:29 05/15/19 06:11 Potassium Phosphate 30 mm/ Sodium Chloride 285 ml @ 47.5 mls/hr ONCE ONCE IV 05/15/19 12:00 05/15/19 17:59 05/15/19 12:03 Vancomycin HCl (Vanco rx to dose) 1 ea DAILY PRN MISC Per rx protocol 05/10/19 13:00 06/09/19 12:59 Vancomycin HCl 500 mg/Dextrose 110 ml @ 110 mls/hr Q12HR@0500,1700 IVPB 05/13/19 17:00 05/18/19 16:59 05/15/19 05:18 Allergies: Coded Allergies: ACETAMINOPHEN (Verified Allergy, Unknown, 05/03/19) ASPIRIN (Verified Allergy, Unknown, 08/14/17) IBUPROFEN (Verified Allergy, Unknown, 05/03/19) PENICILLINS (Unverified Allergy, Unknown, 05/05/19) Uncoded Allergies: pain killers (Allergy, Severe, 01/28/17) ROS Limited/Unobtainable: Yes Subjective 74 YO F admitted with respiratory failure. Now Link Heart Failure. Extubated 05/07/19; reintubated early 05/10/19. Cover for Int Med-Dr Munoz. ICU Objective Last Vital Signs Date Time Temp Pulse Resp B/P (MAP) Pulse Ox O2 Delivery O2 Flow Rate FiO2 05/15/19 15:06 73 27 40 05/15/19 15:00 108/62 (77) 100 05/15/19 12:00 99.0 05/15/19 12:00 Mechanical Ventilator 05/09/19 12:00 4.0 Laboratory Tests Test 05/15/19 05:00 White Blood Count 5.8 K/UL (4.8-10.8) Red Blood Count 2.38 M/UL (4.20-5.40) L Hemoglobin 7.5 G/DL (12.0-16.0) L Hematocrit 23.3 % (37.0-47.0) L Mean Corpuscular Volume 98 FL (80-99) Mean Corpuscular Hemoglobin 31.4 PG (27.0-31.0) H Mean Corpuscular Hemoglobin Concent 32.2 G/DL (32.0-36.0) Red Cell Distribution Width 17.8 % (11.6-14.8) H Platelet Count 62 K/UL (150-450) L Mean Platelet Volume 7.9 FL (6.5-10.1) Neutrophils (%) (Auto) % (45.0-75.0) Lymphocytes (%) (Auto) % (20.0-45.0) Monocytes (%) (Auto) % (1.0-10.0) Eosinophils (%) (Auto) % (0.0-3.0) Basophils (%) (Auto) % (0.0-2.0) Differential Total Cells Counted 100 Neutrophils % (Manual) 92 % (45-75) H Lymphocytes % (Manual) 5 % (20-45) L Monocytes % (Manual) 2 % (1-10) Eosinophils % (Manual) 1 % (0-3) Basophils % (Manual) 0 % (0-2) Band Neutrophils 0 % (0-8) Platelet Estimate Decreased L Platelet Morphology Normal Hypochromasia 1+ Anisocytosis 1+ Sodium Level 140 MMOL/L (136-145) Potassium Level 3.8 MMOL/L (3.5-5.1) Chloride Level 106 MMOL/L (98-107) Carbon Dioxide Level 30 MMOL/L (21-32) Anion Gap 4 mmol/L (5-15) L Blood Urea Nitrogen 21 mg/dL (7-18) H Creatinine 0.6 MG/DL (0.55-1.30) Estimat Glomerular Filtration Rate mL/min (>60) Glucose Level 96 MG/DL (74-106) Calcium Level 7.8 MG/DL (8.5-10.1) L Phosphorus Level 2.4 MG/DL (2.5-4.9) L Magnesium Level 1.7 MG/DL (1.8-2.4) L Intake and Output 05/14/19 05/15/19 19:00 07:00 Intake Total 625 ml 385 ml Output Total 480 ml 400 ml Balance 145 ml -15 ml IV Total 165 ml 165 ml Tube Feeding 400 ml 220 ml Other 60 ml Output Urine Total 480 ml 400 ml # Voids 2 Objective PHYSICAL EXAMINATION: GENERAL: The patient is a thin-appearing female, who is currently intubated and sedated in the intensive care unit. HEENT: Eyes, pupils are equal and responsive to light and accommodation. Extraocular movements are intact. NECK: Supple without lymphadenopathy. CHEST: Mechanical vent; Coarse breath sounds bilaterally without wheezes or rales. CARDIOVASCULAR: Regular rhythm and rate. S1 and S2 are normal without murmurs, rubs, or gallops. ABDOMEN: Soft, nontender, and nondistended with positive bowel sounds. No evidence of hepatosplenomegaly, rebound, or guarding noted. EXTREMITIES: Negative for clubbing, cyanosis, or edema. RECTAL/GENITAL: Refused. NEUROLOGIC: Unable to assess secondary to intubation. Assessment/Plan Assessment/Plan ASSESSMENT: This is a 74-year-old female. 1. Respiratory failure. 2. Acute exacerbation of congestive heart failure. 3. Chronic obstructive pulmonary disease. 4. Hypertension. 5. Hypercholesterolemia. TREATMENT: 1. Respiratory failure. A Pulmonary consultation has been obtained with Dr. Jamal Medina. The patient is currently reintubated 05/10/19. Weaning protocol. Respiratory failure may be secondary to congestive heart failure. Continue cefepime and vancomycin per Inf Dis=Dr. Minaya 2. Congestive heart failure. A Cardiology consultation has been obtained with Dr. Philipp Ahmadi. The patient is currently receiving Lasix intravenously. We will follow recommendations of Cardiology. 3. Hypercholesterolemia. Continue atorvastatin as above. 4. Hypertension. The patient is currently hypotensive. Hold antihypertensive medication at this time. Continue levophed Romeo Tavares MD May 15, 2019 15:16
--- NOTE | 2019-05-15 15:35 | NUR ---
NURSE NOTES: Pt cleaned and repositioned. Oral care and suctioning performed. Right subclavian TLC dressing changed using septic technique. No distress noted at this time. Pt remains on the same vent settings. Will continue to monitor.
--- NOTE | 2019-05-15 15:58 | NUR ---
CASE MANAGEMENT: REVIEW SI: ACUTE RESPIRATORY FAILURE . COPD . PNA T 99.0 HR 72 RR 20 BP 96/53 SAT 100% MECH VENT FIO2 30 H/H 7.5/23.3 IS: K PHOS IV NS IVF @ 47.5ML/HR VANCOMYCIN IV Q12 CEFEPIME IV Q12 LEVOPHED GTT MIDODRINE NG TID NGT FEEDING ICU STATUS DCP: PATIENT IS FROM [facility]
--- NOTE | 2019-05-15 16:15 | NUR ---
NURSE NOTES: Contacted [facility] and spoke to Roldan, notified him of plan to terminally extubate tomorrow. [id number].
--- NOTE | 2019-05-15 19:05 | NUR ---
HAND-OFF: Report given to PRANEETH Fontenot.
--- NOTE | 2019-05-15 19:06 | NUR ---
NURSE NOTES: Endorsement received from PRANEETH Garcia. [id number]. ETT 7.5, 21 lipline. With gurgling sound, previously notified. OGT present. Rechecked per auscultation. On Vital AF 20ml/hr, with goal of 45ml/hr. Bilateral soft wrist restraints in place for attempting to pull out tubings. Skin warm and dry, normal in color. Purewick in place. Head of bed elevated. Bed locked, low position. Bed alarm on.
[2019-05-15] MEDS: Dyna-Hex 2% Top Sol 2oz TOPIC SCH (19:37)
--- NOTE | 2019-05-15 21:00 | NUR ---
NURSE NOTES: Secretions suctioned. Pericare done.
--- NOTE | 2019-05-15 23:00 | NUR ---
NURSE NOTES: Patient awake. Appears calm. No sign of pain or discomfort.
[2019-05-16] VITALS (14 sets, daily range): BP systolic 55–143; BP diastolic 29–98
--- NOTE | 2019-05-16 01:00 | NUR ---
NURSE NOTES: Patient asleep. No shortness of breath
--- NOTE | 2019-05-16 03:00 | NUR ---
NURSE NOTES: Bed bath, oral care, change of linens done.
[2019-05-16] MEDS: Cefepime HCl 2 GM in D5W 55 ML IVPB SCH (03:11)
[2019-05-16 04:49] LABS: HEMATOCRIT 23.9 % (37.0-47.0); HEMOGLOBIN 7.7 G/DL (12.0-16.0); MEAN CORPUSCULAR VOLUME 97 FL (80-99); PLATELET COUNT 71 K/UL (150-450); RED BLOOD COUNT 2.45 M/UL (4.20-5.40); RED CELL DISTRIBUTION WIDTH 17.6 % (11.6-14.8); WHITE BLOOD COUNT 7.6 K/UL (4.8-10.8)
--- NOTE | 2019-05-16 05:00 | NUR ---
NURSE NOTES: Patient awake, restless. Redirected. Refuses to be suctioned orally, explained risks and benefits
[2019-05-16 05:09] LABS: ANION GAP 3 mmol/L (5-15); BLOOD UREA NITROGEN 16 mg/dL (7-18); CALCIUM 7.9 MG/DL (8.5-10.1); CARBON DIOXIDE 31 MMOL/L (21-32); CHLORIDE 105 MMOL/L (98-107); CREATININE 0.6 MG/DL (0.55-1.30); PHOSPHORUS 3.2 MG/DL (2.5-4.9); POTASSIUM 4.3 MMOL/L (3.5-5.1); SODIUM 138 MMOL/L (136-145)
[2019-05-16] MEDS: Miralax 17gm pkt ORAL PRN (05:15)
[2019-05-16] MEDS: Vancomycin 500mg/D5W 110ml IVPB SCH ×2 (05:15)
--- NOTE | 2019-05-16 07:10 | NUR ---
HAND-OFF: Report given to PRANEETH Garcia.
--- NOTE | 2019-05-16 07:10 | NUR ---
NURSE NOTES: Endorsement received from PRANEETH Fontenot. Patient opens eyes spontaneously, follows simple commands. Orally intubated with ETT 7.5, 21cm @ lipline. Vent setting AC 16, TV 500, PEEP 5, FiO2 30%. Audible gurgling and foamy secretions remain despite suctioning. Rt subclavian TLC, dressing clean dry and intact. OGT present, rechecked per auscultation. On Vital AF 20mL/hr, with a goal of 45mL/hr. Purewick in place, draining well. Bed locked, in lowest position, alarm on. Head of bed elevated. Bilateral soft wrist restraints in place for safety d/t attempting to pull out tubings. Will resume plan of care.
[2019-05-16] MEDS ORDERED: PCA Morphine 1mg/ml 30 ML IV PRN ×3 (07:45→08:00)
[2019-05-16] MEDS ORDERED: Morphine Sulfate 10mg/ml Inj IVP SCH (08:00)
[2019-05-16] MEDS ORDERED: Glycopyrrolate 0.2mg/ml 1ml Vial IV PRN (08:00)
[2019-05-16] MEDS ORDERED: Rate Change Narcotic Drip MISC PRN (08:00)
[2019-05-16] MEDS ORDERED: Haloperidol 5mg/ml Inj IM PRN (08:00)
[2019-05-16] MEDS ORDERED: Prochlorperazine 10mg tab ORAL PRN (08:00)
--- NOTE | 2019-05-16 08:04 | Infectious Diseases Prog Note ---
Assessment/Plan Assessment/Plan Afebrile Leukocytosis 05/10 reintubation 05/10 Levophed, SP 05/10 Likely aspiration pneumonia 05/10 bcx: ngtd 05/10 sputum cx: MRSA, Pseudomonas 05/10 CXR: Complete atelectasis of the left lung. Pulmonary edema 05/11 CXR: Pulmonary vascular congestion without significant change. Apparent decrease in a left pleural effusion. 05/12 CXR: Suspect slightly worsening interstitial edema 05/13 CXR: Patchy interstitial and alveolar opacities again demonstrated bilaterally. There is no change accounting for some differences in technique. Earlier in hospital stay: Afebrile No leukocytosis Lactate 1.2 dopamine, SP Hypoxic Respiratory failure PNA? Pulm edema 05/03 Flu swab negative 05/03 sputum cx: ngtd 05/03 CXR: Moderate to severe pulmonary edema. Bilateral pleural effusions 05/03 CXR: Diffuse airspace disease may be due to pulmonary edema. Small bilateral pleural effusions. Tubes and lines satisfactory 05/04 CXR: Improved bilateral pleural effusions, over one day 05/05 CXR: Bilateral interstitial and hazy airspace disease persists, unchanged. Probable small left pleural effusion is again demonstrated. The heart size is upper limits normal. No significant interim change 05/06 CXR: Stable to minimally improved bilateral interstitial and airspace disease, over one day. Otherwise stable findings as described. 05/07 CXR: Interstitial pneumonitis versus CHF. No change UA negative r/o bacteremia 05/03 Bcx: ngtd 05/03 TTE: EF 60%.No pericardial effusion. AV calcification with decreased cusp excursion c/w aortic stenosis. Heavily thickened mitral valve leaflets with reduced excursion. Echogenic material noted on posterior mitral valve leaflet is likely calcified mitral annular structure. Heavy mitral annulus and aortic root calcification. Pulmonic valve not well visualized. Normal tricuspid valve structure. VRE colonization MRSA colonization new subclavian central line placed in ED no sorensen COPD CHF Hep C cirrhosis GERD Plan: comfort care decided by family. Thank you for this consult. [facility] will sign off at this time. 05/16 cefepime and vancomycin #7 05/07 DC Ertapenem #5 05/06 DC Vancomycin #4 05/05 DC Amikacin #3 SP Zosyn and Vanc Subjective Allergies: Coded Allergies: ACETAMINOPHEN (Verified Allergy, Unknown, 05/03/19) ASPIRIN (Verified Allergy, Unknown, 2/15/18) IBUPROFEN (Verified Allergy, Unknown, 05/03/19) PENICILLINS (Unverified Allergy, Unknown, 05/05/19) Uncoded Allergies: pain killers (Allergy, Severe, 01/28/17) Subjective Afebrile. Comfort care per charge nurse. plan to start morphine drip and extubate soon. Objective Vital Signs Last 24 Hour Vital Signs Date Time Temp Pulse Resp B/P (MAP) Pulse Ox O2 Delivery O2 Flow Rate FiO2 05/16/19 07:01 62 25 30 05/16/19 07:00 64 18 95/44 (61) 100 05/16/19 06:00 143/98 05/16/19 06:00 69 23 143/98 (113) 100 05/16/19 05:02 74 23 30 05/16/19 05:00 72 24 135/44 (74) 100 05/16/19 04:00 98.1 72 24 120/86 (97) 100 05/16/19 04:00 60 05/16/19 04:00 Mechanical Ventilator 05/16/19 04:00 30 05/16/19 03:25 71 23 30 05/16/19 03:00 64 17 104/40 (61) 100 05/16/19 02:00 63 17 101/40 (60) 100 05/16/19 01:28 70 24 30 05/16/19 01:00 77 25 134/55 (81) 100 05/16/19 00:00 62 05/16/19 00:00 Mechanical Ventilator 05/16/19 00:00 98.0 74 21 121/52 (75) 100 05/15/19 23:13 61 16 30 05/15/19 23:00 70 22 130/49 (76) 100 05/15/19 22:00 65 19 99/46 (63) 100 05/15/19 21:08 65 28 40 05/15/19 21:00 72 22 130/61 (84) 100 05/15/19 20:00 98.3 75 23 136/51 (79) 100 05/15/19 20:00 Mechanical Ventilator 05/15/19 20:00 79 05/15/19 20:00 30 05/15/19 19:24 70 20 40 05/15/19 19:00 76 21 115/56 (75) 100 05/15/19 18:00 72 24 135/44 (74) 100 05/15/19 17:29 67 16 40 05/15/19 17:00 69 17 140/50 (80) 100 05/15/19 16:00 30 05/15/19 16:00 Mechanical Ventilator 05/15/19 16:00 98.7 65 16 98/43 (61) 100 05/15/19 15:32 68 05/15/19 15:06 73 27 40 05/15/19 15:00 71 21 108/62 (77) 100 05/15/19 14:00 71 23 118/62 (80) 100 05/15/19 13:12 67 19 40 05/15/19 13:00 68 20 96/53 (67) 100 05/15/19 12:00 99.0 72 23 118/60 (79) 100 05/15/19 12:00 30 05/15/19 12:00 Mechanical Ventilator 05/15/19 11:20 70 05/15/19 11:10 74 26 40 05/15/19 11:00 69 25 125/50 (75) 100 05/15/19 10:00 68 29 126/56 (79) 100 05/15/19 09:48 69 26 40 05/15/19 09:00 74 21 118/53 (74) 100 Height (Feet): 5 Height (Inches): 3.00 Weight (Pounds): 119 Objective Gen: NAD HEENT: anicteric sclera CV: RRR Resp: RRR. no wheezes. coarse Abd: soft. normoactive Bs+ Neuro: sedated Laboratory Tests Test 05/16/19 04:20 White Blood Count 7.6 K/UL (4.8-10.8) Red Blood Count 2.45 M/UL (4.20-5.40) L Hemoglobin 7.7 G/DL (12.0-16.0) L Hematocrit 23.9 % (37.0-47.0) L Mean Corpuscular Volume 97 FL (80-99) Mean Corpuscular Hemoglobin 31.3 PG (27.0-31.0) H Mean Corpuscular Hemoglobin Concent 32.2 G/DL (32.0-36.0) Red Cell Distribution Width 17.6 % (11.6-14.8) H Platelet Count 71 K/UL (150-450) L Mean Platelet Volume 9.1 FL (6.5-10.1) Neutrophils (%) (Auto) % (45.0-75.0) Lymphocytes (%) (Auto) % (20.0-45.0) Monocytes (%) (Auto) % (1.0-10.0) Eosinophils (%) (Auto) % (0.0-3.0) Basophils (%) (Auto) % (0.0-2.0) Neutrophils % (Manual) Pending Lymphocytes % (Manual) Pending Platelet Estimate Pending Platelet Morphology Pending Sodium Level 138 MMOL/L (136-145) Potassium Level 4.3 MMOL/L (3.5-5.1) Chloride Level 105 MMOL/L (98-107) Carbon Dioxide Level 31 MMOL/L (21-32) Anion Gap 3 mmol/L (5-15) L Blood Urea Nitrogen 16 mg/dL (7-18) Creatinine 0.6 MG/DL (0.55-1.30) Estimat Glomerular Filtration Rate mL/min (>60) Glucose Level 96 MG/DL (74-106) Calcium Level 7.9 MG/DL (8.5-10.1) L Phosphorus Level 3.2 MG/DL (2.5-4.9) Magnesium Level 2.0 MG/DL (1.8-2.4) Current Medications Medications (Trade) Dose Ordered Sig/Gautam Route PRN Reason Start Time Stop Time Status Last Admin Dose Admin Albuterol/ Ipratropium (Albuterol/ Ipratropium) 3 ml Q4H PRN HHN Shortness of Breath 05/15/19 11:15 05/20/19 11:14 Artificial Tears (Akwa-Tears) 1 drop QIDPRN PRN BOTH EYES Dry Eyes 05/16/19 08:00 06/15/19 07:59 Chlorhexidine Gluconate (Cherry-Hex 2%) 1 applic DAILY@2000 TOPIC 05/10/19 20:00 06/02/19 19:59 05/15/19 19:37 Glycopyrrolate (Robinul) 0.1 mg Q6H PRN IV excessive secretions 05/16/19 08:00 06/15/19 07:59 Haloperidol Lactate (Haldol) 1 mg Q30M PRN IM Agitation 05/16/19 08:00 06/15/19 07:59 Lorazepam (Ativan 2mg/ml 1ml) 2 mg Q2H PRN IV Agitation 05/11/19 20:30 05/18/19 20:29 05/15/19 07:59 Miscellaneous Medication (Narcotic Drip Rate Change) 1 ea DAILY PRN MISC To Patient Comfort 05/16/19 08:00 05/20/19 07:59 Miscellaneous Medication (Narcotic Shift Volume) 1 ea Q12HR@0700,1900 MISC 05/16/19 19:00 06/15/19 18:59 Morphine Sulfate 30 ml @ 5 mls/hr SUPPLY CHAIN ENGINEER Protocol PRN IV COMFORT CARE 05/16/19 08:00 05/18/19 07:59 Morphine Sulfate (Morphine Sulfate) 10 mg ONCE IVP 05/16/19 08:00 05/16/19 10:00 Prochlorperazine (Compazine) 10 mg Q6H PRN ORAL Nausea & Vomiting 05/16/19 08:00 06/15/19 07:59 Yazan Minaya MD May 16, 2019 08:04
--- NOTE | 2019-05-16 08:53 | Pulmonolgy Critical Care Note ---
Critical Care - Asmt/Plan Assessment/Plan: ASSESSMENT Acute on chronic hypoxemic and hypercapnic respiratory failure , requiring intubation due to congestive heart failure Acute pulmonary edema Paroxysmal atrial fibrillation Severe COPD ; home O2 dependent Severe aortic regurgitation Severe mitral stenosis Pulmonary hypertension Anemia Cirrhosis with portal hypertension History of hepatitis C Left lung collapse Thrombocytopenia History of GI bleeding PLAN OF CARE in ICU off pressors vent support pulmonary toilet now DNR status abx as per ID strict aspiration precaution TF DVT prophylaxis family agreed to terminal extubation terminal extubation later today with start of MS drip Addendum: pt extubated at 925 am started on MS drip adn o2 via NC family notified by primary nurse case discussed and evaluated by supervising physician Critical Care - Objective Last 24 Hour Vital Signs Date Time Temp Pulse Resp B/P (MAP) Pulse Ox O2 Delivery O2 Flow Rate FiO2 05/16/19 08:00 30 05/16/19 07:01 62 25 30 05/16/19 07:00 64 18 95/44 (61) 100 05/16/19 06:00 143/98 05/16/19 06:00 69 23 143/98 (113) 100 05/16/19 05:02 74 23 30 05/16/19 05:00 72 24 135/44 (74) 100 05/16/19 04:00 98.1 72 24 120/86 (97) 100 05/16/19 04:00 60 05/16/19 04:00 Mechanical Ventilator 05/16/19 04:00 30 05/16/19 03:25 71 23 30 05/16/19 03:00 64 17 104/40 (61) 100 05/16/19 02:00 63 17 101/40 (60) 100 05/16/19 01:28 70 24 30 05/16/19 01:00 77 25 134/55 (81) 100 05/16/19 00:00 62 05/16/19 00:00 Mechanical Ventilator 05/16/19 00:00 98.0 74 21 121/52 (75) 100 05/15/19 23:13 61 16 30 05/15/19 23:00 70 22 130/49 (76) 100 05/15/19 22:00 65 19 99/46 (63) 100 05/15/19 21:08 65 28 40 05/15/19 21:00 72 22 130/61 (84) 100 05/15/19 20:00 98.3 75 23 136/51 (79) 100 05/15/19 20:00 Mechanical Ventilator 05/15/19 20:00 79 05/15/19 20:00 30 05/15/19 19:24 70 20 40 05/15/19 19:00 76 21 115/56 (75) 100 05/15/19 18:00 72 24 135/44 (74) 100 05/15/19 17:29 67 16 40 05/15/19 17:00 69 17 140/50 (80) 100 05/15/19 16:00 30 05/15/19 16:00 Mechanical Ventilator 05/15/19 16:00 98.7 65 16 98/43 (61) 100 05/15/19 15:32 68 05/15/19 15:06 73 27 40 05/15/19 15:00 71 21 108/62 (77) 100 05/15/19 14:00 71 23 118/62 (80) 100 05/15/19 13:12 67 19 40 05/15/19 13:00 68 20 96/53 (67) 100 05/15/19 12:00 99.0 72 23 118/60 (79) 100 05/15/19 12:00 30 05/15/19 12:00 Mechanical Ventilator 05/15/19 11:20 70 05/15/19 11:10 74 26 40 05/15/19 11:00 69 25 125/50 (75) 100 05/15/19 10:00 68 29 126/56 (79) 100 05/15/19 09:48 69 26 40 05/15/19 09:00 74 21 118/53 (74) 100 Objective: Status: asleep,intubated, on vent Condition: critical HEENT: atraumatic, normocephalic, OP with ET in place, intact OP with TF Lungs: BS diminished , few crackles at bases Heart: HR/BP stable Abdomen: soft, non-tender, active bowel sounds Extremities: no C/C/E Critical Care - Subjective ROS Limited/Unobtainable: Yes Interval Events: afebrile, no leukocytosis terminal extubation panned for today with start of MS drip Condition: critical IV Access: central - R subclavian intact EKG Rhythm: Sinus Rhythm FI02: 30 Vent Support Breath Rate: 16 Vent Support Mode: AC Vent Tidal Volume: 500 Sputum Amount: Moderate PEEP: 5.0 PIP: 32 Tube Feeding Amount: 20 I&O: Intake and Output 05/15/19 05/16/19 19:00 07:00 Intake Total 1002.5 ml 240 ml Output Total 100 ml 800 ml Balance 902.5 ml -560 ml IV Total 602.5 ml Tube Feeding 240 ml 240 ml Other 160 ml Output Urine Total 100 ml 800 ml CXR: 05/15 1. Slightly increased opacification in the right mid and lower lung zones which may represent combination of pleural effusion and atelectasis versus pneumonia. Slightly increased hazy and interstitial opacities throughout the lungs which may represent pulmonary edema and or infectious inflammatory process. Possible small left pleural effusion. 2. Endotracheal tube terminates in the region of the upper thoracic trachea. Enteric tube courses past the diaphragm and out of the field of view with side hole again seen near the GE junction. Stable right subclavian central venous catheter. ET-Tube: 7.5 ET Position: 21 Landy Payne NP May 16, 2019 08:53
--- NOTE | 2019-05-16 09:00 | NUR ---
Nurse Notes Late entry: Restraints removed. Pt lethargic and calm.
--- NOTE | 2019-05-16 09:25 | NUR ---
NURSE NOTES: Pt given Morphine 10MG IVP for comfort. Connected to Morphine 5MG/HR continuous FUND CONTROLLER pump. Pt extubated at 9:25AM. Oxygen 2L NC applied for comfort. No respiratory distress noted at this time. Pt's son Roman Gutiérrez C , notified of extubation and comfort care measures. Will continue to update him throughout the process.
--- NOTE | 2019-05-16 09:25 | NUR ---
RESPIRATORY NOTE: Terminal extubated pt per Dr. Medina's order. Pt has morphine for comfort. Pt is resting comfortably in the bed, no resp distress noted. RR 24bpm, HR 74bpm, desaturates quickly to 55% on room air. RN Radha and CN Rosangela at bedside and aware.
--- NOTE | 2019-05-16 09:30 | NUR ---
RESPIRATORY NOTE: Pt saturates at 84% on room right now. Placed pt on 2L NC 28% for comfort, saturates went to up 89%. RN Radha and STREET CLEANER Jessica at bedside and aware. pt is in comfort care now. pt is still resting comfortably in the bed. No SOB or resp distress noted. Will continue to monitor pt closely.
--- NOTE | 2019-05-16 09:45 | NUR ---
NURSE NOTES: Patient observed bedside for compassionate extubation at 0925. Morphine BEHAVIORIST was set up and started, as well as IV push of Morphine. Patient did not appear in any acute distress, was not respiratory distress. Patient was not tachypneic, RR never was greater than >26. When asked if she was in any pain or distress, patient nodded her head no. Present with patient was RT, primary RN and air sampler. Patient was initially oriented however, quickly became obtunded. Per HEALTH AND WELLNESS INSTRUCTOR, pt is to be placed on NC for comfort. O2 sats now 80s however RR remained same. Patient is not in any distress. Patient is comfortable. Will transfer patient to Med Surg for continued comfort care.
--- NOTE | 2019-05-16 10:08 | Nephrology Progress Note ---
Assessment/Plan Problem List: (1) Acute respiratory failure Assessment: now extubated (2) Electrolyte imbalance (3) Anemia (4) NSTEMI (non-ST elevated myocardial infarction) (5) COPD (chronic obstructive pulmonary disease) Assessment Acute respiratory failure, on Vent- Underlying COPD HypoNatremia , Etiology TBI , ? CHF HyperKalemia Sever Anemia NSTEMI Plan now extubated on O2 comfortcare Previously: on midodrine when bp low Folate . Iron . B12 supplement Mag and K and Phos supplement as needed Pulm support Monitor renal parameters Urine studies 2D echo Left ventricular ejection fraction estimated to be 60 %. per orders Subjective ROS Limited/Unobtainable: No Constitutional: Reports: malaise Objective Objective Last 24 Hour Vital Signs Date Time Temp Pulse Resp B/P (MAP) Pulse Ox O2 Delivery O2 Flow Rate FiO2 05/16/19 09:53 134 27 59/29 (39) 80 05/16/19 09:47 133 24 59/37 (44) 89 05/16/19 09:45 134 26 88 05/16/19 09:30 141 26 28 05/16/19 09:30 90 23 58 05/16/19 09:25 Nasal Cannula 2.0 28 05/16/19 09:25 72 24 05/16/19 09:15 69 22 100 05/16/19 09:08 63 17 30 05/16/19 09:00 65 24 129/43 (71) 100 05/16/19 08:45 68 25 100 05/16/19 08:30 64 21 100 05/16/19 08:15 66 21 100 05/16/19 08:00 66 05/16/19 08:00 65 20 104/39 (60) 100 05/16/19 08:00 30 05/16/19 08:00 Mechanical Ventilator 05/16/19 07:01 62 25 30 05/16/19 07:00 64 18 95/44 (61) 100 05/16/19 06:00 143/98 05/16/19 06:00 69 23 143/98 (113) 100 05/16/19 05:02 74 23 30 05/16/19 05:00 72 24 135/44 (74) 100 05/16/19 04:00 98.1 72 24 120/86 (97) 100 05/16/19 04:00 60 05/16/19 04:00 Mechanical Ventilator 05/16/19 04:00 30 05/16/19 03:25 71 23 30 05/16/19 03:00 64 17 104/40 (61) 100 05/16/19 02:00 63 17 101/40 (60) 100 05/16/19 01:28 70 24 30 05/16/19 01:00 77 25 134/55 (81) 100 05/16/19 00:00 62 05/16/19 00:00 Mechanical Ventilator 05/16/19 00:00 98.0 74 21 121/52 (75) 100 05/15/19 23:13 61 16 30 05/15/19 23:00 70 22 130/49 (76) 100 05/15/19 22:00 65 19 99/46 (63) 100 05/15/19 21:08 65 28 40 05/15/19 21:00 72 22 130/61 (84) 100 05/15/19 20:00 98.3 75 23 136/51 (79) 100 05/15/19 20:00 Mechanical Ventilator 05/15/19 20:00 79 05/15/19 20:00 30 05/15/19 19:24 70 20 40 05/15/19 19:00 76 21 115/56 (75) 100 05/15/19 18:00 72 24 135/44 (74) 100 05/15/19 17:29 67 16 40 05/15/19 17:00 69 17 140/50 (80) 100 05/15/19 16:00 30 05/15/19 16:00 Mechanical Ventilator 05/15/19 16:00 98.7 65 16 98/43 (61) 100 05/15/19 15:32 68 05/15/19 15:06 73 27 40 05/15/19 15:00 71 21 108/62 (77) 100 05/15/19 14:00 71 23 118/62 (80) 100 05/15/19 13:12 67 19 40 05/15/19 13:00 68 20 96/53 (67) 100 05/15/19 12:00 99.0 72 23 118/60 (79) 100 05/15/19 12:00 30 05/15/19 12:00 Mechanical Ventilator 05/15/19 11:20 70 05/15/19 11:10 74 26 40 05/15/19 11:00 69 25 125/50 (75) 100 Intake and Output 05/15/19 05/16/19 18:59 06:59 Intake Total 1002.5 ml 240 ml Output Total 100 ml 800 ml Balance 902.5 ml -560 ml IV Total 602.5 ml Tube Feeding 240 ml 240 ml Other 160 ml Output Urine Total 100 ml 800 ml Laboratory Tests 05/16/19 04:20: White Blood Count 7.6, Red Blood Count 2.45L, Hemoglobin 7.7L, Hematocrit 23.9L , Mean Corpuscular Volume 97, Mean Corpuscular Hemoglobin 31.3H, Mean Corpuscular Hemoglobin Concent 32.2, Red Cell Distribution Width 17.6H, Platelet Count 71L, Mean Platelet Volume 9.1, Neutrophils (%) (Auto) , Lymphocytes (%) (Auto) , Monocytes (%) (Auto) , Eosinophils (%) (Auto) , Basophils (%) (Auto) , Differential Total Cells Counted 100, Neutrophils % ( Manual) 87H, Lymphocytes % (Manual) 6L, Monocytes % (Manual) 5, Eosinophils % ( Manual) 2, Basophils % (Manual) 0, Band Neutrophils 0, Platelet Estimate DecreasedL, Platelet Morphology Normal, Hypochromasia 1+, Anisocytosis 1+, Sodium Level 138, Potassium Level 4.3, Chloride Level 105, Carbon Dioxide Level 31, Anion Gap 3L, Blood Urea Nitrogen 16, Creatinine 0.6, Estimat Glomerular Filtration Rate , Glucose Level 96, Calcium Level 7.9L, Phosphorus Level 3.2, Magnesium Level 2.0 Height (Feet): 5 Height (Inches): 3.00 Weight (Pounds): 119 General Appearance: mild distress EENT: other - extubated Respiratory/Chest: decreased breath sounds Abdomen: soft Efra Das MD May 16, 2019 10:07
--- NOTE | 2019-05-16 10:30 | NUR ---
Pt remains on 2L NC. O2 sat now in the 70s; however, RR remained same with no tachypnea noted. Patient is on continuous Morphine ECOMMERCE ANALYST 5mg/hr, appears comfortable, resting in bed with her eyes closed. No distress noted at this time.
--- NOTE | 2019-05-16 10:41 | NUR ---
NURSE NOTES: Patient observed bedside. Patient with Morphine WAREHOUSE SELECTOR pump for comfort. Patient is not in any acute/respiratory distress. Primary RN is monitoring patient for INC RR. NC at 2L. Family has been informed of compassionate extubation.
[2019-05-16] MEDS ORDERED: NS 275ml ONE (11:03)
[2019-05-16] MEDS ORDERED: Tubing IV Secondary IV ONE (11:03)
--- NOTE | 2019-05-16 11:15 | NUR ---
NURSE NOTES: Pt is tachycardic 120's-130's. O2Sat in the 40's. Pt remains comfortable, with no distress and no tachypnea noted.
--- NOTE | 2019-05-16 11:28 | NUR ---
NURSE NOTES: HR: 127, O2Sat: 20's-30's, RR:31
--- NOTE | 2019-05-16 11:40 | NUR ---
NURSE NOTES: HR:33, O2Sat: 5%, Pt appears comfortable.
--- NOTE | 2019-05-16 11:43 | NUR ---
NURSE NOTES: PEA at this time. Pt noted Rodrick-Cerad breathing.
--- NOTE | 2019-05-16 11:44 | NUR ---
Monitor shows Asystole, No Palpable Pulse, No Respiration, Pupils Non reactive to light. Pronounced at this time.
--- NOTE | 2019-05-16 11:44 | NUR ---
NURSE NOTES: green marketer shows asystole. Patient pronounced at this time.
--- NOTE | 2019-05-16 12:00 | NUR ---
NURSE NOTES: [employer] notified and junior technical writer was informed that pt is not a candidate for donation. Sap Architect notified. Pt's son, Roman, notified and he let junior technical writer know he was coming to the hospital. Dr. Munoz and Landy Payne notified as well.
--- NOTE | 2019-05-16 12:15 | NUR ---
NURSE NOTES: Patient's family came to see patient and sign for belongings which was gold earrings. Patient son signed for belongs and given to him and niece. Planogrammer pronounced patient at 1144 am. MDs were notified. [employer] and Building And Grounds Supervisor were notified.
--- NOTE | 2019-05-16 14:09 | NUR ---
NURSE NOTES: [facility] came to collect the remains per the eldest son Roman Ott at 1345. Biju Carmona was the attendant who came from the [facility] and signed for the remains.
[2019-05-16] MEDS ORDERED: Narcotic Shift Volume MISC SCH (19:00)
--- NOTE | 2019-05-18 13:41 | NUR ---
*-* INSURANCE *-* ALL AVAILABLE CLINICALS AND REVIEWS AND DISCHARGE SUMMARY HAVE BEEN FAXED TO: [facility] [phone] JIAN Toscano/NATACHA TRACKING#[id number] CM: BRETT #[phone] FAX#[phone] REVIEWS/CLINICALS
--- NOTE | 2019-05-18 13:50 | Discharge Summary ---
Discharge Summary Discharge Summary _ SUMMARY DATE OF ADMISSION: 05/03/2019 DATE OF EXPIRATION: 05/16/2019 REASON FOR ADMISSION: 74 years old female with past medical history of congestive heart failure, COPD , resident of care home facility, was sent to emergency room for evaluation due to severe respiratory distress and altered mental status. Patient was unable to provide much of the history. Review of patient's medical records showed thta the patient wanted selective intervention. Patient apparently did not want any defibrillation or chest compression, but would be okay with intubation. Patient was tachypneic and was on 100% nonrebreather mask with pulse oximetry reaching 94%. Patient was placed on the BiPAP. ABG on the BiPAP revealed severe respiratory acidosis with pH 7.25 and PCO2 98.7. Patient also became hypotensive and required placement of central line for pressor. Patient subsequently underwent placement of right subclavian central line. Chest x-ray and confirmed the placement. Patient also undergone emergency oral intubation . CXR confirmed placement of ET tube. It also demonstrated moderate to severe pulmonary edema. Bilateral pleural effusion. EKG revealed sinus tachycardia , no acute ischemic changes. Laboratory work-up revealed no leukocytosis ,hemoglobin 7.3, hematocrit 24.7. Platelet count 92. Sodium 131, potassium 5.7. BUN 24, creatinine 0.8. Glucose 106. Troponin -0.016, pro BNP 6906. AST 45, ALT 39 lipase 91. Urinalysis revealed no pyuria , few bacteria +2 protein. Patient subsequently admitted to ICU for further management. CONSULTANTS: library services dean Dr. Ahmadi pulmonary Dr. Medina ID specialist Dr. Minaya sod stripper Dr. Das [facility]SE: Patient admitted to ICU. Ventilator support and pulmonary toilet provided. Patient was followed-up with ABG and chest x-ray. Patient initially started on pressor , which titrated to keep mean arterial blood pressure above 65. Patient was able to be weaned from pressor . Hemodynamic status was closely monitored. Auto Clocks Repairer followed. Echocardiogram revealed preserved ejection fraction of 60% with severe left ventricular hypertrophy with mild ventricular dynamic obstruction with LVOT. No evidence of wall motion abnormality to the extent visualized. Severe aortic regurgitation. Severe mitral regurgitation. Aortic stenosis. Right ventricular systolic pressure of 53 consistent with a moderate pulmonary hypertension. Patient received spot diuretics Patient started on midodrine for blood pressure support , after weaning from pressors. Per library services dean, acute respiratory failure wasn due to congestive heart failure. Patient initially started on empiric antibiotics. Blood cultures were negative. Sputum culture showed Linda. Antibiotics provided as per ID specialist recommendation. Patient was extubated on 05/07. Supplemental oxygen provided and titrated to keep pulse oximetry above 92%. Pulmonary toilet provided. Patient had leukocytosis on . Patient required intubation on 05/10 due to acute respiratory distress. ABG revealed pH was 7.02 and PCO2 134. On the BiPAP with FiO2 of 100%. Patient was pancultured again. Blood culture came back negative. Sputum culture revealed MRSA and Pseudomonas. Antibiotic regimen further optimized as per ID specialist recommendation. Strict aspiration precautions were maintained. G-tube feeding continued. Tube feeding formula with goal rate and protein supplements implemented in plan of care as per registered nurses recommendation. DVT prophylaxis provided. Commercial Housekeeper followed. Renal parameters and electrolytes were closely monitored, electrolytes corrected as needed, nephrotoxic's were avoided. Hemoglobin and hematocrit were closely monitored with goal to keep hemoglobin above 7. Anemia work-up was consistent with anemia of chronic disease. Patient undergone transfusion of 2 units of packed red blood cells while in the hospital. CODE STATUS was changed to DNR /DNI on 05/10. After discussion with the family regarding further plans of care, family later agreed to terminal extubation. Patient was terminally extubated on 05/16 at 9:25 and started on the morphine drip. Oxygen via nasal cannula provided for comfort. Patient condition rapidly deteriorated and she was pronounced at 11:44 on 05/16 . Cause of : cardiopulmonary arrest FINAL DIAGNOSES Acute on chronic hypoxemic and hypercapnic respiratory failure requiring intubation, s/p extubation and subsequent reintubation -due to congestive heart failure Acute pulmonary edema Likely aspiration pneumonia Severe COPD / O2 dependent Severe left ventricular hypertrophy of the left ventricular outflow tract, mild obstruction Severe aortic regurgitation Severe mitral stenosis Pulmonary hypertension Paroxysmal atrial fibrillation Electrolyte abnormality Anemia Cirrhosis with portal hypertension History of hepatitis C Thrombocytopenia History of GI bleeding. Severe protein calorie malnutrition Landy Payne NP May 18, 2019 13:50
== END 2019-05-16 11:44 | disposition expired | DRG 130 ==
LOC: EDBD 08:11 → EMR 08:35 → ICU 09:42 → EDBEDREQ 11:45 → 2W 05-09 00:08 → ICU 05-10 05:16 → 2W 05-12 06:58 → ICU 05-12 18:41
PROC: 05H533Z Insertion of Infusion Device into Right Subclavian Vein, Percutaneous Approach (ICD-10-PCS; 2019-05-03)
PROC: 5A1955Z Respiratory Ventilation, Greater than 96 Consecutive Hours (ICD-10-PCS; 2019-05-03)
PROC: 0BH17EZ Insertion of Endotracheal Airway into Trachea, Via Natural or Artificial Opening (ICD-10-PCS; 2019-05-03)
PROC: 0BH17EZ Insertion of Endotracheal Airway into Trachea, Via Natural or Artificial Opening (ICD-10-PCS; principal; 2019-05-10)
PROC: 5A1955Z Respiratory Ventilation, Greater than 96 Consecutive Hours (ICD-10-PCS; principal; 2019-05-10)
DX: J96.01 Acute respiratory failure with hypoxia (principal); I11.0 Hypertensive heart disease with heart failure; E43 Unspecified severe protein-calorie malnutrition; Z68.1 Body mass index [BMI] 19.9 or less, adult; E87.1 Hypo-osmolality and hyponatremia; J44.9 Chronic obstructive pulmonary disease, unspecified; K74.60 Unspecified cirrhosis of liver; K76.6 Portal hypertension; J96.02 Acute respiratory failure with hypercapnia; I50.33 Acute on chronic diastolic (congestive) heart failure; E78.00 Pure hypercholesterolemia, unspecified; N17.9 Acute kidney failure, unspecified; D64.9 Anemia, unspecified; I95.9 Hypotension, unspecified; B19.20 Unspecified viral hepatitis C without hepatic coma; K21.9 Gastro-esophageal reflux disease without esophagitis; Z68.21 Body mass index [BMI] 21.0-21.9, adult; J69.0 Pneumonitis due to inhalation of food and vomit; E87.5 Hyperkalemia; I48.0 Paroxysmal atrial fibrillation; R00.1 Bradycardia, unspecified; I35.1 Nonrheumatic aortic (valve) insufficiency; Z22.322 Carrier or suspected carrier of Methicillin resistant Staphylococcus aureus; I34.0 Nonrheumatic mitral (valve) insufficiency; I34.2 Nonrheumatic mitral (valve) stenosis; I27.20 Pulmonary hypertension, unspecified; Z99.81 Dependence on supplemental oxygen; D69.6 Thrombocytopenia, unspecified; Z66 Do not resuscitate
CPT/HCPCS: 31500; 36415; 36600; 71045; 74018; 80048; 80053; 80061; 80150; 80202; 81003; 82248; 82378; 82550; 82607; 82728; 82746; 82803; 82962; 82977; 83036; 83540; 83550; 83605; 83615; 83690; 83735; 83880; 83930; 83935; 84100; 84300; 84443; 84484; 84550; 85007; 85025; 85044; 85060; 85610; 85651; 85730; 86140; 86710; 86850; 86870; 86900; 86901; 86904; 86920; 87040; 87070; 87081; 87181; 87205; 93005; 93306; 94002; 94003; 94640; 94660; 94664; 96365; 96367; 96368; 96375; 99291; J2405; J7030